=== PATIENT | male | born 1935 | race Caucasian/White ===

== ENCOUNTER 2020-03-27 14:15 | Inpatient (IN) | payer MEDICARE ==
[~2020-03-27] VITALS: Ht 167.6 cm; Wt 61.0 kg
[2020-03-27 14:47] VITALS: BP 103/71
[2020-03-27] MEDS ORDERED: METHYL SALICYLATE/MENTHOL TOPICAL OINTMENT 57GM TUBE. TP PRN (15:15)
[2020-03-27] MEDS ORDERED: MAGNESIUM HYDROXIDE 2,400 MG/30 ML ORAL.SUSP. PO PRN (15:15)
[2020-03-27] MEDS ORDERED: ACETAMINOPHEN 325 MG TABLET PO PRN (15:15)
[2020-03-27] MEDS ORDERED: MAG HYDROX/AL HYDROX/SIMETH 30 ML ORAL.SUSP PO PRN (15:15)
[2020-03-27 15:32] VITALS: BP 103/71
--- NOTE | 2020-03-27 15:50 | NUR ---
The patient, PREMA TABOR, 85 y/o, M admitted by KARLA COLE MD, was given written information regarding hospital policies, unit procedures and contact persons. Patient arrived at 1410 from [facility] via their transportation. On arrival, patient appears sedated and his speech is garbled. Nurse placed call to [facility] as they did not call report to this nurse. Nurse spoke with Jodie who stated that they did not give the patient any PRN medications prior to departure. Patient has catheter that was not stat locked to his leg. Patient pulling at catheter. Urine is orange and cloudy. Patient oriented to self, BD and year. He also knew that he wasn't at home. He denies wanting a gun to shoot people. Patient was changed into hospital gown and is laying in bed. He is sleeping with no s/s pain noted. Facility notes indicate that he had not been sleeping well and that he had a fall on 03/23/20. Valuables were checked and belongings were inventoried. COVID 19 swab done and sent to Lab.
[2020-03-27 16:28] LABS: ALBUMIN 2.6 g/dL (3.4-5.0); ALBUMIN/GLOBULIN RATIO 0.8 (1.0-1.7); CALCIUM 8.3 mg/dL (8.5-10.1); CREATININE 1.1 mg/dL (0.7-1.3); GFR 63.8; TOTAL BILIRUBIN 0.8 mg/dL (0.2-1.0)
[2020-03-27 16:57] LABS: BASO % 0 % (0-3); EOS # 0.2 x10^3/uL (0.0-0.7); EOS % 2 % (0-3); HEMOGLOBIN 11.3 g/dL (13.0-17.5); LYMPH # 0.8 x10^3/uL (1.0-4.8); LYMPH % 8 % (24-48); MEAN CORPUSCULAR HEMOGLOBIN 28 pg (25-35); MEAN CORPUSCULAR HGB CONC 32 g/dL (31-37); MEAN CORPUSCULAR VOLUME 88 fL (79-100); MONO # 0.8 x10^3/uL (0.0-1.1); MONO % 8 % (0-9); NEUT # 8.6 x10^3uL (1.8-7.7); NEUT % 83 % (31-73); PLATELET COUNT 271 x10^3/uL (140-400); RED CELL DISTRIBUTION WIDTH 17.1 % (11.5-14.5); WHITE BLOOD COUNT 10.4 x10^3/uL (4.0-11.0)
[2020-03-27] MEDS ORDERED: BISA10SU4 RC (17:04)
[2020-03-27] MEDS ORDERED: LOVA20TA2 PO (17:04)
[2020-03-27] MEDS ORDERED: L.AC300C PO (17:04)
[2020-03-27] MEDS ORDERED: POLY17PO5 PO (17:04)
[2020-03-27] MEDS ORDERED: POTA8TAB PO (17:04)
[2020-03-27] MEDS ORDERED: MENT113O12 TP (17:04)
[2020-03-27] MEDS ORDERED: DUTA0.5C16 PO (17:04)
[2020-03-27] MEDS ORDERED: MELA3TAB4 PO (17:04)
[2020-03-27] MEDS ORDERED: SENN1TAB37 PO (17:04)
[2020-03-27] MEDS ORDERED: CETI10TA16 PO (17:04)
[2020-03-27] MEDS ORDERED: FLUT15.812 NS (17:04)
[2020-03-27] MEDS ORDERED: LORA-254 PO ×2 (17:04)
[2020-03-27] MEDS ORDERED: ASPI-630 PO (17:04)
[2020-03-27] MEDS ORDERED: CARV12.547 PO (17:04)
[2020-03-27] MEDS ORDERED: TRIM100T13 PO (17:04)
[2020-03-27] MEDS ORDERED: BACI1PAC4 TP (17:04)
[2020-03-27] MEDS ORDERED: OMEP20TA8 PO (17:04)
[2020-03-27] MEDS ORDERED: TAMS0.4C97 PO (17:04)
[2020-03-27] MEDS ORDERED: ESCITALOPRAM OX10 MG PO (17:04)
[2020-03-27] MEDS ORDERED: IPRA4AER INH (17:04)
[2020-03-27] MEDS ORDERED: GABA-586 PO (17:04)
[2020-03-27] MEDS ORDERED: PRED1TAB PO (17:04)
[2020-03-27] MEDS ORDERED: ISOS30TA4 PO (17:04)
[2020-03-27] MEDS ORDERED: DOCU100C28 PO (17:04)
[2020-03-27] MEDS ORDERED: FURO20TA3 PO (17:04)
[2020-03-27] MEDS ORDERED: ACET325T9 PO ×2 (17:04)
[2020-03-27] MEDS ORDERED: APIX5TAB3 PO (17:04)
[2020-03-27] MEDS ORDERED: MAGN400O7 PO (17:04)
--- NOTE | 2020-03-27 17:11 | EKG ---
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
[2020-03-27] MEDS ORDERED: LORazepam 1 MG TABLET PO PRN (17:30)
[2020-03-27] MEDS ORDERED: FLU VACC QS 2020-21(6MOS+)/PF 0.5 ML SYRINGE. VAX IM ONE (18:00)
--- NOTE | 2020-03-27 19:28 | NUR ---
patient has been calm, sleeping, no s/s pain noted at this time. Patient has recent history of not sleeping. patient did not eat dinner.
[2020-03-27] MEDS ORDERED: ZINC OXIDE TP PRN (19:30)
[2020-03-27] MEDS ORDERED: BISACODYL 10 MG SUPP.RECT RC PRN (19:30)
[2020-03-27] MEDS ORDERED: POLYETHYLENE GLYCOL 3350 17 GM PACKET. PO PRN (19:30)
[2020-03-27] MEDS ORDERED: DOCUSATE SODIUM 100 MG CAPSULE PO PRN (19:30)
[2020-03-27] MEDS ORDERED: MENTHOL TP PRN (19:30)
[2020-03-27] MEDS: MELATONIN 3 MG TABLET PO SCH (20:30)
[2020-03-27] MEDS: ACETAMINOPHEN 325 MG TABLET PO SCH (20:30)
[2020-03-27] MEDS: APIXABAN 5 MG TABLET. PO SCH (20:31)
[2020-03-27] MEDS: ATORVASTATIN CALCIUM 10 MG TABLET. PO SCH (20:31)
[2020-03-27] MEDS: TAMSULOSIN 0.4 MG CAP.ER.24H. PO SCH (20:31)
[2020-03-27] MEDS: GABAPENTIN 300 MG CAPSULE. PO SCH (20:31)
[2020-03-27] MEDS: LORazepam 0.5 MG TABLET PO SCH (20:37)
[2020-03-27] MEDS: CARVEDILOL 12.5 MG TABLET PO SCH (20:37)
[2020-03-27] MEDS ORDERED: LORazepam 1 MG TABLET PO SCH (21:00)
[2020-03-27] MEDS ORDERED: NON FORMULARY ITEM (Lovastatin 20 MG) PO SCH (21:00)
[2020-03-27 21:26] VITALS: BP 123/78
[2020-03-27] MEDS: IPRATROPIUM/ALBUTEROL 20/100mcg/INH INHALER. INH SCH (21:33)
[2020-03-27] MEDS: FLUTICASONE 50MCG/NASAL SPRAY 16GM BOTTLE. NS SCH (21:33)
[2020-03-27] MEDS: BACITRACIN ZINC TOPICAL OINT PACKET. TP SCH (21:34)
--- NOTE | 2020-03-27 22:13 | PDOC ---
Exam Note: Ernesto Note: Please also refer to the separate dictated note~for this date of service dictated separately.~Patient seen individually. Discussed the patient with Nursing staff reviewed the chart.~Reviewed interim history and current functioning. Reviewed vital signs,~Labs/ Radiology~and current medications noted below. Continue current treatment with the changes noted in the dictated addendum note Assessment: Vital Signs/I&O: Vital Signs Date Time Temp Pulse Resp B/P (MAP) Pulse Ox O2 Delivery O2 Flow Rate FiO2 03/27/20 21:26 97.6 69 18 123/78 (93) 96 Nasal Cannula 3.0 Labs: Laboratory Tests Test 03/27/20 15:10 03/27/20 15:55 Sodium Level 134 mmol/L (136-145) L Potassium Level 4.0 mmol/L (3.5-5.1) Chloride Level 99 mmol/L (98-107) Carbon Dioxide Level 30 mmol/L (21-32) Anion Gap 5 (6-14) L Blood Urea Nitrogen 12 mg/dL (8-26) Creatinine 1.1 mg/dL (0.7-1.3) Estimated GFR (Cockcroft-Gault) 63.8 BUN/Creatinine Ratio 11 (6-20) Glucose Level 150 mg/dL (70-99) H Calcium Level 8.3 mg/dL (8.5-10.1) L Magnesium Level 2.0 mg/dL (1.8-2.4) Total Bilirubin 0.8 mg/dL (0.2-1.0) Aspartate Amino Transferase (AST) 10 U/L (15-37) L Alanine Aminotransferase (ALT) 9 U/L (16-63) L Alkaline Phosphatase 72 U/L (46-116) Total Protein 6.0 g/dL (6.4-8.2) L Albumin 2.6 g/dL (3.4-5.0) L Albumin/Globulin Ratio 0.8 (1.0-1.7) L White Blood Count 10.4 x10^3/uL (4.0-11.0) Red Blood Count 4.00 x10^6/uL (4.30-5.70) L Hemoglobin 11.3 g/dL (13.0-17.5) L Hematocrit 35.0 % (39.0-53.0) L Mean Corpuscular Volume 88 fL (79-100) Mean Corpuscular Hemoglobin 28 pg (25-35) Mean Corpuscular Hemoglobin Concent 32 g/dL (31-37) Red Cell Distribution Width 17.1 % (11.5-14.5) H Platelet Count 271 x10^3/uL (140-400) Neutrophils (%) (Auto) 83 % (31-73) H Lymphocytes (%) (Auto) 8 % (24-48) L Monocytes (%) (Auto) 8 % (0-9) Eosinophils (%) (Auto) 2 % (0-3) Basophils (%) (Auto) 0 % (0-3) Neutrophils # (Auto) 8.6 x10^3uL (1.8-7.7) H Lymphocytes # (Auto) 0.8 x10^3/uL (1.0-4.8) L Monocytes # (Auto) 0.8 x10^3/uL (0.0-1.1) Eosinophils # (Auto) 0.2 x10^3/uL (0.0-0.7) Basophils # (Auto) 0.0 x10^3/uL (0.0-0.2) D-Dimer (Yolanda) 0.50 mg/L (0.00-0.50) Current Medications: Meds: Current Medications Medications (Trade) Dose Ordered Sig/Ralph Route PRN Reason Start Time Stop Time Status Last Admin Dose Admin Influenza Virus Vaccine Quadrival (Fluzone Quad 7416-4502 Syringe) 0.5 ml ONCE ONCE VAX IM 03/27/20 18:00 03/27/20 18:01 DC 03/27/20 19:43 Gabapentin (Neurontin) 300 mg TID PO 03/27/20 21:00 03/27/20 20:31 Melatonin (Melatonin) 6 mg QHS PO 03/27/20 21:00 03/27/20 20:30 Lorazepam (Ativan) 0.5 mg TID PO 03/27/20 21:00 03/30/20 22:00 03/27/20 20:37 Acetaminophen (Tylenol) 650 mg BID PO 03/27/20 21:00 03/27/20 20:30 Apixaban (Eliquis) 5 mg BID PO 03/27/20 21:00 10/8/20 20:31 Carvedilol (Coreg) 12.5 mg BIDWMEALS PO 03/27/20 21:00 03/27/20 20:37 Tamsulosin HCl (Flomax) 0.4 mg HS PO 03/27/20 21:00 03/27/20 20:31 Bacitracin (Bacitracin Topical Pkt) 1 pkt BID TP 03/27/20 21:00 03/27/20 21:34 Fluticasone Propionate (Flonase) 1 spray HS NS 03/27/20 21:00 03/27/20 21:33 Albuterol/ Ipratropium (Combivent Respimat 20-100 Mcg) 2 puff RTBID INH 03/27/20 20:00 03/27/20 21:33 Atorvastatin Calcium (Lipitor) 5 mg QHS PO 03/27/20 21:00 03/27/20 20:31 I have reviewed the current psychotropics carefully including drug interactions. Risk benefit ratio favors no change other than as noted in my dictated progress note. Diagnosis: Problems: (1) COVID-19 ruled out SKYE GALVAN MD Mar 27, 2020 22:13
[2020-03-28 00:06] LABS: THYROXINE 5.7 ug/dL (4.5-12.0)
[2020-03-28 03:07] LABS: HEMOGLOBIN A1C 5.5 % (4.8-5.6)
--- NOTE | 2020-03-28 04:30 | NUR ---
Nursing Note The patient was located in his room laying in bed when approached by this nurse for his assessment. the patient was alert and oriented to self, hospital and year. The patient was calm and cooperative but drowsy. The patients catheter was noted to be pulling on his penis and the patient stated that it was very uncomfortable. Stat lock was changed. The patient is currently sleeping in his room.
[2020-03-28 05:42] VITALS: BP 142/84
[2020-03-28 07:08] LABS: BILIRUBIN,URINE NEG (NEG); CLARITY,URINE CLOUDY; COLOR,URINE YELLOW; GLUCOSE,URINE NEG (NEG); NITRITE,URINE POS (NEG)
[2020-03-28 07:09] LABS: BACTERIA,URINE MANY /HPF (0-FEW); RBC,URINE 20-40 /HPF (0-2); SQUAMOUS EPITHELIAL CELL,UR OCC /LPF; WBC,URINE 20-40 /HPF (0-4)
[2020-03-28 09:00] VITALS: BP 124/70
[2020-03-28] MEDS: TRIMETHOPRIM 100 MG TABLET PO SCH (09:00)
[2020-03-28 09:59] VITALS: BP 124/70
[2020-03-28] MEDS: LORazepam 0.5 MG TABLET PO SCH ×3 (11:00→20:30)
[2020-03-28] MEDS: GABAPENTIN 300 MG CAPSULE. PO SCH ×3 (11:01→20:30)
[2020-03-28] MEDS: FUROSEMIDE 20 MG TABLET PO SCH (11:01)
[2020-03-28] MEDS: ACETAMINOPHEN 325 MG TABLET PO SCH ×2 (11:01→20:30)
[2020-03-28] MEDS: CITALOPRAM 20 MG TABLET. PO SCH (11:01)
[2020-03-28] MEDS: POTASSIUM CHLORIDE 10 MEQ TABLET.ER. PO SCH (11:01)
[2020-03-28] MEDS: CETIRIZINE HCL 10 MG TABLET PO SCH (11:01)
[2020-03-28] MEDS: DUTASTERIDE 0.5 MG CAPSULE PO SCH (11:01)
[2020-03-28] MEDS: APIXABAN 5 MG TABLET. PO SCH ×2 (11:01→20:30)
[2020-03-28] MEDS: CARVEDILOL 12.5 MG TABLET PO SCH ×2 (11:01→17:09)
[2020-03-28] MEDS: ASPIRIN CHEWABLE 81 MG TABLET. PO SCH (11:02)
[2020-03-28] MEDS: BACITRACIN ZINC TOPICAL OINT PACKET. TP SCH ×2 (11:02→20:31)
[2020-03-28] MEDS: LACTOBACILLUS RHAMNOSUS GG 1 CAPSULE. PO SCH ×2 (11:02→20:30)
[2020-03-28] MEDS: ISOSORBIDE MONONITRATE ER 30 MG TAB.ER.24H PO SCH (11:02)
[2020-03-28] MEDS: PANTOPRAZOLE 40 MG TABLET. PO SCH (11:02)
[2020-03-28] MEDS: predniSONE 1 MG TABLET PO SCH (11:04)
[2020-03-28] MEDS: IPRATROPIUM/ALBUTEROL 20/100mcg/INH INHALER. INH SCH ×2 (11:04→20:00)
--- NOTE | 2020-03-28 13:18 | NUR ---
Nursing note: Pt in his bed when approached for morning med pass and assessment. He was calm and compliant with meds floated in applesauce. Pt was very appreciative of receiving a bed bath this morning. He has intermittently been dozing off throughout this shift, but is currently laying in bed awake. Will continue to monitor.
[2020-03-28 14:39] VITALS: BP 105/67
--- NOTE | 2020-03-28 17:28 | NUR ---
NURSING NOTE THIS NURSE TOOK REPORT FROM YANA MAHMOOD AND WILL TAKE OVER CARE. ELA MOSER
[2020-03-28 18:35] LABS: THYROID STIM HORMONE (TSH) 0.549 uIU/mL (0.358-3.740)
[2020-03-28] MEDS: ATORVASTATIN CALCIUM 10 MG TABLET. PO SCH (20:30)
[2020-03-28] MEDS: TAMSULOSIN 0.4 MG CAP.ER.24H. PO SCH (20:30)
[2020-03-28] MEDS: MELATONIN 3 MG TABLET PO SCH (20:30)
[2020-03-28] MEDS: FLUTICASONE 50MCG/NASAL SPRAY 16GM BOTTLE. NS SCH (20:31)
--- NOTE | 2020-03-28 21:47 | RAD ---
Exam: Chest one view INDICATION: Worsening shortness of breath, possible aspiration pneumonia TECHNIQUE: Frontal view of the chest Comparisons: None FINDINGS: Sternotomy wires are noted. Replaced cardiac valve is seen. Heart is enlarged. Pulmonary vessels are within normal limits. The lung and pleural spaces are clear. IMPRESSION: No acute pulmonary process. Electronically signed by: Sandip Phillip MD (03/28/2020 9:44 PM) SIS
--- NOTE | 2020-03-28 22:02 | PDOC ---
Exam Note: Ernesto Note: Please also refer to the separate dictated note~for this date of service dictated separately.~Patient seen individually. Discussed the patient with Nursing staff reviewed the chart.~Reviewed interim history and current functioning. Reviewed vital signs,~Labs/ Radiology~and current medications noted below. Continue current treatment with the changes noted in the dictated addendum note Assessment: Vital Signs/I&O: Vital Signs Date Time Temp Pulse Resp B/P (MAP) Pulse Ox O2 Delivery O2 Flow Rate FiO2 03/28/20 17:09 72 105/67 03/28/20 14:39 98.2 18 96 Room Air 03/28/20 09:59 2.0 I & O 03/27/20 03/27/20 03/28/20 15:00 23:00 07:00 Intake Total 0 ml 200 ml Output Total 300 ml Balance -300 ml 200 ml Labs: Laboratory Tests Test 03/28/20 05:30 Urine Collection Type Unknown Urine Color Yellow Urine Clarity Cloudy Urine pH 5.5 Urine Specific [place] 1.020 Urine Protein Neg (NEG-TRACE) Urine Glucose (UA) Neg mg/dL (NEG) Urine Ketones (Stick) Neg mg/dL (NEG) Urine Blood Large (NEG) Urine Nitrite Pos (NEG) Urine Bilirubin Neg (NEG) Urine Urobilinogen Dipstick 2.0 mg/dL (0.2 mg/dL) Urine Leukocyte Esterase Mod (NEG) Urine RBC 20-40 /HPF (0-2) Urine WBC 20-40 /HPF (0-4) Urine Squamous Epithelial Cells Occ /LPF Urine Bacteria Many /HPF (0-FEW) Current Medications: Meds: Current Medications Medications (Trade) Dose Ordered Sig/Ralph Route PRN Reason Start Time Stop Time Status Last Admin Dose Admin Citalopram Hydrobromide (CeleXA) 20 mg DAILY PO 03/28/20 09:00 03/28/20 11:01 Aspirin (Aspirin Chewable) 81 mg DAILY PO 03/28/20 09:00 03/28/20 11:02 Cetirizine HCl (ZyrTEC) 10 mg DAILY PO 03/28/20 09:00 03/28/20 11:01 Dutasteride (Avodart) 0.5 mg DAILY PO 03/28/20 09:00 03/28/20 11:01 Furosemide (Lasix) 20 mg DAILY PO 03/28/20 09:00 03/28/20 11:01 Isosorbide Mononitrate (Imdur) 30 mg DAILY PO 03/28/20 09:00 03/28/20 11:02 Prednisone (Prednisone) 4 mg DAILY PO 03/28/20 09:00 03/28/20 11:04 Lactobacillus Rhamnosus (Culturelle) 1 cap BID PO 03/28/20 09:00 03/28/20 20:30 Pantoprazole Sodium (Protonix) 40 mg DAILY PO 03/28/20 09:00 03/28/20 11:02 Potassium Chloride (Klor-Con) 10 meq DAILY PO 03/28/20 09:00 03/28/20 11:01 I have reviewed the current psychotropics carefully including drug interactions. Risk benefit ratio favors no change other than as noted in my dictated progress note. Diagnosis: Problems: (1) COVID-19 ruled out SKYE GALVAN MD Mar 28, 2020 22:02
--- NOTE | 2020-03-28 23:14 | CONS ---
DATE OF CONSULTATION: 03/27/2020 PSYCHIATRIC CONSULTATION This late entry 03/27/2020 covers elements not covered in my initial note of 03/27/2020. IDENTIFYING DATA: The patient is an 85-year-old male, referred to us from [facility] by his primary care physician on account of worsening symptoms of depression, agitation. The patient reportedly was voicing suicidal ideation, had auditory hallucinations. He had reportedly poor judgment, was having repeated falls, was delusional, thinking that his peer was having an affair with his . He was threatening to harm the peer, agitated, restless, hitting staff, yelling, cursing, name calling, having marked insomnia. He was recently treated for UTI 3 weeks ago. The patient's behaviors were deemed dangerous, unmanageable. He is also more confused, had failed outpatient psychiatric interventions resulting in this referral. I had previously discussed the patient with Mary Jo Qiu, administrative project coordinator as well. CHIEF COMPLAINT: "No." The patient is not very verbal, interactive. HISTORY OF PRESENT ILLNESS: The patient has a history of worsening symptoms of depression and confusion. He has been paranoid, psychotic, agitated, aggressive, with marked mood lability. No clear history of bipolar disorder. PAST PSYCHIATRIC HISTORY: As above. MEDICAL HISTORY: Positive for history of pulmonary embolism, cognitive communication deficit, hypospadias, hyperlipidemia, hypertension, coronary artery bypass graft, acute embolism of lower extremity, COPD, osteoarthritis, muscle weakness, osteoporosis, obstructive reflux uropathy, BPH, edema, history of falls. ACCU-CHEKS: None. ALLERGIES: CODEINE, TRAMADOL, HYDROCODONE, PHENYLEPHRINE. CODE STATUS: DNR. DIET: Cut meat/cardiac. Ambulates with wheelchair and 2% assist. CURRENT PSYCHOTROPICS: Neurontin 300 mg t.i.d., Lexapro 10 mg a day, Ativan 1 mg b.i.d. plus p.r.n., melatonin 6 mg at bedtime. FAMILY HISTORY: Noncontributory. SOCIAL HISTORY: No history of alcohol, drug abuse, physical, sexual or elder abuse. He is not known to be a perpetrator. REACTION TO HOSPITALIZATION: The patient accepting of it. MENTAL STATUS EXAMINATION: The patient was seen individually evening of 03/27/2020. He is oriented to himself, not very verbal, interactive, appears depressed, paranoid, suspicious. Attention span short period of time. He seemed sedated and we will go ahead and taper the Ativan down to 0.5 mg t.i.d. for 3 days, then b.i.d. for 3 days, once a day for 3 days and stop it. We are also checking UA for UTI and this has reflex to culture. Attention span short. Language function intact. Mood and affect depressed. IMPRESSION: Major depressive disorder with psychotic features rule out major neurocognitive disorder, vascular with depression, delusions, impulse control disorder; anxiety disorder, unspecified. Rest as above. RECOMMENDATIONS: From a psychiatric standpoint, taper the Ativan. Await UA, C and S. Continue rest of the psychotropics per Dr. Demarco. Thank you for the opportunity to participate in your patient's care. We will follow with you. We will transition to [facility] once the COVID screen returns negative. He was initially to be admitted to the [facility], but given the COVID exposure, he is being admitted to fdc unit until a repeat COVID is negative and then he will transition to [facility]. SKYE GAVLAN MD DR: STEPHEN/ivania JOB#: [id number] / [id number]
--- NOTE | 2020-03-28 23:54 | NUR ---
Pt has been laying in bed all evening. Pt drowsy, awakens to name. Pt noted to have moist cough. CXR ordered. Results negative. HS medications held d/t pt's excessive drowsiness. Will continue to monitor.
--- NOTE | 2020-03-29 00:18 | NUR ---
Pt awake now and hollering out. Pt calling out for "mom" and "dad." Pt able to state that he [facility] at a [facility] in [place], his age, the president and the year. HS medications administered at this time. Will continue to monitor.
[2020-03-29 06:34] VITALS: BP 144/80
--- NOTE | 2020-03-29 07:09 | PDOC ---
Exam Note: Ernesto Note: This note is a late entry for 03/28/2020 covers elements not covered in my initial note. Subjective: The patient was reviewed on telehealth rounds in the evening of 03/28/2020 with Saima MAHMOOD. Discussed with nursing staff, reviewed the chart. He has been somewhat sedated with possible aspiration risk despite the fact that we had tapering his Ativan. UA is reflex to C&S. Review of Systems: Ambulation impaired. No CV, , pulmonary, eye system symptoms on review. Mental Status Exam: Oriented to himself. He was not very verbal earlier. Insight and judgment, recent memory is impaired. Mood and affect is withdrawn. Laboratory Data: Reviewed. Impression: Major depressive disorder with psychotic features. 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 Plan: Await UA C&S and treat as indicated. Taper the Ativan. Continue Lexapro 10 mg a day, melatonin 6 mg h.s. He also remains on Neurontin 300 mg t.i.d. Adjust further as clinically indicated. Assessment: Vital Signs/I&O: Vital Signs Date Time Temp Pulse Resp B/P (MAP) Pulse Ox O2 Delivery O2 Flow Rate FiO2 03/29/20 06:34 97.4 66 16 144/80 (101) 94 Room Air 03/28/20 20:00 3.0 I & O 03/28/20 03/28/20 03/29/20 15:00 23:00 07:00 Intake Total 1180 ml 580 ml 0 ml Output Total 900 ml 375 ml Balance 1180 ml -320 ml -375 ml Current Medications: Meds: Current Medications Medications (Trade) Dose Ordered Sig/Ralph Route PRN Reason Start Time Stop Time Status Last Admin Dose Admin Citalopram Hydrobromide (CeleXA) 20 mg DAILY PO 03/28/20 09:00 03/28/20 11:01 Aspirin (Aspirin Chewable) 81 mg DAILY PO 03/28/20 09:00 03/28/20 11:02 Cetirizine HCl (ZyrTEC) 10 mg DAILY PO 03/28/20 09:00 03/28/20 11:01 Dutasteride (Avodart) 0.5 mg DAILY PO 03/28/20 09:00 03/28/20 11:01 Furosemide (Lasix) 20 mg DAILY PO 03/28/20 09:00 03/28/20 11:01 Isosorbide Mononitrate (Imdur) 30 mg DAILY PO 03/28/20 09:00 03/28/20 11:02 Prednisone (Prednisone) 4 mg DAILY PO 03/28/20 09:00 03/28/20 11:04 Lactobacillus Rhamnosus (Culturelle) 1 cap BID PO 03/28/20 09:00 03/28/20 20:30 Pantoprazole Sodium (Protonix) 40 mg DAILY PO 03/28/20 09:00 03/28/20 11:02 Potassium Chloride (Klor-Con) 10 meq DAILY PO 03/28/20 09:00 03/28/20 11:01 I have reviewed the current psychotropics carefully including drug interactions. Risk benefit ratio favors no change other than as noted in my dictated progress note. Diagnosis: Problems: (1) Major depressive disorder with psychotic features (2) Mild cognitive impairment with memory loss (3) Major neurocognitive disorder (4) Dementia in Alzheimer's disease with delusions (5) Dementia in Alzheimer's disease with depression (6) Dementia, vascular, with delusions (7) Dementia, vascular, with depression SKYE GALVAN MD Mar 29, 2020 07:09
[2020-03-29] MEDS: IPRATROPIUM/ALBUTEROL 20/100mcg/INH INHALER. INH SCH ×2 (09:15→20:16)
[2020-03-29] MEDS: SENNOSIDES/DOCUSATE 8.6/50MG TABLET. PO SCH (09:16)
[2020-03-29] MEDS: APIXABAN 5 MG TABLET. PO SCH ×2 (09:16→20:12)
[2020-03-29] MEDS: TRIMETHOPRIM 100 MG TABLET PO SCH (09:16)
[2020-03-29] MEDS: ISOSORBIDE MONONITRATE ER 30 MG TAB.ER.24H PO SCH (09:17)
[2020-03-29] MEDS: LACTOBACILLUS RHAMNOSUS GG 1 CAPSULE. PO SCH ×2 (09:17→20:12)
[2020-03-29] MEDS: ACETAMINOPHEN 325 MG TABLET PO SCH ×2 (09:17→20:12)
[2020-03-29] MEDS: predniSONE 1 MG TABLET PO SCH (09:17)
[2020-03-29] MEDS: DUTASTERIDE 0.5 MG CAPSULE PO SCH (09:17)
[2020-03-29] MEDS: CETIRIZINE HCL 10 MG TABLET PO SCH (09:17)
[2020-03-29] MEDS: PANTOPRAZOLE 40 MG TABLET. PO SCH (09:17)
[2020-03-29] MEDS: CARVEDILOL 12.5 MG TABLET PO SCH ×2 (09:18→15:59)
[2020-03-29] MEDS: FUROSEMIDE 20 MG TABLET PO SCH (09:18)
[2020-03-29] MEDS: BACITRACIN ZINC TOPICAL OINT PACKET. TP SCH ×2 (09:18→20:16)
[2020-03-29] MEDS: CITALOPRAM 20 MG TABLET. PO SCH (09:18)
[2020-03-29] MEDS: ASPIRIN CHEWABLE 81 MG TABLET. PO SCH (09:18)
[2020-03-29] MEDS: POTASSIUM CHLORIDE 10 MEQ TABLET.ER. PO SCH (09:18)
[2020-03-29] MEDS: GABAPENTIN 300 MG CAPSULE. PO SCH ×3 (09:18→20:15)
[2020-03-29] MEDS: LORazepam 0.5 MG TABLET PO SCH ×3 (09:22→20:15)
--- NOTE | 2020-03-29 10:16 | NUR ---
Patient states he will like to go home. Patients also yells this out of his room. Patient complains of tenderness around albert. Ointment placed around albert and bad adjusted not to tug on albert. Patient compliant with medication and assessment and was readjusted in bed.
[2020-03-29 18:47] VITALS: BP 161/89
--- NOTE | 2020-03-29 19:35 | HP ---
ADMIT DATE: HISTORY OF PRESENT ILLNESS: The patient is an 85-year-old male patient, a resident at [facility] who was admitted to [facility] 48-hour hold to make sure that he is COVID-19 negative. He was admitted on account of having suicidal ideation, auditory hallucination, poor judgment, falls, delusional thinking that peer is having an affair with his . The patient has been threatening to harm peer, agitated, restless, hitting staff, yelling, cursing, name calling and insomnia. He was treated recently for UTI about 3 weeks ago and all this in a background of major depressive disorder with impulse control disorder. PAST MEDICAL HISTORY: Significant for hypertension, hyperlipidemia, pulmonary embolism and DVT, COPD, osteoarthritis, muscle weakness, osteoporosis, has also obstructive uropathy due to benign prostatic hypertrophy. PAST SURGICAL HISTORY: Significant for coronary artery bypass graft surgery. ALLERGIES: HE IS ALLERGIC TO CODEINE, HYDROCODONE, PHENYLEPHRINE, AND TRAMADOL. MEDICATIONS: He is currently on following medications: He is on lorazepam 0.5 mg daily and lorazepam 0.5 mg twice a day, Senna-S 1 tablet every other day, potassium chloride 10 mEq daily, Protonix 40 mg daily, lactobacillus rhamnosus 1 capsule twice a day, trimethoprim 100 mg daily, prednisone 4 mg daily, isosorbide mononitrate 30 mg daily, furosemide 20 mg daily. He is on Avodart 0.5 mg daily, cetirizine for Zyrtec 10 mg daily, aspirin 81 mg once a day, citalopram hydrobromide for Celexa 20 mg daily, atorvastatin calcium 5 mg at bedtime, Flonase 1 spray to each nostril daily, bacitracin 1 packet b.i.d., tamsulosin 0.4 mg at bedtime, carvedilol 12.5 mg twice a day, apixaban 5 mg twice a day, acetaminophen 650 mg twice a day, lorazepam 0.5 mg 3 times a day, melatonin 6 mg at bedtime, gabapentin 300 mg 3 times a day, albuterol and Atrovent 2 puffs twice a day, polyethylene glycol 17 grams daily, Colace 100 mg twice a day, bisacodyl 10 mg suppositories rectally daily p.r.n. for constipation, milk of magnesia 30 mL p.o. daily p.r.n. for constipation, Mylanta Plus 15 mL after meals and as needed, acetaminophen 650 mg every 6 hours. FAMILY HISTORY: Noncontributory. SOCIAL HISTORY: He apparently is , has a son and daughter. He quit smoking and drinking alcohol 55 years ago, according to him. 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 REVIEW OF SYSTEMS: As per history of present illness. PHYSICAL EXAMINATION GENERAL: When I examined him this afternoon, he was resting slightly propped up in bed, in no apparent distress. He is somewhat pale, cachectic, no jaundice or cyanosis. No lymphadenopathy, no thyromegaly. No jugular venous distention. No limb edema. VITAL SIGNS: Her heart rate was 66, blood pressure was 144/80, temperature was 97.4, respiratory rate was 16, and oxygen saturation was 94% on 3 liters of oxygen. HEAD, EYES, EARS, NOSE AND THROAT: Showed normocephalic, atraumatic. NECK: Supple. HEART: Normal first and second heart sounds. No gallop, rub or murmur. CHEST: Clear to auscultation. No crepitation or rhonchi. ABDOMEN: Scaphoid, soft, nontender. NEUROLOGIC: He is awake, alert, responding appropriately. All cranial nerves intact. EXTREMITIES: He moves extremities without difficulty, though he has marked muscle wasting and weakness. He has an indwelling Terrazas catheter with resultant acquired hypospadias. His urine is dark. LABORATORY DATA: His lab work showed his white cell count to be 10,400, hemoglobin 11, hematocrit 35, MCV 88 and platelet count 271,000 with normal manual differential. His D-dimer was 0.5 and his chemistry showed a serum sodium 134, potassium 4, chloride 99, bicarbonate 30, anion gap of 5, BUN 12, creatinine 1.1, estimated GFR was 64 mL per minute, his glucose 150, calcium was 8.3, magnesium 2. Total bilirubin, AST, ALT, alkaline phosphatase were normal. Total protein 6, albumin was 2.6. His serum iron, TIBC and iron saturation were all low. His serum triglycerides were 142, total cholesterol 117, LDL was 36, VLDL was 28, HDL was 53 and the ratio was 2. His vitamin B12 was 474 pg/mL. His 25-hydroxy vitamin D was low at 24.7. TSH was 0.549, total T4 was 5.7 and total T3 was 69, all within normal range. His urinalysis showed the urine was yellow, cloudy with a pH of 5.5, specific gravity of 1.020. The urine was negative for protein, glucose, ketones. There was large amount of blood, positive for nitrite, moderate amount of leukocyte esterase. There were 20-40 rbc's, 20-40 wbc's, many bacteria. His treponema pallidum antibodies were nonreactive and coronavirus per PCR was not detected. IMPRESSION: In summary, this is an 85-year-old male patient who was admitted on account of suicidal ideation, auditory hallucination, delusional thinking, poor judgment and recurrent falls. He thinks that his peer is having affair with his and threatening to harm peer, agitated, restless, hitting staff, yelling, cursing, name calling. He was treated recently for UTI about 3 weeks ago, all this in a background of major depressive disorder with impulse control disorder. Medically, he has hypertension, hyperlipidemia, DVT and PE, COPD, osteoarthritis, osteoporosis, benign prostatic hypertrophy with obstructive neuropathy. The patient seems to be medically stable. All his vital signs are within normal range. His lab works are also within acceptable range. He has normochromic normocytic anemia. His vitamin D is low at 24, so I will start him on cholecalciferol. His urine was sent for culture and sensitivity and has remained hemodynamically stable, afebrile. I would wait for the result of the urine culture. Meanwhile, we should monitor his urine output closely and if necessary, we can start him on IV fluid. KARLA COLE MD DR: RONALD/ivania JOB#: [id number] / [id number]
[2020-03-29] MEDS: ATORVASTATIN CALCIUM 10 MG TABLET. PO SCH (20:12)
[2020-03-29] MEDS: TAMSULOSIN 0.4 MG CAP.ER.24H. PO SCH (20:12)
[2020-03-29] MEDS: MELATONIN 3 MG TABLET PO SCH (20:15)
[2020-03-29] MEDS: FLUTICASONE 50MCG/NASAL SPRAY 16GM BOTTLE. NS SCH (20:16)
--- NOTE | 2020-03-29 22:11 | PDOC ---
Exam Note: Ernesto Note: Please also refer to the separate dictated note~for this date of service dictated separately.~Patient seen individually. Discussed the patient with Nursing staff reviewed the chart.~Reviewed interim history and current functioning. Reviewed vital signs,~Labs/ Radiology~and current medications noted below. Continue current treatment with the changes noted in the dictated addendum note Assessment: Vital Signs/I&O: Vital Signs Date Time Temp Pulse Resp B/P (MAP) Pulse Ox O2 Delivery O2 Flow Rate FiO2 03/29/20 20:00 Nasal Cannula 3.0 03/29/20 18:47 97.9 74 20 161/89 (113) 96 I & O 03/28/20 03/28/20 03/29/20 15:00 23:00 07:00 Intake Total 1180 ml 580 ml 0 ml Output Total 900 ml 375 ml Balance 1180 ml -320 ml -375 ml Current Medications: Meds: Current Medications Medications (Trade) Dose Ordered Sig/Ralph Route PRN Reason Start Time Stop Time Status Last Admin Dose Admin Senna/Docusate Sodium (Senna Plus) 1 tab QODAY PO 03/29/20 09:00 03/29/20 09:16 I have reviewed the current psychotropics carefully including drug interactions. Risk benefit ratio favors no change other than as noted in my dictated progress note. Diagnosis: Problems: (1) Mild cognitive impairment with memory loss (2) Dementia, vascular, with depression (3) Dementia, vascular, with delusions (4) Dementia in Alzheimer's disease with depression (5) Dementia in Alzheimer's disease with delusions (6) Major neurocognitive disorder (7) Major depressive disorder with psychotic features SKYE GALVAN MD Mar 29, 2020 22:11
--- NOTE | 2020-03-29 22:30 | NUR ---
Pt has been asleep all evening until this time. Pt woke up yelling out looking for his . Pt states that she is probably out doing drugs and that he needs to divorce her even though they've been for 65 years. Pt compliant with whole medications floated in applesauce; however very irritable and threatened to throw his cup of water on this RN. Pt currently awake in bed hollering out intermittently. Will continue to monitor.
--- NOTE | 2020-03-29 23:27 | PDOC ---
Exam Note: Ernesto Note: This note for 03/29/2020 covers elements not covered in my initial note. Subjective: The patient was reviewed on telehealth rounds in the morning of 03/29/2020 with Filiberto MAHMOOD. Discussed with nursing staff, reviewed the chart. Overall the patient has been somewhat anxious, restless and at times seems, less confused than other times. Review of Systems: Ambulation impaired. No CV, , pulmonary, eye system symptoms on review. Mental Status Exam: Oriented to himself. Insight and judgment, recent and remote memory, attention and concentration, fund of knowledge is poor consistent with his diagnoses. Laboratory Data: Reviewed. Impression: Major depressive disorder with psychotic features. 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 Plan: No change from initial note. Assessment: Vital Signs/I&O: Vital Signs Date Time Temp Pulse Resp B/P (MAP) Pulse Ox O2 Delivery O2 Flow Rate FiO2 03/29/20 20:00 Nasal Cannula 3.0 03/29/20 18:47 97.9 74 20 161/89 (113) 96 I & O 03/28/20 03/28/20 03/29/20 15:00 23:00 07:00 Intake Total 1180 ml 580 ml 0 ml Output Total 900 ml 375 ml Balance 1180 ml -320 ml -375 ml Current Medications: Meds: Current Medications Medications (Trade) Dose Ordered Sig/Ralph Route PRN Reason Start Time Stop Time Status Last Admin Dose Admin Senna/Docusate Sodium (Senna Plus) 1 tab QODAY PO 03/29/20 09:00 03/29/20 09:16 I have reviewed the current psychotropics carefully including drug interactions. Risk benefit ratio favors no change other than as noted in my dictated progress note. Diagnosis: Problems: (1) Mild cognitive impairment with memory loss (2) Dementia, vascular, with depression (3) Dementia, vascular, with delusions (4) Dementia in Alzheimer's disease with depression (5) Dementia in Alzheimer's disease with delusions (6) Major neurocognitive disorder (7) Major depressive disorder with psychotic features (8) COVID-19 ruled out SKYE GALVAN MD Mar 29, 2020 23:27
[2020-03-30 06:24] VITALS: BP 127/65
[2020-03-30] MEDS: predniSONE 1 MG TABLET PO SCH (08:01)
[2020-03-30] MEDS: TRIMETHOPRIM 100 MG TABLET PO SCH (08:01)
[2020-03-30] MEDS: IPRATROPIUM/ALBUTEROL 20/100mcg/INH INHALER. INH SCH ×2 (08:01→20:01)
[2020-03-30] MEDS: CETIRIZINE HCL 10 MG TABLET PO SCH (08:01)
[2020-03-30] MEDS: GABAPENTIN 300 MG CAPSULE. PO SCH ×3 (08:02→19:54)
[2020-03-30] MEDS: PANTOPRAZOLE 40 MG TABLET. PO SCH (08:02)
[2020-03-30] MEDS: FUROSEMIDE 20 MG TABLET PO SCH (08:02)
[2020-03-30] MEDS: LORazepam 0.5 MG TABLET PO SCH ×3 (08:02→19:54)
[2020-03-30] MEDS: ACETAMINOPHEN 325 MG TABLET PO SCH ×2 (08:02→19:55)
[2020-03-30] MEDS: ISOSORBIDE MONONITRATE ER 30 MG TAB.ER.24H PO SCH (08:02)
[2020-03-30] MEDS: LACTOBACILLUS RHAMNOSUS GG 1 CAPSULE. PO SCH ×2 (08:02→19:54)
[2020-03-30] MEDS: ASPIRIN CHEWABLE 81 MG TABLET. PO SCH (08:02)
[2020-03-30] MEDS: BACITRACIN ZINC TOPICAL OINT PACKET. TP SCH ×2 (08:02→20:01)
[2020-03-30] MEDS: CARVEDILOL 12.5 MG TABLET PO SCH ×2 (08:03→16:50)
[2020-03-30] MEDS: APIXABAN 5 MG TABLET. PO SCH ×2 (08:03→19:55)
[2020-03-30] MEDS: POTASSIUM CHLORIDE 10 MEQ TABLET.ER. PO SCH (08:03)
[2020-03-30] MEDS: CITALOPRAM 20 MG TABLET. PO SCH (08:03)
[2020-03-30] MEDS: DUTASTERIDE 0.5 MG CAPSULE PO SCH (08:04)
--- NOTE | 2020-03-30 08:51 | NUR ---
Patient calm this morning andcomplaint with assessment. Patient currently has no needs and is eager to speak with later.
[2020-03-30 16:16] VITALS: BP 110/67
--- NOTE | 2020-03-30 19:47 | PN ---
DATE: 03/30/2020 SUBJECTIVE: The patient is resting, slightly propped up in bed, in no apparent respiratory distress. He is awake, alert, somewhat confused. Denied any complaint. His urine culture has grown more than 100,000 colony forming units per mL of gram-negative rods identified as Escherichia coli, sensitive to multiple antibiotics. PHYSICAL EXAMINATION: GENERAL: When I examined him, he looked pale, no jaundice, cyanosis or thyromegaly. No jugular venous distention. No limb edema. VITAL SIGNS: His heart rate was 65, blood pressure was 127/65, temperature 97.8, respiratory rate was 14 and oxygen saturation was 97% on 3 liters of oxygen. HEAD, EYES, EARS, NOSE AND THROAT: Showed normocephalic, atraumatic. NECK: Supple. HEART: Normal first and second heart sounds. No gallop or murmur. CHEST: Showed central trachea, equal bilateral chest expansion air entry, vesicular sounds. No crepitation or rhonchi. ABDOMEN: Distended, soft, nontender. NEUROLOGIC: He is demented, but without any obvious lateralizing sign. He has an indwelling Terrazas catheter. LABORATORY DATA: His intake over the last 24 hours was 1760, output was 1275. His treponema pallidum antibodies were nonreactive. Coronavirus by PCR was not detected. His urine culture has grown more than 100,000 colony forming units per mL of gram-negative rods, sensitive to all antibiotics. ASSESSMENT AND PLAN: The patient has urinary tract infection due to probably indwelling Terrazas catheter with growth of more than 100,000 colony forming units per mL of Escherichia coli, for which he will be started on ciprofloxacin. The patient has multiple other medical problems including hypertension, seems to be reasonably controlled, hyperlipidemia, pulmonary embolism and deep vein thrombosis, chronic obstructive pulmonary disease, osteoarthritis, osteoporosis, obstructive uropathy due to benign prostatic hypertrophy for which he had an indwelling Terrazas catheter passed and the patient will be started on ciprofloxacin. I will probably start the patient on cefdinir 300 mg twice a day unless it is not available. KARLA COLE MD DR: RONALD/ivania JOB#: [id number] / [id number]
[2020-03-30] MEDS: TAMSULOSIN 0.4 MG CAP.ER.24H. PO SCH (19:54)
[2020-03-30] MEDS: MELATONIN 3 MG TABLET PO SCH (19:55)
[2020-03-30] MEDS: ATORVASTATIN CALCIUM 10 MG TABLET. PO SCH (19:55)
[2020-03-30] MEDS: CEFDINIR 300 MG CAPSULE PO SCH (19:57)
[2020-03-30] MEDS: FLUTICASONE 50MCG/NASAL SPRAY 16GM BOTTLE. NS SCH (20:01)
--- NOTE | 2020-03-30 22:08 | PDOC ---
Exam Note: Ernesto Note: Please also refer to the separate dictated note~for this date of service dictated separately.~Patient seen individually. Discussed the patient with Nursing staff reviewed the chart.~Reviewed interim history and current functioning. Reviewed vital signs,~Labs/ Radiology~and current medications noted below. Continue current treatment with the changes noted in the dictated addendum note Assessment: Vital Signs/I&O: Vital Signs Date Time Temp Pulse Resp B/P (MAP) Pulse Ox O2 Delivery O2 Flow Rate FiO2 03/30/20 20:00 Nasal Cannula 3.0 03/30/20 16:50 63 110/67 03/30/20 16:16 97.6 92 03/30/20 06:24 14 I & O 03/29/20 03/29/20 03/30/20 15:00 23:00 07:00 Intake Total 240 ml 240 ml 0 ml Output Total 425 ml 250 ml Balance 240 ml -185 ml -250 ml Current Medications: Meds: Current Medications Medications (Trade) Dose Ordered Sig/Ralph Route PRN Reason Start Time Stop Time Status Last Admin Dose Admin Cefdinir (Omnicef) 300 mg BID PO 03/30/20 21:00 04/06/20 21:00 03/30/20 19:57 I have reviewed the current psychotropics carefully including drug interactions. Risk benefit ratio favors no change other than as noted in my dictated progress note. Diagnosis: Problems: (1) Mild cognitive impairment with memory loss (2) Dementia, vascular, with depression (3) Dementia, vascular, with delusions (4) Dementia in Alzheimer's disease with depression (5) Dementia in Alzheimer's disease with delusions (6) Major neurocognitive disorder (7) Major depressive disorder with psychotic features SKYE GALVAN MD Mar 30, 2020 22:08
--- NOTE | 2020-03-30 22:25 | NUR ---
Pt was asleep this evening until 2200. Pt woke up hollering "help, help." Pt wanted to know where the "girls" were and did I see them out the window. Compliant with whole medications. Pt joking and interactive this evening.
[2020-03-31 06:02] VITALS: BP 136/82
[2020-03-31] MEDS: POTASSIUM CHLORIDE 10 MEQ TABLET.ER. PO SCH (08:37)
[2020-03-31] MEDS: PANTOPRAZOLE 40 MG TABLET. PO SCH (08:37)
[2020-03-31] MEDS: CITALOPRAM 20 MG TABLET. PO SCH (08:37)
[2020-03-31] MEDS: CEFDINIR 300 MG CAPSULE PO SCH (08:37)
[2020-03-31] MEDS: CETIRIZINE HCL 10 MG TABLET PO SCH (08:37)
[2020-03-31] MEDS: ISOSORBIDE MONONITRATE ER 30 MG TAB.ER.24H PO SCH (08:37)
[2020-03-31] MEDS: TRIMETHOPRIM 100 MG TABLET PO SCH (08:37)
[2020-03-31] MEDS: predniSONE 1 MG TABLET PO SCH (08:37)
[2020-03-31 08:38] VITALS: BP 136/82
[2020-03-31] MEDS: CARVEDILOL 12.5 MG TABLET PO SCH (08:38)
[2020-03-31] MEDS: BACITRACIN ZINC TOPICAL OINT PACKET. TP SCH (08:38)
[2020-03-31] MEDS: ASPIRIN CHEWABLE 81 MG TABLET. PO SCH (08:38)
[2020-03-31] MEDS: ACETAMINOPHEN 325 MG TABLET PO SCH (08:38)
[2020-03-31] MEDS: SENNOSIDES/DOCUSATE 8.6/50MG TABLET. PO SCH (08:38)
[2020-03-31] MEDS: APIXABAN 5 MG TABLET. PO SCH (08:38)
[2020-03-31] MEDS: DUTASTERIDE 0.5 MG CAPSULE PO SCH (08:38)
[2020-03-31] MEDS: LACTOBACILLUS RHAMNOSUS GG 1 CAPSULE. PO SCH (08:38)
[2020-03-31] MEDS: GABAPENTIN 300 MG CAPSULE. PO SCH ×2 (08:38→13:42)
[2020-03-31] MEDS: IPRATROPIUM/ALBUTEROL 20/100mcg/INH INHALER. INH SCH (08:39)
[2020-03-31] MEDS: FUROSEMIDE 20 MG TABLET PO SCH (08:39)
[2020-03-31] MEDS ORDERED: LORazepam 0.5 MG TABLET PO SCH (09:00)
--- NOTE | 2020-03-31 13:14 | DS ---
DATE OF DISCHARGE: 03/31/2020 HOSPITAL COURSE: The patient is an 85-year-old male patient, resident at [facility] who was admitted to [facility] 48-hour hold to make sure that he is COVID-19 negative. He was admitted on account of having suicidal ideation, auditory hallucination, poor judgment, recurrent falls, delusional thinking that peer is having an affair with his . The patient has been threatening to harm peer, agitated, restless, hitting staff, yelling, cursing, name calling and insomnia. He was treated recently for UTI about 3 weeks ago, all this is in a background of major depressive disorder with impulse control disorder. While here, he has had urine culture done, which showed growth of more than 100,000 colony forming units per mL of gram-negative rods identified as Escherichia coli sensitive to almost all antibiotics including all cephalosporins for which he was started on oral cefdinir and he was coronavirus by PCR was negative. A decision was made to discharge him to [facility] to continue inpatient psychiatric stabilization. PHYSICAL EXAMINATION: GENERAL: When I saw him this afternoon, he looked well and was clearly in no apparent respiratory distress. No pallor, jaundice, cyanosis, or thyromegaly. No jugular venous distension. No lower limb edema. VITAL SIGNS: His heart rate was 67, blood pressure was 136/82, temperature was 97.8, respiratory rate was 24, and oxygen saturation was 93% on 3 liters of oxygen. HEAD, EYES, EARS, NOSE AND THROAT: Showed normocephalic and atraumatic. NECK: Supple. HEART: Showed normal first and second heart sounds with no gallop, rub or murmur. CHEST: Clear to auscultation. No crepitation or rhonchi. ABDOMEN: Distended, soft, nontender. NEUROLOGIC: He was awake, alert, responding appropriately. All cranial nerves are intact. He moves all his extremities without difficulty. He has an indwelling Terrazas catheter with resultant acquired hypospadias. LABORATORY DATA: Showed his white cell count was 10,400; hemoglobin 11.3; hematocrit 35; MCV 88 and platelet count of 271,000. His chemistry showed a serum sodium 134, potassium 4, chloride 99, bicarbonate 30, anion gap of 5, BUN 12, creatinine 1.1, estimated GFR was 64 mL per minute, glucose 150, calcium was 8.3, magnesium 2. Total bilirubin, AST, ALT, alkaline phosphatase were normal. Total protein was 6, albumin was 2.6. D-dimer was 0.5. Urinalysis showed the urine was yellow, cloudy with a pH of 5.5, specific gravity of 1.020. The urine was negative for protein, glucose, ketones. There was large amount of blood, moderate amount of leukocyte esterase, 20-40 rbc's, 20-40 wbc's, many bacteria. His treponema pallidum antibodies were nonreactive and coronavirus by PCR was not detected. DISCHARGE MEDICATIONS: He was discharged to [facility] to continue on cefdinir 300 mg twice a day with a stop date on 04/06/2020. He should continue on apixaban 5 mg twice a day, aspirin 81 mg once a day, bacitracin 1 tablet twice a day, bisacodyl 10 mg suppository rectally daily p.r.n. for constipation, carvedilol 12.5 mg twice a day, cetirizine 10 mg once a day, Colace 100 mg twice a day, dutasteride 0.5 mg daily, ____ oxalate 10 mg once a day, Flonase 1 spray to each nostril once a day, furosemide 20 mg once a day, gabapentin 300 mg 3 times a day, ipratropium bromide and albuterol sulfate for DuoNeb 2 puffs twice a day, isosorbide mononitrate 30 mg daily, Florajen 4 Kids capsules 300 mg daily, lorazepam for Ativan 1 mg once a day, lorazepam 1 mg twice a day, lovastatin 20 mg at bedtime, melatonin 6 mg at bedtime, menthol zinc oxide 1 application topically as needed, polyethylene glycol 17 g daily, potassium chloride 20 mEq once a day, prednisone 4 mg once a day, Senna-S 1 tablet every other day, Flomax 0.4 mg once a day and Trimethoprim 100 mg daily. FINAL DISCHARGE DIAGNOSES: 1. Suicidal ideation, auditory hallucination, poor judgment and delusional thinking. 2. Hypertension. 3. Hyperlipidemia. 4. Pulmonary embolism and deep venous thrombosis. 5. Chronic obstructive pulmonary disease. 6. Osteoarthritis, muscle weakness, osteoporosis. 7. Obstructive uropathy due to benign prostatic hypertrophy requiring indwelling Terrazas catheter. 8. Urinary tract infection with growth of more than 100,000 colony forming units/mL of Escherichia coli. KARLA COLE MD DR: RONALD/ivania JOB#: [id number] / [id number]
--- NOTE | 2020-03-31 13:14 | NUR ---
While eating lunch, patient began to cough repeatedly and uncontrollably. Lung sounds clear to auscultation, cough is wet sounding with no sputum. Patient is able to speak. After several minutes, patient still had intermittent wet cough, and had not produced any sputum. Will continue to monitor.
--- NOTE | 2020-03-31 14:36 | NUR ---
Patient discharged to [facility].
[2020-03-31] MEDS ORDERED: CEFD300C PO (15:34)
[2020-03-31] MEDS ORDERED: LORA0.5T21 PO ×2 (15:34)
[2020-03-31] MEDS ORDERED: POTA10TA12 PO (15:34)
[2020-03-31] MEDS ORDERED: LACTOBACILLUS RHAMNOSUS GG 1 CAPSULE. PO SCH (21:00)
--- NOTE | 2020-04-01 06:41 | PDOC ---
Exam Note: Ernesto Note: This note is a late entry for 03/30/2020 covers elements not covered in my initial note. Subjective: The patient was reviewed on telehealth rounds of 03/30/2020 with Filiberto MAHMOOD. Discussed with nursing staff, reviewed the chart. The patient remains confused, has not been yelling. He did have a telephone call with his , calmer after that. Review of Systems: Ambulation impaired in wheelchair. No CV, , pulmonary, eye, ENT system symptoms on review. Mental Status Exam: Oriented to himself. He was aware the year is 2019, the President is President Magen but unaware of who the President was before President Magen as I questioned him on telehealth visit. Insight and judgment, recent and remote memory, attention and concentration, fund of knowledge is poor consistent with his diagnoses. Laboratory Data: Reviewed. Impression: Major depressive disorder with psychotic features. 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 Plan: No change from initial note. Transition to [facility] once COVID is negative. We will adjust psychotropics further at that time. Assessment: Vital Signs/I&O: Vital Signs Date Time Temp Pulse Resp B/P (MAP) Pulse Ox O2 Delivery O2 Flow Rate FiO2 03/31/20 08:38 67 136/82 03/31/20 08:15 Nasal Cannula 3.0 03/31/20 06:02 97.8 24 93 I & O 03/31/20 03/31/20 04/01/20 15:00 23:00 07:00 Intake Total 480 ml Balance 480 ml Current Medications: Meds: Current Medications Medications (Trade) Dose Ordered Sig/Ralph Route PRN Reason Start Time Stop Time Status Last Admin Dose Admin Lorazepam (Ativan) 0.5 mg BID PO 03/31/20 09:00 03/31/20 14:32 DC 03/31/20 08:38 I have reviewed the current psychotropics carefully including drug interactions. Risk benefit ratio favors no change other than as noted in my dictated progress note. Diagnosis: Problems: (1) Urinary tract infection (2) Mild cognitive impairment with memory loss (3) Dementia, vascular, with depression (4) Dementia, vascular, with delusions (5) Dementia in Alzheimer's disease with depression (6) Dementia in Alzheimer's disease with delusions (7) Major neurocognitive disorder (8) Major depressive disorder with psychotic features (9) COVID-19 ruled out SKYE GALVAN MD Apr 01, 2020 06:41
[2020-04-03] MEDS ORDERED: LORazepam 0.5 MG TABLET PO SCH (09:00)
== END 2020-03-31 14:32 | DRG 689 ==
LOC: LND 14:15
PROVIDERS: ADMIT Internal Medicine; ATTEND Internal Medicine
DX: N39.0 Urinary tract infection, site not specified (principal); E43 Unspecified severe protein-calorie malnutrition; R45.851 Suicidal ideations; F32.3 Major depressive disorder, single episode, severe with psychotic features; Z20.828 Contact with and (suspected) exposure to other viral communicable diseases; G47.00 Insomnia, unspecified; R29.6 Repeated falls; F63.9 Impulse disorder, unspecified; E78.5 Hyperlipidemia, unspecified; I10 Essential (primary) hypertension; J44.9 Chronic obstructive pulmonary disease, unspecified; M19.90 Unspecified osteoarthritis, unspecified site; Z66 Do not resuscitate; N13.8 Other obstructive and reflux uropathy; G62.9 Polyneuropathy, unspecified; F02.80 Dementia in other diseases classified elsewhere, unspecified severity, without behavioral disturbance, psychotic disturbance, mood disturbance, and anxiety; G30.9 Alzheimer's disease, unspecified; F01.50 Vascular dementia, unspecified severity, without behavioral disturbance, psychotic disturbance, mood disturbance, and anxiety; D64.9 Anemia, unspecified; R41.841 Cognitive communication deficit; B96.20 Unspecified Escherichia coli [E. coli] as the cause of diseases classified elsewhere; M81.0 Age-related osteoporosis without current pathological fracture; F41.9 Anxiety disorder, unspecified; M62.81 Muscle weakness (generalized); N40.1 Benign prostatic hyperplasia with lower urinary tract symptoms; Z86.711 Personal history of pulmonary embolism; Z95.1 Presence of aortocoronary bypass graft; Z91.81 History of falling; Z88.5 Allergy status to narcotic agent; Z88.8 Allergy status to other drugs, medicaments and biological substances; Z99.3 Dependence on wheelchair; Z87.891 Personal history of nicotine dependence; Z79.899 Other long term (current) drug therapy; Z87.440 Personal history of urinary (tract) infections; Q54.9 Hypospadias, unspecified; Z03.818 Encounter for observation for suspected exposure to other biological agents ruled out; Z68.21 Body mass index [BMI] 21.0-21.9, adult
CPT/HCPCS: 36415; 71045; 80053; 80061; 81001; 82306; 82607; 83036; 83540; 83550; 83735; 84436; 84443; 84480; 85025; 85379; 86592; 87077; 87086; 87186; 90471; 93005; 90686; U0003-CS

== ENCOUNTER 2020-03-31 14:35 | Inpatient (IN) | payer MEDICARE ==
[~2020-03-31] VITALS: Ht 167.6 cm; Wt 73.9 kg
[~2020-03-31 14:35] MED LIST: ACET325T9 PO; APIX5TAB3 PO; ASPI-630 PO; BACI1PAC4 TP; BISA10SU4 RC; CARV12.547 PO; CETI10TA16 PO; DOCU100C28 PO; DUTA0.5C16 PO; ESCITALOPRAM OX10 MG PO; FLUT15.812 NS; FURO20TA3 PO; GABA-586 PO; IPRA4AER INH; ISOS30TA4 PO; L.AC300C PO; LORA-254 PO; LOVA20TA2 PO; MAGN400O7 PO; MELA3TAB4 PO; MENT113O12 TP; OMEP20TA8 PO; POLY17PO5 PO; POTA8TAB PO; PRED1TAB PO; SENN1TAB37 PO; TAMS0.4C97 PO; TRIM100T13 PO
[2020-03-31] MEDS ORDERED: METHYL SALICYLATE/MENTHOL TOPICAL OINTMENT 57GM TUBE. TP PRN (15:15)
[2020-03-31] MEDS ORDERED: ACETAMINOPHEN 325 MG TABLET PO PRN (15:15)
[2020-03-31] MEDS ORDERED: DOCUSATE SODIUM 100 MG CAPSULE PO PRN (15:15)
[2020-03-31] MEDS ORDERED: MAG HYDROX/AL HYDROX/SIMETH 30 ML ORAL.SUSP PO PRN (15:15)
[2020-03-31] MEDS ORDERED: ZINC OXIDE TP PRN (15:15)
[2020-03-31] MEDS ORDERED: MENTHOL TP PRN (15:15)
[2020-03-31] MEDS ORDERED: BISACODYL 10 MG SUPP.RECT RC PRN (15:15)
[2020-03-31] MEDS ORDERED: POLYETHYLENE GLYCOL 3350 17 GM PACKET. PO PRN (15:15)
[2020-03-31] MEDS ORDERED: MAGNESIUM HYDROXIDE 2,400 MG/30 ML ORAL.SUSP. PO PRN (15:15)
[2020-03-31] MEDS ORDERED: LORA0.5T21 PO ×2 (15:34)
[2020-03-31] MEDS ORDERED: CEFD300C PO (15:34)
[2020-03-31] MEDS ORDERED: POTA10TA12 PO (15:34)
[2020-03-31] MEDS: CARVEDILOL 12.5 MG TABLET PO SCH ×2 (17:00→17:54)
[2020-03-31 17:51] VITALS: BP 109/65
[2020-03-31] MEDS: LORazepam 0.5 MG TABLET PO SCH ×2 (19:57→21:00)
[2020-03-31] MEDS: LACTOBACILLUS RHAMNOSUS GG 1 CAPSULE. PO SCH ×2 (19:57→21:00)
[2020-03-31] MEDS: APIXABAN 5 MG TABLET. PO SCH ×2 (19:57→21:00)
[2020-03-31] MEDS: ATORVASTATIN CALCIUM 10 MG TABLET. PO SCH ×2 (19:57→21:00)
[2020-03-31] MEDS: ACETAMINOPHEN 325 MG TABLET PO SCH ×2 (19:57→21:00)
[2020-03-31] MEDS: GABAPENTIN 300 MG CAPSULE. PO SCH ×2 (19:57→21:00)
[2020-03-31] MEDS: MELATONIN 3 MG TABLET PO SCH ×2 (19:58→21:00)
[2020-03-31] MEDS: TAMSULOSIN 0.4 MG CAP.ER.24H. PO SCH ×2 (19:58→21:00)
[2020-03-31] MEDS: CEFDINIR 300 MG CAPSULE PO SCH ×2 (19:58→21:00)
[2020-03-31] MEDS: FLUTICASONE 50MCG/NASAL SPRAY 16GM BOTTLE. NS SCH ×2 (20:07→21:00)
[2020-03-31] MEDS: IPRATROPIUM/ALBUTEROL 20/100mcg/INH INHALER. INH SCH (20:07)
[2020-03-31] MEDS: BACITRACIN ZINC TOPICAL OINT PACKET. TP SCH ×2 (20:08→21:00)
--- NOTE | 2020-03-31 22:02 | PDOC ---
Exam Note: Ernesto Note: Please also refer to the separate dictated note~for this date of service dictated separately.~Patient seen individually. Discussed the patient with Nursing staff reviewed the chart.~Reviewed interim history and current functioning. Reviewed vital signs,~Labs/ Radiology~and current medications noted below. Continue current treatment with the changes noted in the dictated addendum note Assessment: Vital Signs/I&O: Vital Signs Date Time Temp Pulse Resp B/P (MAP) Pulse Ox O2 Delivery O2 Flow Rate FiO2 03/31/20 17:51 99.1 63 18 109/65 (80) 3 95.0 Current Medications: Meds: Current Medications Medications (Trade) Dose Ordered Sig/Ralph Route PRN Reason Start Time Stop Time Status Last Admin Dose Admin Albuterol/ Ipratropium (Combivent Respimat 20-100 Mcg) 2 puff RTBID INH 03/31/20 20:00 03/31/20 20:07 I have reviewed the current psychotropics carefully including drug interactions. Risk benefit ratio favors no change other than as noted in my dictated progress note. Diagnosis: Problems: (1) COVID-19 ruled out (2) Mild cognitive impairment with memory loss (3) Dementia, vascular, with depression (4) Dementia, vascular, with delusions (5) Dementia in Alzheimer's disease with depression (6) Dementia in Alzheimer's disease with delusions (7) Major neurocognitive disorder (8) Major depressive disorder with psychotic features (9) Urinary tract infection (10) Obstructive uropathy SKYE GALVAN MD Mar 31, 2020 22:01
--- NOTE | 2020-03-31 22:21 | HP ---
ADMIT DATE: 03/31/2020 PSYCHIATRIC ADMISSION HISTORY/EVALUATION IDENTIFYING DATA: The patient is an 85-year-old male who transitions from group home unit after he returned COVID negative. The patient was initially referred to [facility] from [facility] by his primary care physician on account of having suicidal ideation, auditory hallucinations, poor judgment, repeated falls, delusional that his peer was having an affair with his . He was threatening to harm the peer, agitated, restless, hitting staff, yelling, cursing, name calling with marked insomnia. He was recently treated for UTI. Initially, he stayed on the skilled unit until the COVID screen returned negative today and transitions to [facility]. 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 Readers refer to that evaluation for details. CHIEF COMPLAINT: "I am better, I don't care if I ." The patient denied active suicidal ideation. HISTORY OF PRESENT ILLNESS: The patient has a history of worsening symptoms of depression, feeling hopeless, helpless, worthless with paranoia, short-term memory deficits. No clear history of bipolar disorder. PAST PSYCHIATRIC HISTORY: As above. MEDICAL HISTORY: Positive for status post pulmonary embolism, hyperlipidemia, hypertension, coronary artery bypass graft, acute embolism of lower extremity, COPD, osteoarthritis, muscle weakness, osteoporosis, obstructive reflux uropathy, BPH, edema and falls. ACCU-CHEKS: None. CODE STATUS: DNR. ALLERGIES: CODEINE, TRAMADOL, HYDROCODONE, PHENYLEPHRINE. Takes meds floated in applesauce pudding. DIET: Cut meat, cardiac. Ambulates wheelchair, 2-person transfer lift. CURRENT PSYCHOTROPICS: Neurontin 300 mg t.i.d., Celexa 20 mg a day, Ativan 0.5 mg t.i.d. is being tapered, melatonin 6 mg at bedtime. FAMILY HISTORY: Noncontributory. SOCIAL HISTORY: No history of alcohol, drug abuse, physical, sexual or elder abuse. Not known to be a perpetrator. REACTION TO HOSPITALIZATION: The patient accepting of it. REVIEW OF SYSTEMS: Ambulation impaired. No CV, , pulmonary, eye system symptoms on review. MENTAL STATUS EXAMINATION: Oriented to himself, though he knew the year was 2019, president was President Magen, he did not know who was the president before him as noted earlier. Insight, judgment, recent memory is impaired. Language function intact. Attention span short. Mood and affect is depressed, somewhat suspicious. He was having vague suicidal ideation. Denies active suicidal ideation. LABORATORY DATA: Reviewed. IMPRESSION: Major depressive disorder with psychotic features, mild cognitive impairment versus major neurocognitive disorder, probably vascular with delusion, depression. Rest as above. PLAN: Admit to Geropsychiatry Unit at [facility]. I will see the patient daily individually from a psychiatric standpoint. Medical followup with Dr. Demarco/Dr. Wilson. Earlier today, he was quite anxious, yelling out. When the nursing staff came to him, he said he just wanted someone to sit with him. We provided him with Krishna with music which seems to keep him preoccupied somewhat. We will start Seroquel 12.5 mg 9 a.m., 5:00 p.m. as a mood stabilizer. Make further adjustments as clinically indicated. ESTIMATED LENGTH OF STAY: 10-12 days. DISPOSITION: Plans back to senior care when stable. MAN Aaron GALVAN MD DR: STEPHEN/ivania JOB#: [id number] / [id number]
[2020-04-01 06:33] VITALS: BP 109/70
[2020-04-01 06:52] LABS: BASO # 0.1 x10^3/uL (0.0-0.2); BASO % 1 % (0-3); EOS # 0.2 x10^3/uL (0.0-0.7); EOS % 2 % (0-3); HEMATOCRIT 34.9 % (39.0-53.0); HEMOGLOBIN 11.2 g/dL (13.0-17.5); LYMPH # 0.8 x10^3/uL (1.0-4.8); LYMPH % 8 % (24-48); MEAN CORPUSCULAR HEMOGLOBIN 28 pg (25-35); MEAN CORPUSCULAR HGB CONC 32 g/dL (31-37); MEAN CORPUSCULAR VOLUME 88 fL (79-100); MONO % 9 % (0-9); NEUT # 8.7 x10^3uL (1.8-7.7); NEUT % 81 % (31-73); PLATELET COUNT 257 x10^3/uL (140-400); RED BLOOD COUNT 3.97 x10^6/uL (4.30-5.70); WHITE BLOOD COUNT 10.7 x10^3/uL (4.0-11.0)
[2020-04-01 07:00] LABS: CALCIUM 8.2 mg/dL (8.5-10.1); CREATININE 0.8 mg/dL (0.7-1.3); GFR 92.1; POTASSIUM 3.6 mmol/L (3.5-5.1)
[2020-04-01 07:05] LABS: ALBUMIN 2.5 g/dL (3.4-5.0); ALBUMIN/GLOBULIN RATIO 0.8 (1.0-1.7); TOTAL BILIRUBIN 0.5 mg/dL (0.2-1.0); TOTAL PROTEIN 5.6 g/dL (6.4-8.2)
[2020-04-01] MEDS: LACTOBACILLUS RHAMNOSUS GG 1 CAPSULE. PO SCH ×2 (07:39→21:06)
[2020-04-01] MEDS: TRIMETHOPRIM 100 MG TABLET PO SCH (07:39)
[2020-04-01] MEDS: IPRATROPIUM/ALBUTEROL 20/100mcg/INH INHALER. INH SCH ×2 (07:39→21:11)
[2020-04-01] MEDS: CITALOPRAM 20 MG TABLET. PO SCH (07:39)
[2020-04-01] MEDS: CARVEDILOL 12.5 MG TABLET PO SCH ×2 (07:39→17:06)
[2020-04-01] MEDS: ASPIRIN CHEWABLE 81 MG TABLET. PO SCH (07:39)
[2020-04-01] MEDS: QUEtiapine 25 MG TABLET. PO SCH ×2 (07:40→17:06)
[2020-04-01] MEDS: PANTOPRAZOLE 40 MG TABLET. PO SCH (07:40)
[2020-04-01] MEDS: ISOSORBIDE MONONITRATE ER 30 MG TAB.ER.24H PO SCH (07:40)
[2020-04-01] MEDS: ACETAMINOPHEN 325 MG TABLET PO SCH ×2 (07:40→21:06)
[2020-04-01] MEDS: DUTASTERIDE 0.5 MG CAPSULE PO SCH (07:41)
[2020-04-01] MEDS: predniSONE 1 MG TABLET PO SCH (07:41)
[2020-04-01] MEDS: GABAPENTIN 300 MG CAPSULE. PO SCH ×3 (07:41→21:10)
[2020-04-01] MEDS: CEFDINIR 300 MG CAPSULE PO SCH ×2 (07:41→21:05)
[2020-04-01] MEDS: LORazepam 0.5 MG TABLET PO SCH ×2 (07:41→21:10)
[2020-04-01] MEDS: CETIRIZINE HCL 10 MG TABLET PO SCH (07:41)
[2020-04-01] MEDS: POTASSIUM CHLORIDE 10 MEQ TABLET.ER. PO SCH (07:41)
[2020-04-01] MEDS: BACITRACIN ZINC TOPICAL OINT PACKET. TP SCH ×2 (07:42→21:10)
[2020-04-01] MEDS: FUROSEMIDE 20 MG TABLET PO SCH (07:42)
[2020-04-01] MEDS: APIXABAN 5 MG TABLET. PO SCH ×2 (07:42→21:06)
[2020-04-01 16:18] VITALS: BP 104/60
--- NOTE | 2020-04-01 18:55 | CONS ---
DATE OF CONSULTATION: 04/01/2020 REASON FOR CONSULTATION: Medical management. HISTORY OF PRESENT ILLNESS: The patient is an 85-year-old male patient, a resident at [facility], who was transferred from [facility] after he was there for more than 48 hours to make sure that his COVID-19 was negative and he was admitted on account of having suicidal ideation with auditory hallucination, poor judgment, falls, delusional thinking that a peer is having an affair with his . The patient has been threatening to harm peer, agitated, restless, hitting staff, yelling, cursing, name calling and has insomnia. He was diagnosed with urinary tract infection and was started on cefdinir 300 mg twice a day for 7 days. PAST MEDICAL HISTORY: Significant for hypertension, hyperlipidemia, pulmonary embolism and DVT, COPD, osteoarthritis, muscle weakness, osteoporosis. 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 PAST SURGICAL HISTORY: Significant for coronary artery bypass graft surgery. ALLERGIES: HE IS ALLERGIC TO CODEINE, HYDROCODONE, PHENYLEPHRINE, AND TRAMADOL. FAMILY HISTORY: Noncontributory. SOCIAL HISTORY: He is apparently , has a son and a daughter. 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 MEDICATIONS: He is currently on following medications, lorazepam 0.5 mg once a day, Senna-S 1 tablet every other day, quetiapine fumarate 25 mg twice a day, potassium chloride 10 mEq daily, Protonix 40 mg daily, citalopram hydrobromide 20 mg once a day, trimethoprim 100 mg daily, prednisone 4 mg daily, isosorbide mononitrate 30 mg daily, furosemide 20 mg daily, dutasteride 0.5 mg daily, cetirizine 10 mg daily, aspirin 81 mg once a day, lorazepam 0.5 mg daily, Cefdinir 300 mg twice a day, atorvastatin 5 mg at bedtime, lactobacillus rhamnosus 1 capsule twice a day, Flonase 1 spray to each nostril twice a day, bacitracin 1 packet applied topically twice a day, tamsulosin 0.4 mg at bedtime, melatonin 6 mg at bedtime, gabapentin 300 mg 3 times a day, apixaban 5 mg twice a day, acetaminophen 650 mg twice a day and Combivent Respimat 2 puffs twice a day, carvedilol 12.5 mg twice a day with meals, polyethylene glycol 17 grams daily, Colace 100 mg every 12 hours as needed, bisacodyl 10 mg daily p.r.n., magnesium hydroxide for milk of magnesia 30 mL p.o. daily p.r.n. for constipation, Mylanta 15 mL after meals and acetaminophen 650 mg p.o. every 6 hours. REVIEW OF SYSTEMS: As per history of present illness. PHYSICAL EXAMINATION: GENERAL: On examining him, he looked pale, no jaundice, cyanosis or thyromegaly. No jugular venous distention. No limb edema. VITAL SIGNS: His heart rate was 86, blood pressure was 109/70, temperature was 98, respiratory rate 20, and oxygen saturation was 97% on 3 liters of oxygen. HEAD, EYES, EARS, NOSE AND THROAT: Showed normocephalic, atraumatic. NECK: Supple. HEART: Showed normal first and second heart sounds. No gallop or murmur. CHEST: Clear to auscultation. No crepitation or rhonchi. ABDOMEN: Distended, soft, nontender. He has an indwelling Terrazas catheter. NEUROLOGIC: He is grossly intact. LABORATORY DATA: As of this morning showed a white cell count of 10,700, hemoglobin 11, hematocrit 35, MCV 88 and platelet count 257,000. His serum sodium 139, potassium 3.6, chloride 103, bicarbonate 29, anion gap of 7, BUN 15, creatinine 0.8, estimated GFR was 92 mL per minute, his glucose was 99, calcium was 8.2. Total bilirubin, AST, ALT, alkaline phosphatase were normal. Her total protein was 5.6, albumin was 2.5. In summary, this is an 85-year-old male patient who was admitted on account of having suicidal ideation, auditory hallucinations, poor judgment, repeated falls, delusional that his peer was having an affair with his . He was threatening to harm the peer, agitated, restless, hitting staff, yelling, cursing, name calling with marked insomnia. He is currently treated with antibiotic in the form of cefdinir 300 mg twice a day for urinary tract infection with growth of more than 100,000 colony forming units per mL of Escherichia coli sensitive to all cephalosporins and the patient has multiple medical problems that included hypertension, hyperlipidemia, COPD, osteoarthritis, osteoporosis, pulmonary embolism and DVT, as well as benign prostatic hypertrophy, and bladder outlet obstruction requiring indwelling Terrazas catheter. The patient seems to be all in all medically stable. I will continue with all his current medication. I will follow all his lab work and make any necessary recommendation. Thank you, Dr. Martínez for allowing me to participate in the care of this patient. KARLA COLE MD DR: RONALD/ivania JOB#: [id number] / [id number]
[2020-04-01] MEDS: MELATONIN 3 MG TABLET PO SCH (21:06)
[2020-04-01] MEDS: TAMSULOSIN 0.4 MG CAP.ER.24H. PO SCH (21:06)
[2020-04-01] MEDS: ATORVASTATIN CALCIUM 10 MG TABLET. PO SCH (21:06)
[2020-04-01] MEDS: MIRTAZAPINE 7.5 MG TABLET. PO SCH (21:10)
[2020-04-01] MEDS: FLUTICASONE 50MCG/NASAL SPRAY 16GM BOTTLE. NS SCH (21:11)
--- NOTE | 2020-04-01 21:53 | PDOC ---
Exam Note: Ernesto Note: Please also refer to the separate dictated note~for this date of service dictated separately.~Patient seen individually. Discussed the patient with Nursing staff reviewed the chart.~Reviewed interim history and current functioning. Reviewed vital signs,~Labs/ Radiology~and current medications noted below. Continue current treatment with the changes noted in the dictated addendum note Assessment: Vital Signs/I&O: Vital Signs Date Time Temp Pulse Resp B/P (MAP) Pulse Ox O2 Delivery O2 Flow Rate FiO2 04/01/20 17:06 69 104/60 04/01/20 16:18 98.6 19 94 2.0 04/01/20 06:33 Nasal Cannula I & O 0 03/31/20 03/31/20 04/01/20 15:00 23:00 07:00 Intake Total 220 ml Balance 220 ml Labs: Laboratory Tests Test 04/01/20 06:28 White Blood Count 10.7 x10^3/uL (4.0-11.0) Red Blood Count 3.97 x10^6/uL (4.30-5.70) L Hemoglobin 11.2 g/dL (13.0-17.5) L Hematocrit 34.9 % (39.0-53.0) L Mean Corpuscular Volume 88 fL (79-100) Mean Corpuscular Hemoglobin 28 pg (25-35) Mean Corpuscular Hemoglobin Concent 32 g/dL (31-37) Red Cell Distribution Width 17.0 % (11.5-14.5) H Platelet Count 257 x10^3/uL (140-400) Neutrophils (%) (Auto) 81 % (31-73) H Lymphocytes (%) (Auto) 8 % (24-48) L Monocytes (%) (Auto) 9 % (0-9) Eosinophils (%) (Auto) 2 % (0-3) Basophils (%) (Auto) 1 % (0-3) Neutrophils # (Auto) 8.7 x10^3uL (1.8-7.7) H Lymphocytes # (Auto) 0.8 x10^3/uL (1.0-4.8) L Monocytes # (Auto) 1.0 x10^3/uL (0.0-1.1) Eosinophils # (Auto) 0.2 x10^3/uL (0.0-0.7) Basophils # (Auto) 0.1 x10^3/uL (0.0-0.2) Sodium Level 139 mmol/L (136-145) Potassium Level 3.6 mmol/L (3.5-5.1) Chloride Level 103 mmol/L (98-107) Carbon Dioxide Level 29 mmol/L (21-32) Anion Gap 7 (6-14) Blood Urea Nitrogen 15 mg/dL (8-26) Creatinine 0.8 mg/dL (0.7-1.3) Estimated GFR (Cockcroft-Gault) 92.1 BUN/Creatinine Ratio 19 (6-20) Glucose Level 99 mg/dL (70-99) Calcium Level 8.2 mg/dL (8.5-10.1) L Total Bilirubin 0.5 mg/dL (0.2-1.0) Aspartate Amino Transferase (AST) 12 U/L (15-37) L Alanine Aminotransferase (ALT) 9 U/L (16-63) L Alkaline Phosphatase 69 U/L (46-116) Total Protein 5.6 g/dL (6.4-8.2) L Albumin 2.5 g/dL (3.4-5.0) L Albumin/Globulin Ratio 0.8 (1.0-1.7) L Current Medications: Meds: Current Medications Medications (Trade) Dose Ordered Sig/Ralph Route PRN Reason Start Time Stop Time Status Last Admin Dose Admin Aspirin (Aspirin Chewable) 81 mg DAILY PO 04/01/20 09:00 04/01/20 07:39 Cetirizine HCl (ZyrTEC) 10 mg DAILY PO 04/01/20 09:00 04/01/20 07:41 Dutasteride (Avodart) 0.5 mg DAILY PO 04/01/20 09:00 04/01/20 07:41 Furosemide (Lasix) 20 mg DAILY PO 04/01/20 09:00 04/01/20 07:42 Isosorbide Mononitrate (Imdur) 30 mg DAILY PO 04/01/20 09:00 04/01/20 07:40 Prednisone (Prednisone) 4 mg DAILY PO 04/01/20 09:00 04/01/20 07:41 Trimethoprim (Proloprim) 100 mg DAILY PO 04/01/20 09:00 04/01/20 07:39 Citalopram Hydrobromide (CeleXA) 20 mg DAILY PO 04/01/20 09:00 04/01/20 07:39 Pantoprazole Sodium (Protonix) 40 mg DAILY PO 04/01/20 09:00 04/01/20 07:40 Potassium Chloride (Klor-Con) 10 meq DAILY PO 04/01/20 09:00 04/01/20 07:41 Quetiapine Fumarate (SEROquel) 12.5 mg 0900,1700 PO 04/01/20 09:00 04/01/20 17:06 Mirtazapine (Remeron) 7.5 mg QHS PO 04/01/20 21:00 04/01/20 21:10 I have reviewed the current psychotropics carefully including drug interactions. Risk benefit ratio favors no change other than as noted in my dictated progress note. Diagnosis: Problems: (1) Mild cognitive impairment with memory loss (2) Dementia, vascular, with depression (3) Dementia, vascular, with delusions (4) Dementia in Alzheimer's disease with depression (5) Dementia in Alzheimer's disease with delusions (6) Major neurocognitive disorder (7) Major depressive disorder with psychotic features SKYE GALVAN MD Apr 01, 2020 21:53
[2020-04-02 06:20] VITALS: BP 124/71
[2020-04-02] MEDS: DUTASTERIDE 0.5 MG CAPSULE PO SCH (08:15)
[2020-04-02] MEDS: GABAPENTIN 300 MG CAPSULE. PO SCH ×3 (08:15→21:19)
[2020-04-02] MEDS: FUROSEMIDE 20 MG TABLET PO SCH (08:15)
[2020-04-02] MEDS: CARVEDILOL 12.5 MG TABLET PO SCH ×2 (08:15→17:02)
[2020-04-02] MEDS: LACTOBACILLUS RHAMNOSUS GG 1 CAPSULE. PO SCH ×2 (08:15→21:18)
[2020-04-02] MEDS: TRIMETHOPRIM 100 MG TABLET PO SCH (08:16)
[2020-04-02] MEDS: BACITRACIN ZINC TOPICAL OINT PACKET. TP SCH ×2 (08:16→21:19)
[2020-04-02] MEDS: QUEtiapine 25 MG TABLET. PO SCH ×2 (08:16→17:02)
[2020-04-02] MEDS: CEFDINIR 300 MG CAPSULE PO SCH ×2 (08:16→21:20)
[2020-04-02] MEDS: CITALOPRAM 20 MG TABLET. PO SCH (08:16)
[2020-04-02] MEDS: ISOSORBIDE MONONITRATE ER 30 MG TAB.ER.24H PO SCH (08:16)
[2020-04-02] MEDS: PANTOPRAZOLE 40 MG TABLET. PO SCH (08:16)
[2020-04-02] MEDS: POTASSIUM CHLORIDE 10 MEQ TABLET.ER. PO SCH (08:17)
[2020-04-02] MEDS: ASPIRIN CHEWABLE 81 MG TABLET. PO SCH (08:17)
[2020-04-02] MEDS: LORazepam 0.5 MG TABLET PO SCH ×2 (08:17→21:19)
[2020-04-02] MEDS: APIXABAN 5 MG TABLET. PO SCH ×2 (08:17→21:19)
[2020-04-02] MEDS: CETIRIZINE HCL 10 MG TABLET PO SCH (08:17)
[2020-04-02] MEDS: ACETAMINOPHEN 325 MG TABLET PO SCH ×2 (08:17→21:18)
[2020-04-02] MEDS: predniSONE 1 MG TABLET PO SCH (08:18)
[2020-04-02] MEDS: IPRATROPIUM/ALBUTEROL 20/100mcg/INH INHALER. INH SCH ×2 (08:18→21:18)
[2020-04-02] MEDS: SENNOSIDES/DOCUSATE 8.6/50MG TABLET. PO SCH (08:19)
[2020-04-02 15:47] VITALS: BP 103/61
[2020-04-02] MEDS: MIRTAZAPINE 7.5 MG TABLET. PO SCH (21:18)
[2020-04-02] MEDS: ATORVASTATIN CALCIUM 10 MG TABLET. PO SCH (21:19)
[2020-04-02] MEDS: MELATONIN 3 MG TABLET PO SCH (21:19)
[2020-04-02] MEDS: TAMSULOSIN 0.4 MG CAP.ER.24H. PO SCH (21:19)
[2020-04-02] MEDS: FLUTICASONE 50MCG/NASAL SPRAY 16GM BOTTLE. NS SCH (21:20)
--- NOTE | 2020-04-02 22:06 | PDOC ---
Exam Note: Ernesto Note: Please also refer to the separate dictated note~for this date of service dictated separately.~Patient seen individually. Discussed the patient with Nursing staff reviewed the chart.~Reviewed interim history and current functioning. Reviewed vital signs,~Labs/ Radiology~and current medications noted below. Continue current treatment with the changes noted in the dictated addendum note Assessment: Vital Signs/I&O: Vital Signs Date Time Temp Pulse Resp B/P (MAP) Pulse Ox O2 Delivery O2 Flow Rate FiO2 04/02/20 17:02 70 103/61 04/02/20 15:47 98.1 17 95 04/01/20 16:18 2.0 04/01/20 06:33 Nasal Cannula I & O 04/01/20 04/01/20 04/02/20 15:00 23:00 07:00 Intake Total 180 ml 240 ml Output Total 600 ml 300 ml Balance 180 ml -360 ml -300 ml Current Medications: Meds: Current Medications Medications (Trade) Dose Ordered Sig/Ralph Route PRN Reason Start Time Stop Time Status Last Admin Dose Admin Senna/Docusate Sodium (Senna Plus) 1 tab QODAY PO 04/02/20 09:00 04/02/20 08:19 I have reviewed the current psychotropics carefully including drug interactions. Risk benefit ratio favors no change other than as noted in my dictated progress note. Diagnosis: Problems: (1) Dementia, vascular, with depression (2) Dementia, vascular, with delusions (3) Dementia in Alzheimer's disease with depression (4) Dementia in Alzheimer's disease with delusions (5) Major neurocognitive disorder (6) Major depressive disorder with psychotic features SKYE GALVAN MD Apr 02, 2020 22:06
[2020-04-03 06:32] VITALS: BP 118/73
--- NOTE | 2020-04-03 06:40 | PDOC ---
Exam Note: Ernesto Note: This note is a late entry for 04/01/2020 covers elements not covered in my initial note. Subjective: The patient was seen face to face in the evening of 04/01/2020. Discussed with nursing staff, reviewed the chart. The patient remains somewhat anxious, restless at times, hyperverbal but more oriented than before. Review of Systems: Shortness of breath on O2 supplements. Impaired ambulation in wheelchair. No CV, , eye system symptoms on review. Mental Status Exam: Oriented to himself. He remains anxious, hyperverbal at times. Insight and judgment, recent and remote memory, attention and concentration, fund of knowledge is poor consistent with his diagnoses. Laboratory Data: Reviewed. Impression: Major depressive disorder with psychotic features. 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 Plan: The patients Ativan is being tapered. He remains on Remeron 7.5 mg h.s., Neurontin and Celexa unchanged. Adjust further as clinically indicated. Assessment: Vital Signs/I&O: Vital Signs Date Time Temp Pulse Resp B/P (MAP) Pulse Ox O2 Delivery O2 Flow Rate FiO2 04/03/20 06:32 97.4 60 20 118/73 (88) 97 2.0 04/01/20 06:33 Nasal Cannula I & O 04/02/20 04/02/20 04/03/20 15:00 23:00 07:00 Intake Total 360 ml 340 ml Output Total 350 ml Balance 360 ml 340 ml -350 ml Current Medications: Meds: Current Medications Medications (Trade) Dose Ordered Sig/Ralph Route PRN Reason Start Time Stop Time Status Last Admin Dose Admin Senna/Docusate Sodium (Senna Plus) 1 tab QODAY PO 04/02/20 09:00 04/02/20 08:19 I have reviewed the current psychotropics carefully including drug interactions. Risk benefit ratio favors no change other than as noted in my dictated progress note. Diagnosis: Problems: (1) Dementia, vascular, with depression (2) Dementia, vascular, with delusions (3) Dementia in Alzheimer's disease with depression (4) Dementia in Alzheimer's disease with delusions (5) Major neurocognitive disorder (6) Major depressive disorder with psychotic features SKYE GALVAN MD Apr 03, 2020 06:40
--- NOTE | 2020-04-03 06:56 | PDOC ---
Exam Note: Ernesto Note: This note is a late entry for 04/02/2020 covers elements not covered in my initial note. Subjective: The patient was seen face to face in the evening of 04/02/2020 with Lamont MAHMOOD. Discussed with nursing staff, reviewed the chart. The patient slept 9-1/2 hours previous night. He has been irritable with swallowing and we will have speech therapy evaluation for this. He is little more coherent. No behaviours or aggression. Review of Systems: Shortness of breath on O2 supplements. Impaired ambulation in wheelchair. No CV, , pulmonary, eye, ENT system symptoms on review. Mental Status Exam: Oriented to himself. He is not very verbal but quite appropriate, less anxious, less labile, less paranoid. Insight and judgment, recent and remote memory, attention and concentration, fund of knowledge is poor consistent with his diagnoses. Laboratory Data: Reviewed. Impression: Major depressive disorder with psychotic features. 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 Plan: No change from initial note. Assessment: Vital Signs/I&O: Vital Signs Date Time Temp Pulse Resp B/P (MAP) Pulse Ox O2 Delivery O2 Flow Rate FiO2 04/03/20 06:32 97.4 60 20 118/73 (88) 97 2.0 04/01/20 06:33 Nasal Cannula I & O 04/02/20 04/02/20 04/03/20 15:00 23:00 07:00 Intake Total 360 ml 340 ml Output Total 350 ml Balance 360 ml 340 ml -350 ml Current Medications: Meds: Current Medications Medications (Trade) Dose Ordered Sig/Ralph Route PRN Reason Start Time Stop Time Status Last Admin Dose Admin Senna/Docusate Sodium (Senna Plus) 1 tab QODAY PO 04/02/20 09:00 04/02/20 08:19 I have reviewed the current psychotropics carefully including drug interactions. Risk benefit ratio favors no change other than as noted in my dictated progress note. Diagnosis: Problems: (1) Dementia, vascular, with depression (2) Dementia, vascular, with delusions (3) Dementia in Alzheimer's disease with depression (4) Dementia in Alzheimer's disease with delusions (5) Major neurocognitive disorder (6) Major depressive disorder with psychotic features SKYE GALVAN MD Apr 03, 2020 06:56
[2020-04-03] MEDS: PANTOPRAZOLE 40 MG TABLET. PO SCH (09:01)
[2020-04-03] MEDS: TRIMETHOPRIM 100 MG TABLET PO SCH (09:01)
[2020-04-03] MEDS: ISOSORBIDE MONONITRATE ER 30 MG TAB.ER.24H PO SCH (09:02)
[2020-04-03] MEDS: ASPIRIN CHEWABLE 81 MG TABLET. PO SCH (09:02)
[2020-04-03] MEDS: QUEtiapine 25 MG TABLET. PO SCH ×3 (09:02→20:16)
[2020-04-03] MEDS: LACTOBACILLUS RHAMNOSUS GG 1 CAPSULE. PO SCH ×2 (09:02→20:14)
[2020-04-03] MEDS: CEFDINIR 300 MG CAPSULE PO SCH ×2 (09:02→20:14)
[2020-04-03] MEDS: CITALOPRAM 20 MG TABLET. PO SCH (09:02)
[2020-04-03] MEDS: BACITRACIN ZINC TOPICAL OINT PACKET. TP SCH ×2 (09:02→20:15)
[2020-04-03] MEDS: ACETAMINOPHEN 325 MG TABLET PO SCH ×2 (09:02→20:14)
[2020-04-03] MEDS: SENNOSIDES/DOCUSATE 8.6/50MG TABLET. PO SCH (09:03)
[2020-04-03] MEDS: CARVEDILOL 12.5 MG TABLET PO SCH ×2 (09:03→17:00)
[2020-04-03] MEDS: POTASSIUM CHLORIDE 10 MEQ TABLET.ER. PO SCH (09:03)
[2020-04-03] MEDS: DUTASTERIDE 0.5 MG CAPSULE PO SCH (09:03)
[2020-04-03] MEDS: LORazepam 0.5 MG TABLET PO SCH (09:04)
[2020-04-03] MEDS: GABAPENTIN 300 MG CAPSULE. PO SCH ×3 (09:04→20:13)
[2020-04-03] MEDS: APIXABAN 5 MG TABLET. PO SCH ×2 (09:04→20:14)
[2020-04-03] MEDS: FUROSEMIDE 20 MG TABLET PO SCH (09:04)
[2020-04-03] MEDS: CETIRIZINE HCL 10 MG TABLET PO SCH (09:04)
[2020-04-03] MEDS: predniSONE 1 MG TABLET PO SCH (09:06)
[2020-04-03] MEDS: IPRATROPIUM/ALBUTEROL 20/100mcg/INH INHALER. INH SCH ×2 (09:07→20:13)
[2020-04-03 15:39] VITALS: BP 94/62
[2020-04-03] MEDS: FLUTICASONE 50MCG/NASAL SPRAY 16GM BOTTLE. NS SCH (20:13)
[2020-04-03] MEDS: MELATONIN 3 MG TABLET PO SCH (20:14)
[2020-04-03] MEDS: TAMSULOSIN 0.4 MG CAP.ER.24H. PO SCH (20:14)
[2020-04-03] MEDS: ATORVASTATIN CALCIUM 10 MG TABLET. PO SCH (20:15)
[2020-04-03] MEDS: MIRTAZAPINE 7.5 MG TABLET. PO SCH (20:15)
--- NOTE | 2020-04-03 22:13 | PDOC ---
Exam Note: Ernesto Note: Please also refer to the separate dictated note~for this date of service dictated separately.~Patient seen individually. Discussed the patient with Nursing staff reviewed the chart.~Reviewed interim history and current functioning. Reviewed vital signs,~Labs/ Radiology~and current medications noted below. Continue current treatment with the changes noted in the dictated addendum note Assessment: Vital Signs/I&O: Vital Signs Date Time Temp Pulse Resp B/P (MAP) Pulse Ox O2 Delivery O2 Flow Rate FiO2 04/03/20 17:00 65 94/62 04/03/20 15:39 99.7 18 91 2.0 04/01/20 06:33 Nasal Cannula I & O 04/02/20 04/02/20 04/03/20 15:00 23:00 07:00 Intake Total 360 ml 340 ml Output Total 350 ml Balance 360 ml 340 ml -350 ml Current Medications: Meds: Current Medications Medications (Trade) Dose Ordered Sig/Ralph Route PRN Reason Start Time Stop Time Status Last Admin Dose Admin Lorazepam (Ativan) 0.5 mg DAILY PO 04/03/20 09:00 04/05/20 11:00 04/03/20 09:04 Quetiapine Fumarate (SEROquel) 25 mg QHS PO 04/03/20 21:00 04/03/20 20:16 I have reviewed the current psychotropics carefully including drug interactions. Risk benefit ratio favors no change other than as noted in my dictated progress note. Diagnosis: Problems: (1) Dementia, vascular, with depression (2) Dementia, vascular, with delusions (3) Dementia in Alzheimer's disease with depression (4) Dementia in Alzheimer's disease with delusions (5) Major neurocognitive disorder (6) Major depressive disorder with psychotic features SKYE GALVAN MD Apr 03, 2020 22:13
[2020-04-04 06:47] VITALS: BP 127/71
[2020-04-04] MEDS: IPRATROPIUM/ALBUTEROL 20/100mcg/INH INHALER. INH SCH ×2 (08:11→21:11)
[2020-04-04] MEDS: CETIRIZINE HCL 10 MG TABLET PO SCH (08:11)
[2020-04-04] MEDS: LORazepam 0.5 MG TABLET PO SCH (08:11)
[2020-04-04] MEDS: ACETAMINOPHEN 325 MG TABLET PO SCH ×2 (08:11→21:14)
[2020-04-04] MEDS: FUROSEMIDE 20 MG TABLET PO SCH (08:12)
[2020-04-04] MEDS: LACTOBACILLUS RHAMNOSUS GG 1 CAPSULE. PO SCH ×2 (08:12→21:13)
[2020-04-04] MEDS: PANTOPRAZOLE 40 MG TABLET. PO SCH (08:12)
[2020-04-04] MEDS: CEFDINIR 300 MG CAPSULE PO SCH ×2 (08:12→21:13)
[2020-04-04] MEDS: ASPIRIN CHEWABLE 81 MG TABLET. PO SCH (08:12)
[2020-04-04] MEDS: CITALOPRAM 20 MG TABLET. PO SCH (08:12)
[2020-04-04] MEDS: QUEtiapine 25 MG TABLET. PO SCH ×3 (08:12→21:14)
[2020-04-04] MEDS: ISOSORBIDE MONONITRATE ER 30 MG TAB.ER.24H PO SCH (08:13)
[2020-04-04] MEDS: GABAPENTIN 300 MG CAPSULE. PO SCH ×3 (08:13→21:13)
[2020-04-04] MEDS: APIXABAN 5 MG TABLET. PO SCH ×2 (08:13→21:13)
[2020-04-04] MEDS: POTASSIUM CHLORIDE 10 MEQ TABLET.ER. PO SCH (08:13)
[2020-04-04] MEDS: DUTASTERIDE 0.5 MG CAPSULE PO SCH (08:13)
[2020-04-04] MEDS: predniSONE 1 MG TABLET PO SCH (08:14)
[2020-04-04] MEDS: CARVEDILOL 12.5 MG TABLET PO SCH ×2 (08:14→17:00)
[2020-04-04] MEDS: BACITRACIN ZINC TOPICAL OINT PACKET. TP SCH ×2 (08:15→21:13)
[2020-04-04] MEDS: TRIMETHOPRIM 100 MG TABLET PO SCH (08:15)
[2020-04-04 16:04] VITALS: BP 94/60
[2020-04-04] MEDS: FLUTICASONE 50MCG/NASAL SPRAY 16GM BOTTLE. NS SCH (21:11)
[2020-04-04] MEDS: MELATONIN 3 MG TABLET PO SCH (21:13)
[2020-04-04] MEDS: TAMSULOSIN 0.4 MG CAP.ER.24H. PO SCH (21:13)
[2020-04-04] MEDS: MIRTAZAPINE 7.5 MG TABLET. PO SCH (21:13)
[2020-04-04] MEDS: ATORVASTATIN CALCIUM 10 MG TABLET. PO SCH (21:14)
[2020-04-04] MEDS: DOCUSATE SODIUM 100 MG CAPSULE PO SCH (21:14)
--- NOTE | 2020-04-04 22:01 | PDOC ---
Exam Note: Ernesto Note: Please also refer to the separate dictated note~for this date of service dictated separately.~Patient seen individually. Discussed the patient with Nursing staff reviewed the chart.~Reviewed interim history and current functioning. Reviewed vital signs,~Labs/ Radiology~and current medications noted below. Continue current treatment with the changes noted in the dictated addendum note Assessment: Vital Signs/I&O: Vital Signs Date Time Temp Pulse Resp B/P (MAP) Pulse Ox O2 Delivery O2 Flow Rate FiO2 04/04/20 17:00 68 94/60 04/04/20 16:04 97.8 17 90 04/04/20 06:47 2.0 04/01/20 06:33 Nasal Cannula I & O 04/03/20 04/03/20 04/04/20 15:00 23:00 07:00 Intake Total 430 ml 425 ml Output Total 250 ml Balance 430 ml 175 ml Current Medications: Meds: Current Medications Medications (Trade) Dose Ordered Sig/Ralph Route PRN Reason Start Time Stop Time Status Last Admin Dose Admin Docusate Sodium (Colace) 100 mg BID PO 04/04/20 21:00 04/04/20 21:14 I have reviewed the current psychotropics carefully including drug interactions. Risk benefit ratio favors no change other than as noted in my dictated progress note. Diagnosis: Problems: (1) Dementia, vascular, with depression (2) Dementia, vascular, with delusions (3) Dementia in Alzheimer's disease with depression (4) Dementia in Alzheimer's disease with delusions (5) Major neurocognitive disorder (6) Major depressive disorder with psychotic features SKYE GALVAN MD Apr 04, 2020 22:01
[2020-04-05 06:14] VITALS: BP 131/83
[2020-04-05 06:15] VITALS: BP 131/83
--- NOTE | 2020-04-05 06:42 | PDOC ---
Exam Note: Ernesto Note: This note is a late entry for DOS 04/01/2020 and an addendum to the progress note dictated earlier for 04/01/2020. Subjective: The patient was seen face to face in the evening of 04/01/2020 with Lamont MAHMOOD. He did not sleep at all previous night. He has been repeatedly yelling out, help me, help me, God help me. He refused his h.s. medications, asking for his . Rest information unchanged from previous note. Assessment: Vital Signs/I&O: Vital Signs Date Time Temp Pulse Resp B/P (MAP) Pulse Ox O2 Delivery O2 Flow Rate FiO2 04/05/20 06:15 97.4 60 131/83 (99) 97 04/05/20 06:14 16 Nasal Cannula 2.0 I & O 04/04/20 04/04/20 04/05/20 15:00 23:00 07:00 Intake Total 685 ml 240 ml 120 ml Balance 685 ml 240 ml 120 ml Current Medications: Meds: Current Medications Medications (Trade) Dose Ordered Sig/Ralph Route PRN Reason Start Time Stop Time Status Last Admin Dose Admin Docusate Sodium (Colace) 100 mg BID PO 04/04/20 21:00 04/04/20 21:14 I have reviewed the current psychotropics carefully including drug interactions. Risk benefit ratio favors no change other than as noted in my dictated progress note. Diagnosis: Problems: (1) Dementia, vascular, with depression (2) Dementia, vascular, with delusions (3) Dementia in Alzheimer's disease with depression (4) Dementia in Alzheimer's disease with delusions (5) Major neurocognitive disorder (6) Major depressive disorder with psychotic features SKYE GALVAN MD Apr 05, 2020 06:42
--- NOTE | 2020-04-05 06:59 | PDOC ---
Exam Note: Ernesto Note: This note is a late entry for 04/03/2020 covers elements not covered in my initial note. The patient was seen face to face in the morning of 04/03/2020 for treatment meeting with Mary Jo Meyers Nicky (social service staff), Shanti, [facility], and Mari MAHMOOD. Discussed with nursing staff, reviewed the chart. The patient was also seen face to face in the evening. The patients Sohan and daughter Fallon attended treatment team meeting. We had a lengthy discussion about his diagnoses. At times he seems reasonably oriented but still remains quite paranoid, delusional about his having an affair. He seems to be little better than before. Review of Systems: Shortness of breath on O2 supplements. Impaired ambulation in wheelchair. No CV, , eye system symptoms on review. Mental Status Exam: Oriented to himself and situation. He is somewhat delusional. Speech is coherent, yelling for God at times. Abstraction is fair. Computation is impaired. Language function is intact. Mood and affect is somewhat anxious, labile. Laboratory Data: Reviewed. Impression: Major depressive disorder with psychotic features. 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 Plan: No change from initial note. Start Seroquel 25 mg h.s. Assessment: Vital Signs/I&O: Vital Signs Date Time Temp Pulse Resp B/P (MAP) Pulse Ox O2 Delivery O2 Flow Rate FiO2 04/05/20 06:15 97.4 60 131/83 (99) 97 04/05/20 06:14 16 Nasal Cannula 2.0 I & O 04/04/20 04/04/20 04/05/20 15:00 23:00 07:00 Intake Total 685 ml 240 ml 120 ml Balance 685 ml 240 ml 120 ml Current Medications: Meds: Current Medications Medications (Trade) Dose Ordered Sig/Ralph Route PRN Reason Start Time Stop Time Status Last Admin Dose Admin Docusate Sodium (Colace) 100 mg BID PO 04/04/20 21:00 04/04/20 21:14 I have reviewed the current psychotropics carefully including drug interactions. Risk benefit ratio favors no change other than as noted in my dictated progress note. Diagnosis: Problems: (1) Dementia, vascular, with depression (2) Dementia, vascular, with delusions (3) Dementia in Alzheimer's disease with depression (4) Dementia in Alzheimer's disease with delusions (5) Major neurocognitive disorder (6) Major depressive disorder with psychotic features SKYE GALVAN MD Apr 05, 2020 06:59
--- NOTE | 2020-04-05 07:25 | PDOC ---
Exam Note: Ernesto Note: This note is a late entry for 04/04/2020 covers elements not covered in my initial note. Subjective: The patient was seen face to face in the evening of 04/04/2020 with Guera MAHMOOD. Discussed with nursing staff, reviewed the chart. The patient slept 7-3/4 hours previous night. He is more oriented, less paranoid about his having an affair. Review of Systems: Shortness of breath on O2 supplements. Impaired ambulation in wheelchair. He was in the hallway where I met with him. No CV, , eye system symptoms on review. Mental Status Exam: Oriented to himself and situation. Speech has some latency. Attention span is short. Language function is intact. Mood and affect is somewhat anxious, labile. Laboratory Data: Reviewed. Impression: Major depressive disorder with psychotic features. 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 Plan: No change from initial note. Assessment: Vital Signs/I&O: Vital Signs Date Time Temp Pulse Resp B/P (MAP) Pulse Ox O2 Delivery O2 Flow Rate FiO2 04/05/20 06:15 97.4 60 131/83 (99) 97 04/05/20 06:14 16 Nasal Cannula 2.0 I & O 04/04/20 04/04/20 04/05/20 15:00 23:00 07:00 Intake Total 685 ml 240 ml 120 ml Balance 685 ml 240 ml 120 ml Current Medications: Meds: Current Medications Medications (Trade) Dose Ordered Sig/Ralph Route PRN Reason Start Time Stop Time Status Last Admin Dose Admin Docusate Sodium (Colace) 100 mg BID PO 04/04/20 21:00 04/04/20 21:14 I have reviewed the current psychotropics carefully including drug interactions. Risk benefit ratio favors no change other than as noted in my dictated progress note. Diagnosis: Problems: (1) Dementia, vascular, with depression (2) Dementia, vascular, with delusions (3) Dementia in Alzheimer's disease with depression (4) Dementia in Alzheimer's disease with delusions (5) Major neurocognitive disorder (6) Major depressive disorder with psychotic features SKYE GALVAN MD Apr 05, 2020 07:25
[2020-04-05] MEDS: IPRATROPIUM/ALBUTEROL 20/100mcg/INH INHALER. INH SCH ×2 (07:53→20:43)
[2020-04-05] MEDS: BACITRACIN ZINC TOPICAL OINT PACKET. TP SCH ×2 (07:53→20:42)
[2020-04-05] MEDS: POTASSIUM CHLORIDE 10 MEQ TABLET.ER. PO SCH (07:54)
[2020-04-05] MEDS: LACTOBACILLUS RHAMNOSUS GG 1 CAPSULE. PO SCH ×2 (07:54→20:41)
[2020-04-05] MEDS: ISOSORBIDE MONONITRATE ER 30 MG TAB.ER.24H PO SCH (07:54)
[2020-04-05] MEDS: CEFDINIR 300 MG CAPSULE PO SCH ×2 (07:54→20:41)
[2020-04-05] MEDS: ASPIRIN CHEWABLE 81 MG TABLET. PO SCH (07:54)
[2020-04-05] MEDS: QUEtiapine 25 MG TABLET. PO SCH ×3 (07:54→20:41)
[2020-04-05] MEDS: ACETAMINOPHEN 325 MG TABLET PO SCH ×2 (07:55→20:42)
[2020-04-05] MEDS: CARVEDILOL 12.5 MG TABLET PO SCH ×2 (07:55→17:00)
[2020-04-05] MEDS: CITALOPRAM 20 MG TABLET. PO SCH (07:55)
[2020-04-05] MEDS: GABAPENTIN 300 MG CAPSULE. PO SCH ×3 (07:55→20:41)
[2020-04-05] MEDS: LORazepam 0.5 MG TABLET PO SCH (07:55)
[2020-04-05] MEDS: APIXABAN 5 MG TABLET. PO SCH ×2 (07:55→20:41)
[2020-04-05] MEDS: PANTOPRAZOLE 40 MG TABLET. PO SCH (07:56)
[2020-04-05] MEDS: DUTASTERIDE 0.5 MG CAPSULE PO SCH (07:56)
[2020-04-05] MEDS: CETIRIZINE HCL 10 MG TABLET PO SCH (07:56)
[2020-04-05] MEDS: FUROSEMIDE 20 MG TABLET PO SCH (07:56)
[2020-04-05] MEDS: POLYETHYLENE GLYCOL 3350 17 GM PACKET. PO SCH (08:01)
[2020-04-05] MEDS: CHOLECALCIFEROL (VITAMIN D3) 50,000 UNIT CAPSULE PO SCH (08:01)
[2020-04-05] MEDS: TRIMETHOPRIM 100 MG TABLET PO SCH (08:03)
[2020-04-05] MEDS: DOCUSATE SODIUM 100 MG CAPSULE PO SCH ×2 (08:03→20:42)
[2020-04-05] MEDS: predniSONE 1 MG TABLET PO SCH (08:03)
[2020-04-05 16:36] VITALS: BP 95/59
[2020-04-05] MEDS: MELATONIN 3 MG TABLET PO SCH (20:41)
[2020-04-05] MEDS: MIRTAZAPINE 7.5 MG TABLET. PO SCH (20:41)
[2020-04-05] MEDS: TAMSULOSIN 0.4 MG CAP.ER.24H. PO SCH (20:41)
[2020-04-05] MEDS: ATORVASTATIN CALCIUM 10 MG TABLET. PO SCH (20:41)
[2020-04-05] MEDS: FLUTICASONE 50MCG/NASAL SPRAY 16GM BOTTLE. NS SCH (20:43)
--- NOTE | 2020-04-05 22:11 | PDOC ---
Exam Note: Ernesto Note: Please also refer to the separate dictated note~for this date of service dictated separately.~Patient seen individually. Discussed the patient with Nursing staff reviewed the chart.~Reviewed interim history and current functioning. Reviewed vital signs,~Labs/ Radiology~and current medications noted below. Continue current treatment with the changes noted in the dictated addendum note Assessment: Vital Signs/I&O: Vital Signs Date Time Temp Pulse Resp B/P (MAP) Pulse Ox O2 Delivery O2 Flow Rate FiO2 04/05/20 17:00 68 95/59 04/05/20 16:36 98.0 18 94 3.0 04/05/20 06:14 Nasal Cannula I & O 04/04/20 04/04/20 04/05/20 14:59 22:59 06:59 Intake Total 685 ml 240 ml 120 ml Balance 685 ml 240 ml 120 ml Current Medications: Meds: Current Medications Medications (Trade) Dose Ordered Sig/Ralph Route PRN Reason Start Time Stop Time Status Last Admin Dose Admin Polyethylene Glycol (miraLAX) 17 gm DAILY PO 04/05/20 09:00 04/05/20 08:01 Vitamin D (Vitamin D3) 50,000 unit WEEKLY PO 04/05/20 09:00 04/05/20 08:01 I have reviewed the current psychotropics carefully including drug interactions. Risk benefit ratio favors no change other than as noted in my dictated progress note. Diagnosis: Problems: (1) Dementia, vascular, with depression (2) Dementia, vascular, with delusions (3) Dementia in Alzheimer's disease with depression (4) Dementia in Alzheimer's disease with delusions (5) Major neurocognitive disorder (6) Major depressive disorder with psychotic features SKYE GALVAN MD Apr 05, 2020 22:11
[2020-04-06 06:06] VITALS: BP 152/63
[2020-04-06] MEDS: IPRATROPIUM/ALBUTEROL 20/100mcg/INH INHALER. INH SCH ×2 (08:32→20:33)
[2020-04-06] MEDS: PANTOPRAZOLE 40 MG TABLET. PO SCH (08:33)
[2020-04-06] MEDS: CARVEDILOL 12.5 MG TABLET PO SCH ×2 (08:33→16:43)
[2020-04-06] MEDS: CITALOPRAM 20 MG TABLET. PO SCH (08:33)
[2020-04-06] MEDS: FUROSEMIDE 20 MG TABLET PO SCH (08:33)
[2020-04-06] MEDS: CETIRIZINE HCL 10 MG TABLET PO SCH (08:33)
[2020-04-06] MEDS: DUTASTERIDE 0.5 MG CAPSULE PO SCH (08:33)
[2020-04-06] MEDS: CEFDINIR 300 MG CAPSULE PO SCH (08:34)
[2020-04-06] MEDS: GABAPENTIN 300 MG CAPSULE. PO SCH ×3 (08:34→20:32)
[2020-04-06] MEDS: ACETAMINOPHEN 325 MG TABLET PO SCH ×2 (08:34→20:33)
[2020-04-06] MEDS: LACTOBACILLUS RHAMNOSUS GG 1 CAPSULE. PO SCH ×2 (08:34→20:32)
[2020-04-06] MEDS: APIXABAN 5 MG TABLET. PO SCH ×2 (08:34→20:33)
[2020-04-06] MEDS: ASPIRIN CHEWABLE 81 MG TABLET. PO SCH (08:34)
[2020-04-06] MEDS: ISOSORBIDE MONONITRATE ER 30 MG TAB.ER.24H PO SCH (08:34)
[2020-04-06] MEDS: QUEtiapine 25 MG TABLET. PO SCH ×3 (08:34→20:33)
[2020-04-06] MEDS: POTASSIUM CHLORIDE 10 MEQ TABLET.ER. PO SCH (08:35)
[2020-04-06] MEDS: BACITRACIN ZINC TOPICAL OINT PACKET. TP SCH ×2 (08:35→20:33)
[2020-04-06] MEDS: POLYETHYLENE GLYCOL 3350 17 GM PACKET. PO SCH (08:36)
[2020-04-06] MEDS: DOCUSATE SODIUM 100 MG CAPSULE PO SCH ×2 (08:36→20:34)
[2020-04-06] MEDS: SENNOSIDES/DOCUSATE 8.6/50MG TABLET. PO SCH (08:37)
[2020-04-06] MEDS: predniSONE 1 MG TABLET PO SCH (08:38)
[2020-04-06] MEDS: TRIMETHOPRIM 100 MG TABLET PO SCH (08:38)
[2020-04-06 16:11] VITALS: BP 119/70
[2020-04-06] MEDS: TAMSULOSIN 0.4 MG CAP.ER.24H. PO SCH (20:32)
[2020-04-06] MEDS: MIRTAZAPINE 7.5 MG TABLET. PO SCH (20:32)
[2020-04-06] MEDS: FLUTICASONE 50MCG/NASAL SPRAY 16GM BOTTLE. NS SCH (20:33)
[2020-04-06] MEDS: MELATONIN 3 MG TABLET PO SCH (20:33)
[2020-04-06] MEDS: ATORVASTATIN CALCIUM 10 MG TABLET. PO SCH (20:33)
[2020-04-07 05:55] VITALS: BP 116/66
--- NOTE | 2020-04-07 06:53 | PDOC ---
Exam Note: Ernesto Note: This note is a late entry for 04/05/2020 covers elements not covered in my initial note. Subjective: The patient was seen face to face in the evening of 04/05/2020 with Guera MAHMOOD. Discussed with nursing staff, reviewed the chart. The patient slept 6 hours previous night. He is somewhat sleepy. He did have telephone call with his , did not raise his voice to her. When I met with him in the evening at some length he was less delusional about his having an affair. Review of Systems: Shortness of breath on O2 supplements. Impaired ambulation in wheelchair. No CV, , eye system symptoms on review. Mental Status Exam: Oriented to himself and situation. He was much less p aranoid as I specifically questioned him about his belief in the past that his was having an affair. Attention span is short. Language function is intact. Mood and affect is anxious, labile. No suicidal or homicidal ideation. Laboratory Data: Reviewed. Impression: Major depressive disorder with psychotic features. 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 Plan: No change from initial note but if psychotic symptoms resurface, we may need to increase the Seroquel further or perhaps even change to Risperdal. Assessment: Vital Signs/I&O: Vital Signs Date Time Temp Pulse Resp B/P (MAP) Pulse Ox O2 Delivery O2 Flow Rate FiO2 04/07/20 05:55 98.0 66 20 116/66 (83) 98 3.0 04/05/20 06:14 Nasal Cannula I & O 04/06/20 04/06/20 04/07/20 15:00 23:00 07:00 Intake Total 360 ml 580 ml Output Total 525 ml 775 ml Balance 360 ml 55 ml -775 ml Current Medications: I have reviewed the current psychotropics carefully including drug interactions. Risk benefit ratio favors no change other than as noted in my dictated progress note. Diagnosis: Problems: (1) Dementia, vascular, with depression (2) Dementia, vascular, with delusions (3) Dementia in Alzheimer's disease with depression (4) Dementia in Alzheimer's disease with delusions (5) Major neurocognitive disorder (6) Major depressive disorder with psychotic features SKYE GALVAN MD Apr 07, 2020 06:53
--- NOTE | 2020-04-07 07:10 | PDOC ---
Exam Note: Ernesto Note: This note is a late entry for 04/06/2020 covers elements not covered in my initial note. Subjective: The patient was seen face to face in the evening of 04/06/2020 with Guera MAHMOOD. Discussed with nursing staff, reviewed the chart. Previous night the patient was somewhat hyper-judaism. During the day he has done well but by the time I met with him in the evening he was once again very paranoid, delusional that his was having an affair. He told me she had brought new boots and new clothes and when he was not there he was convinced that there was something going on. He did have telephone conversation with family today. Review of Systems: Shortness of breath on O2 supplements. Impaired ambulation in wheelchair. No CV, , eye system symptoms on review. Mental Status Exam: Oriented to himself. Speech is coherent, has some latency. Computation impaired. Language function is intact. Attention span is short. Mood and affect is somewhat anxious, labile, yelling at times. Laboratory Data: Reviewed. Impression: Major depressive disorder with psychotic features. 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 Plan: No change from initial note. We may need to increase Seroquel further or change Seroquel to Risperdal. Assessment: Vital Signs/I&O: Vital Signs Date Time Temp Pulse Resp B/P (MAP) Pulse Ox O2 Delivery O2 Flow Rate FiO2 04/07/20 05:55 98.0 66 20 116/66 (83) 98 3.0 04/05/20 06:14 Nasal Cannula I & O 04/06/20 04/06/20 04/07/20 15:00 23:00 07:00 Intake Total 360 ml 580 ml Output Total 525 ml 775 ml Balance 360 ml 55 ml -775 ml Current Medications: I have reviewed the current psychotropics carefully including drug interactions. Risk benefit ratio favors no change other than as noted in my dictated progress note. Diagnosis: Problems: (1) Dementia, vascular, with depression (2) Dementia, vascular, with delusions (3) Dementia in Alzheimer's disease with depression (4) Dementia in Alzheimer's disease with delusions (5) Major neurocognitive disorder (6) Major depressive disorder with psychotic features SKYE GALVAN MD Apr 07, 2020 07:10
[2020-04-07] MEDS: POTASSIUM CHLORIDE 10 MEQ TABLET.ER. PO SCH (08:33)
[2020-04-07] MEDS: CARVEDILOL 12.5 MG TABLET PO SCH ×2 (08:33→16:24)
[2020-04-07] MEDS: DOCUSATE SODIUM 100 MG CAPSULE PO SCH ×2 (08:33→20:22)
[2020-04-07] MEDS: QUEtiapine 25 MG TABLET. PO SCH ×3 (08:34→20:21)
[2020-04-07] MEDS: ASPIRIN CHEWABLE 81 MG TABLET. PO SCH (08:34)
[2020-04-07] MEDS: DUTASTERIDE 0.5 MG CAPSULE PO SCH (08:34)
[2020-04-07] MEDS: CETIRIZINE HCL 10 MG TABLET PO SCH (08:34)
[2020-04-07] MEDS: APIXABAN 5 MG TABLET. PO SCH ×2 (08:35→20:22)
[2020-04-07] MEDS: predniSONE 1 MG TABLET PO SCH (08:35)
[2020-04-07] MEDS: LACTOBACILLUS RHAMNOSUS GG 1 CAPSULE. PO SCH ×2 (08:35→20:21)
[2020-04-07] MEDS: ISOSORBIDE MONONITRATE ER 30 MG TAB.ER.24H PO SCH (08:35)
[2020-04-07] MEDS: CITALOPRAM 20 MG TABLET. PO SCH (08:35)
[2020-04-07] MEDS: PANTOPRAZOLE 40 MG TABLET. PO SCH (08:35)
[2020-04-07] MEDS: ACETAMINOPHEN 325 MG TABLET PO SCH ×2 (08:35→20:23)
[2020-04-07] MEDS: POLYETHYLENE GLYCOL 3350 17 GM PACKET. PO SCH (08:36)
[2020-04-07] MEDS: GABAPENTIN 300 MG CAPSULE. PO SCH ×3 (08:36→20:22)
[2020-04-07] MEDS: TRIMETHOPRIM 100 MG TABLET PO SCH (08:36)
[2020-04-07] MEDS: IPRATROPIUM/ALBUTEROL 20/100mcg/INH INHALER. INH SCH ×2 (08:36→20:23)
[2020-04-07] MEDS: BACITRACIN ZINC TOPICAL OINT PACKET. TP SCH ×2 (08:36→20:24)
[2020-04-07] MEDS: FUROSEMIDE 20 MG TABLET PO SCH (08:36)
[2020-04-07 15:46] VITALS: BP 98/64
[2020-04-07 19:38] VITALS: BP 108/62
[2020-04-07] MEDS: MIRTAZAPINE 7.5 MG TABLET. PO SCH (20:22)
[2020-04-07] MEDS: TAMSULOSIN 0.4 MG CAP.ER.24H. PO SCH (20:22)
[2020-04-07] MEDS: ATORVASTATIN CALCIUM 10 MG TABLET. PO SCH (20:22)
[2020-04-07] MEDS: MELATONIN 3 MG TABLET PO SCH (20:23)
[2020-04-07] MEDS: FLUTICASONE 50MCG/NASAL SPRAY 16GM BOTTLE. NS SCH (20:23)
--- NOTE | 2020-04-07 22:07 | PDOC ---
Exam Note: Ernesto Note: Please also refer to the separate dictated note~for this date of service dictated separately.~Patient seen individually. Discussed the patient with Nursing staff reviewed the chart.~Reviewed interim history and current functioning. Reviewed vital signs,~Labs/ Radiology~and current medications noted below. Continue current treatment with the changes noted in the dictated addendum note Assessment: Vital Signs/I&O: Vital Signs Date Time Temp Pulse Resp B/P (MAP) Pulse Ox O2 Delivery O2 Flow Rate FiO2 04/07/20 19:38 77 108/62 (77) 04/07/20 15:46 98.5 19 95 04/07/20 05:55 3.0 04/05/20 06:14 Nasal Cannula I & O 04/06/20 04/06/20 04/07/20 15:00 23:00 07:00 Intake Total 360 ml 580 ml Output Total 525 ml 775 ml Balance 360 ml 55 ml -775 ml Current Medications: I have reviewed the current psychotropics carefully including drug interactions. Risk benefit ratio favors no change other than as noted in my dictated progress note. Diagnosis: Problems: (1) Dementia, vascular, with depression (2) Dementia, vascular, with delusions (3) Dementia in Alzheimer's disease with depression (4) Dementia in Alzheimer's disease with delusions (5) Major neurocognitive disorder (6) Major depressive disorder with psychotic features SKYE GALVAN MD Apr 07, 2020 22:06
[2020-04-08 05:36] VITALS: BP 150/74
[2020-04-08 08:21] LABS: BASO % 1 % (0-3); EOS % 5 % (0-3); HEMATOCRIT 33.5 % (39.0-53.0); HEMOGLOBIN 10.8 g/dL (13.0-17.5); LYMPH % 15 % (24-48); MEAN CORPUSCULAR HEMOGLOBIN 28 pg (25-35); MEAN CORPUSCULAR HGB CONC 32 g/dL (31-37); MEAN CORPUSCULAR VOLUME 88 fL (79-100); MONO % 8 % (0-9); NEUT % 72 % (31-73); PLATELET COUNT 218 x10^3/uL (140-400); RED BLOOD COUNT 3.82 x10^6/uL (4.30-5.70); RED CELL DISTRIBUTION WIDTH 16.7 % (11.5-14.5)
[2020-04-08 08:22] LABS: BASO # 0.1 x10^3/uL (0.0-0.2); EOS # 0.4 x10^3/uL (0.0-0.7); LYMPH # 1.2 x10^3/uL (1.0-4.8); MONO # 0.6 x10^3/uL (0.0-1.1); NEUT # 5.7 x10^3uL (1.8-7.7)
[2020-04-08] MEDS: GABAPENTIN 300 MG CAPSULE. PO SCH ×3 (08:27→19:55)
[2020-04-08] MEDS: ISOSORBIDE MONONITRATE ER 30 MG TAB.ER.24H PO SCH (08:27)
[2020-04-08] MEDS: FUROSEMIDE 20 MG TABLET PO SCH (08:28)
[2020-04-08] MEDS: predniSONE 1 MG TABLET PO SCH (08:28)
[2020-04-08] MEDS: SENNOSIDES/DOCUSATE 8.6/50MG TABLET. PO SCH (08:28)
[2020-04-08] MEDS: DUTASTERIDE 0.5 MG CAPSULE PO SCH (08:28)
[2020-04-08] MEDS: DOCUSATE SODIUM 100 MG CAPSULE PO SCH ×2 (08:29→19:54)
[2020-04-08] MEDS: LACTOBACILLUS RHAMNOSUS GG 1 CAPSULE. PO SCH ×2 (08:29→19:54)
[2020-04-08] MEDS: CETIRIZINE HCL 10 MG TABLET PO SCH (08:29)
[2020-04-08] MEDS: PANTOPRAZOLE 40 MG TABLET. PO SCH (08:29)
[2020-04-08] MEDS: QUEtiapine 25 MG TABLET. PO SCH ×3 (08:29→19:56)
[2020-04-08] MEDS: ASPIRIN CHEWABLE 81 MG TABLET. PO SCH (08:29)
[2020-04-08] MEDS: TRIMETHOPRIM 100 MG TABLET PO SCH (08:30)
[2020-04-08] MEDS: CITALOPRAM 20 MG TABLET. PO SCH (08:30)
[2020-04-08] MEDS: POTASSIUM CHLORIDE 10 MEQ TABLET.ER. PO SCH (08:30)
[2020-04-08] MEDS: POLYETHYLENE GLYCOL 3350 17 GM PACKET. PO SCH (08:30)
[2020-04-08] MEDS: APIXABAN 5 MG TABLET. PO SCH ×2 (08:30→19:55)
[2020-04-08] MEDS: CARVEDILOL 12.5 MG TABLET PO SCH ×2 (08:30→17:56)
[2020-04-08] MEDS: BACITRACIN ZINC TOPICAL OINT PACKET. TP SCH ×2 (08:30→19:57)
[2020-04-08] MEDS: ACETAMINOPHEN 325 MG TABLET PO SCH ×2 (08:30→19:55)
[2020-04-08] MEDS: IPRATROPIUM/ALBUTEROL 20/100mcg/INH INHALER. INH SCH ×2 (08:31→19:57)
[2020-04-08 08:34] LABS: ALBUMIN 2.5 g/dL (3.4-5.0); ALBUMIN/GLOBULIN RATIO 0.9 (1.0-1.7); CALCIUM 8.5 mg/dL (8.5-10.1); CREATININE 0.8 mg/dL (0.7-1.3); GFR 92.1; POTASSIUM 3.9 mmol/L (3.5-5.1); TOTAL BILIRUBIN 0.2 mg/dL (0.2-1.0); TOTAL PROTEIN 5.3 g/dL (6.4-8.2)
[2020-04-08 16:10] VITALS: BP 112/66
[2020-04-08] MEDS: MIRTAZAPINE 7.5 MG TABLET. PO SCH (19:54)
[2020-04-08] MEDS: TAMSULOSIN 0.4 MG CAP.ER.24H. PO SCH (19:54)
[2020-04-08] MEDS: MELATONIN 3 MG TABLET PO SCH (19:55)
[2020-04-08] MEDS: ATORVASTATIN CALCIUM 10 MG TABLET. PO SCH (19:56)
[2020-04-08] MEDS: FLUTICASONE 50MCG/NASAL SPRAY 16GM BOTTLE. NS SCH (19:57)
--- NOTE | 2020-04-08 22:00 | PDOC ---
Exam Note: Ernesto Note: Please also refer to the separate dictated note~for this date of service dictated separately.~Patient seen individually. Discussed the patient with Nursing staff reviewed the chart.~Reviewed interim history and current functioning. Reviewed vital signs,~Labs/ Radiology~and current medications noted below. Continue current treatment with the changes noted in the dictated addendum note Assessment: Vital Signs/I&O: Vital Signs Date Time Temp Pulse Resp B/P (MAP) Pulse Ox O2 Delivery O2 Flow Rate FiO2 04/08/20 17:56 60 112/66 04/08/20 16:10 98.1 20 95 04/08/20 05:36 3.0 04/05/20 06:14 Nasal Cannula I & O 04/07/20 04/07/20 04/08/20 15:00 23:00 07:00 Intake Total 240 ml 905 ml Output Total 300 ml 450 ml Balance 240 ml 605 ml -450 ml Labs: Laboratory Tests Test 04/08/20 07:30 04/08/20 07:38 White Blood Count 8.0 x10^3/uL (4.0-11.0) Red Blood Count 3.82 x10^6/uL (4.30-5.70) L Hemoglobin 10.8 g/dL (13.0-17.5) L Hematocrit 33.5 % (39.0-53.0) L Mean Corpuscular Volume 88 fL (79-100) Mean Corpuscular Hemoglobin 28 pg (25-35) Mean Corpuscular Hemoglobin Concent 32 g/dL (31-37) Red Cell Distribution Width 16.7 % (11.5-14.5) H Platelet Count 218 x10^3/uL (140-400) Neutrophils (%) (Auto) 72 % (31-73) Lymphocytes (%) (Auto) 15 % (24-48) L Monocytes (%) (Auto) 8 % (0-9) Eosinophils (%) (Auto) 5 % (0-3) H Basophils (%) (Auto) 1 % (0-3) Neutrophils # (Auto) 5.7 x10^3uL (1.8-7.7) Lymphocytes # (Auto) 1.2 x10^3/uL (1.0-4.8) Monocytes # (Auto) 0.6 x10^3/uL (0.0-1.1) Eosinophils # (Auto) 0.4 x10^3/uL (0.0-0.7) Basophils # (Auto) 0.1 x10^3/uL (0.0-0.2) Sodium Level 142 mmol/L (136-145) Potassium Level 3.9 mmol/L (3.5-5.1) Chloride Level 107 mmol/L (98-107) Carbon Dioxide Level 28 mmol/L (21-32) Anion Gap 7 (6-14) Blood Urea Nitrogen 14 mg/dL (8-26) Creatinine 0.8 mg/dL (0.7-1.3) Estimated GFR (Cockcroft-Gault) 92.1 BUN/Creatinine Ratio 18 (6-20) Glucose Level 86 mg/dL (70-99) Calcium Level 8.5 mg/dL (8.5-10.1) Total Bilirubin 0.2 mg/dL (0.2-1.0) Aspartate Amino Transferase (AST) 11 U/L (15-37) L Alanine Aminotransferase (ALT) 13 U/L (16-63) L Alkaline Phosphatase 68 U/L (46-116) Total Protein 5.3 g/dL (6.4-8.2) L Albumin 2.5 g/dL (3.4-5.0) L Albumin/Globulin Ratio 0.9 (1.0-1.7) L Current Medications: I have reviewed the current psychotropics carefully including drug interactions. Risk benefit ratio favors no change other than as noted in my dictated progress note. Diagnosis: Problems: (1) Dementia, vascular, with depression (2) Dementia, vascular, with delusions (3) Dementia in Alzheimer's disease with depression (4) Dementia in Alzheimer's disease with delusions (5) Major neurocognitive disorder (6) Major depressive disorder with psychotic features SKYE GALVAN MD Apr 08, 2020 22:00
[2020-04-09 06:15] VITALS: BP 126/71
--- NOTE | 2020-04-09 07:09 | PDOC ---
Exam Note: Ernesto Note: This note is a late entry for 04/07/2020 covers elements not covered in my initial note. Subjective: The patient was seen face to face in the evening of 04/07/2020 with Nancy MAHMOOD. Discussed with nursing staff, reviewed the chart. The patient slept 6 hours previous night. Per nursing report he still remains somewhat delusional regarding his having an affair but as I met with him at some length in the evening he was less fixated on this. This is an improvement from the previous evening when he was quite psychotic and it was difficult for me to redirect him about this. Review of Systems: Shortness of breath on O2 supplements. Impaired ambulation in wheelchair. No CV, , eye system symptoms on review. Mental Status Exam: Oriented to himself. Speech is coherent, has some latency. Abstraction is fair. Computation impaired. Language function is intact. Mood and affect is somewhat anxious, labile, but less delusional, less psychotic. Laboratory Data: Reviewed. Impression: Major depressive disorder with psychotic features. 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 Plan: No change from initial note but we may need to increase Seroquel depending on his progress or change to Risperdal if he remains psychotic despite Seroquel. Assessment: Vital Signs/I&O: Vital Signs Date Time Temp Pulse Resp B/P (MAP) Pulse Ox O2 Delivery O2 Flow Rate FiO2 04/09/20 06:15 97.2 60 20 126/71 (89) 94 3.0 04/05/20 06:14 Nasal Cannula I & O 04/08/20 04/08/20 04/09/20 15:00 23:00 07:00 Intake Total 480 ml 600 ml Output Total 600 ml 800 ml Balance 480 ml 0 ml -800 ml Labs: Laboratory Tests Test 04/08/20 07:30 04/08/20 07:38 White Blood Count 8.0 x10^3/uL (4.0-11.0) Red Blood Count 3.82 x10^6/uL (4.30-5.70) L Hemoglobin 10.8 g/dL (13.0-17.5) L Hematocrit 33.5 % (39.0-53.0) L Mean Corpuscular Volume 88 fL (79-100) Mean Corpuscular Hemoglobin 28 pg (25-35) Mean Corpuscular Hemoglobin Concent 32 g/dL (31-37) Red Cell Distribution Width 16.7 % (11.5-14.5) H Platelet Count 218 x10^3/uL (140-400) Neutrophils (%) (Auto) 72 % (31-73) Lymphocytes (%) (Auto) 15 % (24-48) L Monocytes (%) (Auto) 8 % (0-9) Eosinophils (%) (Auto) 5 % (0-3) H Basophils (%) (Auto) 1 % (0-3) Neutrophils # (Auto) 5.7 x10^3uL (1.8-7.7) Lymphocytes # (Auto) 1.2 x10^3/uL (1.0-4.8) Monocytes # (Auto) 0.6 x10^3/uL (0.0-1.1) Eosinophils # (Auto) 0.4 x10^3/uL (0.0-0.7) Basophils # (Auto) 0.1 x10^3/uL (0.0-0.2) Sodium Level 142 mmol/L (136-145) Potassium Level 3.9 mmol/L (3.5-5.1) Chloride Level 107 mmol/L (98-107) Carbon Dioxide Level 28 mmol/L (21-32) Anion Gap 7 (6-14) Blood Urea Nitrogen 14 mg/dL (8-26) Creatinine 0.8 mg/dL (0.7-1.3) Estimated GFR (Cockcroft-Gault) 92.1 BUN/Creatinine Ratio 18 (6-20) Glucose Level 86 mg/dL (70-99) Calcium Level 8.5 mg/dL (8.5-10.1) Total Bilirubin 0.2 mg/dL (0.2-1.0) Aspartate Amino Transferase (AST) 11 U/L (15-37) L Alanine Aminotransferase (ALT) 13 U/L (16-63) L Alkaline Phosphatase 68 U/L (46-116) Total Protein 5.3 g/dL (6.4-8.2) L Albumin 2.5 g/dL (3.4-5.0) L Albumin/Globulin Ratio 0.9 (1.0-1.7) L Current Medications: I have reviewed the current psychotropics carefully including drug interactions. Risk benefit ratio favors no change other than as noted in my dictated progress note. Diagnosis: Problems: (1) Dementia, vascular, with depression (2) Dementia, vascular, with delusions (3) Dementia in Alzheimer's disease with depression (4) Dementia in Alzheimer's disease with delusions (5) Major neurocognitive disorder (6) Major depressive disorder with psychotic features SKYE GALVAN MD Apr 09, 2020 07:09
[2020-04-09] MEDS: APIXABAN 5 MG TABLET. PO SCH ×2 (08:34→20:07)
[2020-04-09] MEDS: CETIRIZINE HCL 10 MG TABLET PO SCH (08:34)
[2020-04-09] MEDS: DOCUSATE SODIUM 100 MG CAPSULE PO SCH ×2 (08:34→20:07)
[2020-04-09] MEDS: DUTASTERIDE 0.5 MG CAPSULE PO SCH (08:34)
[2020-04-09] MEDS: PANTOPRAZOLE 40 MG TABLET. PO SCH (08:34)
[2020-04-09] MEDS: GABAPENTIN 300 MG CAPSULE. PO SCH ×3 (08:34→20:07)
[2020-04-09] MEDS: BACITRACIN ZINC TOPICAL OINT PACKET. TP SCH ×2 (08:34→21:00)
[2020-04-09] MEDS: FUROSEMIDE 20 MG TABLET PO SCH (08:34)
[2020-04-09] MEDS: ASPIRIN CHEWABLE 81 MG TABLET. PO SCH (08:34)
[2020-04-09] MEDS: TRIMETHOPRIM 100 MG TABLET PO SCH (08:35)
[2020-04-09] MEDS: predniSONE 1 MG TABLET PO SCH (08:35)
[2020-04-09] MEDS: CITALOPRAM 20 MG TABLET. PO SCH (08:35)
[2020-04-09] MEDS: POTASSIUM CHLORIDE 10 MEQ TABLET.ER. PO SCH (08:35)
[2020-04-09] MEDS: QUEtiapine 25 MG TABLET. PO SCH ×3 (08:35→20:07)
[2020-04-09] MEDS: CARVEDILOL 12.5 MG TABLET PO SCH ×2 (08:36→17:13)
[2020-04-09] MEDS: LACTOBACILLUS RHAMNOSUS GG 1 CAPSULE. PO SCH ×2 (08:36→20:08)
[2020-04-09] MEDS: ACETAMINOPHEN 325 MG TABLET PO SCH ×2 (08:36→20:08)
[2020-04-09] MEDS: ISOSORBIDE MONONITRATE ER 30 MG TAB.ER.24H PO SCH (08:36)
[2020-04-09] MEDS: IPRATROPIUM/ALBUTEROL 20/100mcg/INH INHALER. INH SCH ×2 (08:37→20:06)
[2020-04-09] MEDS: POLYETHYLENE GLYCOL 3350 17 GM PACKET. PO SCH (08:37)
[2020-04-09 14:11] LABS: CLARITY,URINE TURBID; COLOR,URINE AMBER; GLUCOSE,URINE NEG (NEG)
[2020-04-09 14:12] LABS: NITRITE,URINE POS (NEG)
[2020-04-09 14:13] LABS: BILIRUBIN,URINE NEG (NEG)
[2020-04-09 14:16] LABS: BACTERIA,URINE MANY /HPF (0-FEW); RBC,URINE TNTC /HPF (0-2); WBC,URINE >40 /HPF (0-4)
[2020-04-09 15:48] VITALS: BP 104/61
[2020-04-09] MEDS: MELATONIN 3 MG TABLET PO SCH (20:07)
[2020-04-09] MEDS: FLUTICASONE 50MCG/NASAL SPRAY 16GM BOTTLE. NS SCH (20:07)
[2020-04-09] MEDS: TAMSULOSIN 0.4 MG CAP.ER.24H. PO SCH (20:07)
[2020-04-09] MEDS: MIRTAZAPINE 7.5 MG TABLET. PO SCH (20:07)
[2020-04-09] MEDS: ATORVASTATIN CALCIUM 10 MG TABLET. PO SCH (20:08)
[2020-04-09] MEDS ORDERED: LIDOCAINE 2% VISCOUS 15 ML SOLUTION. TOP SCH (21:00)
[2020-04-09] MEDS ORDERED: LIDOCAINE 2% TOPICAL JELLY 30GM TUBE. TP SCH (21:00)
--- NOTE | 2020-04-09 22:06 | PDOC ---
Exam Note: Ernesto Note: Please also refer to the separate dictated note~for this date of service dictated separately.~Patient seen individually. Discussed the patient with Nursing staff reviewed the chart.~Reviewed interim history and current functioning. Reviewed vital signs,~Labs/ Radiology~and current medications noted below. Continue current treatment with the changes noted in the dictated addendum note Assessment: Vital Signs/I&O: Vital Signs Date Time Temp Pulse Resp B/P (MAP) Pulse Ox O2 Delivery O2 Flow Rate FiO2 04/09/20 17:13 71 104/61 04/09/20 15:48 98.4 17 95 Room Air 04/09/20 06:15 3.0 I & O 04/08/20 04/08/20 04/09/20 15:00 23:00 07:00 Intake Total 480 ml 600 ml Output Total 600 ml 800 ml Balance 480 ml 0 ml -800 ml Labs: Laboratory Tests Test 04/09/20 13:40 Urine Collection Type U cath Urine Color Disha Urine Clarity Turbid Urine pH 5.5 Urine Specific [place] >=1.030 Urine Protein >100 mg/dl (NEG-TRACE) Urine Glucose (UA) Neg mg/dL (NEG) Urine Ketones (Stick) 15 mg/dL (NEG) Urine Blood Large (NEG) Urine Nitrite Pos (NEG) Urine Bilirubin Neg (NEG) Urine Urobilinogen Dipstick 2.0 mg/dL (0.2 mg/dL) Urine Leukocyte Esterase Trace (NEG) Urine RBC Tntc /HPF (0-2) Urine WBC >40 /HPF (0-4) Urine Bacteria Many /HPF (0-FEW) Current Medications: I have reviewed the current psychotropics carefully including drug interactions. Risk benefit ratio favors no change other than as noted in my dictated progress note. Diagnosis: Problems: (1) Dementia, vascular, with depression (2) Dementia, vascular, with delusions (3) Dementia in Alzheimer's disease with depression (4) Dementia in Alzheimer's disease with delusions (5) Major neurocognitive disorder (6) Major depressive disorder with psychotic features SKYE GALVAN MD Apr 09, 2020 22:06
[2020-04-10 06:09] VITALS: BP 155/73
--- NOTE | 2020-04-10 07:41 | PDOC ---
Exam Note: Ernesto Note: This note is a late entry for 04/08/2020 covers elements not covered in my initial note. Subjective: The patient was seen face to face in the evening of 04/08/2020 with Lamont MAHMOOD. Discussed with nursing staff, reviewed the chart. The patient slept 8-1/4 hours previous night. He has had no behaviours, did well during the day. At one point in the evening, he was yelling out for 15 minutes constantly. He just wanted someone to be around him to help with his anxiety. I talked to him at length during the individual visit about his paranoia, about his and he states he does not feel she is having an affair but states at times he gets uncomfortable with this but it is getting better. Review of Systems: Shortness of breath on O2 supplements. Impaired ambulation in wheelchair. No CV, system symptoms on review. Mental Status Exam: Oriented to himself. Speech is coherent. Abstraction is fair. Computation impaired. Attention span is short. Language function is intact. Mood and affect is somewhat anxious, labile. Laboratory Data: Reviewed. Impression: Major depressive disorder with psychotic features. 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 Plan: No change from initial note. Assessment: Vital Signs/I&O: Vital Signs Date Time Temp Pulse Resp B/P (MAP) Pulse Ox O2 Delivery O2 Flow Rate FiO2 04/10/20 06:09 97.9 61 20 155/73 (100) 98 Nasal Cannula 3.0 I & O 04/09/20 04/09/20 04/10/20 15:00 23:00 07:00 Intake Total 650 ml 325 ml 240 ml Output Total 225 ml 1050 ml Balance 650 ml 100 ml -810 ml Labs: Laboratory Tests Test 04/09/20 13:40 Urine Collection Type U cath Urine Color Disha Urine Clarity Turbid Urine pH 5.5 Urine Specific [place] >=1.030 Urine Protein >100 mg/dl (NEG-TRACE) Urine Glucose (UA) Neg mg/dL (NEG) Urine Ketones (Stick) 15 mg/dL (NEG) Urine Blood Large (NEG) Urine Nitrite Pos (NEG) Urine Bilirubin Neg (NEG) Urine Urobilinogen Dipstick 2.0 mg/dL (0.2 mg/dL) Urine Leukocyte Esterase Trace (NEG) Urine RBC Tntc /HPF (0-2) Urine WBC >40 /HPF (0-4) Urine Bacteria Many /HPF (0-FEW) Current Medications: I have reviewed the current psychotropics carefully including drug interactions. Risk benefit ratio favors no change other than as noted in my dictated progress note. Diagnosis: Problems: (1) Dementia, vascular, with depression (2) Dementia, vascular, with delusions (3) Dementia in Alzheimer's disease with depression (4) Dementia in Alzheimer's disease with delusions (5) Major neurocognitive disorder (6) Major depressive disorder with psychotic features SKYE GALVAN MD Apr 10, 2020 07:41
--- NOTE | 2020-04-10 08:08 | PDOC ---
Exam Note: Ernesto Note: This note is a late entry for 04/09/2020 covers elements not covered in my initial note. Subjective: The patient was reviewed on telehealth rounds in the evening of 04/09/2020 with Lamont MAHMOOD. Discussed with nursing staff, reviewed the chart. The patient slept 7 hours previous night. He was somewhat irritable previous night, calling out, anxious, restless due to some burning urination. We will check and repeat UA and this has reflex to culture. Review of Systems: Shortness of breath on O2 supplements. Impaired ambulation in wheelchair. No CV, , eye system symptoms on review. Mental Status Exam: Oriented to himself. He is much less delusional, paranoid about his and I addressed this with him at length. Speech is coherent, has some latency. Abstraction is fair. Computation impaired. Language function is intact. Mood and affect is somewhat anxious, labile, but less delusional, less psychotic. Laboratory Data: Reviewed. Impression: Major depressive disorder with psychotic features. 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 Plan: No change from initial note. If UTI is positive we will treat it. Assessment: Vital Signs/I&O: Vital Signs Date Time Temp Pulse Resp B/P (MAP) Pulse Ox O2 Delivery O2 Flow Rate FiO2 04/10/20 06:09 97.9 61 20 155/73 (100) 98 Nasal Cannula 3.0 I & O 04/09/20 04/09/20 04/10/20 15:00 23:00 07:00 Intake Total 650 ml 325 ml 240 ml Output Total 225 ml 1050 ml Balance 650 ml 100 ml -810 ml Labs: Laboratory Tests Test 04/09/20 13:40 Urine Collection Type U cath Urine Color Disha Urine Clarity Turbid Urine pH 5.5 Urine Specific [place] >=1.030 Urine Protein >100 mg/dl (NEG-TRACE) Urine Glucose (UA) Neg mg/dL (NEG) Urine Ketones (Stick) 15 mg/dL (NEG) Urine Blood Large (NEG) Urine Nitrite Pos (NEG) Urine Bilirubin Neg (NEG) Urine Urobilinogen Dipstick 2.0 mg/dL (0.2 mg/dL) Urine Leukocyte Esterase Trace (NEG) Urine RBC Tntc /HPF (0-2) Urine WBC >40 /HPF (0-4) Urine Bacteria Many /HPF (0-FEW) Current Medications: I have reviewed the current psychotropics carefully including drug interactions. Risk benefit ratio favors no change other than as noted in my dictated progress note. Diagnosis: Problems: (1) Dementia, vascular, with depression (2) Dementia, vascular, with delusions (3) Dementia in Alzheimer's disease with depression (4) Dementia in Alzheimer's disease with delusions (5) Major neurocognitive disorder (6) Major depressive disorder with psychotic features SKYE GALVAN MD Apr 10, 2020 08:08
[2020-04-10] MEDS: IPRATROPIUM/ALBUTEROL 20/100mcg/INH INHALER. INH SCH ×2 (08:23→20:28)
[2020-04-10] MEDS: POLYETHYLENE GLYCOL 3350 17 GM PACKET. PO SCH (08:24)
[2020-04-10] MEDS: LACTOBACILLUS RHAMNOSUS GG 1 CAPSULE. PO SCH ×2 (08:25→20:29)
[2020-04-10] MEDS: CARVEDILOL 12.5 MG TABLET PO SCH ×2 (08:25→17:24)
[2020-04-10] MEDS: predniSONE 1 MG TABLET PO SCH (08:25)
[2020-04-10] MEDS: GABAPENTIN 300 MG CAPSULE. PO SCH ×3 (08:25→20:28)
[2020-04-10] MEDS: PANTOPRAZOLE 40 MG TABLET. PO SCH (08:25)
[2020-04-10] MEDS: ASPIRIN CHEWABLE 81 MG TABLET. PO SCH (08:26)
[2020-04-10] MEDS: POTASSIUM CHLORIDE 10 MEQ TABLET.ER. PO SCH (08:26)
[2020-04-10] MEDS: SENNOSIDES/DOCUSATE 8.6/50MG TABLET. PO SCH (08:26)
[2020-04-10] MEDS: TRIMETHOPRIM 100 MG TABLET PO SCH (08:26)
[2020-04-10] MEDS: DOCUSATE SODIUM 100 MG CAPSULE PO SCH ×2 (08:27→20:29)
[2020-04-10] MEDS: QUEtiapine 25 MG TABLET. PO SCH ×3 (08:27→20:29)
[2020-04-10] MEDS: APIXABAN 5 MG TABLET. PO SCH ×2 (08:27→20:29)
[2020-04-10] MEDS: CITALOPRAM 20 MG TABLET. PO SCH (08:28)
[2020-04-10] MEDS: DUTASTERIDE 0.5 MG CAPSULE PO SCH (08:28)
[2020-04-10] MEDS: ACETAMINOPHEN 325 MG TABLET PO SCH ×2 (08:28→20:30)
[2020-04-10] MEDS: ISOSORBIDE MONONITRATE ER 30 MG TAB.ER.24H PO SCH (08:28)
[2020-04-10] MEDS: CETIRIZINE HCL 10 MG TABLET PO SCH (08:28)
[2020-04-10] MEDS: FUROSEMIDE 20 MG TABLET PO SCH (08:28)
[2020-04-10] MEDS: BACITRACIN ZINC TOPICAL OINT PACKET. TP SCH ×2 (08:29→20:30)
[2020-04-10] MEDS ORDERED: LIDOCAINE 2% TOPICAL JELLY 30GM TUBE. TP SCH (09:00)
[2020-04-10 15:53] VITALS: BP 97/65
[2020-04-10] MEDS ORDERED: HYOSCYAMINE 0.125 MG TAB.RAPDIS PO PRN (17:45)
[2020-04-10] MEDS: MELATONIN 3 MG TABLET PO SCH (20:28)
[2020-04-10] MEDS: FLUTICASONE 50MCG/NASAL SPRAY 16GM BOTTLE. NS SCH (20:28)
[2020-04-10] MEDS: ATORVASTATIN CALCIUM 10 MG TABLET. PO SCH (20:29)
[2020-04-10] MEDS: TAMSULOSIN 0.4 MG CAP.ER.24H. PO SCH (20:29)
[2020-04-10] MEDS: MIRTAZAPINE 7.5 MG TABLET. PO SCH (20:29)
[2020-04-10] MEDS: LIDOCAINE 2% TOPICAL JELLY 5GM TUBE. TP SCH (20:30)
--- NOTE | 2020-04-10 21:58 | PDOC ---
Exam Note: Ernesto Note: Please also refer to the separate dictated note~for this date of service dictated separately.~Patient seen individually. Discussed the patient with Nursing staff reviewed the chart.~Reviewed interim history and current functioning. Reviewed vital signs,~Labs/ Radiology~and current medications noted below. Continue current treatment with the changes noted in the dictated addendum note Assessment: Vital Signs/I&O: Vital Signs Date Time Temp Pulse Resp B/P (MAP) Pulse Ox O2 Delivery O2 Flow Rate FiO2 04/10/20 17:24 71 97/65 04/10/20 15:53 98.9 18 93 High Flow Nasal Cannula 2.0 I & O 04/09/20 04/09/20 04/10/20 15:00 23:00 07:00 Intake Total 650 ml 325 ml 240 ml Output Total 225 ml 1050 ml Balance 650 ml 100 ml -810 ml Current Medications: Meds: Current Medications Medications (Trade) Dose Ordered Sig/Ralph Route PRN Reason Start Time Stop Time Status Last Admin Dose Admin Hyoscyamine (Anaspaz) 0.125 mg PRN Q4HRS PRN PO STOMACH CRAMPING 04/10/20 17:45 04/10/20 18:38 Quetiapine Fumarate (SEROquel) 25 mg BID PO 04/10/20 21:00 04/10/20 20:29 I have reviewed the current psychotropics carefully including drug interactions. Risk benefit ratio favors no change other than as noted in my dictated progress note. Diagnosis: Problems: (1) Dementia, vascular, with depression (2) Dementia, vascular, with delusions (3) Dementia in Alzheimer's disease with depression (4) Dementia in Alzheimer's disease with delusions (5) Major neurocognitive disorder (6) Major depressive disorder with psychotic features SKYE GALVAN MD Apr 10, 2020 21:57
[2020-04-11 06:26] VITALS: BP 127/74
[2020-04-11] MEDS: POLYETHYLENE GLYCOL 3350 17 GM PACKET. PO SCH (08:18)
[2020-04-11] MEDS: CARVEDILOL 12.5 MG TABLET PO SCH ×2 (08:18→17:11)
[2020-04-11] MEDS: ACETAMINOPHEN 325 MG TABLET PO SCH ×2 (08:18→20:42)
[2020-04-11] MEDS: PANTOPRAZOLE 40 MG TABLET. PO SCH (08:18)
[2020-04-11] MEDS: CETIRIZINE HCL 10 MG TABLET PO SCH (08:18)
[2020-04-11] MEDS: DUTASTERIDE 0.5 MG CAPSULE PO SCH (08:18)
[2020-04-11] MEDS: DOCUSATE SODIUM 100 MG CAPSULE PO SCH ×2 (08:18→20:41)
[2020-04-11] MEDS: CITALOPRAM 20 MG TABLET. PO SCH (08:18)
[2020-04-11] MEDS: QUEtiapine 25 MG TABLET. PO SCH ×3 (08:19→20:43)
[2020-04-11] MEDS: APIXABAN 5 MG TABLET. PO SCH ×2 (08:19→20:42)
[2020-04-11] MEDS: LACTOBACILLUS RHAMNOSUS GG 1 CAPSULE. PO SCH ×2 (08:19→20:41)
[2020-04-11] MEDS: POTASSIUM CHLORIDE 10 MEQ TABLET.ER. PO SCH (08:19)
[2020-04-11] MEDS: GABAPENTIN 300 MG CAPSULE. PO SCH ×3 (08:19→20:43)
[2020-04-11] MEDS: ISOSORBIDE MONONITRATE ER 30 MG TAB.ER.24H PO SCH (08:19)
[2020-04-11] MEDS: ASPIRIN CHEWABLE 81 MG TABLET. PO SCH (08:19)
[2020-04-11] MEDS: FUROSEMIDE 20 MG TABLET PO SCH (08:20)
[2020-04-11] MEDS: BACITRACIN ZINC TOPICAL OINT PACKET. TP SCH ×2 (08:22→20:43)
[2020-04-11] MEDS: TRIMETHOPRIM 100 MG TABLET PO SCH (08:22)
[2020-04-11] MEDS: IPRATROPIUM/ALBUTEROL 20/100mcg/INH INHALER. INH SCH ×2 (08:22→20:39)
[2020-04-11] MEDS: predniSONE 1 MG TABLET PO SCH (08:22)
[2020-04-11] MEDS: LIDOCAINE 2% TOPICAL JELLY 5GM TUBE. TP SCH ×2 (09:00→20:41)
[2020-04-11 15:40] VITALS: BP 125/74
[2020-04-11] MEDS: FLUTICASONE 50MCG/NASAL SPRAY 16GM BOTTLE. NS SCH (20:40)
[2020-04-11] MEDS: MIRTAZAPINE 7.5 MG TABLET. PO SCH (20:41)
[2020-04-11] MEDS: ATORVASTATIN CALCIUM 10 MG TABLET. PO SCH (20:43)
[2020-04-11] MEDS: TAMSULOSIN 0.4 MG CAP.ER.24H. PO SCH (20:44)
[2020-04-11] MEDS: MELATONIN 3 MG TABLET PO SCH (20:44)
--- NOTE | 2020-04-11 22:06 | PDOC ---
Exam Note: Ernesto Note: Please also refer to the separate dictated note~for this date of service dictated separately.~Patient seen individually. Discussed the patient with Nursing staff reviewed the chart.~Reviewed interim history and current functioning. Reviewed vital signs,~Labs/ Radiology~and current medications noted below. Continue current treatment with the changes noted in the dictated addendum note Assessment: Vital Signs/I&O: Vital Signs Date Time Temp Pulse Resp B/P (MAP) Pulse Ox O2 Delivery O2 Flow Rate FiO2 04/11/20 17:11 84 125/74 04/11/20 15:40 97.6 16 97 Nasal Cannula 3.0 I & O 04/10/20 04/10/20 04/11/20 15:00 23:00 07:00 Intake Total 560 ml 480 ml Output Total 500 ml Balance 560 ml -20 ml Current Medications: Meds: Current Medications Medications (Trade) Dose Ordered Sig/Ralph Route PRN Reason Start Time Stop Time Status Last Admin Dose Admin Quetiapine Fumarate (SEROquel) 12.5 mg 1700 PO 04/11/20 17:00 04/11/20 17:11 I have reviewed the current psychotropics carefully including drug interactions. Risk benefit ratio favors no change other than as noted in my dictated progress note. Diagnosis: Problems: (1) Dementia, vascular, with depression (2) Dementia, vascular, with delusions (3) Dementia in Alzheimer's disease with depression (4) Dementia in Alzheimer's disease with delusions (5) Major neurocognitive disorder (6) Major depressive disorder with psychotic features SKYE GALVAN MD Apr 11, 2020 22:06
[2020-04-12 06:00] VITALS: BP 128/74
--- NOTE | 2020-04-12 07:32 | PDOC ---
Exam Note: Ernesto Note: This note is a late entry for 04/10/2020 covers elements not covered in my initial note. Subjective: The patient was seen face to face in the morning of 04/10/2020 for treatment team meeting with Mary Jo Meyers and Claudia (social director), Shanti, Activity Therapy and Lamont RN. Discussed with nursing staff, reviewed the chart. The patient slept 6-1/2 hours previous night. He is less delusional about his having an affair. He does get somewhat delusional more so in the evening. Review of Systems: Shortness of breath on O2 supplements. Impaired ambulation in wheelchair. No CV, , eye system symptoms on review. Mental Status Exam: Oriented to himself. I met with him in the morning. Speech is coherent, has some latency. Abstraction is fair. Computation impaired. Language function is intact. Mood and affect is somewhat withdrawn. Laboratory Data: Reviewed. Impression: Major depressive disorder with psychotic features. 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 Plan: No change from initial note. Assessment: Vital Signs/I&O: Vital Signs Date Time Temp Pulse Resp B/P (MAP) Pulse Ox O2 Delivery O2 Flow Rate FiO2 04/12/20 06:00 98.1 63 16 128/74 (92) 94 Room Air 2.0 I & O 04/11/20 04/11/20 04/12/20 15:00 23:00 07:00 Intake Total 650 ml 240 ml Balance 650 ml 240 ml Current Medications: Meds: Current Medications Medications (Trade) Dose Ordered Sig/Ralph Route PRN Reason Start Time Stop Time Status Last Admin Dose Admin Quetiapine Fumarate (SEROquel) 12.5 mg 1700 PO 04/11/20 17:00 04/11/20 17:11 I have reviewed the current psychotropics carefully including drug interactions. Risk benefit ratio favors no change other than as noted in my dictated progress note. Diagnosis: Problems: (1) Dementia, vascular, with depression (2) Dementia, vascular, with delusions (3) Dementia in Alzheimer's disease with depression (4) Dementia in Alzheimer's disease with delusions (5) Major neurocognitive disorder (6) Major depressive disorder with psychotic features SKYE GALVAN MD Apr 12, 2020 07:32
--- NOTE | 2020-04-12 07:43 | PDOC ---
Exam Note: Ernesto Note: This note is a late entry for 04/11/2020 covers elements not covered in my initial note. Subjective: The patient was seen face to face in the evening of 04/11/2020 with Guera MAHMOOD. Discussed with nursing staff, reviewed the chart. The patient slept 7-3/4 hours previous night. He was yelling in the morning, repeatedly stating he was going to . Previous night he was preoccupied trying to find his , little more confused, still somewhat paranoid about his but much improved. Review of Systems: Shortness of breath on O2 supplements. Impaired ambulation in wheelchair. No CV, system symptoms on review. Mental Status Exam: Oriented to himself. Speech is coherent. Abstraction is fair. Computation impaired. Attention span is short. Language function is intact. Mood and affect is improved, less anxious. Laboratory Data: Reviewed. Impression: Major depressive disorder with psychotic features. 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 Plan: No change from initial note. We may need to increase the Seroquel further if psychotic symptoms persist. Assessment: Vital Signs/I&O: Vital Signs Date Time Temp Pulse Resp B/P (MAP) Pulse Ox O2 Delivery O2 Flow Rate FiO2 04/12/20 06:00 98.1 63 16 128/74 (92) 94 Room Air 2.0 I & O 04/11/20 04/11/20 04/12/20 15:00 23:00 07:00 Intake Total 650 ml 240 ml Balance 650 ml 240 ml Current Medications: Meds: Current Medications Medications (Trade) Dose Ordered Sig/Ralph Route PRN Reason Start Time Stop Time Status Last Admin Dose Admin Quetiapine Fumarate (SEROquel) 12.5 mg 1700 PO 04/11/20 17:00 04/11/20 17:11 I have reviewed the current psychotropics carefully including drug interactions. Risk benefit ratio favors no change other than as noted in my dictated progress note. Diagnosis: Problems: (1) Dementia, vascular, with depression (2) Dementia, vascular, with delusions (3) Dementia in Alzheimer's disease with depression (4) Dementia in Alzheimer's disease with delusions (5) Major neurocognitive disorder (6) Major depressive disorder with psychotic features SKYE GAVLAN MD Apr 12, 2020 07:43
[2020-04-12] MEDS: POTASSIUM CHLORIDE 10 MEQ TABLET.ER. PO SCH (07:48)
[2020-04-12] MEDS: DOCUSATE SODIUM 100 MG CAPSULE PO SCH ×2 (07:48→19:53)
[2020-04-12] MEDS: GABAPENTIN 300 MG CAPSULE. PO SCH ×3 (07:49→19:58)
[2020-04-12] MEDS: DUTASTERIDE 0.5 MG CAPSULE PO SCH (07:49)
[2020-04-12] MEDS: LACTOBACILLUS RHAMNOSUS GG 1 CAPSULE. PO SCH ×2 (07:49→19:53)
[2020-04-12] MEDS: APIXABAN 5 MG TABLET. PO SCH ×2 (07:49→19:55)
[2020-04-12] MEDS: QUEtiapine 25 MG TABLET. PO SCH ×3 (07:49→19:55)
[2020-04-12] MEDS: ASPIRIN CHEWABLE 81 MG TABLET. PO SCH (07:50)
[2020-04-12] MEDS: ACETAMINOPHEN 325 MG TABLET PO SCH ×2 (07:50→19:57)
[2020-04-12] MEDS: CETIRIZINE HCL 10 MG TABLET PO SCH (07:50)
[2020-04-12] MEDS: SENNOSIDES/DOCUSATE 8.6/50MG TABLET. PO SCH (07:50)
[2020-04-12] MEDS: PANTOPRAZOLE 40 MG TABLET. PO SCH (07:50)
[2020-04-12] MEDS: CARVEDILOL 12.5 MG TABLET PO SCH ×2 (07:50→17:00)
[2020-04-12] MEDS: ISOSORBIDE MONONITRATE ER 30 MG TAB.ER.24H PO SCH (07:50)
[2020-04-12] MEDS: CITALOPRAM 20 MG TABLET. PO SCH (07:51)
[2020-04-12] MEDS: FUROSEMIDE 20 MG TABLET PO SCH (07:51)
[2020-04-12] MEDS: POLYETHYLENE GLYCOL 3350 17 GM PACKET. PO SCH (07:52)
[2020-04-12] MEDS: IPRATROPIUM/ALBUTEROL 20/100mcg/INH INHALER. INH SCH ×2 (07:52→19:52)
[2020-04-12] MEDS: BACITRACIN ZINC TOPICAL OINT PACKET. TP SCH ×2 (07:57→19:56)
[2020-04-12] MEDS: TRIMETHOPRIM 100 MG TABLET PO SCH (07:58)
[2020-04-12] MEDS: predniSONE 1 MG TABLET PO SCH (07:58)
[2020-04-12] MEDS: CHOLECALCIFEROL (VITAMIN D3) 50,000 UNIT CAPSULE PO SCH (07:59)
[2020-04-12] MEDS: LIDOCAINE 2% TOPICAL JELLY 5GM TUBE. TP SCH ×2 (09:00→19:52)
[2020-04-12 15:47] VITALS: BP 109/62
[2020-04-12] MEDS: FLUTICASONE 50MCG/NASAL SPRAY 16GM BOTTLE. NS SCH (19:51)
[2020-04-12] MEDS: MIRTAZAPINE 7.5 MG TABLET. PO SCH (19:54)
[2020-04-12] MEDS: TAMSULOSIN 0.4 MG CAP.ER.24H. PO SCH (19:55)
[2020-04-12] MEDS: ATORVASTATIN CALCIUM 10 MG TABLET. PO SCH (19:56)
[2020-04-12] MEDS: MELATONIN 3 MG TABLET PO SCH (19:57)
[2020-04-12] MEDS: AMOXICILLIN/K CLAV 500/125MG TABLET. PO SCH (19:58)
--- NOTE | 2020-04-12 21:42 | PDOC ---
Exam Note: Ernesto Note: Please also refer to the separate dictated note~for this date of service dictated separately.~Patient seen individually. Discussed the patient with Nursing staff reviewed the chart.~Reviewed interim history and current functioning. Reviewed vital signs,~Labs/ Radiology~and current medications noted below. Continue current treatment with the changes noted in the dictated addendum note Assessment: Vital Signs/I&O: Vital Signs Date Time Temp Pulse Resp B/P (MAP) Pulse Ox O2 Delivery O2 Flow Rate FiO2 04/12/20 17:00 64 109/62 04/12/20 15:47 97.4 18 97 Room Air 04/12/20 06:00 2.0 I & O 04/11/20 04/11/20 04/12/20 15:00 23:00 07:00 Intake Total 650 ml 240 ml Balance 650 ml 240 ml Current Medications: Meds: Current Medications Medications (Trade) Dose Ordered Sig/Ralph Route PRN Reason Start Time Stop Time Status Last Admin Dose Admin Amoxicillin/ Clavulanate Potassium (Augmentin 500/ 125mg) 1 tab BID PO 04/12/20 21:00 04/21/20 21:00 04/12/20 19:58 I have reviewed the current psychotropics carefully including drug interactions. Risk benefit ratio favors no change other than as noted in my dictated progress note. Diagnosis: Problems: (1) Mild cognitive impairment with memory loss (2) Dementia, vascular, with depression (3) Dementia, vascular, with delusions (4) Dementia in Alzheimer's disease with depression (5) Dementia in Alzheimer's disease with delusions (6) Major neurocognitive disorder (7) Major depressive disorder with psychotic features SKYE GALVAN MD Apr 12, 2020 21:42
[2020-04-13 06:15] VITALS: BP 150/69
[2020-04-13] MEDS: IPRATROPIUM/ALBUTEROL 20/100mcg/INH INHALER. INH SCH ×2 (08:00→20:18)
[2020-04-13] MEDS: POLYETHYLENE GLYCOL 3350 17 GM PACKET. PO SCH (08:29)
[2020-04-13] MEDS: CITALOPRAM 20 MG TABLET. PO SCH (08:30)
[2020-04-13] MEDS: DUTASTERIDE 0.5 MG CAPSULE PO SCH (08:30)
[2020-04-13] MEDS: CARVEDILOL 12.5 MG TABLET PO SCH ×2 (08:30→17:48)
[2020-04-13] MEDS: ISOSORBIDE MONONITRATE ER 30 MG TAB.ER.24H PO SCH (08:30)
[2020-04-13] MEDS: LACTOBACILLUS RHAMNOSUS GG 1 CAPSULE. PO SCH ×2 (08:30→20:20)
[2020-04-13] MEDS: APIXABAN 5 MG TABLET. PO SCH ×2 (08:30→20:21)
[2020-04-13] MEDS: QUEtiapine 25 MG TABLET. PO SCH ×3 (08:30→20:21)
[2020-04-13] MEDS: DOCUSATE SODIUM 100 MG CAPSULE PO SCH ×2 (08:30→20:20)
[2020-04-13] MEDS: ASPIRIN CHEWABLE 81 MG TABLET. PO SCH (08:30)
[2020-04-13] MEDS: GABAPENTIN 300 MG CAPSULE. PO SCH ×3 (08:30→20:20)
[2020-04-13] MEDS: AMOXICILLIN/K CLAV 500/125MG TABLET. PO SCH ×2 (08:31→20:19)
[2020-04-13] MEDS: POTASSIUM CHLORIDE 10 MEQ TABLET.ER. PO SCH (08:31)
[2020-04-13] MEDS: predniSONE 1 MG TABLET PO SCH (08:31)
[2020-04-13] MEDS: LIDOCAINE 2% TOPICAL JELLY 5GM TUBE. TP SCH ×2 (08:31→20:18)
[2020-04-13] MEDS: PANTOPRAZOLE 40 MG TABLET. PO SCH (08:31)
[2020-04-13] MEDS: ACETAMINOPHEN 325 MG TABLET PO SCH ×2 (08:31→20:22)
[2020-04-13] MEDS: CETIRIZINE HCL 10 MG TABLET PO SCH (08:31)
[2020-04-13] MEDS: FUROSEMIDE 20 MG TABLET PO SCH (08:31)
[2020-04-13] MEDS: BACITRACIN ZINC TOPICAL OINT PACKET. TP SCH ×2 (08:31→20:20)
[2020-04-13 15:55] VITALS: BP 119/82
[2020-04-13] MEDS: FLUTICASONE 50MCG/NASAL SPRAY 16GM BOTTLE. NS SCH (20:18)
[2020-04-13] MEDS: MIRTAZAPINE 7.5 MG TABLET. PO SCH (20:19)
[2020-04-13] MEDS: ATORVASTATIN CALCIUM 10 MG TABLET. PO SCH (20:21)
[2020-04-13] MEDS: TAMSULOSIN 0.4 MG CAP.ER.24H. PO SCH (20:22)
[2020-04-13] MEDS: MELATONIN 3 MG TABLET PO SCH (20:23)
--- NOTE | 2020-04-13 22:09 | PDOC ---
Exam Note: Ernesto Note: Please also refer to the separate dictated note~for this date of service dictated separately.~Patient seen individually. Discussed the patient with Nursing staff reviewed the chart.~Reviewed interim history and current functioning. Reviewed vital signs,~Labs/ Radiology~and current medications noted below. Continue current treatment with the changes noted in the dictated addendum note Assessment: Vital Signs/I&O: Vital Signs Date Time Temp Pulse Resp B/P (MAP) Pulse Ox O2 Delivery O2 Flow Rate FiO2 04/13/20 17:48 78 119/82 04/13/20 15:55 97.4 18 100 04/13/20 06:15 2.0 04/12/20 15:47 Room Air I & O 04/12/20 04/12/20 04/13/20 15:00 23:00 07:00 Intake Total 600 ml 360 ml Balance 600 ml 360 ml Current Medications: I have reviewed the current psychotropics carefully including drug interactions. Risk benefit ratio favors no change other than as noted in my dictated progress note. Diagnosis: Problems: (1) Dementia, vascular, with depression (2) Dementia, vascular, with delusions (3) Dementia in Alzheimer's disease with depression (4) Dementia in Alzheimer's disease with delusions (5) Major neurocognitive disorder (6) Major depressive disorder with psychotic features SKYE GALVAN MD Apr 13, 2020 22:09
[2020-04-14 06:00] VITALS: BP 121/70
--- NOTE | 2020-04-14 06:43 | PDOC ---
Exam Note: Ernesto Note: This note is a late entry for 04/12/2020 covers elements not covered in my initial note. Subjective: The patient was seen face to face in the evening of 04/12/2020 with Guera MAHMOOD. Discussed with nursing staff, reviewed the chart. The patient slept 7-3/4 hours previous night. He often removes his O2 supplements and I discussed with him including keeping his mask in place. Per nursing report, the patient was talking off the wall. He remains paranoid about his but when I questioned him he minimized this. He still is suspicious about why she is buying new clothing objects unless she is going out with someone else. Review of Systems: Shortness of breath on O2 supplements. Impaired ambulation in wheelchair. No CV, , eye system symptoms on review. Mental Status Exam: Oriented to himself. Speech is coherent. Abstraction is fair. Computation impaired. Attention span is short. Language function is intact. Mood and affect is improved, less anxious. Laboratory Data: Reviewed. Impression: Major depressive disorder with psychotic features. 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 Plan: No change from initial note. Depending on how he does, we may need to increase the Seroquel for his ongoing psychotic symptoms. I will give it another day and then decide. Assessment: Vital Signs/I&O: Vital Signs Date Time Temp Pulse Resp B/P (MAP) Pulse Ox O2 Delivery O2 Flow Rate FiO2 04/14/20 06:00 98.1 61 20 121/70 (87) 95 Nasal Cannula 2.0 I & O 04/13/20 04/13/20 04/14/20 15:00 23:00 07:00 Intake Total 240 ml 240 ml Output Total 1000 ml Balance 240 ml -760 ml Current Medications: I have reviewed the current psychotropics carefully including drug interactions. Risk benefit ratio favors no change other than as noted in my dictated progress note. Diagnosis: Problems: (1) Dementia, vascular, with depression (2) Dementia, vascular, with delusions (3) Dementia in Alzheimer's disease with depression (4) Dementia in Alzheimer's disease with delusions (5) Major neurocognitive disorder (6) Major depressive disorder with psychotic features SKYE GALVAN MD Apr 14, 2020 06:43
[2020-04-14] MEDS: POTASSIUM CHLORIDE 10 MEQ TABLET.ER. PO SCH (07:49)
[2020-04-14] MEDS: PANTOPRAZOLE 40 MG TABLET. PO SCH (07:50)
[2020-04-14] MEDS: ISOSORBIDE MONONITRATE ER 30 MG TAB.ER.24H PO SCH (07:50)
[2020-04-14] MEDS: GABAPENTIN 300 MG CAPSULE. PO SCH ×3 (07:50→19:45)
[2020-04-14] MEDS: CETIRIZINE HCL 10 MG TABLET PO SCH (07:50)
[2020-04-14] MEDS: SENNOSIDES/DOCUSATE 8.6/50MG TABLET. PO SCH (07:51)
[2020-04-14] MEDS: QUEtiapine 25 MG TABLET. PO SCH ×3 (07:51→19:51)
[2020-04-14] MEDS: AMOXICILLIN/K CLAV 500/125MG TABLET. PO SCH ×2 (07:51→19:44)
[2020-04-14] MEDS: APIXABAN 5 MG TABLET. PO SCH ×2 (07:51→19:45)
[2020-04-14] MEDS: FUROSEMIDE 20 MG TABLET PO SCH (07:52)
[2020-04-14] MEDS: ASPIRIN CHEWABLE 81 MG TABLET. PO SCH (07:53)
[2020-04-14] MEDS: CITALOPRAM 20 MG TABLET. PO SCH (07:53)
[2020-04-14] MEDS: ACETAMINOPHEN 325 MG TABLET PO SCH ×2 (07:53→19:44)
[2020-04-14] MEDS: CARVEDILOL 12.5 MG TABLET PO SCH ×3 (07:54→19:46)
[2020-04-14] MEDS: LACTOBACILLUS RHAMNOSUS GG 1 CAPSULE. PO SCH ×2 (07:54→19:44)
[2020-04-14] MEDS: DOCUSATE SODIUM 100 MG CAPSULE PO SCH ×2 (07:54→19:51)
[2020-04-14] MEDS: BACITRACIN ZINC TOPICAL OINT PACKET. TP SCH ×2 (07:55→19:47)
[2020-04-14] MEDS: predniSONE 1 MG TABLET PO SCH (07:56)
[2020-04-14] MEDS: IPRATROPIUM/ALBUTEROL 20/100mcg/INH INHALER. INH SCH ×2 (07:56→19:43)
[2020-04-14] MEDS: POLYETHYLENE GLYCOL 3350 17 GM PACKET. PO SCH (07:57)
[2020-04-14] MEDS: DUTASTERIDE 0.5 MG CAPSULE PO SCH (07:58)
[2020-04-14 07:59] LABS: BASO # 0.1 x10^3/uL (0.0-0.2); BASO % 1 % (0-3); EOS # 0.3 x10^3/uL (0.0-0.7); EOS % 5 % (0-3); HEMATOCRIT 32.8 % (39.0-53.0); HEMOGLOBIN 10.4 g/dL (13.0-17.5); LYMPH # 1.2 x10^3/uL (1.0-4.8); LYMPH % 18 % (24-48); MEAN CORPUSCULAR HEMOGLOBIN 28 pg (25-35); MEAN CORPUSCULAR HGB CONC 32 g/dL (31-37); MEAN CORPUSCULAR VOLUME 90 fL (79-100); MONO # 0.7 x10^3/uL (0.0-1.1); MONO % 10 % (0-9); NEUT # 4.6 x10^3uL (1.8-7.7); NEUT % 67 % (31-73); PLATELET COUNT 207 x10^3/uL (140-400); RED BLOOD COUNT 3.64 x10^6/uL (4.30-5.70); RED CELL DISTRIBUTION WIDTH 16.8 % (11.5-14.5); WHITE BLOOD COUNT 6.9 x10^3/uL (4.0-11.0)
[2020-04-14] MEDS: LIDOCAINE 2% TOPICAL JELLY 5GM TUBE. TP SCH ×2 (07:59→19:47)
[2020-04-14 08:00] LABS: ALBUMIN 2.6 g/dL (3.4-5.0); CREATININE 0.9 mg/dL (0.7-1.3); GFR 80.4; POTASSIUM 3.7 mmol/L (3.5-5.1); TOTAL BILIRUBIN 0.2 mg/dL (0.2-1.0); TOTAL PROTEIN 5.2 g/dL (6.4-8.2)
[2020-04-14 16:04] VITALS: BP_SYST 124; BP_SYST 156; BP_DIAS 64; BP_DIAS 72
[2020-04-14] MEDS: FLUTICASONE 50MCG/NASAL SPRAY 16GM BOTTLE. NS SCH (19:44)
[2020-04-14] MEDS: MELATONIN 3 MG TABLET PO SCH (19:45)
[2020-04-14] MEDS: ATORVASTATIN CALCIUM 10 MG TABLET. PO SCH (19:45)
[2020-04-14] MEDS: MIRTAZAPINE 7.5 MG TABLET. PO SCH (19:51)
[2020-04-14] MEDS: TAMSULOSIN 0.4 MG CAP.ER.24H. PO SCH (19:51)
--- NOTE | 2020-04-14 22:10 | PDOC ---
Exam Note: Ernesto Note: Please also refer to the separate dictated note~for this date of service dictated separately.~Patient seen individually. Discussed the patient with Nursing staff reviewed the chart.~Reviewed interim history and current functioning. Reviewed vital signs,~Labs/ Radiology~and current medications noted below. Continue current treatment with the changes noted in the dictated addendum note Assessment: Vital Signs/I&O: Vital Signs Date Time Temp Pulse Resp B/P (MAP) Pulse Ox O2 Delivery O2 Flow Rate FiO2 04/14/20 17:00 56 124/64 04/14/20 16:04 97.6 18 99 04/14/20 06:00 Nasal Cannula 2.0 I & O 0 04/13/20 04/13/20 04/14/20 15:00 23:00 07:00 Intake Total 240 ml 240 ml Output Total 1000 ml Balance 240 ml -760 ml Labs: Laboratory Tests Test 04/14/20 07:38 White Blood Count 6.9 x10^3/uL (4.0-11.0) Red Blood Count 3.64 x10^6/uL (4.30-5.70) L Hemoglobin 10.4 g/dL (13.0-17.5) L Hematocrit 32.8 % (39.0-53.0) L Mean Corpuscular Volume 90 fL (79-100) Mean Corpuscular Hemoglobin 28 pg (25-35) Mean Corpuscular Hemoglobin Concent 32 g/dL (31-37) Red Cell Distribution Width 16.8 % (11.5-14.5) H Platelet Count 207 x10^3/uL (140-400) Neutrophils (%) (Auto) 67 % (31-73) Lymphocytes (%) (Auto) 18 % (24-48) L Monocytes (%) (Auto) 10 % (0-9) H Eosinophils (%) (Auto) 5 % (0-3) H Basophils (%) (Auto) 1 % (0-3) Neutrophils # (Auto) 4.6 x10^3uL (1.8-7.7) Lymphocytes # (Auto) 1.2 x10^3/uL (1.0-4.8) Monocytes # (Auto) 0.7 x10^3/uL (0.0-1.1) Eosinophils # (Auto) 0.3 x10^3/uL (0.0-0.7) Basophils # (Auto) 0.1 x10^3/uL (0.0-0.2) Sodium Level 144 mmol/L (136-145) Potassium Level 3.7 mmol/L (3.5-5.1) Chloride Level 109 mmol/L (98-107) H Carbon Dioxide Level 30 mmol/L (21-32) Anion Gap 5 (6-14) L Blood Urea Nitrogen 12 mg/dL (8-26) Creatinine 0.9 mg/dL (0.7-1.3) Estimated GFR (Cockcroft-Gault) 80.4 BUN/Creatinine Ratio 13 (6-20) Glucose Level 84 mg/dL (70-99) Calcium Level 8.0 mg/dL (8.5-10.1) L Total Bilirubin 0.2 mg/dL (0.2-1.0) Aspartate Amino Transferase (AST) 12 U/L (15-37) L Alanine Aminotransferase (ALT) 9 U/L (16-63) L Alkaline Phosphatase 69 U/L (46-116) Total Protein 5.2 g/dL (6.4-8.2) L Albumin 2.6 g/dL (3.4-5.0) L Albumin/Globulin Ratio 1.0 (1.0-1.7) Current Medications: I have reviewed the current psychotropics carefully including drug interactions. Risk benefit ratio favors no change other than as noted in my dictated progress note. Diagnosis: Problems: (1) Dementia, vascular, with depression (2) Dementia, vascular, with delusions (3) Dementia in Alzheimer's disease with depression (4) Dementia in Alzheimer's disease with delusions (5) Major neurocognitive disorder (6) Major depressive disorder with psychotic features SKYE GALVAN MD Apr 14, 2020 22:10
[2020-04-15 06:08] VITALS: BP 147/73
--- NOTE | 2020-04-15 06:45 | PDOC ---
Exam Note: Ernesto Note: This note is a late entry for 04/13/2020 covers elements not covered in my initial note. Subjective: The patient was seen face to face in the evening of 04/13/2020 with Filiberto MAHMOOD. Discussed with nursing staff, reviewed the chart. The patient slept 5-1/2 hours previous night. He had a good day. Previous night he was yelling but not during the day on 04/13. He has had a Terrazas replaced and does have UTI started on antibiotics. Review of Systems: Shortness of breath on O2 supplements. Impaired ambulation in wheelchair. No CV, , pulmonary, eye system symptoms on review. Mental Status Exam: Oriented to himself. The patient is still somewhat paranoid, delusional about his but on further questioning he reluctantly accepts that what he is thinking might not be correct. Certainly the UTI could be contributing to this. Speech is coherent. Abstraction is fair. Computation impaired. Attention span is short. Language function is intact. Mood and affect is improved, less anxious. Laboratory Data: Reviewed. Impression: Major depressive disorder with psychotic features. 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 Plan: No change from initial note. Once the patients UTI is resolved, if psychotic symptoms persist, we may change Seroquel to Risperdal. Assessment: Vital Signs/I&O: Vital Signs Date Time Temp Pulse Resp B/P (MAP) Pulse Ox O2 Delivery O2 Flow Rate FiO2 04/15/20 06:08 97.9 99 20 147/73 (97) 93 3.0 04/14/20 06:00 Nasal Cannula I & O 04/14/20 04/14/20 04/15/20 15:00 23:00 07:00 Intake Total 480 ml 120 ml Output Total 500 ml Balance 480 ml -380 ml Labs: Laboratory Tests Test 04/14/20 07:38 White Blood Count 6.9 x10^3/uL (4.0-11.0) Red Blood Count 3.64 x10^6/uL (4.30-5.70) L Hemoglobin 10.4 g/dL (13.0-17.5) L Hematocrit 32.8 % (39.0-53.0) L Mean Corpuscular Volume 90 fL (79-100) Mean Corpuscular Hemoglobin 28 pg (25-35) Mean Corpuscular Hemoglobin Concent 32 g/dL (31-37) Red Cell Distribution Width 16.8 % (11.5-14.5) H Platelet Count 207 x10^3/uL (140-400) Neutrophils (%) (Auto) 67 % (31-73) Lymphocytes (%) (Auto) 18 % (24-48) L Monocytes (%) (Auto) 10 % (0-9) H Eosinophils (%) (Auto) 5 % (0-3) H Basophils (%) (Auto) 1 % (0-3) Neutrophils # (Auto) 4.6 x10^3uL (1.8-7.7) Lymphocytes # (Auto) 1.2 x10^3/uL (1.0-4.8) Monocytes # (Auto) 0.7 x10^3/uL (0.0-1.1) Eosinophils # (Auto) 0.3 x10^3/uL (0.0-0.7) Basophils # (Auto) 0.1 x10^3/uL (0.0-0.2) Sodium Level 144 mmol/L (136-145) Potassium Level 3.7 mmol/L (3.5-5.1) Chloride Level 109 mmol/L (98-107) H Carbon Dioxide Level 30 mmol/L (21-32) Anion Gap 5 (6-14) L Blood Urea Nitrogen 12 mg/dL (8-26) Creatinine 0.9 mg/dL (0.7-1.3) Estimated GFR (Cockcroft-Gault) 80.4 BUN/Creatinine Ratio 13 (6-20) Glucose Level 84 mg/dL (70-99) Calcium Level 8.0 mg/dL (8.5-10.1) L Total Bilirubin 0.2 mg/dL (0.2-1.0) Aspartate Amino Transferase (AST) 12 U/L (15-37) L Alanine Aminotransferase (ALT) 9 U/L (16-63) L Alkaline Phosphatase 69 U/L (46-116) Total Protein 5.2 g/dL (6.4-8.2) L Albumin 2.6 g/dL (3.4-5.0) L Albumin/Globulin Ratio 1.0 (1.0-1.7) Current Medications: I have reviewed the current psychotropics carefully including drug interactions. Risk benefit ratio favors no change other than as noted in my dictated progress note. Diagnosis: Problems: (1) Dementia, vascular, with depression (2) Dementia, vascular, with delusions (3) Dementia in Alzheimer's disease with depression (4) Dementia in Alzheimer's disease with delusions (5) Major neurocognitive disorder (6) Major depressive disorder with psychotic features SKYE GALVAN MD Apr 15, 2020 06:45
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
[2020-04-15] MEDS: POLYETHYLENE GLYCOL 3350 17 GM PACKET. PO SCH (08:00)
[2020-04-15] MEDS: LACTOBACILLUS RHAMNOSUS GG 1 CAPSULE. PO SCH ×2 (08:00→20:08)
[2020-04-15] MEDS: AMOXICILLIN/K CLAV 500/125MG TABLET. PO SCH ×2 (08:00→20:08)
[2020-04-15] MEDS: DOCUSATE SODIUM 100 MG CAPSULE PO SCH ×2 (08:00→20:08)
[2020-04-15] MEDS: IPRATROPIUM/ALBUTEROL 20/100mcg/INH INHALER. INH SCH ×2 (08:00→20:06)
[2020-04-15] MEDS: ACETAMINOPHEN 325 MG TABLET PO SCH ×2 (08:00→20:07)
[2020-04-15] MEDS: QUEtiapine 25 MG TABLET. PO SCH ×2 (08:01→17:10)
[2020-04-15] MEDS: GABAPENTIN 300 MG CAPSULE. PO SCH ×3 (08:01→20:07)
[2020-04-15] MEDS: POTASSIUM CHLORIDE 10 MEQ TABLET.ER. PO SCH (08:01)
[2020-04-15] MEDS: DUTASTERIDE 0.5 MG CAPSULE PO SCH (08:01)
[2020-04-15] MEDS: ASPIRIN CHEWABLE 81 MG TABLET. PO SCH (08:01)
[2020-04-15] MEDS: CETIRIZINE HCL 10 MG TABLET PO SCH (08:01)
[2020-04-15] MEDS: FUROSEMIDE 20 MG TABLET PO SCH (08:01)
[2020-04-15] MEDS: ISOSORBIDE MONONITRATE ER 30 MG TAB.ER.24H PO SCH (08:01)
[2020-04-15] MEDS: predniSONE 1 MG TABLET PO SCH (08:02)
[2020-04-15] MEDS: CARVEDILOL 12.5 MG TABLET PO SCH ×2 (08:02→17:10)
[2020-04-15] MEDS: PANTOPRAZOLE 40 MG TABLET. PO SCH (08:02)
[2020-04-15] MEDS: APIXABAN 5 MG TABLET. PO SCH ×2 (08:02→20:08)
[2020-04-15] MEDS: CITALOPRAM 20 MG TABLET. PO SCH (08:02)
[2020-04-15] MEDS: LIDOCAINE 2% TOPICAL JELLY 5GM TUBE. TP SCH ×2 (08:03→20:09)
[2020-04-15] MEDS: BACITRACIN ZINC TOPICAL OINT PACKET. TP SCH ×2 (08:03→20:09)
[2020-04-15 16:08] VITALS: BP 138/77
[2020-04-15 19:45] LABS: BASO # 0.1 x10^3/uL (0.0-0.2); BASO % 1 % (0-3); CALCIUM 8.6 mg/dL (8.5-10.1); EOS # 0.2 x10^3/uL (0.0-0.7); EOS % 3 % (0-3); GFR 71.2; HEMATOCRIT 33.9 % (39.0-53.0); HEMOGLOBIN 10.7 g/dL (13.0-17.5); LYMPH % 11 % (24-48); MEAN CORPUSCULAR HEMOGLOBIN 28 pg (25-35); MEAN CORPUSCULAR HGB CONC 32 g/dL (31-37); MEAN CORPUSCULAR VOLUME 89 fL (79-100); MONO # 0.7 x10^3/uL (0.0-1.1); MONO % 8 % (0-9); NEUT # 7.2 x10^3uL (1.8-7.7); NEUT % 78 % (31-73); PLATELET COUNT 248 x10^3/uL (140-400); POTASSIUM 3.9 mmol/L (3.5-5.1); RED BLOOD COUNT 3.83 x10^6/uL (4.30-5.70); RED CELL DISTRIBUTION WIDTH 16.6 % (11.5-14.5); WHITE BLOOD COUNT 9.2 x10^3/uL (4.0-11.0)
[2020-04-15 19:53] LABS: ALBUMIN 3.1 g/dL (3.4-5.0); TOTAL BILIRUBIN 0.2 mg/dL (0.2-1.0); TOTAL PROTEIN 6.2 g/dL (6.4-8.2)
[2020-04-15] MEDS: FLUTICASONE 50MCG/NASAL SPRAY 16GM BOTTLE. NS SCH (20:06)
[2020-04-15] MEDS: MIRTAZAPINE 7.5 MG TABLET. PO SCH (20:07)
[2020-04-15] MEDS: MELATONIN 3 MG TABLET PO SCH (20:07)
[2020-04-15] MEDS: TAMSULOSIN 0.4 MG CAP.ER.24H. PO SCH (20:08)
[2020-04-15] MEDS: ATORVASTATIN CALCIUM 10 MG TABLET. PO SCH (20:08)
[2020-04-15] MEDS: risperiDONE 0.25 MG TABLET. PO SCH (20:08)
--- NOTE | 2020-04-15 22:00 | PDOC ---
Exam Note: Ernesto Note: Please also refer to the separate dictated note~for this date of service dictated separately.~Patient seen individually. Discussed the patient with Nursing staff reviewed the chart.~Reviewed interim history and current functioning. Reviewed vital signs,~Labs/ Radiology~and current medications noted below. Continue current treatment with the changes noted in the dictated addendum note Assessment: Vital Signs/I&O: Vital Signs Date Time Temp Pulse Resp B/P (MAP) Pulse Ox O2 Delivery O2 Flow Rate FiO2 04/15/20 17:10 76 138/77 04/15/20 16:08 97.7 22 96 Nasal Cannula 3.0 I & O 04/14/20 04/14/20 04/15/20 15:00 23:00 07:00 Intake Total 480 ml 120 ml Output Total 500 ml Balance 480 ml -380 ml Labs: Laboratory Tests Test 04/15/20 19:07 White Blood Count 9.2 x10^3/uL (4.0-11.0) Red Blood Count 3.83 x10^6/uL (4.30-5.70) L Hemoglobin 10.7 g/dL (13.0-17.5) L Hematocrit 33.9 % (39.0-53.0) L Mean Corpuscular Volume 89 fL (79-100) Mean Corpuscular Hemoglobin 28 pg (25-35) Mean Corpuscular Hemoglobin Concent 32 g/dL (31-37) Red Cell Distribution Width 16.6 % (11.5-14.5) H Platelet Count 248 x10^3/uL (140-400) Neutrophils (%) (Auto) 78 % (31-73) H Lymphocytes (%) (Auto) 11 % (24-48) L Monocytes (%) (Auto) 8 % (0-9) Eosinophils (%) (Auto) 3 % (0-3) Basophils (%) (Auto) 1 % (0-3) Neutrophils # (Auto) 7.2 x10^3uL (1.8-7.7) Lymphocytes # (Auto) 1.0 x10^3/uL (1.0-4.8) Monocytes # (Auto) 0.7 x10^3/uL (0.0-1.1) Eosinophils # (Auto) 0.2 x10^3/uL (0.0-0.7) Basophils # (Auto) 0.1 x10^3/uL (0.0-0.2) Sodium Level 144 mmol/L (136-145) Potassium Level 3.9 mmol/L (3.5-5.1) Chloride Level 106 mmol/L (98-107) Carbon Dioxide Level 29 mmol/L (21-32) Anion Gap 9 (6-14) Blood Urea Nitrogen 18 mg/dL (8-26) Creatinine 1.0 mg/dL (0.7-1.3) Estimated GFR (Cockcroft-Gault) 71.2 BUN/Creatinine Ratio 18 (6-20) Glucose Level 111 mg/dL (70-99) H Calcium Level 8.6 mg/dL (8.5-10.1) Total Bilirubin 0.2 mg/dL (0.2-1.0) Aspartate Amino Transferase (AST) 10 U/L (15-37) L Alanine Aminotransferase (ALT) 14 U/L (16-63) L Alkaline Phosphatase 86 U/L (46-116) Total Protein 6.2 g/dL (6.4-8.2) L Albumin 3.1 g/dL (3.4-5.0) L Albumin/Globulin Ratio 1.0 (1.0-1.7) Current Medications: Meds: Current Medications Medications (Trade) Dose Ordered Sig/Ralph Route PRN Reason Start Time Stop Time Status Last Admin Dose Admin Risperidone (RisperDAL) 0.25 mg BID PO 04/15/20 21:00 04/15/20 20:08 I have reviewed the current psychotropics carefully including drug interactions. Risk benefit ratio favors no change other than as noted in my dictated progress note. Diagnosis: Problems: (1) Dementia, vascular, with depression (2) Dementia, vascular, with delusions (3) Dementia in Alzheimer's disease with depression (4) Dementia in Alzheimer's disease with delusions (5) Major neurocognitive disorder (6) Major depressive disorder with psychotic features SKYE GALVAN MD Apr 15, 2020 22:00
[2020-04-15] MEDS: traZODone 50 MG TABLET. PO PRN (22:39)
[2020-04-16 05:33] VITALS: BP 165/88
[2020-04-16] MEDS: POLYETHYLENE GLYCOL 3350 17 GM PACKET. PO SCH (08:40)
[2020-04-16] MEDS: IPRATROPIUM/ALBUTEROL 20/100mcg/INH INHALER. INH SCH ×2 (08:40→20:18)
[2020-04-16] MEDS: SENNOSIDES/DOCUSATE 8.6/50MG TABLET. PO SCH (08:41)
[2020-04-16] MEDS: DOCUSATE SODIUM 100 MG CAPSULE PO SCH ×2 (08:41→20:17)
[2020-04-16] MEDS: LACTOBACILLUS RHAMNOSUS GG 1 CAPSULE. PO SCH ×2 (08:41→20:17)
[2020-04-16] MEDS: POTASSIUM CHLORIDE 10 MEQ TABLET.ER. PO SCH (08:41)
[2020-04-16] MEDS: DUTASTERIDE 0.5 MG CAPSULE PO SCH (08:41)
[2020-04-16] MEDS: GABAPENTIN 300 MG CAPSULE. PO SCH ×3 (08:41→20:15)
[2020-04-16] MEDS: CITALOPRAM 20 MG TABLET. PO SCH (08:41)
[2020-04-16] MEDS: AMOXICILLIN/K CLAV 500/125MG TABLET. PO SCH ×2 (08:41→20:15)
[2020-04-16] MEDS: ISOSORBIDE MONONITRATE ER 30 MG TAB.ER.24H PO SCH (08:41)
[2020-04-16] MEDS: FUROSEMIDE 20 MG TABLET PO SCH (08:41)
[2020-04-16] MEDS: ACETAMINOPHEN 325 MG TABLET PO SCH (08:42)
[2020-04-16] MEDS: APIXABAN 5 MG TABLET. PO SCH ×2 (08:42→20:17)
[2020-04-16] MEDS: risperiDONE 0.25 MG TABLET. PO SCH ×2 (08:42→20:17)
[2020-04-16] MEDS: CARVEDILOL 12.5 MG TABLET PO SCH ×2 (08:42→17:10)
[2020-04-16] MEDS: PANTOPRAZOLE 40 MG TABLET. PO SCH (08:42)
[2020-04-16] MEDS: CETIRIZINE HCL 10 MG TABLET PO SCH (08:42)
[2020-04-16] MEDS: ASPIRIN CHEWABLE 81 MG TABLET. PO SCH (08:42)
[2020-04-16] MEDS: LIDOCAINE 2% TOPICAL JELLY 5GM TUBE. TP SCH ×2 (08:43→20:28)
[2020-04-16] MEDS: BACITRACIN ZINC TOPICAL OINT PACKET. TP SCH ×2 (08:43→20:28)
[2020-04-16] MEDS: predniSONE 1 MG TABLET PO SCH (08:43)
[2020-04-16] MEDS ORDERED: oxyCODONE/APAP 7.5/325 1 TAB TABLET PO PRN (12:00)
[2020-04-16 14:10] LABS: BILIRUBIN,URINE NEG (NEG); CLARITY,URINE CLOUDY; COLOR,URINE BROWN; GLUCOSE,URINE NEG (NEG); NITRITE,URINE NEG (NEG); RBC,URINE >40 /HPF (0-2); UROBILINOGEN,URINE 0.2 mg/dL (0.2 mg/dL)
[2020-04-16 14:11] LABS: BACTERIA,URINE FEW /HPF (0-FEW); SQUAMOUS EPITHELIAL CELL,UR OCC /LPF
[2020-04-16 16:24] VITALS: BP 127/72
[2020-04-16] MEDS: ATORVASTATIN CALCIUM 10 MG TABLET. PO SCH (20:15)
[2020-04-16] MEDS: traZODone 50 MG TABLET. PO PRN ×2 (20:15→21:22)
[2020-04-16] MEDS: MELATONIN 3 MG TABLET PO SCH (20:16)
[2020-04-16] MEDS: MIRTAZAPINE 7.5 MG TABLET. PO SCH (20:17)
[2020-04-16] MEDS: TAMSULOSIN 0.4 MG CAP.ER.24H. PO SCH (20:17)
[2020-04-16] MEDS: FLUTICASONE 50MCG/NASAL SPRAY 16GM BOTTLE. NS SCH (20:18)
--- NOTE | 2020-04-16 22:12 | PDOC ---
Exam Note: Ernesto Note: Please also refer to the separate dictated note~for this date of service dictated separately.~Patient seen individually. Discussed the patient with Nursing staff reviewed the chart.~Reviewed interim history and current functioning. Reviewed vital signs,~Labs/ Radiology~and current medications noted below. Continue current treatment with the changes noted in the dictated addendum note Assessment: Vital Signs/I&O: Vital Signs Date Time Temp Pulse Resp B/P (MAP) Pulse Ox O2 Delivery O2 Flow Rate FiO2 04/16/20 21:30 90 04/16/20 17:10 83 127/72 04/16/20 16:24 98.8 20 04/16/20 05:33 Nasal Cannula 3.0 I & O 04/15/20 04/15/20 04/16/20 15:00 23:00 07:00 Intake Total 600 ml 360 ml Output Total 550 ml Balance 600 ml -190 ml Labs: Laboratory Tests Test 04/16/20 13:36 Urine Collection Type Unknown Urine Color Brown Urine Clarity Cloudy Urine pH 5.0 Urine Specific [place] 1.015 Urine Protein 30 mg/dl (NEG-TRACE) Urine Glucose (UA) Neg mg/dL (NEG) Urine Ketones (Stick) Neg mg/dL (NEG) Urine Blood Large (NEG) Urine Nitrite Neg (NEG) Urine Bilirubin Neg (NEG) Urine Urobilinogen Dipstick 0.2 mg/dL (0.2 mg/dL) Urine Leukocyte Esterase Trace (NEG) Urine RBC >40 /HPF (0-2) Urine WBC 11-20 /HPF (0-4) Urine Squamous Epithelial Cells Occ /LPF Urine Bacteria Few /HPF (0-FEW) Urine Mucus Slight /LPF Current Medications: Meds: Current Medications Medications (Trade) Dose Ordered Sig/Ralph Route PRN Reason Start Time Stop Time Status Last Admin Dose Admin Trazodone HCl (Desyrel) 50 mg PRN QHS PRN PO INSOMNIA 04/15/20 22:45 04/16/20 21:22 Oxycodone/ Acetaminophen (Percocet 7.5/ 325) 1 tab PRN Q6HRS PRN PO PAIN 04/16/20 12:00 04/16/20 20:17 I have reviewed the current psychotropics carefully including drug interactions. Risk benefit ratio favors no change other than as noted in my dictated progress note. Diagnosis: Problems: (1) Dementia, vascular, with depression (2) Dementia, vascular, with delusions (3) Dementia in Alzheimer's disease with depression (4) Dementia in Alzheimer's disease with delusions (5) Major neurocognitive disorder (6) Major depressive disorder with psychotic features SKYE GALVAN MD Apr 16, 2020 22:11
[2020-04-17 05:46] VITALS: BP 154/76
--- NOTE | 2020-04-17 06:23 | PDOC ---
Exam Note: Ernesto Note: This note is a late entry for 04/15/2020 covers elements not covered in my initial note. Subjective: The patient was seen face to face in the evening of 04/15/2020 with Patricia MAHMOOD. Discussed with nursing staff, reviewed the chart. The patient slept 7 hours previous night. He was harassing staff previous night, extremely anxious, restless. After I met with the patient on rounds late at night around 11 p.m. Tracee MAHMOOD had called me as the patient remained extremely psychotic, anxious, restless. As I met with him individually on 04/15 he was talking about wanting to divorce his because she was still convinced she is having an affair. I addressed this with him at length and later at night he was telling the nursing staff that doctors and others were having affairs with his . His urine has some blood. We will defer to Dr. Wilson/Dr. Demarco. Review of Systems: Shortness of breath on O2 supplements. Impaired ambulation in wheelchair. No CV, , eye system symptoms on review. Mental Status Exam: He is awake, alert, oriented to himself and situation. Speech is coherent, rapid at times. He is extremely paranoid, suspicious, distractible, anxious, talked at length about his wifes affairs. Nothing I could say to him could change that. Abstraction is fair. Computation impaired. Attention span is short. Language function is intact. Mood and affect is improved, less anxious. No active suicidal or homicidal ideation. Laboratory Data: Reviewed. Impression: Major depressive disorder with psychotic features. 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 Plan: No change from initial note. Defer medical management/UTI to Dr. Demarco/Dr. Wilson. Change Seroquel to Risperdal 0.25 mg twice a day given his marked psychotic symptoms. Rest unchanged for now. Adjust further as clinically indicated. Assessment: Vital Signs/I&O: Vital Signs Date Time Temp Pulse Resp B/P (MAP) Pulse Ox O2 Delivery O2 Flow Rate FiO2 04/17/20 05:46 97.6 66 16 154/76 (102) 97 Room Air 04/16/20 05:33 3.0 I & O 04/16/20 04/16/20 04/17/20 15:00 23:00 07:00 Intake Total 480 ml 300 ml Output Total 500 ml Balance -20 ml 300 ml Labs: Laboratory Tests Test 04/16/20 13:36 Urine Collection Type Unknown Urine Color Brown Urine Clarity Cloudy Urine pH 5.0 Urine Specific [place] 1.015 Urine Protein 30 mg/dl (NEG-TRACE) Urine Glucose (UA) Neg mg/dL (NEG) Urine Ketones (Stick) Neg mg/dL (NEG) Urine Blood Large (NEG) Urine Nitrite Neg (NEG) Urine Bilirubin Neg (NEG) Urine Urobilinogen Dipstick 0.2 mg/dL (0.2 mg/dL) Urine Leukocyte Esterase Trace (NEG) Urine RBC >40 /HPF (0-2) Urine WBC 11-20 /HPF (0-4) Urine Squamous Epithelial Cells Occ /LPF Urine Bacteria Few /HPF (0-FEW) Urine Mucus Slight /LPF Current Medications: Meds: Current Medications Medications (Trade) Dose Ordered Sig/Ralph Route PRN Reason Start Time Stop Time Status Last Admin Dose Admin Oxycodone/ Acetaminophen (Percocet 7.5/ 325) 1 tab PRN Q6HRS PRN PO PAIN 04/16/20 12:00 04/16/20 20:17 I have reviewed the current psychotropics carefully including drug interactions. Risk benefit ratio favors no change other than as noted in my dictated progress note. Diagnosis: Problems: (1) Dementia, vascular, with depression (2) Dementia, vascular, with delusions (3) Dementia in Alzheimer's disease with depression (4) Dementia in Alzheimer's disease with delusions (5) Major neurocognitive disorder (6) Major depressive disorder with psychotic features SKYE GALVAN MD Apr 17, 2020 06:23
--- NOTE | 2020-04-17 06:51 | PDOC ---
Exam Note: Ernesto Note: This note is a late entry for 04/16/2020 covers elements not covered in my initial note. Subjective: The patient was seen face to face in the evening of 04/16/2020 with nursing staff. Discussed with nursing staff, reviewed the chart. The patient slept 5-1/4 hours previous night. He had a very difficult last night, anxious, restless, paranoid. Today he did better part of the day and then talked to his and then got agitated after that. UA has reflex to culture. Review of Systems: Shortness of breath on O2 supplements. Impaired ambulation in wheelchair. No CV, , eye system symptoms on review. Mental Status Exam: He is awake, alert, oriented to himself and situation. Speech is coherent, rapid at times. Abstraction is fair. Computation impaired. Attention span is short. Language function is intact. Mood and affect is improved, less anxious. No active suicidal or homicidal ideation. Laboratory Data: Reviewed. Impression: Major depressive disorder with psychotic features. 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 Plan: No change from initial note. We will treat the UTI. Defer to Dr. Demarco/Dr. Wilson. Continue Risperdal. We may need to increase this. Rest unchanged. Assessment: Vital Signs/I&O: Vital Signs Date Time Temp Pulse Resp B/P (MAP) Pulse Ox O2 Delivery O2 Flow Rate FiO2 04/17/20 05:46 97.6 66 16 154/76 (102) 97 Room Air 04/16/20 05:33 3.0 I & O 04/16/20 04/16/20 04/17/20 15:00 23:00 07:00 Intake Total 480 ml 300 ml Output Total 500 ml Balance -20 ml 300 ml Labs: Laboratory Tests Test 04/16/20 13:36 Urine Collection Type Unknown Urine Color Brown Urine Clarity Cloudy Urine pH 5.0 Urine Specific [place] 1.015 Urine Protein 30 mg/dl (NEG-TRACE) Urine Glucose (UA) Neg mg/dL (NEG) Urine Ketones (Stick) Neg mg/dL (NEG) Urine Blood Large (NEG) Urine Nitrite Neg (NEG) Urine Bilirubin Neg (NEG) Urine Urobilinogen Dipstick 0.2 mg/dL (0.2 mg/dL) Urine Leukocyte Esterase Trace (NEG) Urine RBC >40 /HPF (0-2) Urine WBC 11-20 /HPF (0-4) Urine Squamous Epithelial Cells Occ /LPF Urine Bacteria Few /HPF (0-FEW) Urine Mucus Slight /LPF Current Medications: Meds: Current Medications Medications (Trade) Dose Ordered Sig/Ralph Route PRN Reason Start Time Stop Time Status Last Admin Dose Admin Oxycodone/ Acetaminophen (Percocet 7.5/ 325) 1 tab PRN Q6HRS PRN PO PAIN 04/16/20 12:00 04/16/20 20:17 I have reviewed the current psychotropics carefully including drug interactions. Risk benefit ratio favors no change other than as noted in my dictated progress note. Diagnosis: Problems: (1) Obstructive uropathy (2) Dementia, vascular, with depression (3) Dementia, vascular, with delusions (4) Dementia in Alzheimer's disease with depression (5) Dementia in Alzheimer's disease with delusions (6) Major neurocognitive disorder (7) Major depressive disorder with psychotic features SKYE GALVAN MD Apr 17, 2020 06:51
[2020-04-17] MEDS: IPRATROPIUM/ALBUTEROL 20/100mcg/INH INHALER. INH SCH ×2 (08:28→19:39)
[2020-04-17] MEDS: PANTOPRAZOLE 40 MG TABLET. PO SCH (08:29)
[2020-04-17] MEDS: ASPIRIN CHEWABLE 81 MG TABLET. PO SCH (08:29)
[2020-04-17] MEDS: CARVEDILOL 12.5 MG TABLET PO SCH ×2 (08:30→17:08)
[2020-04-17] MEDS: LACTOBACILLUS RHAMNOSUS GG 1 CAPSULE. PO SCH ×2 (08:30→19:40)
[2020-04-17] MEDS: risperiDONE 0.25 MG TABLET. PO SCH ×2 (08:30→19:41)
[2020-04-17] MEDS: DUTASTERIDE 0.5 MG CAPSULE PO SCH (08:30)
[2020-04-17] MEDS: FUROSEMIDE 20 MG TABLET PO SCH (08:30)
[2020-04-17] MEDS: GABAPENTIN 300 MG CAPSULE. PO SCH ×3 (08:30→19:40)
[2020-04-17] MEDS: ISOSORBIDE MONONITRATE ER 30 MG TAB.ER.24H PO SCH (08:31)
[2020-04-17] MEDS: APIXABAN 5 MG TABLET. PO SCH ×2 (08:31→19:41)
[2020-04-17] MEDS: CETIRIZINE HCL 10 MG TABLET PO SCH (08:31)
[2020-04-17] MEDS: CITALOPRAM 20 MG TABLET. PO SCH (08:31)
[2020-04-17] MEDS: AMOXICILLIN/K CLAV 500/125MG TABLET. PO SCH ×2 (08:31→19:40)
[2020-04-17] MEDS: POTASSIUM CHLORIDE 10 MEQ TABLET.ER. PO SCH (08:32)
[2020-04-17] MEDS: DOCUSATE SODIUM 100 MG CAPSULE PO SCH ×2 (08:32→19:41)
[2020-04-17] MEDS: POLYETHYLENE GLYCOL 3350 17 GM PACKET. PO SCH (08:32)
[2020-04-17] MEDS: LIDOCAINE 2% TOPICAL JELLY 5GM TUBE. TP SCH ×2 (09:06→19:39)
[2020-04-17] MEDS: BACITRACIN ZINC TOPICAL OINT PACKET. TP SCH ×2 (09:06→19:40)
[2020-04-17] MEDS: predniSONE 1 MG TABLET PO SCH (09:06)
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
[2020-04-17 15:56] VITALS: BP 121/69
[2020-04-17] MEDS: MIRTAZAPINE 7.5 MG TABLET. PO SCH (19:40)
[2020-04-17] MEDS: ATORVASTATIN CALCIUM 10 MG TABLET. PO SCH (19:40)
[2020-04-17] MEDS: TAMSULOSIN 0.4 MG CAP.ER.24H. PO SCH (19:40)
[2020-04-17] MEDS: traZODone 50 MG TABLET. PO PRN ×2 (19:40→23:10)
[2020-04-17] MEDS: MELATONIN 3 MG TABLET PO SCH (19:41)
[2020-04-17] MEDS: FLUTICASONE 50MCG/NASAL SPRAY 16GM BOTTLE. NS SCH (19:45)
--- NOTE | 2020-04-17 21:58 | PDOC ---
Exam Note: Ernesto Note: Please also refer to the separate dictated note~for this date of service dictated separately.~Patient seen individually. Discussed the patient with Nursing staff reviewed the chart.~Reviewed interim history and current functioning. Reviewed vital signs,~Labs/ Radiology~and current medications noted below. Continue current treatment with the changes noted in the dictated addendum note Assessment: Vital Signs/I&O: Vital Signs Date Time Temp Pulse Resp B/P (MAP) Pulse Ox O2 Delivery O2 Flow Rate FiO2 04/17/20 17:08 75 121/69 04/17/20 15:56 98.2 16 94 04/17/20 05:46 Room Air 04/16/20 05:33 3.0 I & O 04/16/20 04/16/20 04/17/20 14:59 22:59 06:59 Intake Total 480 ml 300 ml Output Total 500 ml Balance -20 ml 300 ml Current Medications: I have reviewed the current psychotropics carefully including drug interactions. Risk benefit ratio favors no change other than as noted in my dictated progress note. Diagnosis: Problems: (1) Dementia, vascular, with depression (2) Dementia, vascular, with delusions (3) Dementia in Alzheimer's disease with depression (4) Dementia in Alzheimer's disease with delusions (5) Major neurocognitive disorder (6) Major depressive disorder with psychotic features SKYE GALVAN MD Apr 17, 2020 21:57
[2020-04-18] MEDS: traZODone 50 MG TABLET. PO PRN ×2 (00:41→20:11)
[2020-04-18 06:29] VITALS: BP 158/74
[2020-04-18 06:31] VITALS: BP 158/74
[2020-04-18] MEDS: SENNOSIDES/DOCUSATE 8.6/50MG TABLET. PO SCH (09:00)
[2020-04-18] MEDS: ASPIRIN CHEWABLE 81 MG TABLET. PO SCH (09:37)
[2020-04-18] MEDS: risperiDONE 0.25 MG TABLET. PO SCH ×2 (09:37→20:11)
[2020-04-18] MEDS: IPRATROPIUM/ALBUTEROL 20/100mcg/INH INHALER. INH SCH ×2 (09:37→20:08)
[2020-04-18] MEDS: LACTOBACILLUS RHAMNOSUS GG 1 CAPSULE. PO SCH ×2 (09:37→20:09)
[2020-04-18] MEDS: POLYETHYLENE GLYCOL 3350 17 GM PACKET. PO SCH (09:37)
[2020-04-18] MEDS: DUTASTERIDE 0.5 MG CAPSULE PO SCH (09:38)
[2020-04-18] MEDS: APIXABAN 5 MG TABLET. PO SCH ×2 (09:38→20:11)
[2020-04-18] MEDS: predniSONE 1 MG TABLET PO SCH (09:38)
[2020-04-18] MEDS: ISOSORBIDE MONONITRATE ER 30 MG TAB.ER.24H PO SCH (09:38)
[2020-04-18] MEDS: DOCUSATE SODIUM 100 MG CAPSULE PO SCH ×2 (09:38→20:09)
[2020-04-18] MEDS: CITALOPRAM 20 MG TABLET. PO SCH (09:39)
[2020-04-18] MEDS: FUROSEMIDE 20 MG TABLET PO SCH (09:39)
[2020-04-18] MEDS: POTASSIUM CHLORIDE 10 MEQ TABLET.ER. PO SCH (09:39)
[2020-04-18] MEDS: GABAPENTIN 300 MG CAPSULE. PO SCH ×3 (09:39→20:11)
[2020-04-18] MEDS: PANTOPRAZOLE 40 MG TABLET. PO SCH (09:39)
[2020-04-18] MEDS: AMOXICILLIN/K CLAV 500/125MG TABLET. PO SCH ×2 (09:39→20:11)
[2020-04-18] MEDS: BACITRACIN ZINC TOPICAL OINT PACKET. TP SCH ×2 (09:39→20:08)
[2020-04-18] MEDS: CETIRIZINE HCL 10 MG TABLET PO SCH (09:39)
[2020-04-18] MEDS: CARVEDILOL 12.5 MG TABLET PO SCH ×2 (09:40→17:00)
[2020-04-18] MEDS: LIDOCAINE 2% TOPICAL JELLY 5GM TUBE. TP SCH ×2 (09:40→20:08)
[2020-04-18 15:29] VITALS: BP 121/63
[2020-04-18] MEDS: FLUTICASONE 50MCG/NASAL SPRAY 16GM BOTTLE. NS SCH (20:08)
[2020-04-18] MEDS: MIRTAZAPINE 7.5 MG TABLET. PO SCH (20:09)
[2020-04-18] MEDS: ATORVASTATIN CALCIUM 10 MG TABLET. PO SCH (20:10)
[2020-04-18] MEDS: TAMSULOSIN 0.4 MG CAP.ER.24H. PO SCH (20:11)
[2020-04-18] MEDS: MELATONIN 3 MG TABLET PO SCH (20:11)
[2020-04-18] MEDS: hydrOXYzine HCL 25 MG TABLET PO PRN (20:11)
--- NOTE | 2020-04-18 22:05 | PDOC ---
Exam Note: Ernesto Note: Please also refer to the separate dictated note~for this date of service dictated separately.~Patient seen individually. Discussed the patient with Nursing staff reviewed the chart.~Reviewed interim history and current functioning. Reviewed vital signs,~Labs/ Radiology~and current medications noted below. Continue current treatment with the changes noted in the dictated addendum note Assessment: Vital Signs/I&O: Vital Signs Date Time Temp Pulse Resp B/P (MAP) Pulse Ox O2 Delivery O2 Flow Rate FiO2 04/18/20 17:00 72 121/63 04/18/20 15:29 98.3 20 96 Nasal Cannula 3.0 I & O 04/17/20 04/17/20 04/18/20 15:00 23:00 07:00 Intake Total 365 ml 585 ml Output Total 600 ml Balance -235 ml 585 ml Current Medications: Meds: Current Medications Medications (Trade) Dose Ordered Sig/Ralph Route PRN Reason Start Time Stop Time Status Last Admin Dose Admin Hydroxyzine HCl (Atarax) 25 mg PRN TID PRN PO ANXIETY 04/18/20 14:45 04/18/20 20:11 I have reviewed the current psychotropics carefully including drug interactions. Risk benefit ratio favors no change other than as noted in my dictated progress note. Diagnosis: Problems: (1) Dementia, vascular, with depression (2) Dementia, vascular, with delusions (3) Dementia in Alzheimer's disease with depression (4) Dementia in Alzheimer's disease with delusions (5) Major neurocognitive disorder (6) Major depressive disorder with psychotic features SKYE GALVAN MD Apr 18, 2020 22:05
--- NOTE | 2020-04-18 22:54 | RAD ---
Study: CR WRIST 3V LEFT Indication: Swollen/bruised left wrist. Comparison: None. Findings: Edematous prominence of the soft tissues most notable along the radial aspect of the distal forearm and wrist. No acute fracture is identified or acute appearing erosion. SLAC wrist with radiocarpal joint space collapse and scapholunate widening. Severe chronic deformity at the distal ulna with several surrounding well-corticated ossific fragments. Severe arthrosis at the thumb CMC joint. Less pronounced degenerative changes scattered elsewhere. Osteopenia and extensive vascular calcifications. Metallic density along the radial aspect of the distal radius. Impression: 1. Edematous soft tissues predominantly at the radial margin of the distal forearm and wrist. A metallic density within the soft tissues at this location is of uncertain chronicity. Correlate for any laceration injury to suggest this is an acutely retained foreign body. 2. No acute fracture noting osteopenia. 3. Extensive degenerative/chronic findings as discussed in the body the report. Electronically signed by: DENISHA GE MD (04/18/2020 10:51 PM) [id number]
[2020-04-19 06:35] VITALS: BP 140/71
[2020-04-19] MEDS: IPRATROPIUM/ALBUTEROL 20/100mcg/INH INHALER. INH SCH ×2 (08:26→20:22)
[2020-04-19] MEDS: CITALOPRAM 20 MG TABLET. PO SCH (08:27)
[2020-04-19] MEDS: DUTASTERIDE 0.5 MG CAPSULE PO SCH (08:27)
[2020-04-19] MEDS: ASPIRIN CHEWABLE 81 MG TABLET. PO SCH (08:27)
[2020-04-19] MEDS: predniSONE 1 MG TABLET PO SCH (08:27)
[2020-04-19] MEDS: AMOXICILLIN/K CLAV 500/125MG TABLET. PO SCH ×2 (08:27→20:25)
[2020-04-19] MEDS: DOCUSATE SODIUM 100 MG CAPSULE PO SCH ×2 (08:28→20:23)
[2020-04-19] MEDS: APIXABAN 5 MG TABLET. PO SCH ×2 (08:28→20:24)
[2020-04-19] MEDS: ISOSORBIDE MONONITRATE ER 30 MG TAB.ER.24H PO SCH (08:28)
[2020-04-19] MEDS: CARVEDILOL 12.5 MG TABLET PO SCH ×2 (08:28→17:04)
[2020-04-19] MEDS: PANTOPRAZOLE 40 MG TABLET. PO SCH (08:28)
[2020-04-19] MEDS: risperiDONE 0.25 MG TABLET. PO SCH (08:28)
[2020-04-19] MEDS: CHOLECALCIFEROL (VITAMIN D3) 50,000 UNIT CAPSULE PO SCH (08:29)
[2020-04-19] MEDS: GABAPENTIN 300 MG CAPSULE. PO SCH ×3 (08:29→20:26)
[2020-04-19] MEDS: LACTOBACILLUS RHAMNOSUS GG 1 CAPSULE. PO SCH ×2 (08:29→20:25)
[2020-04-19] MEDS: LIDOCAINE 2% TOPICAL JELLY 5GM TUBE. TP SCH ×2 (08:29→20:23)
[2020-04-19] MEDS: POTASSIUM CHLORIDE 10 MEQ TABLET.ER. PO SCH (08:29)
[2020-04-19] MEDS: BACITRACIN ZINC TOPICAL OINT PACKET. TP SCH ×2 (08:29→20:23)
[2020-04-19] MEDS: CETIRIZINE HCL 10 MG TABLET PO SCH (08:29)
[2020-04-19] MEDS: FUROSEMIDE 20 MG TABLET PO SCH (08:29)
[2020-04-19] MEDS: POLYETHYLENE GLYCOL 3350 17 GM PACKET. PO SCH (08:30)
[2020-04-19 16:03] VITALS: BP 111/69
[2020-04-19] MEDS: FLUTICASONE 50MCG/NASAL SPRAY 16GM BOTTLE. NS SCH (20:22)
[2020-04-19] MEDS: MELATONIN 3 MG TABLET PO SCH (20:24)
[2020-04-19] MEDS: ATORVASTATIN CALCIUM 10 MG TABLET. PO SCH (20:26)
[2020-04-19] MEDS: MIRTAZAPINE 7.5 MG TABLET. PO SCH (20:27)
[2020-04-19] MEDS: TAMSULOSIN 0.4 MG CAP.ER.24H. PO SCH (20:27)
--- NOTE | 2020-04-19 21:55 | PDOC ---
Exam Note: Ernesto Note: Please also refer to the separate dictated note~for this date of service dictated separately.~Patient seen individually. Discussed the patient with Nursing staff reviewed the chart.~Reviewed interim history and current functioning. Reviewed vital signs,~Labs/ Radiology~and current medications noted below. Continue current treatment with the changes noted in the dictated addendum note Assessment: Vital Signs/I&O: Vital Signs Date Time Temp Pulse Resp B/P (MAP) Pulse Ox O2 Delivery O2 Flow Rate FiO2 04/19/20 17:04 89 111/69 04/19/20 16:03 97.2 20 96 Room Air 04/19/20 06:35 3.0 I & O 04/18/20 04/18/20 04/19/20 15:00 23:00 07:00 Intake Total 550 ml 320 ml Output Total 350 ml Balance 200 ml 320 ml Current Medications: I have reviewed the current psychotropics carefully including drug interactions. Risk benefit ratio favors no change other than as noted in my dictated progress note. Diagnosis: Problems: (1) Dementia, vascular, with depression (2) Dementia, vascular, with delusions (3) Dementia in Alzheimer's disease with depression (4) Dementia in Alzheimer's disease with delusions (5) Major neurocognitive disorder (6) Major depressive disorder with psychotic features SKYE GALVAN MD Apr 19, 2020 21:55
[2020-04-20 06:04] VITALS: BP 122/53
--- NOTE | 2020-04-20 07:28 | PDOC ---
Exam Note: Ernesto Note: This note is a late entry for 04/17/2020 covers elements not covered in my initial note. Subjective: The patient was seen face to face in the morning of 04/17/2020 for treatment team meeting with Mary Jo Meyers and Claudia (social media designer), Shanti, activity therapy, and Essence MAHMOOD. The patient was also seen face to face in the evening of 04/17. The patients daughter Fallon and Sohan attended the treatment team meeting. We had a lengthy discussion about the patients diagnoses, continued psychotic symptoms for which we changed Seroquel to Risperdal. Discussed with nursing staff, reviewed the chart. The patient slept 6-1/4 hours previous night. Appetite is 95%. The patient did poorly previous night but has done well during most of the day on 04/17. He does get recurrent UTIs, question was whether he should be on a prophylactic antibiotic. We checked with Dr. Wilson and this was not recommended. Review of Systems: Shortness of breath on O2 supplements. Impaired ambulation in wheelchair. No CV, , eye system symptoms on review. Mental Status Exam: The patient is oriented to himself and situation. He is quite verbal, interactive, somewhat paranoid. Speech is coherent, rapid at time s. Abstraction is fair. Computation impaired. Attention span is short. Language function is intact. Mood and affect is paranoid, agitated. No suicidal or homicidal ideation. Laboratory Data: Reviewed. Impression: Major depressive disorder with psychotic features. 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 Plan: No change from initial note. Assessment: Vital Signs/I&O: Vital Signs Date Time Temp Pulse Resp B/P (MAP) Pulse Ox O2 Delivery O2 Flow Rate FiO2 04/20/20 06:04 97.9 67 20 122/53 (76) 95 3.0 04/19/20 16:03 Room Air I & O 04/19/20 04/19/20 04/20/20 15:00 23:00 07:00 Intake Total 240 ml 120 ml 0 ml Output Total 500 ml Balance 240 ml 120 ml -500 ml Current Medications: I have reviewed the current psychotropics carefully including drug interactions. Risk benefit ratio favors no change other than as noted in my dictated progress note. Diagnosis: Problems: (1) Dementia, vascular, with depression (2) Dementia, vascular, with delusions (3) Dementia in Alzheimer's disease with depression (4) Dementia in Alzheimer's disease with delusions (5) Major neurocognitive disorder (6) Major depressive disorder with psychotic features SKYE GALVAN MD Apr 20, 2020 07:28
[2020-04-20] MEDS: POLYETHYLENE GLYCOL 3350 17 GM PACKET. PO SCH (07:35)
[2020-04-20] MEDS: DOCUSATE SODIUM 100 MG CAPSULE PO SCH ×2 (07:36→19:51)
[2020-04-20] MEDS: SENNOSIDES/DOCUSATE 8.6/50MG TABLET. PO SCH (07:36)
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
--- NOTE | 2020-04-20 08:07 | PDOC ---
Exam Note: Ernesto Note: This note is a late entry for 04/19/2020 covers elements not covered in my initial note. Subjective: The patient was seen face to face in the evening of 04/19/2020 with Filiberto MAHMOOD. Discussed with nursing staff, reviewed the chart. The patient slept 6-1/4 hours previous night. He has had some difficulty swallowing. Speech evaluation was done due to coughing and has been placed on thickened diet, pureed. There was a correlation with dysphagia with adding Risperdal and for now we will stop the Risperdal. Consider [place] for psychotic symptoms depending on how he does. Review of Systems: Shortness of breath on O2 supplements. Impaired ambulation in wheelchair. No CV, , eye system symptoms on review. Mental Status Exam: The patient is oriented to himself and situation. He is quite verbal, interactive, somewhat paranoid. Speech is coherent, rapid at times. Abstraction is fair. Computation impaired. Attention span is short. Language function is intact. Mood and affect is paranoid, agitated. No suicidal or homicidal ideation. Laboratory Data: Reviewed. Impression: Major depressive disorder with psychotic features. 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 Plan: No change from initial note. Assessment: Vital Signs/I&O: Vital Signs Date Time Temp Pulse Resp B/P (MAP) Pulse Ox O2 Delivery O2 Flow Rate FiO2 04/20/20 06:04 97.9 67 20 122/53 (76) 95 3.0 04/19/20 16:03 Room Air I & O 04/19/20 04/19/20 04/20/20 14:59 22:59 06:59 Intake Total 240 ml 120 ml 0 ml Output Total 500 ml Balance 240 ml 120 ml -500 ml Current Medications: I have reviewed the current psychotropics carefully including drug interactions. Risk benefit ratio favors no change other than as noted in my dictated progress note. Diagnosis: Problems: (1) Dementia, vascular, with depression (2) Dementia, vascular, with delusions (3) Dementia in Alzheimer's disease with depression (4) Dementia in Alzheimer's disease with delusions (5) Major neurocognitive disorder (6) Major depressive disorder with psychotic features SKYE GALVAN MD Apr 20, 2020 08:07
[2020-04-20] MEDS: IPRATROPIUM/ALBUTEROL 20/100mcg/INH INHALER. INH SCH ×2 (08:30→19:49)
[2020-04-20] MEDS: FUROSEMIDE 20 MG TABLET PO SCH (08:31)
[2020-04-20] MEDS: POTASSIUM CHLORIDE 10 MEQ TABLET.ER. PO SCH (08:31)
[2020-04-20] MEDS: AMOXICILLIN/K CLAV 500/125MG TABLET. PO SCH ×2 (08:31→19:52)
[2020-04-20] MEDS: DUTASTERIDE 0.5 MG CAPSULE PO SCH (08:31)
[2020-04-20] MEDS: LACTOBACILLUS RHAMNOSUS GG 1 CAPSULE. PO SCH ×2 (08:31→19:52)
[2020-04-20] MEDS: PANTOPRAZOLE 40 MG TABLET. PO SCH (08:31)
[2020-04-20] MEDS: ASPIRIN CHEWABLE 81 MG TABLET. PO SCH (08:31)
[2020-04-20] MEDS: CARVEDILOL 12.5 MG TABLET PO SCH ×2 (08:31→16:39)
[2020-04-20] MEDS: APIXABAN 5 MG TABLET. PO SCH ×2 (08:31→19:51)
[2020-04-20] MEDS: ISOSORBIDE MONONITRATE ER 30 MG TAB.ER.24H PO SCH (08:32)
[2020-04-20] MEDS: predniSONE 1 MG TABLET PO SCH (08:32)
[2020-04-20] MEDS: BACITRACIN ZINC TOPICAL OINT PACKET. TP SCH ×2 (08:32→19:50)
[2020-04-20] MEDS: GABAPENTIN 300 MG CAPSULE. PO SCH ×3 (08:32→19:52)
[2020-04-20] MEDS: CETIRIZINE HCL 10 MG TABLET PO SCH (08:32)
[2020-04-20] MEDS: LIDOCAINE 2% TOPICAL JELLY 5GM TUBE. TP SCH ×2 (08:32→19:50)
[2020-04-20] MEDS: CITALOPRAM 20 MG TABLET. PO SCH (08:32)
--- NOTE | 2020-04-20 10:46 | RAD ---
CT head without contrast PQRS statement: CT scans at this facility use dose reduction including either automated exposure control, iterative reconstructions, and /or weight based radiation dosing via mA and kV modification when appropriate to reduce radiation dose to as low as reasonably achievable. HISTORY: Fall hit head. FINDINGS: Exam is mildly motion degraded may decrease sensitivity to detect subtle pathology. Diagnostic information still remains. Ventriculomegaly is present which may be related to generalized brain atrophy, or could be due to normal pressure hydrocephalus. Chronic-appearing subcentimeter right thalamus and basal ganglia lacunar ischemic infarcts. Extensive cerebral white matter hypoattenuation most likely changes of chronic small vessel ischemic disease. No intracranial hemorrhage, mass or obstructive hydrocephalus. Orbits, mastoids and bones are unremarkable. IMPRESSION: No acute traumatic intracranial CT abnormality. 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 See above. Electronically signed by: Robert White MD (04/20/2020 10:44 AM) [id number]
[2020-04-20 16:09] VITALS: BP 111/59
[2020-04-20] MEDS: FLUTICASONE 50MCG/NASAL SPRAY 16GM BOTTLE. NS SCH (19:49)
[2020-04-20] MEDS: MELATONIN 3 MG TABLET PO SCH (19:50)
[2020-04-20] MEDS: TAMSULOSIN 0.4 MG CAP.ER.24H. PO SCH (19:51)
[2020-04-20] MEDS: ATORVASTATIN CALCIUM 10 MG TABLET. PO SCH (19:51)
[2020-04-20] MEDS: MIRTAZAPINE 7.5 MG TABLET. PO SCH (19:52)
--- NOTE | 2020-04-20 20:57 | PDOC ---
Exam Note: Ernesto Note: Please also refer to the separate dictated note~for this date of service dictated separately.~Patient seen individually. Discussed the patient with Nursing staff reviewed the chart.~Reviewed interim history and current functioning. Reviewed vital signs,~Labs/ Radiology~and current medications noted below. Continue current treatment with the changes noted in the dictated addendum note Assessment: Vital Signs/I&O: Vital Signs Date Time Temp Pulse Resp B/P (MAP) Pulse Ox O2 Delivery O2 Flow Rate FiO2 04/20/20 16:39 84 111/59 04/20/20 16:09 98.0 20 94 Nasal Cannula 2.0 I & O 04/19/20 04/19/20 04/20/20 15:00 23:00 07:00 Intake Total 240 ml 120 ml 0 ml Output Total 500 ml Balance 240 ml 120 ml -500 ml Current Medications: I have reviewed the current psychotropics carefully including drug interactions. Risk benefit ratio favors no change other than as noted in my dictated progress note. 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
[2020-04-21 06:12] VITALS: BP 112/63
[2020-04-21 07:39] LABS: BASO % 1 % (0-3); EOS # 0.4 x10^3/uL (0.0-0.7); EOS % 5 % (0-3); HEMATOCRIT 27.8 % (39.0-53.0); LYMPH # 1.1 x10^3/uL (1.0-4.8); LYMPH % 13 % (24-48); MEAN CORPUSCULAR HEMOGLOBIN 29 pg (25-35); MEAN CORPUSCULAR HGB CONC 32 g/dL (31-37); MEAN CORPUSCULAR VOLUME 89 fL (79-100); MONO # 0.9 x10^3/uL (0.0-1.1); MONO % 11 % (0-9); NEUT # 5.6 x10^3uL (1.8-7.7); NEUT % 70 % (31-73); PLATELET COUNT 177 x10^3/uL (140-400); RED BLOOD COUNT 3.13 x10^6/uL (4.30-5.70); RED CELL DISTRIBUTION WIDTH 16.5 % (11.5-14.5)
[2020-04-21 07:54] LABS: ALBUMIN 2.4 g/dL (3.4-5.0); ALBUMIN/GLOBULIN RATIO 0.9 (1.0-1.7); CALCIUM 8.1 mg/dL (8.5-10.1); CREATININE 0.7 mg/dL (0.7-1.3); GFR 107.4; POTASSIUM 3.8 mmol/L (3.5-5.1); TOTAL BILIRUBIN 0.4 mg/dL (0.2-1.0); TOTAL PROTEIN 5.1 g/dL (6.4-8.2)
[2020-04-21] MEDS: IPRATROPIUM/ALBUTEROL 20/100mcg/INH INHALER. INH SCH ×2 (08:00→21:25)
[2020-04-21] MEDS: FUROSEMIDE 20 MG TABLET PO SCH (08:39)
[2020-04-21] MEDS: CITALOPRAM 20 MG TABLET. PO SCH (08:39)
[2020-04-21] MEDS: LACTOBACILLUS RHAMNOSUS GG 1 CAPSULE. PO SCH ×2 (08:39→21:23)
[2020-04-21] MEDS: POTASSIUM CHLORIDE 10 MEQ TABLET.ER. PO SCH (08:39)
[2020-04-21] MEDS: ISOSORBIDE MONONITRATE ER 30 MG TAB.ER.24H PO SCH (08:39)
[2020-04-21] MEDS: DOCUSATE SODIUM 100 MG CAPSULE PO SCH ×2 (08:39→21:24)
[2020-04-21] MEDS: ASPIRIN CHEWABLE 81 MG TABLET. PO SCH (08:39)
[2020-04-21] MEDS: APIXABAN 5 MG TABLET. PO SCH (08:39)
[2020-04-21] MEDS: CETIRIZINE HCL 10 MG TABLET PO SCH (08:40)
[2020-04-21] MEDS: GABAPENTIN 300 MG CAPSULE. PO SCH ×3 (08:40→21:24)
[2020-04-21] MEDS: CARVEDILOL 12.5 MG TABLET PO SCH ×2 (08:40→17:00)
[2020-04-21] MEDS: PANTOPRAZOLE 40 MG TABLET. PO SCH (08:40)
[2020-04-21] MEDS: DUTASTERIDE 0.5 MG CAPSULE PO SCH (08:40)
[2020-04-21] MEDS: AMOXICILLIN/K CLAV 500/125MG TABLET. PO SCH ×2 (08:40→21:24)
[2020-04-21] MEDS: LIDOCAINE 2% TOPICAL JELLY 5GM TUBE. TP SCH ×2 (08:49→21:23)
[2020-04-21] MEDS: POLYETHYLENE GLYCOL 3350 17 GM PACKET. PO SCH (08:49)
[2020-04-21] MEDS: BACITRACIN ZINC TOPICAL OINT PACKET. TP SCH ×2 (08:49→21:23)
[2020-04-21] MEDS: predniSONE 1 MG TABLET PO SCH (08:49)
--- NOTE | 2020-04-21 21:17 | PDOC ---
Exam Note: Ernesto Note: Please also refer to the separate dictated note~for this date of service dictated separately.~Patient seen individually. Discussed the patient with Nursing staff reviewed the chart.~Reviewed interim history and current functioning. Reviewed vital signs,~Labs/ Radiology~and current medications noted below. Continue current treatment with the changes noted in the dictated addendum note Assessment: Vital Signs/I&O: Vital Signs Date Time Temp Pulse Resp B/P (MAP) Pulse Ox O2 Delivery O2 Flow Rate FiO2 04/21/20 17:00 68 112/63 04/21/20 06:12 97.6 20 97 3.0 04/20/20 16:09 Nasal Cannula I & O 0 04/20/20 04/20/20 04/21/20 15:00 23:00 07:00 Intake Total 360 ml 360 ml Balance 360 ml 360 ml Labs: Laboratory Tests Test 04/21/20 07:03 White Blood Count 8.0 x10^3/uL (4.0-11.0) Red Blood Count 3.13 x10^6/uL (4.30-5.70) L Hemoglobin 9.0 g/dL (13.0-17.5) L Hematocrit 27.8 % (39.0-53.0) L Mean Corpuscular Volume 89 fL (79-100) Mean Corpuscular Hemoglobin 29 pg (25-35) Mean Corpuscular Hemoglobin Concent 32 g/dL (31-37) Red Cell Distribution Width 16.5 % (11.5-14.5) H Platelet Count 177 x10^3/uL (140-400) Neutrophils (%) (Auto) 70 % (31-73) Lymphocytes (%) (Auto) 13 % (24-48) L Monocytes (%) (Auto) 11 % (0-9) H Eosinophils (%) (Auto) 5 % (0-3) H Basophils (%) (Auto) 1 % (0-3) Neutrophils # (Auto) 5.6 x10^3uL (1.8-7.7) Lymphocytes # (Auto) 1.1 x10^3/uL (1.0-4.8) Monocytes # (Auto) 0.9 x10^3/uL (0.0-1.1) Eosinophils # (Auto) 0.4 x10^3/uL (0.0-0.7) Basophils # (Auto) 0.0 x10^3/uL (0.0-0.2) Sodium Level 143 mmol/L (136-145) Potassium Level 3.8 mmol/L (3.5-5.1) Chloride Level 108 mmol/L (98-107) H Carbon Dioxide Level 28 mmol/L (21-32) Anion Gap 7 (6-14) Blood Urea Nitrogen 16 mg/dL (8-26) Creatinine 0.7 mg/dL (0.7-1.3) Estimated GFR (Cockcroft-Gault) 107.4 BUN/Creatinine Ratio 23 (6-20) H Glucose Level 89 mg/dL (70-99) Calcium Level 8.1 mg/dL (8.5-10.1) L Total Bilirubin 0.4 mg/dL (0.2-1.0) Aspartate Amino Transferase (AST) 13 U/L (15-37) L Alanine Aminotransferase (ALT) 9 U/L (16-63) L Alkaline Phosphatase 60 U/L (46-116) Total Protein 5.1 g/dL (6.4-8.2) L Albumin 2.4 g/dL (3.4-5.0) L Albumin/Globulin Ratio 0.9 (1.0-1.7) L Current Medications: I have reviewed the current psychotropics carefully including drug interactions. Risk benefit ratio favors no change other than as noted in my dictated progress note. Diagnosis: Problems: (1) Dementia, vascular, with depression (2) Dementia, vascular, with delusions (3) Dementia in Alzheimer's disease with depression (4) Dementia in Alzheimer's disease with delusions (5) Major neurocognitive disorder (6) Major depressive disorder with psychotic features SKYE GALVAN MD Apr 21, 2020 21:17
[2020-04-21] MEDS: MIRTAZAPINE 7.5 MG TABLET. PO SCH (21:22)
[2020-04-21] MEDS: MELATONIN 3 MG TABLET PO SCH (21:23)
[2020-04-21] MEDS: TAMSULOSIN 0.4 MG CAP.ER.24H. PO SCH (21:23)
[2020-04-21] MEDS: ATORVASTATIN CALCIUM 10 MG TABLET. PO SCH (21:24)
[2020-04-21] MEDS: APIXABAN 2.5 MG TABLET PO SCH (21:24)
[2020-04-21] MEDS: FLUTICASONE 50MCG/NASAL SPRAY 16GM BOTTLE. NS SCH (21:25)
[2020-04-21] MEDS: traZODone 50 MG TABLET. PO PRN (23:15)
[2020-04-22 05:58] VITALS: BP 135/70
[2020-04-22] MEDS: IPRATROPIUM/ALBUTEROL 20/100mcg/INH INHALER. INH SCH ×3 (08:00→21:05)
--- NOTE | 2020-04-22 08:05 | PDOC ---
Exam Note: Ernesto Note: This note is a late entry for 04/20/2020 covers elements not covered in my initial note. Subjective: The patient was reviewed on telehealth rounds in the evening of 04/20/2020 with Filiberto MAHMOOD. Discussed with nursing staff, reviewed the chart. The patient has had a good day, remains disorganized at times. He is calling nursing staff angels. CT head shows no changes but he does have ventriculomegaly and generalized brain atrophy and rule out normal pressure hydrocephalus. There is basal ganglia lacunars ischemic infarcts in the thalamus as well, and extensive cerebral white matter hypoattenuation, chronic small-vessel ischemic disease. I have reviewed the CT head. Review of Systems: Shortness of breath on O2 supplements. Impaired ambulation in wheelchair. No CV, , eye system symptoms on review. Mental Status Exam: The patient is oriented to himself and situation. I questioned the patient very closely about delusions about his . He was less preoccupied with this. Speech is coherent, rapid at times. Abstraction is fair. Computation impaired. Attention span is short. Language function is intact. Mood and affect is paranoid, agitated. No suicidal or homicidal ideation. Laboratory Data: Reviewed. Impression: Major depressive disorder with psychotic features. 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 Plan: No change from initial note. Assessment: Vital Signs/I&O: Vital Signs Date Time Temp Pulse Resp B/P (MAP) Pulse Ox O2 Delivery O2 Flow Rate FiO2 04/22/20 05:58 97.9 82 20 135/70 (91) 90 3.0 04/20/20 16:09 Nasal Cannula I & O 04/21/20 04/21/20 04/22/20 14:59 22:59 06:59 Intake Total 480 ml 240 ml Output Total 800 ml Balance 480 ml 240 ml -800 ml Current Medications: Meds: Current Medications Medications (Trade) Dose Ordered Sig/Ralph Route PRN Reason Start Time Stop Time Status Last Admin Dose Admin Apixaban (Eliquis) 2.5 mg BID PO 04/21/20 21:00 04/21/20 21:24 I have reviewed the current psychotropics carefully including drug interactions. Risk benefit ratio favors no change other than as noted in my dictated progress note. Diagnosis: Problems: (1) Dementia, vascular, with depression (2) Dementia, vascular, with delusions (3) Dementia in Alzheimer's disease with depression (4) Dementia in Alzheimer's disease with delusions (5) Major neurocognitive disorder (6) Major depressive disorder with psychotic features SKYE GALVAN MD Apr 22, 2020 08:05
--- NOTE | 2020-04-22 08:21 | PDOC ---
Exam Note: Ernesto Note: This note is a late entry for 04/21/2020 covers elements not covered in my initial note. Subjective: The patient was seen face to face in the evening of 04/21/2020 with Blanka MAHMOOD. Discussed with nursing staff, reviewed the chart. The patients catheter has been reduced. Bladder scan showed 250 mL of urine. His hemoglobin has been dropping down to 9 and Eliquis was reduced per Dr. Wilson. He had a Zoom meeting with his daughter and his and seemed very appreciative of this but by the time I met him in the evening he seemed more confused, little more paranoid. Review of Systems: Shortness of breath on O2 supplements. Impaired ambulation in wheelchair. No CV, , eye system symptoms on review. Mental Status Exam: The patient is oriented to himself. He is less paranoid. He does have short-term memory deficits. Speech is coherent, rapid at times. Abstraction is fair. Computation impaired. Attention span is short, distractible. Language function is intact. Mood and affect is paranoid, agitated. No suicidal or homicidal ideation. Laboratory Data: Reviewed. Impression: Major depressive disorder with psychotic features. 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 Plan: No change from initial note. Assessment: Vital Signs/I&O: Vital Signs Date Time Temp Pulse Resp B/P (MAP) Pulse Ox O2 Delivery O2 Flow Rate FiO2 04/22/20 05:58 97.9 82 20 135/70 (91) 90 3.0 04/20/20 16:09 Nasal Cannula I & O 0 04/21/20 04/21/20 04/22/20 14:59 22:59 06:59 Intake Total 480 ml 240 ml Output Total 800 ml Balance 480 ml 240 ml -800 ml Current Medications: Meds: Current Medications Medications (Trade) Dose Ordered Sig/Ralph Route PRN Reason Start Time Stop Time Status Last Admin Dose Admin Apixaban (Eliquis) 2.5 mg BID PO 04/21/20 21:00 04/21/20 21:24 I have reviewed the current psychotropics carefully including drug interactions. Risk benefit ratio favors no change other than as noted in my dictated progress note. Diagnosis: Problems: (1) Dementia, vascular, with depression (2) Dementia, vascular, with delusions (3) Dementia in Alzheimer's disease with depression (4) Dementia in Alzheimer's disease with delusions (5) Major neurocognitive disorder (6) Major depressive disorder with psychotic features SKYE GALVAN MD Apr 22, 2020 08:21
[2020-04-22] MEDS: LIDOCAINE 2% TOPICAL JELLY 5GM TUBE. TP SCH ×3 (09:00→21:06)
[2020-04-22] MEDS: BACITRACIN ZINC TOPICAL OINT PACKET. TP SCH ×3 (09:00→21:06)
[2020-04-22] MEDS: POLYETHYLENE GLYCOL 3350 17 GM PACKET. PO SCH (09:24)
[2020-04-22] MEDS: CITALOPRAM 20 MG TABLET. PO SCH (09:25)
[2020-04-22] MEDS: SENNOSIDES/DOCUSATE 8.6/50MG TABLET. PO SCH (09:25)
[2020-04-22] MEDS: CARVEDILOL 12.5 MG TABLET PO SCH ×2 (09:25→17:11)
[2020-04-22] MEDS: LACTOBACILLUS RHAMNOSUS GG 1 CAPSULE. PO SCH ×2 (09:25→21:03)
[2020-04-22] MEDS: POTASSIUM CHLORIDE 10 MEQ TABLET.ER. PO SCH (09:25)
[2020-04-22] MEDS: PANTOPRAZOLE 40 MG TABLET. PO SCH (09:25)
[2020-04-22] MEDS: GABAPENTIN 300 MG CAPSULE. PO SCH ×3 (09:25→21:04)
[2020-04-22] MEDS: DOCUSATE SODIUM 100 MG CAPSULE PO SCH ×2 (09:25→21:04)
[2020-04-22] MEDS: ASPIRIN CHEWABLE 81 MG TABLET. PO SCH (09:25)
[2020-04-22] MEDS: predniSONE 1 MG TABLET PO SCH (09:25)
[2020-04-22] MEDS: DUTASTERIDE 0.5 MG CAPSULE PO SCH (09:26)
[2020-04-22] MEDS: APIXABAN 2.5 MG TABLET PO SCH ×2 (09:26→21:04)
[2020-04-22] MEDS: FUROSEMIDE 20 MG TABLET PO SCH (09:26)
[2020-04-22] MEDS: ISOSORBIDE MONONITRATE ER 30 MG TAB.ER.24H PO SCH (09:26)
[2020-04-22] MEDS: CETIRIZINE HCL 10 MG TABLET PO SCH (09:26)
[2020-04-22 16:08] VITALS: BP 126/82
--- NOTE | 2020-04-22 20:46 | PDOC ---
Exam Note: Ernesto Note: Please also refer to the separate dictated note~for this date of service dictated separately.~Patient seen individually. Discussed the patient with Nursing staff reviewed the chart.~Reviewed interim history and current functioning. Reviewed vital signs,~Labs/ Radiology~and current medications noted below. Continue current treatment with the changes noted in the dictated addendum note Assessment: Vital Signs/I&O: Vital Signs Date Time Temp Pulse Resp B/P (MAP) Pulse Ox O2 Delivery O2 Flow Rate FiO2 04/22/20 17:11 67 126/82 04/22/20 16:08 98.4 18 96 04/22/20 05:58 3.0 04/20/20 16:09 Nasal Cannula I & O 04/21/20 04/21/20 04/22/20 15:00 23:00 07:00 Intake Total 480 ml 240 ml Output Total 800 ml Balance 480 ml 240 ml -800 ml Current Medications: Meds: Current Medications Medications (Trade) Dose Ordered Sig/Ralph Route PRN Reason Start Time Stop Time Status Last Admin Dose Admin Apixaban (Eliquis) 2.5 mg BID PO 04/21/20 21:00 04/22/20 09:26 I have reviewed the current psychotropics carefully including drug interactions. Risk benefit ratio favors no change other than as noted in my dictated progress note. Diagnosis: Problems: (1) Dementia, vascular, with depression (2) Dementia, vascular, with delusions (3) Dementia in Alzheimer's disease with depression (4) Dementia in Alzheimer's disease with delusions (5) Major neurocognitive disorder (6) Major depressive disorder with psychotic features SKYE GALVAN MD Apr 22, 2020 20:46
[2020-04-22] MEDS: MIRTAZAPINE 7.5 MG TABLET. PO SCH (21:03)
[2020-04-22] MEDS: TAMSULOSIN 0.4 MG CAP.ER.24H. PO SCH (21:03)
[2020-04-22] MEDS: ATORVASTATIN CALCIUM 10 MG TABLET. PO SCH (21:04)
[2020-04-22] MEDS: MELATONIN 3 MG TABLET PO SCH (21:04)
[2020-04-22] MEDS: FLUTICASONE 50MCG/NASAL SPRAY 16GM BOTTLE. NS SCH (21:05)
[2020-04-23 05:43] VITALS: BP 128/70
[2020-04-23] MEDS: DUTASTERIDE 0.5 MG CAPSULE PO SCH (10:43)
[2020-04-23] MEDS: FUROSEMIDE 20 MG TABLET PO SCH (10:43)
[2020-04-23] MEDS: LACTOBACILLUS RHAMNOSUS GG 1 CAPSULE. PO SCH ×2 (10:43→20:26)
[2020-04-23] MEDS: GABAPENTIN 300 MG CAPSULE. PO SCH ×3 (10:43→20:26)
[2020-04-23] MEDS: ISOSORBIDE MONONITRATE ER 30 MG TAB.ER.24H PO SCH (10:44)
[2020-04-23] MEDS: CARVEDILOL 12.5 MG TABLET PO SCH ×2 (10:44→17:15)
[2020-04-23] MEDS: PANTOPRAZOLE 40 MG TABLET. PO SCH (10:44)
[2020-04-23] MEDS: POTASSIUM CHLORIDE 10 MEQ TABLET.ER. PO SCH (10:44)
[2020-04-23] MEDS: BACITRACIN ZINC TOPICAL OINT PACKET. TP SCH ×2 (10:45→20:28)
[2020-04-23] MEDS: LIDOCAINE 2% TOPICAL JELLY 5GM TUBE. TP SCH ×2 (10:45→20:28)
[2020-04-23] MEDS: CETIRIZINE HCL 10 MG TABLET PO SCH (10:45)
[2020-04-23] MEDS: predniSONE 1 MG TABLET PO SCH (10:45)
[2020-04-23] MEDS: APIXABAN 2.5 MG TABLET PO SCH ×2 (10:45→20:30)
[2020-04-23] MEDS: DOCUSATE SODIUM 100 MG CAPSULE PO SCH ×2 (10:45→20:26)
[2020-04-23] MEDS: CITALOPRAM 20 MG TABLET. PO SCH (10:45)
[2020-04-23] MEDS: ASPIRIN CHEWABLE 81 MG TABLET. PO SCH (10:45)
[2020-04-23] MEDS: IPRATROPIUM/ALBUTEROL 20/100mcg/INH INHALER. INH SCH ×2 (10:47→20:28)
[2020-04-23 16:34] VITALS: BP 103/53
[2020-04-23 19:14] VITALS: BP 116/54
[2020-04-23] MEDS: MELATONIN 3 MG TABLET PO SCH (20:26)
[2020-04-23] MEDS: ATORVASTATIN CALCIUM 10 MG TABLET. PO SCH (20:26)
[2020-04-23] MEDS: MIRTAZAPINE 7.5 MG TABLET. PO SCH (20:27)
[2020-04-23] MEDS: TAMSULOSIN 0.4 MG CAP.ER.24H. PO SCH (20:27)
[2020-04-23] MEDS: FLUTICASONE 50MCG/NASAL SPRAY 16GM BOTTLE. NS SCH (20:29)
--- NOTE | 2020-04-23 20:42 | PDOC ---
Exam Note: Ernesto Note: Please also refer to the separate dictated note~for this date of service dictated separately.~Patient seen individually. Discussed the patient with Nursing staff reviewed the chart.~Reviewed interim history and current functioning. Reviewed vital signs,~Labs/ Radiology~and current medications noted below. Continue current treatment with the changes noted in the dictated addendum note Assessment: Vital Signs/I&O: Vital Signs Date Time Temp Pulse Resp B/P (MAP) Pulse Ox O2 Delivery O2 Flow Rate FiO2 04/23/20 19:14 69 20 116/54 (74) 94 04/23/20 16:34 98.3 04/22/20 05:58 3.0 04/20/20 16:09 Nasal Cannula I & O 04/22/20 04/22/20 04/23/20 15:00 23:00 07:00 Intake Total 480 ml 0 ml Output Total 650 ml Balance 480 ml 0 ml -650 ml Current Medications: I have reviewed the current psychotropics carefully including drug interactions. Risk benefit ratio favors no change other than as noted in my dictated progress note. Diagnosis: Problems: (1) Dementia, vascular, with depression (2) Dementia, vascular, with delusions (3) Dementia in Alzheimer's disease with depression (4) Dementia in Alzheimer's disease with delusions (5) Major neurocognitive disorder (6) Major depressive disorder with psychotic features SKYE GALVAN MD Apr 23, 2020 20:42
[2020-04-23] MEDS: traZODone 50 MG TABLET. PO PRN (22:14)
--- NOTE | 2020-04-23 22:20 | EKG ---
[address] [address] Test Date: 2020-04-23 Test Time: 19:46:48 Pat Name: PREMA TABOR Department: Room: [facility] Gender: M Development Mechanic: : 1935 Requested By: SKYE GALVAN Order Number: [id number] Reading MD: Measurements Intervals [place] Rate: 74 P: SC: QRS: 146 QRSD: 74 T: 142 QT: 392 QTc: 436 Interpretive Statements IRREGULAR RHYTHM, NO P-WAVE FOUND ABNORMAL RIGHT AXIS DEVIATION LOW LIMB LEAD VOLTAGE QRS(T) CONTOUR ABNORMALITY CONSISTENT WITH HIGH LATERAL INFARCT AGE UNDETERMINED ABNORMAL ECG RI6.01 Compared to ECG 03/27/2020 16:51:54 Right-axis deviation now present Myocardial infarct finding now present Sinus rhythm no longer present
[2020-04-24 06:39] VITALS: BP 166/83
--- NOTE | 2020-04-24 07:00 | PDOC ---
Exam Note: Ernesto Note: This note is a late entry for 04/22/2020 covers elements not covered in my initial note. Subjective: The patient was seen face to face in the evening of 04/22/2020 with Patricia MAHMOOD. Discussed with nursing staff, reviewed the chart. The patient slept 3-3/4 hours previous night. Previous night he was somewhat restless, anxious, gets more paranoid in the evening. Previous evening he was punching staff and then hitting the back of his hand. He is compliant with medications. Mood is labile, happy to angry per nursing report. He was yelling, grabbing at staff, had to be placed in the West hallway to remove him from stimuli. No p.r.n. is given but then he did better with lower stimuli. He does have some dysphagia but this is improved since we stopped the Risperdal. Nevertheless he is more psychotic. Review of Systems: Shortness of breath on O2 supplements. Impaired ambulation in wheelchair. He has some mild dysphagia. No CV, , eye system symptoms on review. Mental Status Exam: The patient is oriented to himself. He is more psychotic. He does have short-term memory deficits. Speech is coherent, rapid at times. Abstraction is fair. Computation impaired. Attention span is short, distractible. Language function is intact. Mood is labile. No suicidal or homicidal ideation. Laboratory Data: Reviewed. Impression: Major depressive disorder with psychotic features. 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 Plan: EKG will be done and if QTc is less than 470 milliseconds we will start Geodon 20 mg p.o. 5 p.m. after his supper. Continue rest psychotropics unchanged. Assessment: Vital Signs/I&O: Vital Signs Date Time Temp Pulse Resp B/P (MAP) Pulse Ox O2 Delivery O2 Flow Rate FiO2 04/24/20 06:39 () 04/22/20 05:58 3.0 I & O 04/23/20 04/23/20 04/24/20 15:00 23:00 07:00 Intake Total 480 ml 720 ml Output Total 300 ml Balance 480 ml 720 ml -300 ml Current Medications: I have reviewed the current psychotropics carefully including drug interactions. Risk benefit ratio favors no change other than as noted in my dictated progress note. Diagnosis: Problems: (1) Mild cognitive impairment with memory loss (2) Dementia, vascular, with depression (3) Dementia, vascular, with delusions (4) Dementia in Alzheimer's disease with depression (5) Dementia in Alzheimer's disease with delusions (6) Major neurocognitive disorder (7) Major depressive disorder with psychotic features SKYE GALVAN MD Apr 24, 2020 07:00
--- NOTE | 2020-04-24 07:32 | PDOC ---
Exam Note: Ernesto Note: This note is a late entry for 04/23/2020 covers elements not covered in my initial note. Subjective: The patient was seen face to face in the evening of 04/23/2020 with Blanka MAHMOOD. Discussed with nursing staff, reviewed the chart. He slept 5-3/4 hours previous night. He was in bed in the morning but by the time I met with him in the evening he was quite agitated and paranoid with marked mood lability, restless. Review of Systems: Shortness of breath on O2 supplements. Impaired ambulation in wheelchair. No CV, , eye system symptoms on review. Mental Status Exam: The patient is oriented to himself. He is has been pleasant. He does have short-term memory deficits. Speech is coherent, rapid at times. Abstraction is fair. Computation impaired. Attention span is short, distractible. Language function is intact. Mood with marked mood lability, restless, paranoid, suspicious. No suicidal or homicidal ideation. Laboratory Data: Reviewed. Impression: Major depressive disorder with psychotic features. 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 Plan: No change from initial note. Assessment: Vital Signs/I&O: Vital Signs Date Time Temp Pulse Resp B/P (MAP) Pulse Ox O2 Delivery O2 Flow Rate FiO2 04/24/20 06:39 () 04/22/20 05:58 3.0 I & O 04/23/20 04/23/20 04/24/20 15:00 23:00 07:00 Intake Total 480 ml 720 ml Output Total 300 ml Balance 480 ml 720 ml -300 ml Current Medications: I have reviewed the current psychotropics carefully including drug interactions. Risk benefit ratio favors no change other than as noted in my dictated progress note. Diagnosis: Problems: (1) Dementia, vascular, with depression (2) Dementia, vascular, with delusions (3) Dementia in Alzheimer's disease with depression (4) Dementia in Alzheimer's disease with delusions (5) Major neurocognitive disorder (6) Major depressive disorder with psychotic features SKYE GALVAN MD Apr 24, 2020 07:32
[2020-04-24] MEDS: IPRATROPIUM/ALBUTEROL 20/100mcg/INH INHALER. INH SCH ×2 (08:00→20:30)
[2020-04-24] MEDS: LIDOCAINE 2% TOPICAL JELLY 5GM TUBE. TP SCH ×2 (09:00→20:30)
[2020-04-24] MEDS: APIXABAN 2.5 MG TABLET PO SCH ×2 (09:00→20:31)
[2020-04-24] MEDS: ASPIRIN CHEWABLE 81 MG TABLET. PO SCH (09:00)
[2020-04-24] MEDS: CITALOPRAM 20 MG TABLET. PO SCH (09:00)
[2020-04-24] MEDS: DOCUSATE SODIUM 100 MG CAPSULE PO SCH ×2 (09:00→20:31)
[2020-04-24] MEDS: DUTASTERIDE 0.5 MG CAPSULE PO SCH (09:00)
[2020-04-24] MEDS: GABAPENTIN 300 MG CAPSULE. PO SCH ×3 (09:00→20:30)
[2020-04-24] MEDS: SENNOSIDES/DOCUSATE 8.6/50MG TABLET. PO SCH (09:00)
[2020-04-24] MEDS: ISOSORBIDE MONONITRATE ER 30 MG TAB.ER.24H PO SCH (09:01)
[2020-04-24] MEDS: FUROSEMIDE 20 MG TABLET PO SCH (09:01)
[2020-04-24] MEDS: PANTOPRAZOLE 40 MG TABLET. PO SCH (09:01)
[2020-04-24] MEDS: BACITRACIN ZINC TOPICAL OINT PACKET. TP SCH ×2 (09:02→20:29)
[2020-04-24] MEDS: POTASSIUM CHLORIDE 10 MEQ TABLET.ER. PO SCH (09:02)
[2020-04-24] MEDS: CARVEDILOL 12.5 MG TABLET PO SCH ×2 (09:02→17:22)
[2020-04-24] MEDS: LACTOBACILLUS RHAMNOSUS GG 1 CAPSULE. PO SCH ×2 (09:02→20:31)
[2020-04-24] MEDS: CETIRIZINE HCL 10 MG TABLET PO SCH (09:02)
[2020-04-24] MEDS: predniSONE 1 MG TABLET PO SCH (09:06)
--- NOTE | 2020-04-24 10:08 | TX PLAN ---
Interdisciplinary Tx Plan Admission Information Mar 31, 2020 at 14:35 Legal Status (on Admission): Voluntary DPOA/Guardian Name: Lisa Huntley Contact Other Contact Name: [facility] Other Contact Verified Code Status: DNR Allergies: Coded Allergies: codeine (Verified Allergy, Unknown, 03/27/20) hydrocodone (Verified Allergy, Unknown, 03/27/20) phenylephrine (Verified Allergy, Unknown, 03/27/20) tramadol (Verified Allergy, Unknown, 03/27/20) Diagnoses Primary Diagnosis: MDD and Impulse control Reasons for Admission: Aggressive, Delusions, Agitated, Hallucinations, Suicidal ideation Problem in Patient's Words: I just don't know what is going on Additional Admission Comments: According to the intake, pt is hallucinating (auditory), poor safety and judgement, hx of SI, delusional and thinks his peers are having an affair with his , threatening to harm peers, agitated, restless, hitting staff Problems Active Problems: Hallucinating delusional restless agitation current UTI Inactive Problems: medication compliance Pt Strengths/Limitations Ability for [place]: Poor Cognitive Functioning/Ability: Poor Communication Skills/Ability: Fair Financial Resources: Fair Insight/Judgement: Poor Intellectual Ability: Fair Physical Health: Poor Social Skills: Fair Stability in Family: Good Stability in School/Work: Poor Verbal Skills: Fair Discharge Criteria Discharge Criteria: Adequate arrangements @DC, Improved behavior, Improved mood/thought Preliminary Discharge Plan Preliminary DC Plan: Current Living Arrange. Special Precautions Fall Risk: Moderate Initial D/C Plan Pt will plan to discharge back to [facility]. Identified Discharge Needs: mental health services Currently Utilized Resources Currently Utilized Resources/P: PCP Identified Problems/Hx/Goals Objectives/Short-Term Goals Short Term Goals: Dec. Aggression, Dec. Outbursts, Improved Social Skills, Medication Stabilization, Promote Coping Skill Interventions/Frequency Staff Interventions/Frequency&: Psychiatrist to assess pt at least 3x per week for medication management. Social Work to assess pt atleast 2x per week for discharge planning, and potential barriers to discharge. Nursing to assess pt medication effects, behavioral mgmt and complete 15 minute checks daily. Encourage participation in group activities (if applicable) or 1:1 engagement based off activity dept assessment. 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 Treatment Plan Explained Patient/Studio Owner had this treatment plan explained to him/her as indicated by the signature below and has been given the opportunity to ask questions and make suggestions: Date: Patient/Studio Owner Signature: Status Update Update Pt is eating roughly 75% of meals and sleeping on average 7 hours per night; however, last night he only slept 3 hours. Pt is irritable, resistive to meds and has been noted to swallow some of his pill crushed and spitting out the pudding on the floor. Pt received a UA and culture showed that pt had no growth. Pt did have his Risperdal discontinued as it causes dysphagia and speech therapy to follow. Pt did have a head CT that shows early changes, which could be why the behaviors for pt has increased. Pt is on Geodon 20mg q AM and 20mg q 1700. Pt is scheduled to return to [facility] by the middle of next week. DANIEL MORRISON Apr 24, 2020 10:08
[2020-04-24 16:21] VITALS: BP 103/63
[2020-04-24 20:10] VITALS: BP 113/58
[2020-04-24] MEDS: FLUTICASONE 50MCG/NASAL SPRAY 16GM BOTTLE. NS SCH (20:29)
[2020-04-24] MEDS: ZIPRASIDONE 20 MG CAPSULE. PO SCH (20:30)
[2020-04-24] MEDS: MIRTAZAPINE 7.5 MG TABLET. PO SCH (20:30)
[2020-04-24] MEDS: MELATONIN 3 MG TABLET PO SCH (20:31)
[2020-04-24] MEDS: ATORVASTATIN CALCIUM 10 MG TABLET. PO SCH (20:31)
[2020-04-24] MEDS: traZODone 50 MG TABLET. PO PRN (20:31)
[2020-04-24] MEDS: TAMSULOSIN 0.4 MG CAP.ER.24H. PO SCH (20:31)
--- NOTE | 2020-04-24 20:57 | PDOC ---
Exam Note: Ernesto Note: Please also refer to the separate dictated note~for this date of service dictated separately.~Patient seen individually. Discussed the patient with Nursing staff reviewed the chart.~Reviewed interim history and current functioning. Reviewed vital signs,~Labs/ Radiology~and current medications noted below. Continue current treatment with the changes noted in the dictated addendum note Assessment: Vital Signs/I&O: Vital Signs Date Time Temp Pulse Resp B/P (MAP) Pulse Ox O2 Delivery O2 Flow Rate FiO2 04/24/20 20:10 69 113/58 (76) 95 Room Air 04/24/20 16:21 97.9 19 04/22/20 05:58 3.0 I & O 0 04/23/20 04/23/20 04/24/20 15:00 23:00 07:00 Intake Total 480 ml 720 ml Output Total 300 ml Balance 480 ml 720 ml -300 ml Current Medications: Meds: Current Medications Medications (Trade) Dose Ordered Sig/Ralph Route PRN Reason Start Time Stop Time Status Last Admin Dose Admin Ziprasidone (Geodon) 20 mg BID PO 04/24/20 21:00 04/24/20 20:30 I have reviewed the current psychotropics carefully including drug interactions. Risk benefit ratio favors no change other than as noted in my dictated progress note. Diagnosis: Problems: (1) Dementia, vascular, with depression (2) Dementia, vascular, with delusions (3) Dementia in Alzheimer's disease with depression (4) Dementia in Alzheimer's disease with delusions (5) Major neurocognitive disorder (6) Major depressive disorder with psychotic features SKYE GALVAN MD Apr 24, 2020 20:57
[2020-04-25 06:03] VITALS: BP 140/79
[2020-04-25] MEDS: CARVEDILOL 12.5 MG TABLET PO SCH ×2 (08:00→17:17)
[2020-04-25] MEDS: IPRATROPIUM/ALBUTEROL 20/100mcg/INH INHALER. INH SCH ×2 (08:00→17:18)
[2020-04-25] MEDS: FUROSEMIDE 20 MG TABLET PO SCH (09:00)
[2020-04-25] MEDS: POTASSIUM CHLORIDE 10 MEQ TABLET.ER. PO SCH (09:00)
[2020-04-25] MEDS: APIXABAN 2.5 MG TABLET PO SCH ×2 (09:00→20:56)
[2020-04-25] MEDS: LACTOBACILLUS RHAMNOSUS GG 1 CAPSULE. PO SCH ×2 (09:00→20:56)
[2020-04-25] MEDS: ZIPRASIDONE 20 MG CAPSULE. PO SCH ×2 (09:00→20:58)
[2020-04-25] MEDS: DOCUSATE SODIUM 100 MG CAPSULE PO SCH ×2 (09:00→20:58)
[2020-04-25] MEDS: predniSONE 1 MG TABLET PO SCH (09:00)
[2020-04-25] MEDS: CETIRIZINE HCL 10 MG TABLET PO SCH (09:00)
[2020-04-25] MEDS: DUTASTERIDE 0.5 MG CAPSULE PO SCH (09:00)
[2020-04-25] MEDS: ASPIRIN CHEWABLE 81 MG TABLET. PO SCH (09:00)
[2020-04-25] MEDS: CITALOPRAM 20 MG TABLET. PO SCH (09:00)
[2020-04-25] MEDS: BACITRACIN ZINC TOPICAL OINT PACKET. TP SCH ×2 (09:00→20:56)
[2020-04-25] MEDS: PANTOPRAZOLE 40 MG TABLET. PO SCH (09:00)
[2020-04-25] MEDS: LIDOCAINE 2% TOPICAL JELLY 5GM TUBE. TP SCH ×2 (09:00→20:55)
[2020-04-25] MEDS: ISOSORBIDE MONONITRATE ER 30 MG TAB.ER.24H PO SCH (09:00)
[2020-04-25] MEDS: GABAPENTIN 300 MG CAPSULE. PO SCH ×3 (09:00→20:58)
[2020-04-25 16:00] VITALS: BP 110/54
[2020-04-25] MEDS: FLUTICASONE 50MCG/NASAL SPRAY 16GM BOTTLE. NS SCH (17:51)
[2020-04-25] MEDS: traZODone 50 MG TABLET. PO PRN (20:56)
[2020-04-25] MEDS: ATORVASTATIN CALCIUM 10 MG TABLET. PO SCH (20:57)
[2020-04-25] MEDS: TAMSULOSIN 0.4 MG CAP.ER.24H. PO SCH (20:58)
[2020-04-25] MEDS: MIRTAZAPINE 7.5 MG TABLET. PO SCH (20:58)
[2020-04-25] MEDS: MELATONIN 3 MG TABLET PO SCH (20:59)
--- NOTE | 2020-04-25 21:01 | PDOC ---
Exam Note: Ernesto Note: Please also refer to the separate dictated note~for this date of service dictated separately.~Patient seen individually. Discussed the patient with Nursing staff reviewed the chart.~Reviewed interim history and current functioning. Reviewed vital signs,~Labs/ Radiology~and current medications noted below. Continue current treatment with the changes noted in the dictated addendum note Assessment: Vital Signs/I&O: Vital Signs Date Time Temp Pulse Resp B/P (MAP) Pulse Ox O2 Delivery O2 Flow Rate FiO2 04/25/20 17:17 64 110/54 04/25/20 16:00 98.6 16 94 04/25/20 06:03 Nasal Cannula 2.0 I & O 0 04/24/20 04/24/20 04/25/20 14:59 22:59 06:59 Intake Total 480 ml 120 ml 120 ml Output Total 300 ml Balance 480 ml 120 ml -180 ml Current Medications: I have reviewed the current psychotropics carefully including drug interactions. Risk benefit ratio favors no change other than as noted in my dictated progress note. Diagnosis: Problems: (1) Dementia, vascular, with depression (2) Dementia, vascular, with delusions (3) Dementia in Alzheimer's disease with depression (4) Dementia in Alzheimer's disease with delusions (5) Major neurocognitive disorder (6) Major depressive disorder with psychotic features SKYE GALVAN MD Apr 25, 2020 21:01
[2020-04-26 06:00] VITALS: BP 142/72
[2020-04-26] MEDS: IPRATROPIUM/ALBUTEROL 20/100mcg/INH INHALER. INH SCH ×2 (08:36→18:08)
[2020-04-26] MEDS: PANTOPRAZOLE 40 MG TABLET. PO SCH (08:36)
[2020-04-26] MEDS: POTASSIUM CHLORIDE 10 MEQ TABLET.ER. PO SCH (08:37)
[2020-04-26] MEDS: DOCUSATE SODIUM 100 MG CAPSULE PO SCH ×2 (08:37→19:49)
[2020-04-26] MEDS: LACTOBACILLUS RHAMNOSUS GG 1 CAPSULE. PO SCH ×2 (08:37→19:49)
[2020-04-26] MEDS: predniSONE 1 MG TABLET PO SCH (08:37)
[2020-04-26] MEDS: ZIPRASIDONE 20 MG CAPSULE. PO SCH ×2 (08:37→19:50)
[2020-04-26] MEDS: ISOSORBIDE MONONITRATE ER 30 MG TAB.ER.24H PO SCH (08:37)
[2020-04-26] MEDS: APIXABAN 2.5 MG TABLET PO SCH ×2 (08:37→19:50)
[2020-04-26] MEDS: SENNOSIDES/DOCUSATE 8.6/50MG TABLET. PO SCH (08:37)
[2020-04-26] MEDS: CITALOPRAM 20 MG TABLET. PO SCH (08:37)
[2020-04-26] MEDS: ASPIRIN CHEWABLE 81 MG TABLET. PO SCH (08:37)
[2020-04-26] MEDS: CARVEDILOL 12.5 MG TABLET PO SCH ×2 (08:38→17:00)
[2020-04-26] MEDS: CETIRIZINE HCL 10 MG TABLET PO SCH (08:38)
[2020-04-26] MEDS: DUTASTERIDE 0.5 MG CAPSULE PO SCH (08:38)
[2020-04-26] MEDS: GABAPENTIN 300 MG CAPSULE. PO SCH ×3 (08:38→19:50)
[2020-04-26] MEDS: FUROSEMIDE 20 MG TABLET PO SCH (08:38)
[2020-04-26] MEDS: CHOLECALCIFEROL (VITAMIN D3) 50,000 UNIT CAPSULE PO SCH (08:55)
[2020-04-26] MEDS: BACITRACIN ZINC TOPICAL OINT PACKET. TP SCH ×2 (08:56→19:50)
[2020-04-26] MEDS: LIDOCAINE 2% TOPICAL JELLY 5GM TUBE. TP SCH ×2 (08:58→19:50)
[2020-04-26 14:35] VITALS: BP 121/72
[2020-04-26 19:00] VITALS: BP 121/72
[2020-04-26] MEDS: MIRTAZAPINE 7.5 MG TABLET. PO SCH (19:49)
[2020-04-26] MEDS: FLUTICASONE 50MCG/NASAL SPRAY 16GM BOTTLE. NS SCH (19:49)
[2020-04-26] MEDS: TAMSULOSIN 0.4 MG CAP.ER.24H. PO SCH (19:50)
[2020-04-26] MEDS: MELATONIN 3 MG TABLET PO SCH (19:50)
[2020-04-26] MEDS: ATORVASTATIN CALCIUM 10 MG TABLET. PO SCH (19:50)
[2020-04-26] MEDS: traZODone 50 MG TABLET. PO PRN (19:51)
--- NOTE | 2020-04-26 20:54 | PDOC ---
Exam Note: Ernesto Note: Please also refer to the separate dictated note~for this date of service dictated separately.~Patient seen individually. Discussed the patient with Nursing staff reviewed the chart.~Reviewed interim history and current functioning. Reviewed vital signs,~Labs/ Radiology~and current medications noted below. Continue current treatment with the changes noted in the dictated addendum note Assessment: Vital Signs/I&O: Vital Signs Date Time Temp Pulse Resp B/P (MAP) Pulse Ox O2 Delivery O2 Flow Rate FiO2 04/26/20 17:00 67 121/72 04/26/20 14:35 99.2 18 93 04/26/20 06:00 Room Air 2.0 I & O 04/25/20 04/25/20 04/26/20 15:00 23:00 07:00 Intake Total 450 ml 300 ml Output Total 1000 ml Balance 450 ml -700 ml Current Medications: I have reviewed the current psychotropics carefully including drug interactions. Risk benefit ratio favors no change other than as noted in my dictated progress note. 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
[2020-04-27 06:38] VITALS: BP 137/74
--- NOTE | 2020-04-27 07:18 | PDOC ---
Exam Note: Ernesto Note: This note is a late entry for 04/24/2020 covers elements not covered in my initial note. Subjective: The patient was seen face to face in the morning of 04/24/2020 for treatment team meeting with Mary Jo Meyers Nikki (social media marketing specialist), Anai, activity therapy staff, and Essence RN. In the morning he was smiling, wanted to go to work. Discussed with nursing staff, reviewed the chart. He slept 3 hours previous night. He received trazodone at night. He remains intermittently delusional about his . Review of Systems: Shortness of breath on O2 supplements. Impaired ambulation in wheelchair. No CV, , eye system symptoms on review. Mental Status Exam: The patient is oriented to himself. Speech is coherent, rapid at times. Abstraction is fair. Computation impaired. Attention span is short, distractible. Language function is intact. Mood with paranoid, suspicious, delusional. No suicidal or homicidal ideation. Laboratory Data: Reviewed. Impression: Major depressive disorder with psychotic features. 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 Plan: No change from initial note. After the patient has been on Geodon 20 mg h.s., we will increase to 20 mg b.i.d and check EKG 3 days later. Assessment: Vital Signs/I&O: Vital Signs Date Time Temp Pulse Resp B/P (MAP) Pulse Ox O2 Delivery O2 Flow Rate FiO2 04/27/20 06:38 98.6 62 16 137/74 (95) 92 3.0 04/26/20 19:00 Nasal Cannula I & O 0 04/26/20 04/26/20 04/27/20 15:00 23:00 07:00 Intake Total 120 ml 600 ml Output Total 950 ml Balance 120 ml -350 ml Current Medications: I have reviewed the current psychotropics carefully including drug interactions. Risk benefit ratio favors no change other than as noted in my dictated progress note. Diagnosis: Problems: (1) Dementia, vascular, with depression (2) Dementia, vascular, with delusions (3) Dementia in Alzheimer's disease with depression (4) Dementia in Alzheimer's disease with delusions (5) Major neurocognitive disorder (6) Major depressive disorder with psychotic features SKYE GALVAN MD Apr 27, 2020 07:18
--- NOTE | 2020-04-27 07:37 | PDOC ---
Exam Note: Ernesto Note: This note is a late entry for 04/25/2020 covers elements not covered in my initial note. Subjective: The patient was seen face to face in the evening of 04/25/2020 with Blanka MAHMOOD. Discussed with nursing staff, reviewed the chart. Overall the patient is doing better. He had 2 Zoom calls with his and daughter and was on the telephone with his for about 20 mins., and this seemed to go well. He is less paranoid. The patient slept 6-3/4 hours previous night. Review of Systems: Shortness of breath on O2 supplements. Impaired ambulation in wheelchair. No CV, , eye system symptoms on review. Mental Status Exam: The patient is oriented to himself. Speech is coherent, rapid at times. Abstraction is fair. Computation impaired. Attention span is short, distractible. Language function is intact. He is less paranoid. Laboratory Data: Reviewed. Impression: Major depressive disorder with psychotic features. 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 Plan: No change from initial note. Assessment: Vital Signs/I&O: Vital Signs Date Time Temp Pulse Resp B/P (MAP) Pulse Ox O2 Delivery O2 Flow Rate FiO2 04/27/20 06:38 98.6 62 16 137/74 (95) 92 3.0 04/26/20 19:00 Nasal Cannula I & O 04/26/20 04/26/20 04/27/20 15:00 23:00 07:00 Intake Total 120 ml 600 ml Output Total 950 ml Balance 120 ml -350 ml Current Medications: I have reviewed the current psychotropics carefully including drug interactions. Risk benefit ratio favors no change other than as noted in my dictated progress note. Diagnosis: Problems: (1) Dementia, vascular, with depression (2) Dementia, vascular, with delusions (3) Dementia in Alzheimer's disease with depression (4) Dementia in Alzheimer's disease with delusions (5) Major neurocognitive disorder (6) Major depressive disorder with psychotic features SKYE GALVAN MD Apr 27, 2020 07:37
--- NOTE | 2020-04-27 07:54 | PDOC ---
Exam Note: Ernesto Note: This note is a late entry for 04/26/2020 covers elements not covered in my initial note. Subjective: The patient was seen face to face in the evening of 04/26/2020 with Blanka MAHMOOD. Discussed with nursing staff, reviewed the chart. The patient has been fairly pleasant. He gets upset during showers. Review of Systems: Shortness of breath on O2 supplements. Impaired ambulation in wheelchair. No CV, , eye system symptoms on review. Mental Status Exam: The patient is oriented to himself. He is less paranoid. He states he talked to his daughter today but not his . In fact nursing report indicated he talked to his and daughter for about 20 minutes. Speech is coherent, rapid at times. Abstraction is fair. Computation impaired. Attention span is short. Language function is intact. Overall doing better, less anxious. Laboratory Data: Reviewed. Impression: Major depressive disorder with psychotic features. 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 Plan: No change from initial note. Assessment: Vital Signs/I&O: Vital Signs Date Time Temp Pulse Resp B/P (MAP) Pulse Ox O2 Delivery O2 Flow Rate FiO2 04/27/20 06:38 98.6 62 16 137/74 (95) 92 3.0 04/26/20 19:00 Nasal Cannula I & O 04/26/20 04/26/20 04/27/20 15:00 23:00 07:00 Intake Total 120 ml 600 ml Output Total 950 ml Balance 120 ml -350 ml Current Medications: I have reviewed the current psychotropics carefully including drug interactions. Risk benefit ratio favors no change other than as noted in my dictated progress note. Diagnosis: Problems: (1) Dementia, vascular, with depression (2) Dementia, vascular, with delusions (3) Dementia in Alzheimer's disease with depression (4) Dementia in Alzheimer's disease with delusions (5) Major neurocognitive disorder (6) Major depressive disorder with psychotic features SKYE GALVAN MD Apr 27, 2020 07:54
[2020-04-27] MEDS: IPRATROPIUM/ALBUTEROL 20/100mcg/INH INHALER. INH SCH ×2 (09:36→20:28)
[2020-04-27] MEDS: CARVEDILOL 12.5 MG TABLET PO SCH ×2 (09:36→17:11)
[2020-04-27] MEDS: ASPIRIN CHEWABLE 81 MG TABLET. PO SCH (09:37)
[2020-04-27] MEDS: CITALOPRAM 20 MG TABLET. PO SCH (09:38)
[2020-04-27] MEDS: DUTASTERIDE 0.5 MG CAPSULE PO SCH (09:38)
[2020-04-27] MEDS: LACTOBACILLUS RHAMNOSUS GG 1 CAPSULE. PO SCH ×2 (09:38→20:27)
[2020-04-27] MEDS: DOCUSATE SODIUM 100 MG CAPSULE PO SCH ×2 (09:38→20:28)
[2020-04-27] MEDS: ZIPRASIDONE 20 MG CAPSULE. PO SCH ×2 (09:39→20:28)
[2020-04-27] MEDS: FUROSEMIDE 20 MG TABLET PO SCH (09:39)
[2020-04-27] MEDS: POTASSIUM CHLORIDE 10 MEQ TABLET.ER. PO SCH ×3 (09:39→20:26)
[2020-04-27] MEDS: ISOSORBIDE MONONITRATE ER 30 MG TAB.ER.24H PO SCH (09:39)
[2020-04-27] MEDS: APIXABAN 2.5 MG TABLET PO SCH ×2 (09:39→20:27)
[2020-04-27] MEDS: GABAPENTIN 300 MG CAPSULE. PO SCH ×3 (09:40→20:25)
[2020-04-27] MEDS: PANTOPRAZOLE 40 MG TABLET. PO SCH (09:40)
[2020-04-27] MEDS: BACITRACIN ZINC TOPICAL OINT PACKET. TP SCH ×2 (09:40→20:26)
[2020-04-27] MEDS: predniSONE 1 MG TABLET PO SCH (09:40)
[2020-04-27] MEDS: LIDOCAINE 2% TOPICAL JELLY 5GM TUBE. TP SCH ×2 (09:40→20:26)
[2020-04-27] MEDS: CETIRIZINE HCL 10 MG TABLET PO SCH (09:40)
[2020-04-27 10:00] LABS: BASO # 0.1 x10^3/uL (0.0-0.2); BASO % 1 % (0-3); EOS # 0.3 x10^3/uL (0.0-0.7); EOS % 4 % (0-3); HEMATOCRIT 32.8 % (39.0-53.0); HEMOGLOBIN 10.3 g/dL (13.0-17.5); LYMPH # 1.1 x10^3/uL (1.0-4.8); LYMPH % 13 % (24-48); MEAN CORPUSCULAR HEMOGLOBIN 28 pg (25-35); MEAN CORPUSCULAR HGB CONC 31 g/dL (31-37); MEAN CORPUSCULAR VOLUME 89 fL (79-100); MONO # 0.7 x10^3/uL (0.0-1.1); MONO % 8 % (0-9); NEUT # 6.5 x10^3uL (1.8-7.7); NEUT % 75 % (31-73); PLATELET COUNT 244 x10^3/uL (140-400); RED BLOOD COUNT 3.68 x10^6/uL (4.30-5.70); RED CELL DISTRIBUTION WIDTH 16.4 % (11.5-14.5); WHITE BLOOD COUNT 8.8 x10^3/uL (4.0-11.0)
[2020-04-27 10:03] LABS: ALBUMIN 2.8 g/dL (3.4-5.0); ALBUMIN/GLOBULIN RATIO 0.8 (1.0-1.7); CALCIUM 8.9 mg/dL (8.5-10.1); CREATININE 0.8 mg/dL (0.7-1.3); GFR 92.1; POTASSIUM 3.4 mmol/L (3.5-5.1); TOTAL BILIRUBIN 0.3 mg/dL (0.2-1.0); TOTAL PROTEIN 6.1 g/dL (6.4-8.2)
[2020-04-27 15:53] VITALS: BP 115/66
[2020-04-27] MEDS: MELATONIN 3 MG TABLET PO SCH (20:26)
[2020-04-27] MEDS: ATORVASTATIN CALCIUM 10 MG TABLET. PO SCH (20:27)
[2020-04-27] MEDS: TAMSULOSIN 0.4 MG CAP.ER.24H. PO SCH (20:27)
[2020-04-27] MEDS: MIRTAZAPINE 7.5 MG TABLET. PO SCH (20:27)
[2020-04-27] MEDS: FLUTICASONE 50MCG/NASAL SPRAY 16GM BOTTLE. NS SCH (20:28)
--- NOTE | 2020-04-27 20:39 | PDOC ---
Exam Note: Ernesto Note: Please also refer to the separate dictated note~for this date of service dictated separately.~Patient seen individually. Discussed the patient with Nursing staff reviewed the chart.~Reviewed interim history and current functioning. Reviewed vital signs,~Labs/ Radiology~and current medications noted below. Continue current treatment with the changes noted in the dictated addendum note Assessment: Vital Signs/I&O: Vital Signs Date Time Temp Pulse Resp B/P (MAP) Pulse Ox O2 Delivery O2 Flow Rate FiO2 04/27/20 17:11 68 115/66 04/27/20 15:53 97.6 17 97 Nasal Cannula 3.0 I & O 04/26/20 04/26/20 04/27/20 15:00 23:00 07:00 Intake Total 120 ml 600 ml Output Total 950 ml Balance 120 ml -350 ml Labs: Laboratory Tests Test 04/27/20 09:10 White Blood Count 8.8 x10^3/uL (4.0-11.0) Red Blood Count 3.68 x10^6/uL (4.30-5.70) L Hemoglobin 10.3 g/dL (13.0-17.5) L Hematocrit 32.8 % (39.0-53.0) L Mean Corpuscular Volume 89 fL (79-100) Mean Corpuscular Hemoglobin 28 pg (25-35) Mean Corpuscular Hemoglobin Concent 31 g/dL (31-37) Red Cell Distribution Width 16.4 % (11.5-14.5) H Platelet Count 244 x10^3/uL (140-400) Neutrophils (%) (Auto) 75 % (31-73) H Lymphocytes (%) (Auto) 13 % (24-48) L Monocytes (%) (Auto) 8 % (0-9) Eosinophils (%) (Auto) 4 % (0-3) H Basophils (%) (Auto) 1 % (0-3) Neutrophils # (Auto) 6.5 x10^3uL (1.8-7.7) Lymphocytes # (Auto) 1.1 x10^3/uL (1.0-4.8) Monocytes # (Auto) 0.7 x10^3/uL (0.0-1.1) Eosinophils # (Auto) 0.3 x10^3/uL (0.0-0.7) Basophils # (Auto) 0.1 x10^3/uL (0.0-0.2) Sodium Level 144 mmol/L (136-145) Potassium Level 3.4 mmol/L (3.5-5.1) L Chloride Level 106 mmol/L (98-107) Carbon Dioxide Level 30 mmol/L (21-32) Anion Gap 8 (6-14) Blood Urea Nitrogen 15 mg/dL (8-26) Creatinine 0.8 mg/dL (0.7-1.3) Estimated GFR (Cockcroft-Gault) 92.1 BUN/Creatinine Ratio 19 (6-20) Glucose Level 95 mg/dL (70-99) Calcium Level 8.9 mg/dL (8.5-10.1) Total Bilirubin 0.3 mg/dL (0.2-1.0) Aspartate Amino Transferase (AST) 12 U/L (15-37) L Alanine Aminotransferase (ALT) 11 U/L (16-63) L Alkaline Phosphatase 80 U/L (46-116) Total Protein 6.1 g/dL (6.4-8.2) L Albumin 2.8 g/dL (3.4-5.0) L Albumin/Globulin Ratio 0.8 (1.0-1.7) L Current Medications: Meds: Current Medications Medications (Trade) Dose Ordered Sig/Ralph Route PRN Reason Start Time Stop Time Status Last Admin Dose Admin Potassium Chloride (Klor-Con) 20 meq BID PO 04/27/20 15:15 04/27/20 20:26 I have reviewed the current psychotropics carefully including drug interactions. Risk benefit ratio favors no change other than as noted in my dictated progress note. Diagnosis: Problems: (1) Dementia, vascular, with depression (2) Dementia, vascular, with delusions (3) Dementia in Alzheimer's disease with depression (4) Dementia in Alzheimer's disease with delusions (5) Major neurocognitive disorder (6) Major depressive disorder with psychotic features SKYE GALVAN MD Apr 27, 2020 20:39
[2020-04-28 06:23] VITALS: BP 128/79
--- NOTE | 2020-04-28 07:55 | PDOC ---
Exam Note: Ernesto Note: This note is a late entry for 04/27/2020 covers elements not covered in my initial note. Subjective: The patient was seen face to face in the evening of 04/27/2020 with Nancy MAHMOOD. Discussed with nursing staff, reviewed the chart. The patient slept 7-1/4 hours previous night. He is irritable, dislikes thickened liquids. He had a telephone conversation with his . Review of Systems: Shortness of breath on O2 supplements. Impaired ambulation in wheelchair. No CV, , eye system symptoms on review. Mental Status Exam: The patient is oriented to himself. He is less paranoid during the individual visit. Speech is coherent, rapid at times. Abstraction is fair. Computation impaired. Attention span is short. Language function is intact. No suicidal or homicidal ideation. Laboratory Data: Reviewed. Impression: Major depressive disorder with psychotic features. 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 Plan: No change from initial note. Assessment: Vital Signs/I&O: Vital Signs Date Time Temp Pulse Resp B/P (MAP) Pulse Ox O2 Delivery O2 Flow Rate FiO2 04/28/20 06:23 98.1 65 16 128/79 (95) 94 2.0 04/27/20 15:53 Nasal Cannula I & O 04/27/20 04/27/20 04/28/20 15:00 23:00 07:00 Intake Total 240 ml 480 ml 120 ml Output Total 1050 ml Balance 240 ml 480 ml -930 ml Labs: Laboratory Tests Test 04/27/20 09:10 White Blood Count 8.8 x10^3/uL (4.0-11.0) Red Blood Count 3.68 x10^6/uL (4.30-5.70) L Hemoglobin 10.3 g/dL (13.0-17.5) L Hematocrit 32.8 % (39.0-53.0) L Mean Corpuscular Volume 89 fL (79-100) Mean Corpuscular Hemoglobin 28 pg (25-35) Mean Corpuscular Hemoglobin Concent 31 g/dL (31-37) Red Cell Distribution Width 16.4 % (11.5-14.5) H Platelet Count 244 x10^3/uL (140-400) Neutrophils (%) (Auto) 75 % (31-73) H Lymphocytes (%) (Auto) 13 % (24-48) L Monocytes (%) (Auto) 8 % (0-9) Eosinophils (%) (Auto) 4 % (0-3) H Basophils (%) (Auto) 1 % (0-3) Neutrophils # (Auto) 6.5 x10^3uL (1.8-7.7) Lymphocytes # (Auto) 1.1 x10^3/uL (1.0-4.8) Monocytes # (Auto) 0.7 x10^3/uL (0.0-1.1) Eosinophils # (Auto) 0.3 x10^3/uL (0.0-0.7) Basophils # (Auto) 0.1 x10^3/uL (0.0-0.2) Sodium Level 144 mmol/L (136-145) Potassium Level 3.4 mmol/L (3.5-5.1) L Chloride Level 106 mmol/L (98-107) Carbon Dioxide Level 30 mmol/L (21-32) Anion Gap 8 (6-14) Blood Urea Nitrogen 15 mg/dL (8-26) Creatinine 0.8 mg/dL (0.7-1.3) Estimated GFR (Cockcroft-Gault) 92.1 BUN/Creatinine Ratio 19 (6-20) Glucose Level 95 mg/dL (70-99) Calcium Level 8.9 mg/dL (8.5-10.1) Total Bilirubin 0.3 mg/dL (0.2-1.0) Aspartate Amino Transferase (AST) 12 U/L (15-37) L Alanine Aminotransferase (ALT) 11 U/L (16-63) L Alkaline Phosphatase 80 U/L (46-116) Total Protein 6.1 g/dL (6.4-8.2) L Albumin 2.8 g/dL (3.4-5.0) L Albumin/Globulin Ratio 0.8 (1.0-1.7) L Current Medications: Meds: Current Medications Medications (Trade) Dose Ordered Sig/Ralph Route PRN Reason Start Time Stop Time Status Last Admin Dose Admin Potassium Chloride (Klor-Con) 20 meq BID PO 04/27/20 15:15 04/27/20 20:26 I have reviewed the current psychotropics carefully including drug interactions. Risk benefit ratio favors no change other than as noted in my dictated progress note. 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
[2020-04-28] MEDS: IPRATROPIUM/ALBUTEROL 20/100mcg/INH INHALER. INH SCH ×2 (09:04→20:23)
[2020-04-28] MEDS: ASPIRIN CHEWABLE 81 MG TABLET. PO SCH (09:05)
[2020-04-28] MEDS: DUTASTERIDE 0.5 MG CAPSULE PO SCH (09:05)
[2020-04-28] MEDS: CITALOPRAM 20 MG TABLET. PO SCH (09:05)
[2020-04-28] MEDS: DOCUSATE SODIUM 100 MG CAPSULE PO SCH ×2 (09:05→20:23)
[2020-04-28] MEDS: CARVEDILOL 12.5 MG TABLET PO SCH ×2 (09:05→17:31)
[2020-04-28] MEDS: ZIPRASIDONE 20 MG CAPSULE. PO SCH ×2 (09:06→20:23)
[2020-04-28] MEDS: POTASSIUM CHLORIDE 10 MEQ TABLET.ER. PO SCH ×2 (09:06→20:24)
[2020-04-28] MEDS: APIXABAN 2.5 MG TABLET PO SCH ×2 (09:06→20:23)
[2020-04-28] MEDS: LACTOBACILLUS RHAMNOSUS GG 1 CAPSULE. PO SCH ×2 (09:06→20:23)
[2020-04-28] MEDS: ISOSORBIDE MONONITRATE ER 30 MG TAB.ER.24H PO SCH (09:06)
[2020-04-28] MEDS: LIDOCAINE 2% TOPICAL JELLY 5GM TUBE. TP SCH ×2 (09:07→20:25)
[2020-04-28] MEDS: GABAPENTIN 300 MG CAPSULE. PO SCH ×3 (09:07→20:23)
[2020-04-28] MEDS: CETIRIZINE HCL 10 MG TABLET PO SCH (09:07)
[2020-04-28] MEDS: predniSONE 1 MG TABLET PO SCH (09:07)
[2020-04-28] MEDS: BACITRACIN ZINC TOPICAL OINT PACKET. TP SCH ×2 (09:07→20:24)
[2020-04-28] MEDS: FUROSEMIDE 20 MG TABLET PO SCH (09:07)
[2020-04-28] MEDS: PANTOPRAZOLE 40 MG TABLET. PO SCH (09:07)
[2020-04-28] MEDS: SENNOSIDES/DOCUSATE 8.6/50MG TABLET. PO SCH (09:07)
--- NOTE | 2020-04-28 15:17 | RAD ---
PORTABLE CHEST 1V History: Reason: cough, crackles in RLL / Spl. Instructions: / History: Comparison: March 28, 2020 Findings: Mild left linear bibasilar opacities. No pleural effusion. No pneumothorax. Normal heart size. 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 Impression: 1. Mild linear bibasilar opacities, likely atelectasis. Electronically signed by: Ruel Arceo DO (04/28/2020 3:14 PM) [id number]
[2020-04-28 16:16] VITALS: BP 104/58
[2020-04-28] MEDS: MIRTAZAPINE 7.5 MG TABLET. PO SCH (20:23)
[2020-04-28] MEDS: MELATONIN 3 MG TABLET PO SCH (20:24)
[2020-04-28] MEDS: ATORVASTATIN CALCIUM 10 MG TABLET. PO SCH (20:24)
[2020-04-28] MEDS: TAMSULOSIN 0.4 MG CAP.ER.24H. PO SCH (20:24)
[2020-04-28] MEDS: FLUTICASONE 50MCG/NASAL SPRAY 16GM BOTTLE. NS SCH (20:25)
--- NOTE | 2020-04-28 20:55 | PDOC ---
Exam Note: Ernesto Note: Please also refer to the separate dictated note~for this date of service dictated separately.~Patient seen individually. Discussed the patient with Nursing staff reviewed the chart.~Reviewed interim history and current functioning. Reviewed vital signs,~Labs/ Radiology~and current medications noted below. Continue current treatment with the changes noted in the dictated addendum note Assessment: Vital Signs/I&O: Vital Signs Date Time Temp Pulse Resp B/P (MAP) Pulse Ox O2 Delivery O2 Flow Rate FiO2 04/28/20 17:31 70 104/58 04/28/20 16:16 98.4 19 96 04/28/20 06:23 2.0 04/27/20 15:53 Nasal Cannula I & O 04/27/20 04/27/20 04/28/20 15:00 23:00 07:00 Intake Total 240 ml 480 ml 120 ml Output Total 1050 ml Balance 240 ml 480 ml -930 ml Current Medications: I have reviewed the current psychotropics carefully including drug interactions. Risk benefit ratio favors no change other than as noted in my dictated progress note. Diagnosis: Problems: (1) Dementia, vascular, with depression (2) Dementia, vascular, with delusions (3) Dementia in Alzheimer's disease with depression (4) Dementia in Alzheimer's disease with delusions (5) Major neurocognitive disorder (6) Major depressive disorder with psychotic features SKYE GALVAN MD Apr 28, 2020 20:55
[2020-04-29 06:22] VITALS: BP 131/72
--- NOTE | 2020-04-29 07:28 | PDOC ---
Exam Note: Ernesto Note: This note is a late entry for 04/28/2020 covers elements not covered in my initial note. Subjective: The patient was seen face to face in the evening of 04/28/2020 with Nancy MAHMOOD. Discussed with nursing staff, reviewed the chart. The patient slept 7 hours previous night. He did well at night and during the day today. He does have some crackles in the right lower extremity. Dr. Demarco has been consulted with questionable atelectasis. He has made no mention about his paranoia that his is having an affair. Review of Systems: Shortness of breath on O2 supplements. Impaired ambulation in wheelchair. No CV, , eye system symptoms on review. Mental Status Exam: The patient is oriented to himself. Speech is coherent, rapid at times. Abstraction is fair. Computation impaired. Attention span is short. Language function is intact. No suicidal or homicidal ideation. Laboratory Data: Reviewed. Impression: Major depressive disorder with psychotic features. Mild Cognitive impairment versus major neurocognitive disorder Alzheimers vascular with delusi on and depression. Plan: No change from initial note. We will defer medical management to Dr. Demarco. Assessment: Vital Signs/I&O: Vital Signs Date Time Temp Pulse Resp B/P (MAP) Pulse Ox O2 Delivery O2 Flow Rate FiO2 04/29/20 06:22 98.0 67 18 131/72 (91) 96 2.0 04/27/20 15:53 Nasal Cannula I & O 04/28/20 04/28/20 04/29/20 14:59 22:59 06:59 Intake Total 600 ml 240 ml 120 ml Output Total 1500 ml Balance 600 ml 240 ml -1380 ml Current Medications: I have reviewed the current psychotropics carefully including drug interactions. Risk benefit ratio favors no change other than as noted in my dictated progress note. Diagnosis: Problems: (1) Dementia, vascular, with depression (2) Dementia, vascular, with delusions (3) Dementia in Alzheimer's disease with depression (4) Dementia in Alzheimer's disease with delusions (5) Major neurocognitive disorder (6) Major depressive disorder with psychotic features SKYE GALVAN MD Apr 29, 2020 07:28
[2020-04-29] MEDS: LIDOCAINE 2% TOPICAL JELLY 5GM TUBE. TP SCH ×2 (09:00→20:53)
[2020-04-29] MEDS: POTASSIUM CHLORIDE 10 MEQ TABLET.ER. PO SCH ×2 (09:44→20:49)
[2020-04-29] MEDS: PANTOPRAZOLE 40 MG TABLET. PO SCH (09:44)
[2020-04-29] MEDS: LACTOBACILLUS RHAMNOSUS GG 1 CAPSULE. PO SCH ×2 (09:44→20:49)
[2020-04-29] MEDS: CARVEDILOL 12.5 MG TABLET PO SCH ×2 (09:44→17:29)
[2020-04-29] MEDS: CITALOPRAM 20 MG TABLET. PO SCH (09:44)
[2020-04-29] MEDS: GABAPENTIN 300 MG CAPSULE. PO SCH ×3 (09:45→20:47)
[2020-04-29] MEDS: APIXABAN 2.5 MG TABLET PO SCH ×2 (09:45→20:50)
[2020-04-29] MEDS: DOCUSATE SODIUM 100 MG CAPSULE PO SCH ×2 (09:45→20:49)
[2020-04-29] MEDS: FUROSEMIDE 20 MG TABLET PO SCH (09:45)
[2020-04-29] MEDS: DUTASTERIDE 0.5 MG CAPSULE PO SCH (09:45)
[2020-04-29] MEDS: ISOSORBIDE MONONITRATE ER 30 MG TAB.ER.24H PO SCH (09:45)
[2020-04-29] MEDS: CETIRIZINE HCL 10 MG TABLET PO SCH (09:45)
[2020-04-29] MEDS: ASPIRIN CHEWABLE 81 MG TABLET. PO SCH (09:45)
[2020-04-29] MEDS: ZIPRASIDONE 20 MG CAPSULE. PO SCH ×2 (09:45→20:49)
[2020-04-29] MEDS: BACITRACIN ZINC TOPICAL OINT PACKET. TP SCH ×2 (09:46→20:47)
[2020-04-29] MEDS: IPRATROPIUM/ALBUTEROL 20/100mcg/INH INHALER. INH SCH ×2 (09:46→20:47)
[2020-04-29] MEDS: predniSONE 1 MG TABLET PO SCH (09:46)
[2020-04-29 16:28] VITALS: BP 118/71
[2020-04-29] MEDS: MELATONIN 3 MG TABLET PO SCH (20:47)
[2020-04-29] MEDS: ATORVASTATIN CALCIUM 10 MG TABLET. PO SCH (20:47)
[2020-04-29] MEDS: TAMSULOSIN 0.4 MG CAP.ER.24H. PO SCH (20:47)
[2020-04-29] MEDS: FLUTICASONE 50MCG/NASAL SPRAY 16GM BOTTLE. NS SCH (20:47)
[2020-04-29] MEDS: MIRTAZAPINE 7.5 MG TABLET. PO SCH (20:49)
--- NOTE | 2020-04-29 20:50 | PDOC ---
Exam Note: Ernesto Note: Please also refer to the separate dictated note~for this date of service dictated separately.~Patient seen individually. Discussed the patient with Nursing staff reviewed the chart.~Reviewed interim history and current functioning. Reviewed vital signs,~Labs/ Radiology~and current medications noted below. Continue current treatment with the changes noted in the dictated addendum note Assessment: Vital Signs/I&O: Vital Signs Date Time Temp Pulse Resp B/P (MAP) Pulse Ox O2 Delivery O2 Flow Rate FiO2 04/29/20 17:29 69 118/71 04/29/20 16:28 98.0 16 99 3.0 04/27/20 15:53 Nasal Cannula I & O 04/28/20 04/28/20 04/29/20 14:59 22:59 06:59 Intake Total 600 ml 240 ml 120 ml Output Total 1500 ml Balance 600 ml 240 ml -1380 ml Current Medications: I have reviewed the current psychotropics carefully including drug interactions. Risk benefit ratio favors no change other than as noted in my dictated progress note. Diagnosis: Problems: (1) Dementia, vascular, with depression (2) Dementia, vascular, with delusions (3) Dementia in Alzheimer's disease with depression (4) Dementia in Alzheimer's disease with delusions (5) Major neurocognitive disorder (6) Major depressive disorder with psychotic features SKYE GALVAN MD Apr 29, 2020 20:50
[2020-04-30 07:15] VITALS: BP 121/51
[2020-04-30] MEDS: IPRATROPIUM/ALBUTEROL 20/100mcg/INH INHALER. INH SCH ×2 (08:00→15:38)
[2020-04-30] MEDS: LIDOCAINE 2% TOPICAL JELLY 5GM TUBE. TP SCH ×2 (09:00→22:42)
[2020-04-30] MEDS: ZIPRASIDONE 20 MG CAPSULE. PO SCH ×2 (09:00→20:50)
[2020-04-30] MEDS: SENNOSIDES/DOCUSATE 8.6/50MG TABLET. PO SCH (09:00)
[2020-04-30] MEDS: PANTOPRAZOLE 40 MG TABLET. PO SCH (10:36)
[2020-04-30] MEDS: DUTASTERIDE 0.5 MG CAPSULE PO SCH (10:37)
[2020-04-30] MEDS: ASPIRIN CHEWABLE 81 MG TABLET. PO SCH (10:37)
[2020-04-30] MEDS: CITALOPRAM 20 MG TABLET. PO SCH (10:37)
[2020-04-30] MEDS: DOCUSATE SODIUM 100 MG CAPSULE PO SCH ×2 (10:37→20:50)
[2020-04-30] MEDS: POTASSIUM CHLORIDE 10 MEQ TABLET.ER. PO SCH ×2 (10:37→20:51)
[2020-04-30] MEDS: GABAPENTIN 300 MG CAPSULE. PO SCH ×3 (10:38→20:50)
[2020-04-30] MEDS: CETIRIZINE HCL 10 MG TABLET PO SCH (10:38)
[2020-04-30] MEDS: CARVEDILOL 12.5 MG TABLET PO SCH ×2 (10:38→15:37)
[2020-04-30] MEDS: ISOSORBIDE MONONITRATE ER 30 MG TAB.ER.24H PO SCH (10:38)
[2020-04-30] MEDS: LACTOBACILLUS RHAMNOSUS GG 1 CAPSULE. PO SCH ×2 (10:38→20:51)
[2020-04-30] MEDS: APIXABAN 2.5 MG TABLET PO SCH ×2 (10:38→20:51)
[2020-04-30] MEDS: FUROSEMIDE 20 MG TABLET PO SCH (10:39)
[2020-04-30] MEDS: BACITRACIN ZINC TOPICAL OINT PACKET. TP SCH ×2 (10:39→20:55)
[2020-04-30] MEDS: predniSONE 1 MG TABLET PO SCH (10:39)
[2020-04-30 16:40] VITALS: BP 93/61
--- NOTE | 2020-04-30 20:47 | PDOC ---
Exam Note: Ernesto Note: Please also refer to the separate dictated note~for this date of service dictated separately.~Patient seen individually. Discussed the patient with Nursing staff reviewed the chart.~Reviewed interim history and current functioning. Reviewed vital signs,~Labs/ Radiology~and current medications noted below. Continue current treatment with the changes noted in the dictated addendum note Assessment: Vital Signs/I&O: Vital Signs Date Time Temp Pulse Resp B/P (MAP) Pulse Ox O2 Delivery O2 Flow Rate FiO2 04/30/20 16:40 98.9 85 16 93/61 (72) 93 04/29/20 16:28 3.0 04/27/20 15:53 Nasal Cannula I & O0 04/29/20 04/29/20 04/30/20 15:00 23:00 07:00 Intake Total 985 ml 240 ml 80 ml Output Total 400 ml Balance 985 ml -160 ml 80 ml Current Medications: I have reviewed the current psychotropics carefully including drug interactions. Risk benefit ratio favors no change other than as noted in my dictated progress note. Diagnosis: Problems: (1) Dementia, vascular, with depression (2) Dementia, vascular, with delusions (3) Dementia in Alzheimer's disease with depression (4) Dementia in Alzheimer's disease with delusions (5) Major neurocognitive disorder (6) Major depressive disorder with psychotic features SKYE GALVAN MD Apr 30, 2020 20:46
[2020-04-30] MEDS: MELATONIN 3 MG TABLET PO SCH (20:50)
[2020-04-30] MEDS: MIRTAZAPINE 7.5 MG TABLET. PO SCH (20:50)
[2020-04-30] MEDS: ATORVASTATIN CALCIUM 10 MG TABLET. PO SCH (20:51)
[2020-04-30] MEDS: TAMSULOSIN 0.4 MG CAP.ER.24H. PO SCH (20:51)
[2020-04-30] MEDS: FLUTICASONE 50MCG/NASAL SPRAY 16GM BOTTLE. NS SCH (20:55)
[2020-05-01 05:57] VITALS: BP 133/67
--- NOTE | 2020-05-01 07:17 | PDOC ---
Exam Note: Ernesto Note: This note is a late entry for 04/29/2020 covers elements not covered in my initial note. Subjective: The patient was seen face to face in the evening of 04/29/2020 with Patricia MAHMOOD. Discussed with nursing staff, reviewed the chart. The patient slept 5-1/4 hours previous night. He has been less delusional about his having an affair. He has been making sexually inappropriate comments at times to female nursing staff and I addressed this with him. Review of Systems: Shortness of breath on O2 supplements. Impaired ambulation in wheelchair. No CV, , eye system symptoms on review. Mental Status Exam: The patient is oriented to himself. Speech is coherent, rapid at times. Abstraction is fair. Computation impaired. Attention span is short. Language function is intact. No suicidal or homicidal ideation. Laboratory Data: Reviewed. Impression: Major depressive disorder with psychotic features. 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 Plan: No change from initial note. Assessment: Vital Signs/I&O: Vital Signs Date Time Temp Pulse Resp B/P (MAP) Pulse Ox O2 Delivery O2 Flow Rate FiO2 05/01/20 05:57 97.3 68 20 133/67 (89) 98 Nasal Cannula 3.0 I & O 04/30/20 04/30/20 05/01/20 15:00 23:00 07:00 Intake Total 650 ml 360 ml 120 ml Output Total 400 ml 600 ml Balance 250 ml 360 ml -480 ml Current Medications: I have reviewed the current psychotropics carefully including drug interactions. Risk benefit ratio favors no change other than as noted in my dictated progress note. Diagnosis: Problems: (1) Dementia, vascular, with depression (2) Dementia, vascular, with delusions (3) Dementia in Alzheimer's disease with depression (4) Dementia in Alzheimer's disease with delusions (5) Major neurocognitive disorder (6) Major depressive disorder with psychotic features SKYE GALVAN MD May 01, 2020 07:17
[2020-05-01] MEDS: BACITRACIN ZINC TOPICAL OINT PACKET. TP SCH ×2 (09:00→20:44)
[2020-05-01] MEDS: LIDOCAINE 2% TOPICAL JELLY 5GM TUBE. TP SCH ×2 (09:00→20:44)
[2020-05-01] MEDS: POTASSIUM CHLORIDE 10 MEQ TABLET.ER. PO SCH ×2 (09:16→20:39)
[2020-05-01] MEDS: DOCUSATE SODIUM 100 MG CAPSULE PO SCH ×2 (09:16→20:39)
[2020-05-01] MEDS: ASPIRIN CHEWABLE 81 MG TABLET. PO SCH (09:16)
[2020-05-01] MEDS: FUROSEMIDE 20 MG TABLET PO SCH (09:17)
[2020-05-01] MEDS: PANTOPRAZOLE 40 MG TABLET. PO SCH (09:17)
[2020-05-01] MEDS: ZIPRASIDONE 20 MG CAPSULE. PO SCH (09:17)
[2020-05-01] MEDS: LACTOBACILLUS RHAMNOSUS GG 1 CAPSULE. PO SCH ×2 (09:17→20:39)
[2020-05-01] MEDS: APIXABAN 2.5 MG TABLET PO SCH ×2 (09:17→20:45)
[2020-05-01] MEDS: DUTASTERIDE 0.5 MG CAPSULE PO SCH (09:17)
[2020-05-01] MEDS: CETIRIZINE HCL 10 MG TABLET PO SCH (09:17)
[2020-05-01] MEDS: ISOSORBIDE MONONITRATE ER 30 MG TAB.ER.24H PO SCH (09:17)
[2020-05-01] MEDS: CITALOPRAM 20 MG TABLET. PO SCH (09:17)
[2020-05-01] MEDS: CARVEDILOL 12.5 MG TABLET PO SCH ×2 (09:17→17:00)
[2020-05-01] MEDS: IPRATROPIUM/ALBUTEROL 20/100mcg/INH INHALER. INH SCH ×2 (09:18→17:28)
[2020-05-01] MEDS: GABAPENTIN 300 MG CAPSULE. PO SCH ×3 (09:18→20:39)
[2020-05-01] MEDS: predniSONE 1 MG TABLET PO SCH (09:18)
[2020-05-01 16:28] VITALS: BP 100/64
[2020-05-01] MEDS: MIRTAZAPINE 7.5 MG TABLET. PO SCH (20:40)
[2020-05-01] MEDS: TAMSULOSIN 0.4 MG CAP.ER.24H. PO SCH (20:40)
[2020-05-01] MEDS: MELATONIN 3 MG TABLET PO SCH (20:40)
[2020-05-01] MEDS: ATORVASTATIN CALCIUM 10 MG TABLET. PO SCH (20:40)
[2020-05-01] MEDS: FLUTICASONE 50MCG/NASAL SPRAY 16GM BOTTLE. NS SCH (20:44)
[2020-05-01] MEDS: ZIPRASIDONE 40 MG CAPSULE. PO SCH (20:45)
--- NOTE | 2020-05-01 20:45 | PDOC ---
Exam Note: Ernesto Note: Please also refer to the separate dictated note~for this date of service dictated separately.~Patient seen individually. Discussed the patient with Nursing staff reviewed the chart.~Reviewed interim history and current functioning. Reviewed vital signs,~Labs/ Radiology~and current medications noted below. Continue current treatment with the changes noted in the dictated addendum note Assessment: Vital Signs/I&O: Vital Signs Date Time Temp Pulse Resp B/P (MAP) Pulse Ox O2 Delivery O2 Flow Rate FiO2 05/01/20 17:00 68 100/64 05/01/20 16:28 98.9 16 97 3.0 05/01/20 05:57 Nasal Cannula I & O 0 04/30/20 04/30/20 05/01/20 15:00 23:00 07:00 Intake Total 650 ml 360 ml 120 ml Output Total 400 ml 600 ml Balance 250 ml 360 ml -480 ml Current Medications: I have reviewed the current psychotropics carefully including drug interactions. Risk benefit ratio favors no change other than as noted in my dictated progress note. Diagnosis: Problems: (1) Dementia, vascular, with depression (2) Dementia, vascular, with delusions (3) Dementia in Alzheimer's disease with depression (4) Dementia in Alzheimer's disease with delusions (5) Major neurocognitive disorder (6) Major depressive disorder with psychotic features SKYE GALVAN MD May 01, 2020 20:45
[2020-05-02] MEDS: traZODone 50 MG TABLET. PO PRN ×2 (01:40→22:20)
[2020-05-02 05:54] VITALS: BP 151/78
[2020-05-02] MEDS: DOCUSATE SODIUM 100 MG CAPSULE PO SCH ×2 (08:40→20:12)
[2020-05-02] MEDS: FUROSEMIDE 20 MG TABLET PO SCH (08:41)
[2020-05-02] MEDS: CETIRIZINE HCL 10 MG TABLET PO SCH (08:41)
[2020-05-02] MEDS: GABAPENTIN 300 MG CAPSULE. PO SCH ×3 (08:41→20:11)
[2020-05-02] MEDS: APIXABAN 2.5 MG TABLET PO SCH ×2 (08:41→20:12)
[2020-05-02] MEDS: CITALOPRAM 20 MG TABLET. PO SCH (08:41)
[2020-05-02] MEDS: PANTOPRAZOLE 40 MG TABLET. PO SCH (08:41)
[2020-05-02] MEDS: LACTOBACILLUS RHAMNOSUS GG 1 CAPSULE. PO SCH ×2 (08:41→20:12)
[2020-05-02] MEDS: POTASSIUM CHLORIDE 10 MEQ TABLET.ER. PO SCH ×2 (08:41→20:12)
[2020-05-02] MEDS: DUTASTERIDE 0.5 MG CAPSULE PO SCH (08:42)
[2020-05-02] MEDS: CARVEDILOL 12.5 MG TABLET PO SCH ×2 (08:42→17:20)
[2020-05-02] MEDS: predniSONE 1 MG TABLET PO SCH (08:42)
[2020-05-02] MEDS: ASPIRIN CHEWABLE 81 MG TABLET. PO SCH (08:42)
[2020-05-02] MEDS: ISOSORBIDE MONONITRATE ER 30 MG TAB.ER.24H PO SCH (08:42)
[2020-05-02] MEDS: BACITRACIN ZINC TOPICAL OINT PACKET. TP SCH ×2 (08:43→20:15)
[2020-05-02] MEDS: LIDOCAINE 2% TOPICAL JELLY 5GM TUBE. TP SCH ×2 (08:43→20:15)
[2020-05-02] MEDS: ZIPRASIDONE 20 MG CAPSULE. PO SCH (08:44)
[2020-05-02] MEDS: SENNOSIDES/DOCUSATE 8.6/50MG TABLET. PO SCH (08:44)
[2020-05-02] MEDS: IPRATROPIUM/ALBUTEROL 20/100mcg/INH INHALER. INH SCH ×2 (08:45→20:15)
--- NOTE | 2020-05-02 09:07 | PDOC ---
Exam Note: Ernesto Note: This note is a late entry for 04/30/2020 covers elements not covered in my initial note. Subjective: The patient was seen face to face in the evening of 04/30/2020 with Lamont MAHMOOD. Discussed with nursing staff, reviewed the chart. The patient slept 6-3/4 hours previous night. The patient has been little irritable with aids at times. His voice gets loud but he redirects. He has been otherwise pleasant, spends much time in his room. Review of Systems: Ambulation impaired with walker. No CV, , pulmonary, eye system symptoms on review. Mental Status Exam: The patient is oriented to himself. He is pleasant, irritable at times. He was a little more verbal and forthcoming as I met with him. He is fixated on wanting to be discharged and we addressed all of this at some length. Speech coherent. Abstraction is fair. Computation is impaired. Language function is intact. Attention span is fair. Mood and affect is withdrawn, anxious. Laboratory Data: Reviewed. Impression: Major neurocognitive disorder Alzheimer, vascular with delusion, depression, behavioral disturbance. Anxiety disorder unspecified. Impulse control disorder unspecified. Plan: No change from initial note. Assessment: Vital Signs/I&O: Vital Signs Date Time Temp Pulse Resp B/P (MAP) Pulse Ox O2 Delivery O2 Flow Rate FiO2 05/02/20 08:42 68 151/78 05/02/20 05:54 97.7 20 99 Nasal Cannula 3.0 I & O 05/01/20 05/01/20 05/02/20 15:00 23:00 07:00 Intake Total 540 ml 360 ml Output Total 500 ml 775 ml Balance 540 ml -140 ml -775 ml Current Medications: Meds: Current Medications Medications (Trade) Dose Ordered Sig/Ralph Route PRN Reason Start Time Stop Time Status Last Admin Dose Admin Ziprasidone (Geodon) 20 mg QAM PO 05/02/20 09:00 05/02/20 08:44 Ziprasidone (Geodon) 40 mg QHS PO 05/01/20 21:00 05/01/20 20:45 I have reviewed the current psychotropics carefully including drug interactions. Risk benefit ratio favors no change other than as noted in my dictated progress note. Diagnosis: Problems: (1) Dementia, vascular, with depression (2) Dementia, vascular, with delusions (3) Dementia in Alzheimer's disease with depression (4) Dementia in Alzheimer's disease with delusions (5) Major neurocognitive disorder (6) Major depressive disorder with psychotic features SKYE GALVAN MD May 02, 2020 09:07
--- NOTE | 2020-05-02 09:08 | PDOC ---
Exam Note: Ernesto Note: This note is a late entry for 05/01/2020 covers elements not covered in my initial note. Subjective: The patient was reviewed on telehealth rounds in the morning of 05/01/2020 for treatment team meeting with Arline (social services analyst), Shanti, activity therapy, and Blanka MAHMOOD, because there was a patient who turned up positive for Covid-19 infection on the unit and the unit has been closed by the [facility] for any admissions or discharges once again. Discussed with nursing staff, reviewed the chart. The patients Vy and daughter Yaa attended the treatment team meeting. We had a lengthy discussion about the patients diagnoses, progress, current psychotropics, adjustment in Geodon, potential side effects. EKG showed QT corrected interval at 436 milliseconds. We will increase Geodon from 20 mg to 20 mg a.m. and 40 mg p.m. He did sit outside as the weather was good earlier in the week and attended one group with activity therapy. Review of Systems: Shortness of breath on O2 supplements. Impaired ambulation in wheelchair. No CV, , eye system symptoms on review. Mental Status Exam: The patient is oriented to himself. I met with him in the evening. He is less paranoid. He does feel some of the other demented patients coming to his room, take his belongings. On close questioning this was not paranoia but something that is actually happened per nursing report. Speech is coherent, rapid at times. Abstraction is fair. Computation impaired. Attention span is short. Language function is intact. No suicidal or homicidal ideation. Laboratory Data: Reviewed. Impression: Major depressive disorder with psychotic features. 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 Plan: No change from initial note. Assessment: Vital Signs/I&O: Vital Signs Date Time Temp Pulse Resp B/P (MAP) Pulse Ox O2 Delivery O2 Flow Rate FiO2 05/02/20 08:42 68 151/78 05/02/20 05:54 97.7 20 99 Nasal Cannula 3.0 I & O 05/01/20 05/01/20 05/02/20 15:00 23:00 07:00 Intake Total 540 ml 360 ml Output Total 500 ml 775 ml Balance 540 ml -140 ml -775 ml Current Medications: Meds: Current Medications Medications (Trade) Dose Ordered Sig/Ralph Route PRN Reason Start Time Stop Time Status Last Admin Dose Admin Ziprasidone (Geodon) 20 mg QAM PO 05/02/20 09:00 05/02/20 08:44 Ziprasidone (Geodon) 40 mg QHS PO 05/01/20 21:00 05/01/20 20:45 I have reviewed the current psychotropics carefully including drug interactions. Risk benefit ratio favors no change other than as noted in my dictated progress note. Diagnosis: Problems: (1) Dementia, vascular, with depression (2) Dementia, vascular, with delusions (3) Dementia in Alzheimer's disease with depression (4) Dementia in Alzheimer's disease with delusions (5) Major neurocognitive disorder (6) Major depressive disorder with psychotic features SKYE GALVAN MD May 02, 2020 09:08
--- NOTE | 2020-05-02 09:11 | PDOC ---
Exam Note: Ernesto Note: Please ignore the note of 04/30/2020. It is an error. Please also refer to the separate dictated note~for this date of service dictated separately.~Patient seen individually. Discussed the patient with Nursing staff reviewed the chart.~Reviewed interim history and current functioning. Reviewed vital signs,~Labs/ Radiology~and current medications noted below. Continue current treatment with the changes noted in the dictated addendum note Assessment: Vital Signs/I&O: Vital Signs Date Time Temp Pulse Resp B/P (MAP) Pulse Ox O2 Delivery O2 Flow Rate FiO2 05/02/20 08:42 68 151/78 05/02/20 05:54 97.7 20 99 Nasal Cannula 3.0 I & O 05/01/20 05/01/20 05/02/20 15:00 23:00 07:00 Intake Total 540 ml 360 ml Output Total 500 ml 775 ml Balance 540 ml -140 ml -775 ml Current Medications: Meds: Current Medications Medications (Trade) Dose Ordered Sig/Ralph Route PRN Reason Start Time Stop Time Status Last Admin Dose Admin Ziprasidone (Geodon) 20 mg QAM PO 05/02/20 09:00 05/02/20 08:44 Ziprasidone (Geodon) 40 mg QHS PO 05/01/20 21:00 05/01/20 20:45 I have reviewed the current psychotropics carefully including drug interactions. Risk benefit ratio favors no change other than as noted in my dictated progress note. Diagnosis: Problems: (1) Dementia, vascular, with depression (2) Dementia, vascular, with delusions (3) Dementia in Alzheimer's disease with depression (4) Dementia in Alzheimer's disease with delusions (5) Major neurocognitive disorder (6) Major depressive disorder with psychotic features SKYE GALVAN MD May 02, 2020 09:11
--- NOTE | 2020-05-02 09:13 | PDOC ---
Exam Note: Ernesto Note: This note is corrected note for 04/30/2020 and late entry for 04/30/2020 covers elements not covered in my initial note. Subjective: The patient was seen face to face in the evening of 04/30/2020 with Blanka MAHMOOD. Discussed with nursing staff, reviewed the chart. The patient slept 7-1/2 hours previous night. The patient did have telephone conversation with his and daughter and that seemed to go well. He is less paranoid. Review of Systems: Shortness of breath on O2 supplements. Impaired ambulation in wheelchair. No CV, , eye system symptoms on review. Mental Status Exam: The patient is oriented to himself. He is quite verbal, interactive, animated as I met with him, wanted me to sit with him. I kept distance due to the COVID restrictions. He is less paranoid as I assessed him individually. Speech is coherent, rapid at times. Abstraction is fair. Computation impaired. Attention span is short. Language function is intact. No suicidal or homicidal ideation. Laboratory Data: Reviewed. Impression: Major depressive disorder with psychotic features. 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 Plan: No change from initial note. We will check another EKG. If QT corrected interval is less than 450 milliseconds, we will increase Geodon from 20 mg b.i.d. to 20 mg a.m. and 40 mg p.m. Continue rest psychotropics unchanged. Assessment: Vital Signs/I&O: Vital Signs Date Time Temp Pulse Resp B/P (MAP) Pulse Ox O2 Delivery O2 Flow Rate FiO2 05/02/20 08:42 68 151/78 05/02/20 05:54 97.7 20 99 Nasal Cannula 3.0 I & O 0 05/01/20 05/01/20 05/02/20 15:00 23:00 07:00 Intake Total 540 ml 360 ml Output Total 500 ml 775 ml Balance 540 ml -140 ml -775 ml Current Medications: Meds: Current Medications Medications (Trade) Dose Ordered Sig/Ralph Route PRN Reason Start Time Stop Time Status Last Admin Dose Admin Ziprasidone (Geodon) 20 mg QAM PO 05/02/20 09:00 05/02/20 08:44 Ziprasidone (Geodon) 40 mg QHS PO 05/01/20 21:00 05/01/20 20:45 I have reviewed the current psychotropics carefully including drug interactions. Risk benefit ratio favors no change other than as noted in my dictated progress note. Diagnosis: Problems: (1) Dementia, vascular, with depression (2) Dementia, vascular, with delusions (3) Dementia in Alzheimer's disease with depression (4) Dementia in Alzheimer's disease with delusions (5) Major neurocognitive disorder (6) Major depressive disorder with psychotic features SKYE GALVAN MD May 02, 2020 09:13
[2020-05-02 15:57] VITALS: BP 100/61
--- NOTE | 2020-05-02 19:19 | TX PLAN ---
Interdisciplinary Tx Plan Admission Information Mar 31, 2020 at 14:35 Legal Status (on Admission): Voluntary DPOA/Guardian Name: Lisa Huntley Contact Other Contact Name: [facility] Other Contact Verified Code Status: DNR Allergies: Coded Allergies: codeine (Verified Allergy, Unknown, 03/27/20) hydrocodone (Verified Allergy, Unknown, 03/27/20) phenylephrine (Verified Allergy, Unknown, 03/27/20) tramadol (Verified Allergy, Unknown, 03/27/20) Diagnoses Primary Diagnosis: MDD and Impulse control Reasons for Admission: Aggressive, Delusions, Agitated, Hallucinations, Suicidal ideation Problem in Patient's Words: I just don't know what is going on Additional Admission Comments: According to the intake, pt is hallucinating (auditory), poor safety and judgement, hx of SI, delusional and thinks his peers are having an affair with his , threatening to harm peers, agitated, restless, hitting staff Problems Active Problems: Hallucinating delusional restless agitation current UTI Inactive Problems: medication compliance Pt Strengths/Limitations Ability for [place]: Poor Cognitive Functioning/Ability: Poor Communication Skills/Ability: Fair Financial Resources: Fair Insight/Judgement: Poor Intellectual Ability: Fair Physical Health: Poor Social Skills: Fair Stability in Family: Good Stability in School/Work: Poor Verbal Skills: Fair Discharge Criteria Discharge Criteria: Adequate arrangements @DC, Improved behavior, Improved mood/thought Preliminary Discharge Plan Preliminary DC Plan: Current Living Arrange. Special Precautions Fall Risk: Moderate Initial D/C Plan Pt will plan to discharge back to [facility]. Identified Discharge Needs: mental health services Currently Utilized Resources Currently Utilized Resources/P: PCP Identified Problems/Hx/Goals Objectives/Short-Term Goals Short Term Goals: Dec. Aggression, Dec. Outbursts, Improved Social Skills, Medication Stabilization, Promote Coping Skill Interventions/Frequency Staff Interventions/Frequency&: Psychiatrist to assess pt at least 3x per week for medication management. Social Work to assess pt atleast 2x per week for discharge planning, and potential barriers to discharge. Nursing to assess pt medication effects, behavioral mgmt and complete 15 minute checks daily. Encourage participation in group activities (if applicable) or 1:1 engagement based off activity dept assessment. 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 Treatment Plan Explained Patient/Manager Mission had this treatment plan explained to him/her as indicated by the signature below and has been given the opportunity to ask questions and make suggestions: Date: Patient/Manager Mission Signature: Status Update Update Pt is eating 75-100% of meals and sleeping on average 7 hours per night. Pt is mostly calm and cooperative with staff. Pt is doing well with talking to his family and having Zoom meetings with no delusions or behaviors afterwards. Pt did receive an increase in Geodon to 40mg q AM. If all continues to go well, pt will be able to discharge back to [facility] early next week. DANIEL MORRISON May 02, 2020 19:19
[2020-05-02] MEDS: MELATONIN 3 MG TABLET PO SCH (20:11)
[2020-05-02] MEDS: ZIPRASIDONE 40 MG CAPSULE. PO SCH (20:11)
[2020-05-02] MEDS: ATORVASTATIN CALCIUM 10 MG TABLET. PO SCH (20:12)
[2020-05-02] MEDS: TAMSULOSIN 0.4 MG CAP.ER.24H. PO SCH (20:12)
[2020-05-02] MEDS: MIRTAZAPINE 7.5 MG TABLET. PO SCH (20:12)
[2020-05-02] MEDS: FLUTICASONE 50MCG/NASAL SPRAY 16GM BOTTLE. NS SCH (20:15)
--- NOTE | 2020-05-02 21:00 | PDOC ---
Exam Note: Ernesto Note: Please also refer to the separate dictated note~for this date of service dictated separately.~Patient seen individually. Discussed the patient with Nursing staff reviewed the chart.~Reviewed interim history and current functioning. Reviewed vital signs,~Labs/ Radiology~and current medications noted below. Continue current treatment with the changes noted in the dictated addendum note Assessment: Vital Signs/I&O: Vital Signs Date Time Temp Pulse Resp B/P (MAP) Pulse Ox O2 Delivery O2 Flow Rate FiO2 05/02/20 17:20 69 118/63 05/02/20 15:57 97.4 18 97 Nasal Cannula 3.0 I & O 05/01/20 05/01/20 05/02/20 15:00 23:00 07:00 Intake Total 540 ml 360 ml Output Total 500 ml 775 ml Balance 540 ml -140 ml -775 ml Current Medications: Meds: Current Medications Medications (Trade) Dose Ordered Sig/Ralph Route PRN Reason Start Time Stop Time Status Last Admin Dose Admin Ziprasidone (Geodon) 20 mg QAM PO 05/02/20 09:00 05/02/20 08:44 Ziprasidone (Geodon) 40 mg QHS PO 05/01/20 21:00 05/02/20 20:11 I have reviewed the current psychotropics carefully including drug interactions. Risk benefit ratio favors no change other than as noted in my dictated progress note. Diagnosis: Problems: (1) Dementia, vascular, with depression (2) Dementia, vascular, with delusions (3) Dementia in Alzheimer's disease with depression (4) Dementia in Alzheimer's disease with delusions (5) Major neurocognitive disorder (6) Major depressive disorder with psychotic features SKYE GALVAN MD May 02, 2020 21:00
[2020-05-03 06:33] VITALS: BP 142/62
[2020-05-03] MEDS: DOCUSATE SODIUM 100 MG CAPSULE PO SCH ×2 (07:51→20:52)
[2020-05-03] MEDS: CARVEDILOL 12.5 MG TABLET PO SCH ×3 (07:51→17:00)
[2020-05-03] MEDS: ISOSORBIDE MONONITRATE ER 30 MG TAB.ER.24H PO SCH (07:51)
[2020-05-03] MEDS: FUROSEMIDE 20 MG TABLET PO SCH (07:51)
[2020-05-03] MEDS: CETIRIZINE HCL 10 MG TABLET PO SCH (07:51)
[2020-05-03] MEDS: GABAPENTIN 300 MG CAPSULE. PO SCH ×3 (07:51→20:51)
[2020-05-03] MEDS: LACTOBACILLUS RHAMNOSUS GG 1 CAPSULE. PO SCH ×2 (07:52→20:52)
[2020-05-03] MEDS: PANTOPRAZOLE 40 MG TABLET. PO SCH (07:52)
[2020-05-03] MEDS: APIXABAN 2.5 MG TABLET PO SCH ×2 (07:52→20:53)
[2020-05-03] MEDS: ASPIRIN CHEWABLE 81 MG TABLET. PO SCH (07:52)
[2020-05-03] MEDS: CITALOPRAM 20 MG TABLET. PO SCH (07:52)
[2020-05-03] MEDS: ZIPRASIDONE 20 MG CAPSULE. PO SCH (07:52)
[2020-05-03] MEDS: DUTASTERIDE 0.5 MG CAPSULE PO SCH (07:52)
[2020-05-03] MEDS: POTASSIUM CHLORIDE 10 MEQ TABLET.ER. PO SCH ×2 (07:52→20:51)
[2020-05-03] MEDS: IPRATROPIUM/ALBUTEROL 20/100mcg/INH INHALER. INH SCH ×2 (07:53→20:50)
[2020-05-03] MEDS: LIDOCAINE 2% TOPICAL JELLY 5GM TUBE. TP SCH ×2 (07:54→20:50)
[2020-05-03] MEDS: BACITRACIN ZINC TOPICAL OINT PACKET. TP SCH ×2 (07:54→20:50)
[2020-05-03] MEDS: predniSONE 1 MG TABLET PO SCH (07:54)
[2020-05-03] MEDS: CHOLECALCIFEROL (VITAMIN D3) 50,000 UNIT CAPSULE PO SCH (07:55)
[2020-05-03 15:00] VITALS: BP 94/60
[2020-05-03] MEDS: FLUTICASONE 50MCG/NASAL SPRAY 16GM BOTTLE. NS SCH (20:50)
[2020-05-03] MEDS: ATORVASTATIN CALCIUM 10 MG TABLET. PO SCH (20:52)
[2020-05-03] MEDS: ZIPRASIDONE 40 MG CAPSULE. PO SCH (20:52)
[2020-05-03] MEDS: TAMSULOSIN 0.4 MG CAP.ER.24H. PO SCH (20:53)
[2020-05-03] MEDS: MIRTAZAPINE 7.5 MG TABLET. PO SCH (20:53)
[2020-05-03] MEDS: MELATONIN 3 MG TABLET PO SCH (20:54)
--- NOTE | 2020-05-03 21:03 | PDOC ---
Exam Note: Ernesto Note: Please also refer to the separate dictated note~for this date of service dictated separately.~Patient seen individually. Discussed the patient with Nursing staff reviewed the chart.~Reviewed interim history and current functioning. Reviewed vital signs,~Labs/ Radiology~and current medications noted below. Continue current treatment with the changes noted in the dictated addendum note Assessment: Vital Signs/I&O: Vital Signs Date Time Temp Pulse Resp B/P (MAP) Pulse Ox O2 Delivery O2 Flow Rate FiO2 05/03/20 17:00 68 94/60 05/03/20 15:00 97.4 18 97 Room Air 05/03/20 06:33 3.0 I & O 05/02/20 05/02/20 05/03/20 15:00 23:00 07:00 Intake Total 840 ml 600 ml Output Total 1600 ml Balance 840 ml -1000 ml Current Medications: I have reviewed the current psychotropics carefully including drug interactions. Risk benefit ratio favors no change other than as noted in my dictated progress note. Diagnosis: Problems: (1) Dementia, vascular, with depression (2) Dementia, vascular, with delusions (3) Dementia in Alzheimer's disease with depression (4) Dementia in Alzheimer's disease with delusions (5) Major neurocognitive disorder (6) Major depressive disorder with psychotic features SKYE GALVAN MD May 03, 2020 21:03
[2020-05-04 05:47] VITALS: BP 121/74
[2020-05-04] MEDS: IPRATROPIUM/ALBUTEROL 20/100mcg/INH INHALER. INH SCH ×2 (08:29→20:45)
[2020-05-04] MEDS: BACITRACIN ZINC TOPICAL OINT PACKET. TP SCH ×2 (08:30→20:46)
[2020-05-04] MEDS: predniSONE 1 MG TABLET PO SCH (08:30)
[2020-05-04] MEDS: ZIPRASIDONE 20 MG CAPSULE. PO SCH (08:30)
[2020-05-04] MEDS: LACTOBACILLUS RHAMNOSUS GG 1 CAPSULE. PO SCH ×2 (08:30→20:47)
[2020-05-04] MEDS: LIDOCAINE 2% TOPICAL JELLY 5GM TUBE. TP SCH ×2 (08:30→20:45)
[2020-05-04] MEDS: SENNOSIDES/DOCUSATE 8.6/50MG TABLET. PO SCH (08:30)
[2020-05-04] MEDS: POTASSIUM CHLORIDE 10 MEQ TABLET.ER. PO SCH ×2 (08:30→20:48)
[2020-05-04] MEDS: DUTASTERIDE 0.5 MG CAPSULE PO SCH (08:31)
[2020-05-04] MEDS: ASPIRIN CHEWABLE 81 MG TABLET. PO SCH (08:31)
[2020-05-04] MEDS: CITALOPRAM 20 MG TABLET. PO SCH (08:31)
[2020-05-04] MEDS: CARVEDILOL 12.5 MG TABLET PO SCH ×2 (08:31→17:00)
[2020-05-04] MEDS: DOCUSATE SODIUM 100 MG CAPSULE PO SCH ×2 (08:31→20:47)
[2020-05-04] MEDS: APIXABAN 2.5 MG TABLET PO SCH ×2 (08:31→20:46)
[2020-05-04] MEDS: PANTOPRAZOLE 40 MG TABLET. PO SCH (08:31)
[2020-05-04] MEDS: FUROSEMIDE 20 MG TABLET PO SCH (08:31)
[2020-05-04] MEDS: GABAPENTIN 300 MG CAPSULE. PO SCH ×3 (08:31→20:49)
[2020-05-04] MEDS: CETIRIZINE HCL 10 MG TABLET PO SCH (08:31)
[2020-05-04] MEDS: ISOSORBIDE MONONITRATE ER 30 MG TAB.ER.24H PO SCH (08:31)
[2020-05-04 16:19] VITALS: BP 98/6
[2020-05-04 19:38] VITALS: BP 114/65
[2020-05-04] MEDS: FLUTICASONE 50MCG/NASAL SPRAY 16GM BOTTLE. NS SCH (20:45)
[2020-05-04] MEDS: MELATONIN 3 MG TABLET PO SCH (20:46)
[2020-05-04] MEDS: TAMSULOSIN 0.4 MG CAP.ER.24H. PO SCH (20:48)
[2020-05-04] MEDS: ZIPRASIDONE 40 MG CAPSULE. PO SCH (20:49)
[2020-05-04] MEDS: ATORVASTATIN CALCIUM 10 MG TABLET. PO SCH (20:49)
[2020-05-04] MEDS: MIRTAZAPINE 7.5 MG TABLET. PO SCH (20:50)
--- NOTE | 2020-05-04 21:00 | PDOC ---
Exam Note: Ernesto Note: This note is a late entry for 05/02/2020 covers elements not covered in my initial note. Subjective: The patient was reviewed on telehealth rounds in the evening of 05/02/2020 with Lamont MAHMOOD. Discussed with nursing staff, reviewed the chart. The patient slept 5-1/2 hours previous night. Previous evening he was restless, somewhat drowsy during the day. He had Zoom meeting with his family which went well, participated in physical therapy. Review of Systems: Shortness of breath on O2 supplements. Impaired ambulation in wheelchair. No CV, , eye system symptoms on review. Mental Status Exam: The patient is oriented to himself. Speech is coherent, rapid at times. Abstraction is fair. Computation impaired. Attention span is short. Language function is intact. No suicidal or homicidal ideation. Laboratory Data: Reviewed. Impression: Major depressive disorder with psychotic features. 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 Plan: No change from initial note. Assessment: Vital Signs/I&O: Vital Signs Date Time Temp Pulse Resp B/P (MAP) Pulse Ox O2 Delivery O2 Flow Rate FiO2 05/04/20 19:38 75 114/65 (81) 05/04/20 16:19 98.2 20 97 05/04/20 05:47 3.0 05/03/20 15:00 Room Air I & O 05/03/20 05/03/20 05/04/20 14:59 22:59 06:59 Intake Total 720 ml 600 ml Output Total 1250 ml 300 ml Balance 720 ml -650 ml -300 ml Current Medications: I have reviewed the current psychotropics carefully including drug interactions. Risk benefit ratio favors no change other than as noted in my dictated progress note. Diagnosis: Problems: (1) Dementia, vascular, with depression (2) Dementia, vascular, with delusions (3) Dementia in Alzheimer's disease with depression (4) Dementia in Alzheimer's disease with delusions (5) Major neurocognitive disorder (6) Major depressive disorder with psychotic features SKYE GALVAN MD May 04, 2020 21:00
--- NOTE | 2020-05-04 21:16 | PDOC ---
Exam Note: Ernesto Note: This note is a late entry for 05/03/2020 covers elements not covered in my initial note. Subjective: The patient was reviewed on telehealth rounds in the evening of 05/03/2020 with Tracee MAHMOOD. Discussed with nursing staff, reviewed the chart. He slept 5 hours previous night. He has been fairly appropriate, less paranoid about his having an affair. Review of Systems: Shortness of breath on O2 supplements. Impaired ambulation in wheelchair. No CV, , eye system symptoms on review. Mental Status Exam: The patient is oriented to himself. He is quite verbal, interactive but he had not had a conversation with his family today. Nursing staff said family had called but he was asleep and they did not disturb him. Abstraction is fair. Computation impaired. Attention span is short. Language function is intact. No suicidal or homicidal ideation. Laboratory Data: Reviewed. Impression: Major depressive disorder with psychotic features. 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 Plan: No change from initial note. Assessment: Vital Signs/I&O: Vital Signs Date Time Temp Pulse Resp B/P (MAP) Pulse Ox O2 Delivery O2 Flow Rate FiO2 05/04/20 19:38 75 114/65 (81) 05/04/20 16:19 98.2 20 97 05/04/20 05:47 3.0 05/03/20 15:00 Room Air I & O 05/03/20 05/03/20 05/04/20 15:00 23:00 07:00 Intake Total 720 ml 600 ml Output Total 1250 ml 300 ml Balance 720 ml -650 ml -300 ml Current Medications: I have reviewed the current psychotropics carefully including drug interactions. Risk benefit ratio favors no change other than as noted in my dictated progress note. Diagnosis: Problems: (1) Dementia, vascular, with depression (2) Dementia, vascular, with delusions (3) Dementia in Alzheimer's disease with depression (4) Dementia in Alzheimer's disease with delusions (5) Major neurocognitive disorder (6) Major depressive disorder with psychotic features SKYE GALVAN MD May 04, 2020 21:16
--- NOTE | 2020-05-04 21:25 | PDOC ---
Exam Note: Ernesto Note: Please also refer to the separate dictated note~for this date of service dictated separately.~Patient seen individually. Discussed the patient with Nursing staff reviewed the chart.~Reviewed interim history and current functioning. Reviewed vital signs,~Labs/ Radiology~and current medications noted below. Continue current treatment with the changes noted in the dictated addendum note Assessment: Vital Signs/I&O: Vital Signs Date Time Temp Pulse Resp B/P (MAP) Pulse Ox O2 Delivery O2 Flow Rate FiO2 05/04/20 19:38 75 114/65 (81) 05/04/20 16:19 98.2 20 97 05/04/20 05:47 3.0 05/03/20 15:00 Room Air I & O 05/03/20 05/03/20 05/04/20 15:00 23:00 07:00 Intake Total 720 ml 600 ml Output Total 1250 ml 300 ml Balance 720 ml -650 ml -300 ml Current Medications: I have reviewed the current psychotropics carefully including drug interactions. Risk benefit ratio favors no change other than as noted in my dictated progress note. Diagnosis: Problems: (1) Dementia, vascular, with depression (2) Dementia, vascular, with delusions (3) Dementia in Alzheimer's disease with depression (4) Dementia in Alzheimer's disease with delusions (5) Major neurocognitive disorder (6) Major depressive disorder with psychotic features SKYE GALVAN MD May 04, 2020 21:25
[2020-05-05 06:06] VITALS: BP 138/73
[2020-05-05 06:58] LABS: BASO % 1 % (0-3); EOS # 0.3 x10^3/uL (0.0-0.7); EOS % 4 % (0-3); HEMATOCRIT 29.8 % (39.0-53.0); HEMOGLOBIN 9.5 g/dL (13.0-17.5); LYMPH # 1.2 x10^3/uL (1.0-4.8); LYMPH % 14 % (24-48); MEAN CORPUSCULAR HEMOGLOBIN 28 pg (25-35); MEAN CORPUSCULAR HGB CONC 32 g/dL (31-37); MEAN CORPUSCULAR VOLUME 87 fL (79-100); MONO # 0.8 x10^3/uL (0.0-1.1); MONO % 9 % (0-9); NEUT # 6.2 x10^3uL (1.8-7.7); NEUT % 73 % (31-73); PLATELET COUNT 252 x10^3/uL (140-400); RED BLOOD COUNT 3.43 x10^6/uL (4.30-5.70); RED CELL DISTRIBUTION WIDTH 15.6 % (11.5-14.5); WHITE BLOOD COUNT 8.6 x10^3/uL (4.0-11.0)
[2020-05-05 07:31] LABS: ALBUMIN 2.6 g/dL (3.4-5.0); ALBUMIN/GLOBULIN RATIO 0.9 (1.0-1.7); CALCIUM 8.4 mg/dL (8.5-10.1); CREATININE 0.8 mg/dL (0.7-1.3); GFR 92.1; TOTAL BILIRUBIN 0.2 mg/dL (0.2-1.0); TOTAL PROTEIN 5.6 g/dL (6.4-8.2)
[2020-05-05] MEDS: LIDOCAINE 2% TOPICAL JELLY 5GM TUBE. TP SCH ×2 (07:55→21:06)
[2020-05-05] MEDS: BACITRACIN ZINC TOPICAL OINT PACKET. TP SCH ×2 (07:56→21:06)
[2020-05-05] MEDS: CARVEDILOL 12.5 MG TABLET PO SCH ×2 (07:59→17:19)
[2020-05-05] MEDS: ZIPRASIDONE 20 MG CAPSULE. PO SCH (08:00)
[2020-05-05] MEDS: GABAPENTIN 300 MG CAPSULE. PO SCH ×3 (08:00→21:07)
[2020-05-05] MEDS: DOCUSATE SODIUM 100 MG CAPSULE PO SCH ×2 (08:00→21:06)
[2020-05-05] MEDS: DUTASTERIDE 0.5 MG CAPSULE PO SCH (08:00)
[2020-05-05] MEDS: ISOSORBIDE MONONITRATE ER 30 MG TAB.ER.24H PO SCH (08:00)
[2020-05-05] MEDS: ASPIRIN CHEWABLE 81 MG TABLET. PO SCH (08:00)
[2020-05-05] MEDS: CETIRIZINE HCL 10 MG TABLET PO SCH (08:00)
[2020-05-05] MEDS: FUROSEMIDE 20 MG TABLET PO SCH (08:00)
[2020-05-05] MEDS: CITALOPRAM 20 MG TABLET. PO SCH (08:01)
[2020-05-05] MEDS: predniSONE 1 MG TABLET PO SCH (08:01)
[2020-05-05] MEDS: LACTOBACILLUS RHAMNOSUS GG 1 CAPSULE. PO SCH ×2 (08:01→21:07)
[2020-05-05] MEDS: IPRATROPIUM/ALBUTEROL 20/100mcg/INH INHALER. INH SCH ×2 (08:01→21:06)
[2020-05-05] MEDS: POTASSIUM CHLORIDE 10 MEQ TABLET.ER. PO SCH ×2 (08:01→21:07)
[2020-05-05] MEDS: PANTOPRAZOLE 40 MG TABLET. PO SCH (08:01)
[2020-05-05] MEDS: APIXABAN 2.5 MG TABLET PO SCH ×2 (08:01→21:07)
[2020-05-05 16:07] VITALS: BP 115/53
--- NOTE | 2020-05-05 20:47 | PDOC ---
Exam Note: Ernesto Note: Please also refer to the separate dictated note~for this date of service dictated separately.~Patient seen individually. Discussed the patient with Nursing staff reviewed the chart.~Reviewed interim history and current functioning. Reviewed vital signs,~Labs/ Radiology~and current medications noted below. Continue current treatment with the changes noted in the dictated addendum note Assessment: Vital Signs/I&O: Vital Signs Date Time Temp Pulse Resp B/P (MAP) Pulse Ox O2 Delivery O2 Flow Rate FiO2 05/05/20 17:19 71 115/53 05/05/20 16:07 98.7 18 97 2.5 05/03/20 15:00 Room Air I & O 05/04/20 05/04/20 05/05/20 15:00 23:00 07:00 Intake Total 840 ml 320 ml Output Total 1000 ml 400 ml Balance 840 ml -680 ml -400 ml Labs: Laboratory Tests Test 05/05/20 06:41 White Blood Count 8.6 x10^3/uL (4.0-11.0) Red Blood Count 3.43 x10^6/uL (4.30-5.70) L Hemoglobin 9.5 g/dL (13.0-17.5) L Hematocrit 29.8 % (39.0-53.0) L Mean Corpuscular Volume 87 fL (79-100) Mean Corpuscular Hemoglobin 28 pg (25-35) Mean Corpuscular Hemoglobin Concent 32 g/dL (31-37) Red Cell Distribution Width 15.6 % (11.5-14.5) H Platelet Count 252 x10^3/uL (140-400) Neutrophils (%) (Auto) 73 % (31-73) Lymphocytes (%) (Auto) 14 % (24-48) L Monocytes (%) (Auto) 9 % (0-9) Eosinophils (%) (Auto) 4 % (0-3) H Basophils (%) (Auto) 1 % (0-3) Neutrophils # (Auto) 6.2 x10^3uL (1.8-7.7) Lymphocytes # (Auto) 1.2 x10^3/uL (1.0-4.8) Monocytes # (Auto) 0.8 x10^3/uL (0.0-1.1) Eosinophils # (Auto) 0.3 x10^3/uL (0.0-0.7) Basophils # (Auto) 0.0 x10^3/uL (0.0-0.2) Sodium Level 144 mmol/L (136-145) Potassium Level 4.0 mmol/L (3.5-5.1) Chloride Level 108 mmol/L (98-107) H Carbon Dioxide Level 30 mmol/L (21-32) Anion Gap 6 (6-14) Blood Urea Nitrogen 18 mg/dL (8-26) Creatinine 0.8 mg/dL (0.7-1.3) Estimated GFR (Cockcroft-Gault) 92.1 BUN/Creatinine Ratio 23 (6-20) H Glucose Level 85 mg/dL (70-99) Calcium Level 8.4 mg/dL (8.5-10.1) L Total Bilirubin 0.2 mg/dL (0.2-1.0) Aspartate Amino Transferase (AST) 10 U/L (15-37) L Alanine Aminotransferase (ALT) 8 U/L (16-63) L Alkaline Phosphatase 74 U/L (46-116) Total Protein 5.6 g/dL (6.4-8.2) L Albumin 2.6 g/dL (3.4-5.0) L Albumin/Globulin Ratio 0.9 (1.0-1.7) L Current Medications: I have reviewed the current psychotropics carefully including drug interactions. Risk benefit ratio favors no change other than as noted in my dictated progress note. Diagnosis: Problems: (1) Dementia, vascular, with depression (2) Dementia, vascular, with delusions (3) Dementia in Alzheimer's disease with depression (4) Dementia in Alzheimer's disease with delusions (5) Major neurocognitive disorder (6) Major depressive disorder with psychotic features SKYE GALVAN MD May 05, 2020 20:46
[2020-05-05] MEDS ORDERED: ZIPRASIDONE 60 MG CAPSULE. PO SCH (21:00)
[2020-05-05] MEDS: FLUTICASONE 50MCG/NASAL SPRAY 16GM BOTTLE. NS SCH (21:06)
[2020-05-05] MEDS: ATORVASTATIN CALCIUM 10 MG TABLET. PO SCH (21:07)
[2020-05-05] MEDS: MIRTAZAPINE 7.5 MG TABLET. PO SCH (21:07)
[2020-05-05] MEDS: TAMSULOSIN 0.4 MG CAP.ER.24H. PO SCH (21:07)
[2020-05-05] MEDS: MELATONIN 3 MG TABLET PO SCH (21:07)
[2020-05-05] MEDS ORDERED: ZIPRASIDONE 60 MG CAPSULE. PO ONE (21:15)
[2020-05-06 06:21] VITALS: BP 111/65
--- NOTE | 2020-05-06 07:50 | PDOC ---
Exam Note: Ernesto Note: This note is a late entry for 05/04/2020 covers elements not covered in my initial note. Subjective: The patient was reviewed on telehealth rounds in the evening of 05/04/2020 with Filiberto MAHMOOD. Discussed with Nancy MAHMOOD, reviewed the chart. He slept 7 hours previous night. The patient has done better, less paranoid, delusional, no mentions of his having an affair. Review of Systems: Shortness of breath on O2 supplements. Impaired ambulation in wheelchair. No CV, , eye system symptoms on review. Mental Status Exam: The patient is oriented to himself. The patient is pleasant, interactive, wanting me to interact quite verbal. Speech coherent. Abstraction is fair. Computation impaired. Attention span is short. Language function is intact. No suicidal or homicidal ideation. Laboratory Data: Reviewed. Impression: Major depressive disorder with psychotic features. 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 Plan: No change from initial note. Assessment: Vital Signs/I&O: Vital Signs Date Time Temp Pulse Resp B/P (MAP) Pulse Ox O2 Delivery O2 Flow Rate FiO2 05/06/20 06:21 97.5 63 16 111/65 (80) 95 2.0 05/03/20 15:00 Room Air I & O 05/05/20 05/05/20 05/06/20 15:00 23:00 07:00 Intake Total 720 ml 600 ml Output Total 900 ml 300 ml Balance 720 ml -300 ml -300 ml Current Medications: Meds: Current Medications Medications (Trade) Dose Ordered Sig/Ralph Route PRN Reason Start Time Stop Time Status Last Admin Dose Admin Ziprasidone (Geodon) 60 mg 1X ONCE PO 05/05/20 21:15 05/05/20 21:16 DC 05/05/20 21:11 I have reviewed the current psychotropics carefully including drug interactions. Risk benefit ratio favors no change other than as noted in my dictated progress note. Diagnosis: Problems: (1) Dementia, vascular, with depression (2) Dementia, vascular, with delusions (3) Dementia in Alzheimer's disease with depression (4) Dementia in Alzheimer's disease with delusions (5) Major neurocognitive disorder (6) Major depressive disorder with psychotic features SKYE GALVAN MD May 06, 2020 07:50
--- NOTE | 2020-05-06 08:07 | PDOC ---
Exam Note: Ernesto Note: This note is a late entry for 05/05/2020 covers elements not covered in my initial note. Subjective: The patient was seen face to face in the evening of 05/05/2020 with Blanka MAHMOOD. Discussed with nursing staff, reviewed the chart. He slept 6-3/4 hours previous night. He was somewhat paranoid, delusional, previous night believed there were midgets in his closet, hiding there trying to hurt him.. Review of Systems: Shortness of breath on O2 supplements. Impaired ambulation with walker. No CV, , eye system symptoms on review. Mental Status Exam: The patient is reasonably oriented. Speech is coherent. Abstraction is fair. Computation impaired. Attention span is short. Language function is intact. Mood and affect somewhat anxious, labile, paranoid. Laboratory Data: Reviewed. Impression: Major depressive disorder with psychotic features. 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 Plan: Increase Geodon from 20 mg a.m. and 40 mg h.s. to 20 mg a.m. and 60 mg h.s. today and starting tomorrow he will be on 40 mg b.i.d. Check EKG in 2 days. Continue rest unchanged including Neurontin, Celexa, melatonin, Remeron, trazodone. Assessment: Vital Signs/I&O: Vital Signs Date Time Temp Pulse Resp B/P (MAP) Pulse Ox O2 Delivery O2 Flow Rate FiO2 05/06/20 06:21 97.5 63 16 111/65 (80) 95 2.0 05/03/20 15:00 Room Air I & O 05/05/20 05/05/20 05/06/20 15:00 23:00 07:00 Intake Total 720 ml 600 ml Output Total 900 ml 300 ml Balance 720 ml -300 ml -300 ml Current Medications: Meds: Current Medications Medications (Trade) Dose Ordered Sig/Ralph Route PRN Reason Start Time Stop Time Status Last Admin Dose Admin Ziprasidone (Geodon) 60 mg 1X ONCE PO 05/05/20 21:15 05/05/20 21:16 DC 05/05/20 21:11 I have reviewed the current psychotropics carefully including drug interactions. Risk benefit ratio favors no change other than as noted in my dictated progress note. Diagnosis: Problems: (1) Dementia, vascular, with depression (2) Dementia, vascular, with delusions (3) Dementia in Alzheimer's disease with depression (4) Dementia in Alzheimer's disease with delusions (5) Major neurocognitive disorder (6) Major depressive disorder with psychotic features SKYE GALVAN MD May 06, 2020 08:07
[2020-05-06] MEDS: BACITRACIN ZINC TOPICAL OINT PACKET. TP SCH ×2 (11:46→20:08)
[2020-05-06] MEDS: LACTOBACILLUS RHAMNOSUS GG 1 CAPSULE. PO SCH ×2 (11:46→20:07)
[2020-05-06] MEDS: IPRATROPIUM/ALBUTEROL 20/100mcg/INH INHALER. INH SCH ×2 (11:46→20:00)
[2020-05-06] MEDS: LIDOCAINE 2% TOPICAL JELLY 5GM TUBE. TP SCH ×2 (11:46→20:08)
[2020-05-06] MEDS: CARVEDILOL 12.5 MG TABLET PO SCH ×2 (11:46→17:19)
[2020-05-06] MEDS: DOCUSATE SODIUM 100 MG CAPSULE PO SCH ×2 (11:47→20:07)
[2020-05-06] MEDS: FUROSEMIDE 20 MG TABLET PO SCH (11:47)
[2020-05-06] MEDS: CETIRIZINE HCL 10 MG TABLET PO SCH (11:47)
[2020-05-06] MEDS: APIXABAN 2.5 MG TABLET PO SCH ×2 (11:47→20:06)
[2020-05-06] MEDS: SENNOSIDES/DOCUSATE 8.6/50MG TABLET. PO SCH (11:47)
[2020-05-06] MEDS: ASPIRIN CHEWABLE 81 MG TABLET. PO SCH (11:47)
[2020-05-06] MEDS: CITALOPRAM 20 MG TABLET. PO SCH (11:47)
[2020-05-06] MEDS: POTASSIUM CHLORIDE 10 MEQ TABLET.ER. PO SCH ×2 (11:47→20:07)
[2020-05-06] MEDS: PANTOPRAZOLE 40 MG TABLET. PO SCH (11:47)
[2020-05-06] MEDS: GABAPENTIN 300 MG CAPSULE. PO SCH ×3 (11:47→20:06)
[2020-05-06] MEDS: predniSONE 1 MG TABLET PO SCH (11:48)
[2020-05-06] MEDS: ISOSORBIDE MONONITRATE ER 30 MG TAB.ER.24H PO SCH (11:48)
[2020-05-06] MEDS: DUTASTERIDE 0.5 MG CAPSULE PO SCH (11:48)
[2020-05-06] MEDS: ZIPRASIDONE 40 MG CAPSULE. PO SCH ×2 (11:48→20:06)
[2020-05-06 15:41] VITALS: BP 112/64
[2020-05-06] MEDS: MIRTAZAPINE 7.5 MG TABLET. PO SCH (20:06)
[2020-05-06] MEDS: MELATONIN 3 MG TABLET PO SCH (20:06)
[2020-05-06] MEDS: ATORVASTATIN CALCIUM 10 MG TABLET. PO SCH (20:07)
[2020-05-06] MEDS: TAMSULOSIN 0.4 MG CAP.ER.24H. PO SCH (20:07)
[2020-05-06] MEDS: FLUTICASONE 50MCG/NASAL SPRAY 16GM BOTTLE. NS SCH (20:08)
--- NOTE | 2020-05-06 21:01 | PDOC ---
Exam Note: Ernesto Note: Please also refer to the separate dictated note~for this date of service dictated separately.~Patient seen individually. Discussed the patient with Nursing staff reviewed the chart.~Reviewed interim history and current functioning. Reviewed vital signs,~Labs/ Radiology~and current medications noted below. Continue current treatment with the changes noted in the dictated addendum note Assessment: Vital Signs/I&O: Vital Signs Date Time Temp Pulse Resp B/P (MAP) Pulse Ox O2 Delivery O2 Flow Rate FiO2 05/06/20 17:19 61 112/64 05/06/20 15:41 98.5 18 96 05/06/20 06:21 2.0 05/03/20 15:00 Room Air I & O 05/05/20 05/05/20 05/06/20 15:00 23:00 07:00 Intake Total 720 ml 600 ml Output Total 900 ml 300 ml Balance 720 ml -300 ml -300 ml Current Medications: Meds: Current Medications Medications (Trade) Dose Ordered Sig/Ralph Route PRN Reason Start Time Stop Time Status Last Admin Dose Admin Ziprasidone (Geodon) 40 mg BID PO 05/06/20 09:00 05/06/20 20:06 Ziprasidone (Geodon) 60 mg 1X ONCE PO 05/05/20 21:15 05/05/20 21:16 DC 05/05/20 21:11 I have reviewed the current psychotropics carefully including drug interactions. Risk benefit ratio favors no change other than as noted in my dictated progress note. Diagnosis: Problems: (1) Dementia, vascular, with depression (2) Dementia, vascular, with delusions (3) Dementia in Alzheimer's disease with depression (4) Dementia in Alzheimer's disease with delusions (5) Major neurocognitive disorder (6) Major depressive disorder with psychotic features SKYE GALVAN MD May 06, 2020 21:01
[2020-05-07] MEDS: CETIRIZINE HCL 10 MG TABLET PO SCH (06:27)
[2020-05-07] MEDS: CARVEDILOL 12.5 MG TABLET PO SCH ×2 (06:27→17:24)
[2020-05-07] MEDS: LACTOBACILLUS RHAMNOSUS GG 1 CAPSULE. PO SCH ×2 (06:27→19:21)
[2020-05-07] MEDS: DUTASTERIDE 0.5 MG CAPSULE PO SCH (06:28)
[2020-05-07] MEDS: PANTOPRAZOLE 40 MG TABLET. PO SCH (06:28)
[2020-05-07] MEDS: POTASSIUM CHLORIDE 10 MEQ TABLET.ER. PO SCH ×2 (06:28→19:21)
[2020-05-07] MEDS: ASPIRIN CHEWABLE 81 MG TABLET. PO SCH (06:28)
[2020-05-07] MEDS: ISOSORBIDE MONONITRATE ER 30 MG TAB.ER.24H PO SCH (06:28)
[2020-05-07] MEDS: APIXABAN 2.5 MG TABLET PO SCH ×2 (06:29→19:23)
[2020-05-07] MEDS: IPRATROPIUM/ALBUTEROL 20/100mcg/INH INHALER. INH SCH ×2 (06:29→17:28)
[2020-05-07] MEDS: CITALOPRAM 20 MG TABLET. PO SCH (06:29)
[2020-05-07] MEDS: DOCUSATE SODIUM 100 MG CAPSULE PO SCH ×2 (06:29→19:22)
[2020-05-07] MEDS: GABAPENTIN 300 MG CAPSULE. PO SCH ×3 (06:29→19:23)
[2020-05-07] MEDS: FUROSEMIDE 20 MG TABLET PO SCH (06:29)
[2020-05-07] MEDS: ZIPRASIDONE 40 MG CAPSULE. PO SCH ×2 (06:29→19:20)
[2020-05-07] MEDS: BACITRACIN ZINC TOPICAL OINT PACKET. TP SCH ×2 (06:30→19:24)
[2020-05-07] MEDS: LIDOCAINE 2% TOPICAL JELLY 5GM TUBE. TP SCH ×2 (06:30→19:24)
[2020-05-07] MEDS: predniSONE 1 MG TABLET PO SCH (06:31)
[2020-05-07 06:35] VITALS: BP 132/65
[2020-05-07 15:30] VITALS: BP 142/84
--- NOTE | 2020-05-07 18:00 | EKG ---
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
[2020-05-07] MEDS: TAMSULOSIN 0.4 MG CAP.ER.24H. PO SCH (19:21)
[2020-05-07] MEDS: ATORVASTATIN CALCIUM 10 MG TABLET. PO SCH (19:21)
[2020-05-07] MEDS: MELATONIN 3 MG TABLET PO SCH (19:21)
[2020-05-07] MEDS: MIRTAZAPINE 7.5 MG TABLET. PO SCH (19:22)
[2020-05-07] MEDS: FLUTICASONE 50MCG/NASAL SPRAY 16GM BOTTLE. NS SCH (19:23)
--- NOTE | 2020-05-07 20:58 | PDOC ---
Exam Note: Ernesto Note: Please also refer to the separate dictated note~for this date of service dictated separately.~Patient seen individually. Discussed the patient with Nursing staff reviewed the chart.~Reviewed interim history and current functioning. Reviewed vital signs,~Labs/ Radiology~and current medications noted below. Continue current treatment with the changes noted in the dictated addendum note Assessment: Vital Signs/I&O: Vital Signs Date Time Temp Pulse Resp B/P (MAP) Pulse Ox O2 Delivery O2 Flow Rate FiO2 05/07/20 17:24 67 142/84 05/07/20 15:30 97.6 18 98 Nasal Cannula 3.0 I & O 05/06/20 05/06/20 05/07/20 15:00 23:00 07:00 Intake Total 240 ml 360 ml Output Total 300 ml Balance 240 ml 360 ml -300 ml Current Medications: I have reviewed the current psychotropics carefully including drug interactions. Risk benefit ratio favors no change other than as noted in my dictated progress note. Diagnosis: Problems: (1) Dementia, vascular, with depression (2) Dementia, vascular, with delusions (3) Dementia in Alzheimer's disease with depression (4) Dementia in Alzheimer's disease with delusions (5) Major neurocognitive disorder (6) Major depressive disorder with psychotic features SKYE GALVAN MD May 07, 2020 20:58
[2020-05-08] MEDS: POTASSIUM CHLORIDE 10 MEQ TABLET.ER. PO SCH ×2 (03:52→19:35)
[2020-05-08] MEDS: CETIRIZINE HCL 10 MG TABLET PO SCH (03:52)
[2020-05-08] MEDS: CITALOPRAM 20 MG TABLET. PO SCH (03:52)
[2020-05-08] MEDS: FUROSEMIDE 20 MG TABLET PO SCH (03:52)
[2020-05-08] MEDS: DUTASTERIDE 0.5 MG CAPSULE PO SCH (03:52)
[2020-05-08] MEDS: DOCUSATE SODIUM 100 MG CAPSULE PO SCH ×2 (03:52→19:34)
[2020-05-08] MEDS: LACTOBACILLUS RHAMNOSUS GG 1 CAPSULE. PO SCH ×2 (03:52→19:34)
[2020-05-08] MEDS: ASPIRIN CHEWABLE 81 MG TABLET. PO SCH (03:53)
[2020-05-08] MEDS: GABAPENTIN 300 MG CAPSULE. PO SCH ×3 (03:53→19:34)
[2020-05-08] MEDS: APIXABAN 2.5 MG TABLET PO SCH ×2 (03:53→19:35)
[2020-05-08] MEDS: ISOSORBIDE MONONITRATE ER 30 MG TAB.ER.24H PO SCH (03:53)
[2020-05-08] MEDS: ZIPRASIDONE 40 MG CAPSULE. PO SCH ×2 (03:53→19:35)
[2020-05-08] MEDS: PANTOPRAZOLE 40 MG TABLET. PO SCH (03:53)
[2020-05-08] MEDS: predniSONE 1 MG TABLET PO SCH (03:54)
[2020-05-08] MEDS: BACITRACIN ZINC TOPICAL OINT PACKET. TP SCH ×2 (03:55→19:36)
[2020-05-08] MEDS: SENNOSIDES/DOCUSATE 8.6/50MG TABLET. PO SCH (03:55)
[2020-05-08] MEDS: IPRATROPIUM/ALBUTEROL 20/100mcg/INH INHALER. INH SCH ×2 (03:56→19:36)
[2020-05-08 04:37] VITALS: BP 128/67
[2020-05-08] MEDS: LIDOCAINE 2% TOPICAL JELLY 5GM TUBE. TP SCH ×2 (04:49→19:36)
[2020-05-08] MEDS: CARVEDILOL 12.5 MG TABLET PO SCH ×2 (04:49→17:59)
--- NOTE | 2020-05-08 07:59 | PDOC ---
Exam Note: Ernesto Note: This note is a late entry for 05/06/2020 covers elements not covered in my initial note. Subjective: The patient was seen face to face in the evening of 05/06/2020 with Patricia MAHMOOD. Discussed with nursing staff, reviewed the chart. He slept 6-1/2 hours previous night. Previous evening the patient is again having active hallucinations. He felt there were some midgets in the closet. He slept until 11.30 a.m. and then was up for few hours, then again slept after 3 p.m. Review of Systems: Shortness of breath on O2 supplements. Impaired ambulation in wheelchair. No CV, , eye system symptoms on review. Mental Status Exam: The patient is reasonably oriented. I met with him in his room. He was less delusional, about his and affairs as I met with him. Speech is coherent. Abstraction is fair. Computation impaired. Attention span is short. Language function is intact. Mood and affect somewhat anxious. Laboratory Data: Reviewed. Impression: Major depressive disorder with psychotic features. 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 Plan: We will continue to adjust his antipsychotics as clinically indicated. We have increased it recently. I had also discussed the patient with [facility], social service staff and we postponed the discharge given recurrence of some psychotic symptoms which we would like to stabilize before he leaves. Assessment: Vital Signs/I&O: Vital Signs Date Time Temp Pulse Resp B/P (MAP) Pulse Ox O2 Delivery O2 Flow Rate FiO2 05/08/20 04:49 70 128/67 05/08/20 04:37 98.3 18 94 Nasal Cannula 2.0 I & O 05/07/20 05/07/20 05/08/20 15:00 23:00 07:00 Intake Total 600 ml 120 ml Output Total 600 ml Balance 600 ml -480 ml Current Medications: I have reviewed the current psychotropics carefully including drug interactions. Risk benefit ratio favors no change other than as noted in my dictated progress note. Diagnosis: Problems: (1) Dementia, vascular, with depression (2) Dementia, vascular, with delusions (3) Dementia in Alzheimer's disease with depression (4) Dementia in Alzheimer's disease with delusions (5) Major neurocognitive disorder (6) Major depressive disorder with psychotic features SKYE GALVAN MD May 08, 2020 07:59
--- NOTE | 2020-05-08 08:16 | PDOC ---
Exam Note: Ernesto Note: This note is a late entry for 05/07/2020 covers elements not covered in my initial note. Subjective: The patient was seen face to face in the evening of 05/07/2020 with Blanka MAHMOOD. Discussed with nursing staff, reviewed the chart. He slept 6-1/2 hours previous night. He is somewhat drowsy, agitated in the evening, yelling, stated he is going to . This seemed to have been prompted after an EKG was done. QTc is 444. I addressed this with him individually. He was calmer at the end of the visit. Review of Systems: Shortness of breath on O2 supplements. Impaired ambulation in wheelchair. No CV, , eye system symptoms on review. Mental Status Exam: The patient is reasonably oriented. I met with him in his room. Speech is coherent. Abstraction is fair. Computation impaired. Attention span is short. Language function is intact. Mood and affect somewhat anxious. No suicidal ideation when I closely questioned during the individual visit. Laboratory Data: Reviewed. Impression: Major depressive disorder with psychotic features. 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 Plan: No change from initial note. We will continue to increase Geodon as tolerated. Assessment: Vital Signs/I&O: Vital Signs Date Time Temp Pulse Resp B/P (MAP) Pulse Ox O2 Delivery O2 Flow Rate FiO2 05/08/20 04:49 70 128/67 05/08/20 04:37 98.3 18 94 Nasal Cannula 2.0 I & O 05/07/20 05/07/20 05/08/20 15:00 23:00 07:00 Intake Total 600 ml 120 ml Output Total 600 ml Balance 600 ml -480 ml Current Medications: I have reviewed the current psychotropics carefully including drug interactions. Risk benefit ratio favors no change other than as noted in my dictated progress note. Diagnosis: Problems: (1) Dementia, vascular, with depression (2) Dementia, vascular, with delusions (3) Dementia in Alzheimer's disease with depression (4) Dementia in Alzheimer's disease with delusions (5) Major neurocognitive disorder (6) Major depressive disorder with psychotic features SKYE GALVAN MD May 08, 2020 08:16
--- NOTE | 2020-05-08 11:20 | TX PLAN ---
Interdisciplinary Tx Plan Admission Information Mar 31, 2020 at 14:35 Legal Status (on Admission): Voluntary DPOA/Guardian Name: Lisa Huntley Contact Other Contact Name: [facility] Other Contact Verified Code Status: DNR Allergies: Coded Allergies: codeine (Verified Allergy, Unknown, 03/27/20) hydrocodone (Verified Allergy, Unknown, 03/27/20) phenylephrine (Verified Allergy, Unknown, 03/27/20) tramadol (Verified Allergy, Unknown, 03/27/20) Diagnoses Primary Diagnosis: MDD and Impulse control Reasons for Admission: Aggressive, Delusions, Agitated, Hallucinations, Suicidal ideation Problem in Patient's Words: I just don't know what is going on Additional Admission Comments: According to the intake, pt is hallucinating (auditory), poor safety and judgement, hx of SI, delusional and thinks his peers are having an affair with his , threatening to harm peers, agitated, restless, hitting staff Problems Active Problems: Hallucinating delusional restless agitation current UTI Inactive Problems: medication compliance Pt Strengths/Limitations Ability for Ward: Poor Cognitive Functioning/Ability: Poor Communication Skills/Ability: Fair Financial Resources: Fair Insight/Judgement: Poor Intellectual Ability: Fair Physical Health: Poor Social Skills: Fair Stability in Family: Good Stability in School/Work: Poor Verbal Skills: Fair Discharge Criteria Discharge Criteria: Adequate arrangements @DC, Improved behavior, Improved mood/thought Preliminary Discharge Plan Preliminary DC Plan: Current Living Arrange. Special Precautions Fall Risk: Moderate Initial D/C Plan Pt will plan to discharge back to [facility]. Identified Discharge Needs: mental health services Currently Utilized Resources Currently Utilized Resources/P: PCP Identified Problems/Hx/Goals Objectives/Short-Term Goals Short Term Goals: Dec. Aggression, Dec. Outbursts, Improved Social Skills, Medication Stabilization, Promote Coping Skill Interventions/Frequency Staff Interventions/Frequency&: Psychiatrist to assess pt at least 3x per week for medication management. Social Work to assess pt atleast 2x per week for discharge planning, and potential barriers to discharge. Nursing to assess pt medication effects, behavioral mgmt and complete 15 minute checks daily. Encourage participation in group activities (if applicable) or 1:1 engagement based off activity dept assessment. 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 Behaviors are overall improved but evening times still tend to be more challenging for Lawrence related to sun downing. He had an EKG completed on 05/07/20 and this morning he was reporting to staff that he was going to today. Lawrence's EKG was WNL. Lawrence received a roommate on 05/07/20 and he has been socializing with mateArina Lehman, daughter, participated in team meeting via phone this date. Tentative d/c date 05/12 or 05/13/20. This SW is filling in for Delia Gould who has thus far followed patients care. SW will update Medical[facility] Chasity and begin coordinating upcoming d/c. CHRISTIAN BAKER May 08, 2020 11:20
[2020-05-08] MEDS: hydrOXYzine HCL 25 MG TABLET PO PRN (17:59)
[2020-05-08] MEDS: traZODone 50 MG TABLET. PO PRN (19:34)
[2020-05-08] MEDS: MELATONIN 3 MG TABLET PO SCH (19:34)
[2020-05-08] MEDS: MIRTAZAPINE 7.5 MG TABLET. PO SCH (19:34)
[2020-05-08] MEDS: ATORVASTATIN CALCIUM 10 MG TABLET. PO SCH (19:35)
[2020-05-08] MEDS: TAMSULOSIN 0.4 MG CAP.ER.24H. PO SCH (19:35)
[2020-05-08] MEDS: FLUTICASONE 50MCG/NASAL SPRAY 16GM BOTTLE. NS SCH (19:36)
--- NOTE | 2020-05-08 20:54 | PDOC ---
Exam Note: Ernesto Note: Please also refer to the separate dictated note~for this date of service dictated separately.~Patient seen individually. Discussed the patient with Nursing staff reviewed the chart.~Reviewed interim history and current functioning. Reviewed vital signs,~Labs/ Radiology~and current medications noted below. Continue current treatment with the changes noted in the dictated addendum note Assessment: Vital Signs/I&O: Vital Signs Date Time Temp Pulse Resp B/P (MAP) Pulse Ox O2 Delivery O2 Flow Rate FiO2 05/08/20 17:59 70 128/67 05/08/20 04:37 98.3 18 94 Nasal Cannula 2.0 I & O 05/07/20 05/07/20 05/08/20 15:00 23:00 07:00 Intake Total 600 ml 120 ml Output Total 600 ml Balance 600 ml -480 ml Current Medications: I have reviewed the current psychotropics carefully including drug interactions. Risk benefit ratio favors no change other than as noted in my dictated progress note. Diagnosis: Problems: (1) Dementia, vascular, with depression (2) Dementia, vascular, with delusions (3) Dementia in Alzheimer's disease with depression (4) Dementia in Alzheimer's disease with delusions (5) Major neurocognitive disorder (6) Major depressive disorder with psychotic features SKYE GALVAN MD May 08, 2020 20:54
[2020-05-09 05:20] VITALS: BP 143/77
[2020-05-09] MEDS: LACTOBACILLUS RHAMNOSUS GG 1 CAPSULE. PO SCH ×2 (09:54→21:20)
[2020-05-09] MEDS: DUTASTERIDE 0.5 MG CAPSULE PO SCH (09:54)
[2020-05-09] MEDS: DOCUSATE SODIUM 100 MG CAPSULE PO SCH ×2 (09:54→21:20)
[2020-05-09] MEDS: predniSONE 1 MG TABLET PO SCH (09:54)
[2020-05-09] MEDS: CARVEDILOL 12.5 MG TABLET PO SCH ×2 (09:54→17:17)
[2020-05-09] MEDS: ASPIRIN CHEWABLE 81 MG TABLET. PO SCH (09:54)
[2020-05-09] MEDS: CITALOPRAM 20 MG TABLET. PO SCH (09:54)
[2020-05-09] MEDS: CETIRIZINE HCL 10 MG TABLET PO SCH (09:54)
[2020-05-09] MEDS: FUROSEMIDE 20 MG TABLET PO SCH (09:55)
[2020-05-09] MEDS: PANTOPRAZOLE 40 MG TABLET. PO SCH (09:55)
[2020-05-09] MEDS: LIDOCAINE 2% TOPICAL JELLY 5GM TUBE. TP SCH ×2 (09:55→21:19)
[2020-05-09] MEDS: APIXABAN 2.5 MG TABLET PO SCH ×2 (09:55→21:20)
[2020-05-09] MEDS: GABAPENTIN 300 MG CAPSULE. PO SCH ×3 (09:55→21:20)
[2020-05-09] MEDS: ZIPRASIDONE 40 MG CAPSULE. PO SCH ×2 (09:55→21:21)
[2020-05-09] MEDS: POTASSIUM CHLORIDE 10 MEQ TABLET.ER. PO SCH ×2 (09:55→21:23)
[2020-05-09] MEDS: ISOSORBIDE MONONITRATE ER 30 MG TAB.ER.24H PO SCH (09:56)
[2020-05-09] MEDS: IPRATROPIUM/ALBUTEROL 20/100mcg/INH INHALER. INH SCH ×2 (09:56→17:17)
[2020-05-09] MEDS: BACITRACIN ZINC TOPICAL OINT PACKET. TP SCH ×2 (09:56→21:23)
[2020-05-09 15:00] VITALS: BP 115/74
--- NOTE | 2020-05-09 21:05 | PDOC ---
Exam Note: Ernesto Note: Please also refer to the separate dictated note~for this date of service dictated separately.~Patient seen individually. Discussed the patient with Nursing staff reviewed the chart.~Reviewed interim history and current functioning. Reviewed vital signs,~Labs/ Radiology~and current medications noted below. Continue current treatment with the changes noted in the dictated addendum note Assessment: Vital Signs/I&O: Vital Signs Date Time Temp Pulse Resp B/P (MAP) Pulse Ox O2 Delivery O2 Flow Rate FiO2 05/09/20 17:17 70 115/74 05/09/20 15:00 97.1 20 96 Nasal Cannula 3.0 I & O 05/08/20 05/08/20 05/09/20 15:00 23:00 07:00 Intake Total 550 ml 465 ml 120 ml Balance 550 ml 465 ml 120 ml Current Medications: I have reviewed the current psychotropics carefully including drug interactions. Risk benefit ratio favors no change other than as noted in my dictated progress note. Diagnosis: Problems: (1) Dementia, vascular, with depression (2) Dementia, vascular, with delusions (3) Dementia in Alzheimer's disease with depression (4) Dementia in Alzheimer's disease with delusions (5) Major neurocognitive disorder (6) Major depressive disorder with psychotic features SKYE GALVAN MD May 09, 2020 21:05
[2020-05-09] MEDS: FLUTICASONE 50MCG/NASAL SPRAY 16GM BOTTLE. NS SCH (21:20)
[2020-05-09] MEDS: TAMSULOSIN 0.4 MG CAP.ER.24H. PO SCH (21:21)
[2020-05-09] MEDS: MELATONIN 3 MG TABLET PO SCH (21:21)
[2020-05-09] MEDS: ATORVASTATIN CALCIUM 10 MG TABLET. PO SCH (21:22)
[2020-05-09] MEDS: MIRTAZAPINE 7.5 MG TABLET. PO SCH (21:23)
[2020-05-09] MEDS: traZODone 50 MG TABLET. PO PRN (23:39)
[2020-05-10 06:32] VITALS: BP 109/59
--- NOTE | 2020-05-10 07:10 | PDOC ---
Exam Note: Ernesto Note: This note is a late entry for 05/08/2020 covers elements not covered in my initial note. Subjective: The patient was seen face to face in the morning of 05/08/2020 for treatment team meeting with Mary Jo Grimes and Claudia (social science professor staff), Shanti, Activity Therapy and Blanka MAHMOOD. Discussed with nursing staff, reviewed the chart. He slept 7-1/4 hours previous night. The patients daughter Fallon attended the treatment team meeting. We had a lengthy discussion about the patients diagnosis, progress, improved paranoia and delusions. Sleeping average is 6-1/2 hours. Appetite is 70%. He had been anxious since he had the last EKG saying that he might today. QTc interval on the EKG is 444 milliseconds. He was somewhat flirtatious previous evening. Review of Systems: Shortness of breath on O2 supplements. Impaired ambulation in wheelchair. No CV, , eye system symptoms on review. Mental Status Exam: The patient is reasonably oriented. I met with him in his room. He is verbal, interactive, somewhat anxious. Speech is coherent. Abstraction is fair. Computation impaired. Attention span is short. Language function is intact. Mood and affect somewhat anxious. No suicidal ideation or homicidal ideation. Laboratory Data: Reviewed. Impression: Major depressive disorder with psychotic features. 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 Plan: No change from initial note. Assessment: Vital Signs/I&O: Vital Signs Date Time Temp Pulse Resp B/P (MAP) Pulse Ox O2 Delivery O2 Flow Rate FiO2 05/10/20 06:32 98.2 67 16 109/59 (76) 95 Nasal Cannula 3.0 I & O 05/09/20 05/09/20 05/10/20 15:00 23:00 07:00 Intake Total 480 ml Output Total 800 ml Balance 480 ml -800 ml Current Medications: I have reviewed the current psychotropics carefully including drug interactions. Risk benefit ratio favors no change other than as noted in my dictated progress note. Diagnosis: Problems: (1) Dementia, vascular, with depression (2) Dementia, vascular, with delusions (3) Dementia in Alzheimer's disease with depression (4) Dementia in Alzheimer's disease with delusions (5) Major neurocognitive disorder (6) Major depressive disorder with psychotic features SKYE GALVAN MD May 10, 2020 07:10
--- NOTE | 2020-05-10 07:25 | PDOC ---
Exam Note: Ernesto Note: This note is a late entry for 05/09/2020 covers elements not covered in my initial note. Subjective: The patient was seen on telehealth rounds in the evening of 05/09/2020 with Blanka MAHMOOD. Discussed with nursing staff, reviewed the chart. He slept 6 hours previous night. He has done better during the day but seems to sun down, then talking about that he is going to today during the evening. He was given some p.r.n.s with little help. Review of Systems: Shortness of breath on O2 supplements. Impaired ambulation in wheelchair. No CV, , eye system symptoms on review. Mental Status Exam: The patient is reasonably oriented. I met with him in his room. Speech is coherent. Abstraction is fair. Computation impaired. Attention span is short. Language function is intact. Mood and affect somewhat anxious. Laboratory Data: Reviewed. Impression: Major depressive disorder with psychotic features. 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 Plan: The patient remains intermittently psychotic more so in the evening. He is currently on Geodon 40 mg b.i.d. EKG is 444 milliseconds on the QTc. Once he has been on this for 3 days we will increase to 40 mg a.m. and 60 mg p.m. Repeat another EKG. Continue rest unchanged. Adjust further as clinically indicated. Assessment: Vital Signs/I&O: Vital Signs Date Time Temp Pulse Resp B/P (MAP) Pulse Ox O2 Delivery O2 Flow Rate FiO2 05/10/20 06:32 98.2 67 16 109/59 (76) 95 Nasal Cannula 3.0 I & O 05/09/20 05/09/20 05/10/20 15:00 23:00 07:00 Intake Total 480 ml Output Total 800 ml Balance 480 ml -800 ml Current Medications: I have reviewed the current psychotropics carefully including drug interactions. Risk benefit ratio favors no change other than as noted in my dictated progress note. Diagnosis: Problems: (1) Dementia, vascular, with depression (2) Dementia, vascular, with delusions (3) Dementia in Alzheimer's disease with depression (4) Dementia in Alzheimer's disease with delusions (5) Major neurocognitive disorder (6) Major depressive disorder with psychotic features SKYE GALVAN MD May 10, 2020 07:25
[2020-05-10] MEDS: LIDOCAINE 2% TOPICAL JELLY 5GM TUBE. TP SCH ×2 (09:30→20:21)
[2020-05-10] MEDS: BACITRACIN ZINC TOPICAL OINT PACKET. TP SCH ×2 (09:30→20:16)
[2020-05-10] MEDS: PANTOPRAZOLE 40 MG TABLET. PO SCH (09:31)
[2020-05-10] MEDS: IPRATROPIUM/ALBUTEROL 20/100mcg/INH INHALER. INH SCH ×2 (09:31→20:15)
[2020-05-10] MEDS: POTASSIUM CHLORIDE 10 MEQ TABLET.ER. PO SCH ×2 (09:31→20:19)
[2020-05-10] MEDS: CHOLECALCIFEROL (VITAMIN D3) 50,000 UNIT CAPSULE PO SCH (09:31)
[2020-05-10] MEDS: SENNOSIDES/DOCUSATE 8.6/50MG TABLET. PO SCH (09:31)
[2020-05-10] MEDS: ASPIRIN CHEWABLE 81 MG TABLET. PO SCH (09:31)
[2020-05-10] MEDS: DUTASTERIDE 0.5 MG CAPSULE PO SCH (09:31)
[2020-05-10] MEDS: GABAPENTIN 300 MG CAPSULE. PO SCH ×3 (09:31→20:18)
[2020-05-10] MEDS: APIXABAN 2.5 MG TABLET PO SCH ×2 (09:32→20:18)
[2020-05-10] MEDS: CITALOPRAM 20 MG TABLET. PO SCH (09:32)
[2020-05-10] MEDS: ZIPRASIDONE 40 MG CAPSULE. PO SCH (09:32)
[2020-05-10] MEDS: FUROSEMIDE 20 MG TABLET PO SCH (09:32)
[2020-05-10] MEDS: CETIRIZINE HCL 10 MG TABLET PO SCH (09:32)
[2020-05-10] MEDS: CARVEDILOL 12.5 MG TABLET PO SCH ×2 (09:32→17:38)
[2020-05-10] MEDS: predniSONE 1 MG TABLET PO SCH (09:32)
[2020-05-10] MEDS: LACTOBACILLUS RHAMNOSUS GG 1 CAPSULE. PO SCH ×2 (09:32→20:17)
[2020-05-10] MEDS: ISOSORBIDE MONONITRATE ER 30 MG TAB.ER.24H PO SCH (09:33)
[2020-05-10] MEDS: DOCUSATE SODIUM 100 MG CAPSULE PO SCH ×2 (09:33→20:17)
[2020-05-10 15:59] VITALS: BP 100/58
[2020-05-10] MEDS: FLUTICASONE 50MCG/NASAL SPRAY 16GM BOTTLE. NS SCH (20:15)
[2020-05-10] MEDS: MELATONIN 3 MG TABLET PO SCH (20:16)
[2020-05-10] MEDS: MIRTAZAPINE 7.5 MG TABLET. PO SCH (20:17)
[2020-05-10] MEDS: TAMSULOSIN 0.4 MG CAP.ER.24H. PO SCH (20:18)
[2020-05-10] MEDS: ZIPRASIDONE 60 MG CAPSULE. PO SCH (20:19)
[2020-05-10] MEDS: ATORVASTATIN CALCIUM 10 MG TABLET. PO SCH (20:20)
--- NOTE | 2020-05-10 21:08 | PDOC ---
Exam Note: Ernesto Note: Please also refer to the separate dictated note~for this date of service dictated separately.~Patient seen individually. Discussed the patient with Nursing staff reviewed the chart.~Reviewed interim history and current functioning. Reviewed vital signs,~Labs/ Radiology~and current medications noted below. Continue current treatment with the changes noted in the dictated addendum note Assessment: Vital Signs/I&O: Vital Signs Date Time Temp Pulse Resp B/P (MAP) Pulse Ox O2 Delivery O2 Flow Rate FiO2 05/10/20 17:38 65 100/58 05/10/20 15:59 98.1 16 94 05/10/20 06:32 Nasal Cannula 3.0 I & O 0 05/09/20 05/09/20 05/10/20 15:00 23:00 07:00 Intake Total 480 ml Output Total 800 ml Balance 480 ml -800 ml Current Medications: Meds: Current Medications Medications (Trade) Dose Ordered Sig/Ralph Route PRN Reason Start Time Stop Time Status Last Admin Dose Admin Ziprasidone (Geodon) 40 mg DAILY PO 05/10/20 09:00 05/10/20 09:32 Ziprasidone (Geodon) 60 mg HS PO 05/10/20 21:00 05/10/20 20:19 I have reviewed the current psychotropics carefully including drug interactions. Risk benefit ratio favors no change other than as noted in my dictated progress note. 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
[2020-05-11 05:52] VITALS: BP 150/65
[2020-05-11] MEDS: GABAPENTIN 300 MG CAPSULE. PO SCH ×3 (08:38→19:50)
[2020-05-11] MEDS: BACITRACIN ZINC TOPICAL OINT PACKET. TP SCH ×2 (08:38→19:48)
[2020-05-11] MEDS: CETIRIZINE HCL 10 MG TABLET PO SCH (08:38)
[2020-05-11] MEDS: LIDOCAINE 2% TOPICAL JELLY 5GM TUBE. TP SCH ×2 (08:38→19:46)
[2020-05-11] MEDS: predniSONE 1 MG TABLET PO SCH (08:38)
[2020-05-11] MEDS: APIXABAN 2.5 MG TABLET PO SCH ×2 (08:38→19:46)
[2020-05-11] MEDS: PANTOPRAZOLE 40 MG TABLET. PO SCH (08:38)
[2020-05-11] MEDS: IPRATROPIUM/ALBUTEROL 20/100mcg/INH INHALER. INH SCH ×2 (08:38→19:45)
[2020-05-11] MEDS: LACTOBACILLUS RHAMNOSUS GG 1 CAPSULE. PO SCH ×2 (08:38→19:46)
[2020-05-11] MEDS: DOCUSATE SODIUM 100 MG CAPSULE PO SCH ×2 (08:39→19:48)
[2020-05-11] MEDS: FUROSEMIDE 20 MG TABLET PO SCH (08:39)
[2020-05-11] MEDS: ISOSORBIDE MONONITRATE ER 30 MG TAB.ER.24H PO SCH (08:39)
[2020-05-11] MEDS: POTASSIUM CHLORIDE 10 MEQ TABLET.ER. PO SCH ×2 (08:39→19:47)
[2020-05-11] MEDS: ASPIRIN CHEWABLE 81 MG TABLET. PO SCH (08:39)
[2020-05-11] MEDS: CITALOPRAM 20 MG TABLET. PO SCH (08:39)
[2020-05-11] MEDS: ZIPRASIDONE 40 MG CAPSULE. PO SCH (08:39)
[2020-05-11] MEDS: DUTASTERIDE 0.5 MG CAPSULE PO SCH (08:39)
[2020-05-11] MEDS: CARVEDILOL 12.5 MG TABLET PO SCH ×2 (08:40→16:09)
[2020-05-11 15:00] VITALS: BP 97/60
[2020-05-11] MEDS: FLUTICASONE 50MCG/NASAL SPRAY 16GM BOTTLE. NS SCH (19:45)
[2020-05-11] MEDS: ZIPRASIDONE 60 MG CAPSULE. PO SCH (19:46)
[2020-05-11] MEDS: TAMSULOSIN 0.4 MG CAP.ER.24H. PO SCH (19:47)
[2020-05-11] MEDS: ATORVASTATIN CALCIUM 10 MG TABLET. PO SCH (19:48)
[2020-05-11] MEDS: MELATONIN 3 MG TABLET PO SCH (19:49)
[2020-05-11] MEDS: MIRTAZAPINE 7.5 MG TABLET. PO SCH (19:50)
--- NOTE | 2020-05-11 20:49 | PDOC ---
Exam Note: Ernesto Note: Please also refer to the separate dictated note~for this date of service dictated separately.~Patient seen individually. Discussed the patient with Nursing staff reviewed the chart.~Reviewed interim history and current functioning. Reviewed vital signs,~Labs/ Radiology~and current medications noted below. Continue current treatment with the changes noted in the dictated addendum note Assessment: Vital Signs/I&O: Vital Signs Date Time Temp Pulse Resp B/P (MAP) Pulse Ox O2 Delivery O2 Flow Rate FiO2 05/11/20 16:09 97/60 05/11/20 15:00 97.7 67 16 96 05/11/20 05:52 3.0 05/10/20 06:32 Nasal Cannula I & O 05/10/20 05/10/20 05/11/20 15:00 23:00 07:00 Intake Total 480 ml 480 ml Output Total 750 ml 400 ml Balance 480 ml -270 ml -400 ml Labs: Laboratory Tests Test 05/11/20 06:00 SARS-CoV-2 (PCR) Negative (NEGATIVE) Current Medications: Meds: Current Medications Medications (Trade) Dose Ordered Sig/Ralph Route PRN Reason Start Time Stop Time Status Last Admin Dose Admin Ziprasidone (Geodon) 60 mg HS PO 05/10/20 21:00 05/11/20 19:46 I have reviewed the current psychotropics carefully including drug interactions. Risk benefit ratio favors no change other than as noted in my dictated progress note. 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
[2020-05-12 05:55] VITALS: BP 113/71
[2020-05-12 06:50] LABS: BASO # 0.1 x10^3/uL (0.0-0.2); BASO % 1 % (0-3); EOS # 0.3 x10^3/uL (0.0-0.7); EOS % 4 % (0-3); HEMATOCRIT 29.6 % (39.0-53.0); HEMOGLOBIN 9.4 g/dL (13.0-17.5); LYMPH # 1.2 x10^3/uL (1.0-4.8); LYMPH % 14 % (24-48); MEAN CORPUSCULAR HEMOGLOBIN 27 pg (25-35); MEAN CORPUSCULAR HGB CONC 32 g/dL (31-37); MEAN CORPUSCULAR VOLUME 86 fL (79-100); MONO # 0.8 x10^3/uL (0.0-1.1); MONO % 9 % (0-9); NEUT # 6.2 x10^3uL (1.8-7.7); NEUT % 72 % (31-73); PLATELET COUNT 205 x10^3/uL (140-400); RED BLOOD COUNT 3.44 x10^6/uL (4.30-5.70); RED CELL DISTRIBUTION WIDTH 15.6 % (11.5-14.5); WHITE BLOOD COUNT 8.6 x10^3/uL (4.0-11.0)
[2020-05-12 07:06] LABS: ALBUMIN 2.4 g/dL (3.4-5.0); ALBUMIN/GLOBULIN RATIO 0.8 (1.0-1.7); CREATININE 0.8 mg/dL (0.7-1.3); GFR 92.1; POTASSIUM 3.9 mmol/L (3.5-5.1); TOTAL BILIRUBIN 0.2 mg/dL (0.2-1.0); TOTAL PROTEIN 5.4 g/dL (6.4-8.2)
--- NOTE | 2020-05-12 07:37 | PDOC ---
Exam Note: Ernesto Note: This note is a late entry for 05/10/2020 covers elements not covered in my initial note. Subjective: The patient was seen on telehealth rounds in the evening of 05/10/2020 with Filiberto MAHMOOD. Discussed with nursing staff, reviewed the chart. He slept 4-1/4 hours previous night. The patient has been doing better, less delusional during the day. Review of Systems: Shortness of breath on O2 supplements. Impaired ambulation in wheelchair. No CV, , eye system symptoms on review. Mental Status Exam: The patient is reasonably oriented. As I specifically questioned the patient he seemed less delusional about his . Speech is coherent. Abstraction is fair. Computation impaired. Attention span is short. Language function is intact. Mood and affect somewhat anxious. Laboratory Data: Reviewed. Impression: Major depressive disorder with psychotic features. 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 Plan: Geodon will be increased from 40 mg b.i.d. to 40 mg a.m. and 60 mg p.m., after he has been on the lower dosage for 3 days and we will repeat another EKG for checking the QTc interval. Assessment: Vital Signs/I&O: Vital Signs Date Time Temp Pulse Resp B/P (MAP) Pulse Ox O2 Delivery O2 Flow Rate FiO2 05/12/20 05:55 98.1 63 20 113/71 (85) 97 3.0 05/10/20 06:32 Nasal Cannula I & O 05/11/20 05/11/20 05/12/20 15:00 23:00 07:00 Intake Total 200 ml 300 ml Output Total 680 ml 400 ml Balance 200 ml -380 ml -400 ml Labs: Laboratory Tests Test 05/12/20 06:20 White Blood Count 8.6 x10^3/uL (4.0-11.0) Red Blood Count 3.44 x10^6/uL (4.30-5.70) L Hemoglobin 9.4 g/dL (13.0-17.5) L Hematocrit 29.6 % (39.0-53.0) L Mean Corpuscular Volume 86 fL (79-100) Mean Corpuscular Hemoglobin 27 pg (25-35) Mean Corpuscular Hemoglobin Concent 32 g/dL (31-37) Red Cell Distribution Width 15.6 % (11.5-14.5) H Platelet Count 205 x10^3/uL (140-400) Neutrophils (%) (Auto) 72 % (31-73) Lymphocytes (%) (Auto) 14 % (24-48) L Monocytes (%) (Auto) 9 % (0-9) Eosinophils (%) (Auto) 4 % (0-3) H Basophils (%) (Auto) 1 % (0-3) Neutrophils # (Auto) 6.2 x10^3uL (1.8-7.7) Lymphocytes # (Auto) 1.2 x10^3/uL (1.0-4.8) Monocytes # (Auto) 0.8 x10^3/uL (0.0-1.1) Eosinophils # (Auto) 0.3 x10^3/uL (0.0-0.7) Basophils # (Auto) 0.1 x10^3/uL (0.0-0.2) Sodium Level 141 mmol/L (136-145) Potassium Level 3.9 mmol/L (3.5-5.1) Chloride Level 104 mmol/L (98-107) Carbon Dioxide Level 33 mmol/L (21-32) H Anion Gap 4 (6-14) L Blood Urea Nitrogen 17 mg/dL (8-26) Creatinine 0.8 mg/dL (0.7-1.3) Estimated GFR (Cockcroft-Gault) 92.1 BUN/Creatinine Ratio 21 (6-20) H Glucose Level 84 mg/dL (70-99) Calcium Level 8.0 mg/dL (8.5-10.1) L Total Bilirubin 0.2 mg/dL (0.2-1.0) Aspartate Amino Transferase (AST) 8 U/L (15-37) L Alanine Aminotransferase (ALT) 7 U/L (16-63) L Alkaline Phosphatase 79 U/L (46-116) Total Protein 5.4 g/dL (6.4-8.2) L Albumin 2.4 g/dL (3.4-5.0) L Albumin/Globulin Ratio 0.8 (1.0-1.7) L Current Medications: I have reviewed the current psychotropics carefully including drug interactions. Risk benefit ratio favors no change other than as noted in my dictated progress note. 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
--- NOTE | 2020-05-12 07:58 | PDOC ---
Exam Note: Ernesto Note: This note is a late entry for 05/11/2020 covers elements not covered in my initial note. Subjective: The patient was seen on telehealth rounds in the evening of 05/11/2020 with Filiberto MAHMOOD. Discussed with nursing staff, reviewed the chart. He slept 7-1/2 hours previous night. Overall the patient is doing better, less delusional. His diet has been changed back to mechanical soft and thin liquids per speech evaluation. Review of Systems: Shortness of breath on O2 supplements. Impaired ambulation in wheelchair. No CV, , eye system symptoms on review. Mental Status Exam: The patient is reasonably oriented. He is pleasant, verbal, interactive, less delusional about his as I questioned him closely on this. Speech is coherent. Abstraction is fair. Computation impaired. Attention span is short. Language function is intact. Mood and affect somewhat anxious. No suicidal or homicidal ideation. Laboratory Data: Reviewed. Impression: Major depressive disorder with psychotic features. 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 Plan: No change from initial note. Assessment: Vital Signs/I&O: Vital Signs Date Time Temp Pulse Resp B/P (MAP) Pulse Ox O2 Delivery O2 Flow Rate FiO2 05/12/20 05:55 98.1 63 20 113/71 (85) 97 3.0 05/10/20 06:32 Nasal Cannula I & O 05/11/20 05/11/20 05/12/20 14:59 22:59 06:59 Intake Total 320 ml 300 ml Output Total 680 ml 400 ml Balance 320 ml -380 ml -400 ml Labs: Laboratory Tests Test 05/12/20 06:20 White Blood Count 8.6 x10^3/uL (4.0-11.0) Red Blood Count 3.44 x10^6/uL (4.30-5.70) L Hemoglobin 9.4 g/dL (13.0-17.5) L Hematocrit 29.6 % (39.0-53.0) L Mean Corpuscular Volume 86 fL (79-100) Mean Corpuscular Hemoglobin 27 pg (25-35) Mean Corpuscular Hemoglobin Concent 32 g/dL (31-37) Red Cell Distribution Width 15.6 % (11.5-14.5) H Platelet Count 205 x10^3/uL (140-400) Neutrophils (%) (Auto) 72 % (31-73) Lymphocytes (%) (Auto) 14 % (24-48) L Monocytes (%) (Auto) 9 % (0-9) Eosinophils (%) (Auto) 4 % (0-3) H Basophils (%) (Auto) 1 % (0-3) Neutrophils # (Auto) 6.2 x10^3uL (1.8-7.7) Lymphocytes # (Auto) 1.2 x10^3/uL (1.0-4.8) Monocytes # (Auto) 0.8 x10^3/uL (0.0-1.1) Eosinophils # (Auto) 0.3 x10^3/uL (0.0-0.7) Basophils # (Auto) 0.1 x10^3/uL (0.0-0.2) Sodium Level 141 mmol/L (136-145) Potassium Level 3.9 mmol/L (3.5-5.1) Chloride Level 104 mmol/L (98-107) Carbon Dioxide Level 33 mmol/L (21-32) H Anion Gap 4 (6-14) L Blood Urea Nitrogen 17 mg/dL (8-26) Creatinine 0.8 mg/dL (0.7-1.3) Estimated GFR (Cockcroft-Gault) 92.1 BUN/Creatinine Ratio 21 (6-20) H Glucose Level 84 mg/dL (70-99) Calcium Level 8.0 mg/dL (8.5-10.1) L Total Bilirubin 0.2 mg/dL (0.2-1.0) Aspartate Amino Transferase (AST) 8 U/L (15-37) L Alanine Aminotransferase (ALT) 7 U/L (16-63) L Alkaline Phosphatase 79 U/L (46-116) Total Protein 5.4 g/dL (6.4-8.2) L Albumin 2.4 g/dL (3.4-5.0) L Albumin/Globulin Ratio 0.8 (1.0-1.7) L Current Medications: I have reviewed the current psychotropics carefully including drug interactions. Risk benefit ratio favors no change other than as noted in my dictated progress note. 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
[2020-05-12] MEDS: LIDOCAINE 2% TOPICAL JELLY 5GM TUBE. TP SCH ×2 (09:04→19:01)
[2020-05-12] MEDS: SENNOSIDES/DOCUSATE 8.6/50MG TABLET. PO SCH (09:09)
[2020-05-12] MEDS: FUROSEMIDE 20 MG TABLET PO SCH (09:09)
[2020-05-12] MEDS: ISOSORBIDE MONONITRATE ER 30 MG TAB.ER.24H PO SCH (09:09)
[2020-05-12] MEDS: PANTOPRAZOLE 40 MG TABLET. PO SCH (09:09)
[2020-05-12] MEDS: DUTASTERIDE 0.5 MG CAPSULE PO SCH (09:09)
[2020-05-12] MEDS: APIXABAN 2.5 MG TABLET PO SCH ×2 (09:09→18:59)
[2020-05-12] MEDS: predniSONE 1 MG TABLET PO SCH (09:09)
[2020-05-12] MEDS: GABAPENTIN 300 MG CAPSULE. PO SCH ×3 (09:10→18:59)
[2020-05-12] MEDS: BACITRACIN ZINC TOPICAL OINT PACKET. TP SCH ×2 (09:10→19:01)
[2020-05-12] MEDS: ZIPRASIDONE 40 MG CAPSULE. PO SCH (09:10)
[2020-05-12] MEDS: CETIRIZINE HCL 10 MG TABLET PO SCH (09:10)
[2020-05-12] MEDS: POTASSIUM CHLORIDE 10 MEQ TABLET.ER. PO SCH ×2 (09:10→18:59)
[2020-05-12] MEDS: DOCUSATE SODIUM 100 MG CAPSULE PO SCH ×2 (09:10→18:59)
[2020-05-12] MEDS: LACTOBACILLUS RHAMNOSUS GG 1 CAPSULE. PO SCH ×2 (09:10→18:59)
[2020-05-12] MEDS: CARVEDILOL 12.5 MG TABLET PO SCH ×2 (09:11→17:00)
[2020-05-12] MEDS: CITALOPRAM 20 MG TABLET. PO SCH (09:11)
[2020-05-12] MEDS: IPRATROPIUM/ALBUTEROL 20/100mcg/INH INHALER. INH SCH ×2 (09:11→19:00)
[2020-05-12] MEDS: ASPIRIN CHEWABLE 81 MG TABLET. PO SCH (09:11)
[2020-05-12 15:18] VITALS: BP 96/55
[2020-05-12] MEDS: MIRTAZAPINE 7.5 MG TABLET. PO SCH (18:58)
[2020-05-12] MEDS: TAMSULOSIN 0.4 MG CAP.ER.24H. PO SCH (18:58)
[2020-05-12] MEDS: ATORVASTATIN CALCIUM 10 MG TABLET. PO SCH (18:59)
[2020-05-12] MEDS: MELATONIN 3 MG TABLET PO SCH (18:59)
[2020-05-12] MEDS: ZIPRASIDONE 60 MG CAPSULE. PO SCH (18:59)
[2020-05-12] MEDS: FLUTICASONE 50MCG/NASAL SPRAY 16GM BOTTLE. NS SCH (19:01)
--- NOTE | 2020-05-12 21:21 | PDOC ---
Exam Note: Ernesto Note: Please also refer to the separate dictated note~for this date of service dictated separately.~Patient seen individually. Discussed the patient with Nursing staff reviewed the chart.~Reviewed interim history and current functioning. Reviewed vital signs,~Labs/ Radiology~and current medications noted below. Continue current treatment with the changes noted in the dictated addendum note Assessment: Vital Signs/I&O: Vital Signs Date Time Temp Pulse Resp B/P (MAP) Pulse Ox O2 Delivery O2 Flow Rate FiO2 05/12/20 17:00 72 96/55 05/12/20 15:18 98.9 16 94 05/12/20 05:55 3.0 05/10/20 06:32 Nasal Cannula I & O 05/11/20 05/11/20 05/12/20 15:00 23:00 07:00 Intake Total 320 ml 300 ml Output Total 680 ml 400 ml Balance 320 ml -380 ml -400 ml Labs: Laboratory Tests Test 05/12/20 06:20 White Blood Count 8.6 x10^3/uL (4.0-11.0) Red Blood Count 3.44 x10^6/uL (4.30-5.70) L Hemoglobin 9.4 g/dL (13.0-17.5) L Hematocrit 29.6 % (39.0-53.0) L Mean Corpuscular Volume 86 fL (79-100) Mean Corpuscular Hemoglobin 27 pg (25-35) Mean Corpuscular Hemoglobin Concent 32 g/dL (31-37) Red Cell Distribution Width 15.6 % (11.5-14.5) H Platelet Count 205 x10^3/uL (140-400) Neutrophils (%) (Auto) 72 % (31-73) Lymphocytes (%) (Auto) 14 % (24-48) L Monocytes (%) (Auto) 9 % (0-9) Eosinophils (%) (Auto) 4 % (0-3) H Basophils (%) (Auto) 1 % (0-3) Neutrophils # (Auto) 6.2 x10^3uL (1.8-7.7) Lymphocytes # (Auto) 1.2 x10^3/uL (1.0-4.8) Monocytes # (Auto) 0.8 x10^3/uL (0.0-1.1) Eosinophils # (Auto) 0.3 x10^3/uL (0.0-0.7) Basophils # (Auto) 0.1 x10^3/uL (0.0-0.2) Sodium Level 141 mmol/L (136-145) Potassium Level 3.9 mmol/L (3.5-5.1) Chloride Level 104 mmol/L (98-107) Carbon Dioxide Level 33 mmol/L (21-32) H Anion Gap 4 (6-14) L Blood Urea Nitrogen 17 mg/dL (8-26) Creatinine 0.8 mg/dL (0.7-1.3) Estimated GFR (Cockcroft-Gault) 92.1 BUN/Creatinine Ratio 21 (6-20) H Glucose Level 84 mg/dL (70-99) Calcium Level 8.0 mg/dL (8.5-10.1) L Total Bilirubin 0.2 mg/dL (0.2-1.0) Aspartate Amino Transferase (AST) 8 U/L (15-37) L Alanine Aminotransferase (ALT) 7 U/L (16-63) L Alkaline Phosphatase 79 U/L (46-116) Total Protein 5.4 g/dL (6.4-8.2) L Albumin 2.4 g/dL (3.4-5.0) L Albumin/Globulin Ratio 0.8 (1.0-1.7) L Current Medications: I have reviewed the current psychotropics carefully including drug interactions. Risk benefit ratio favors no change other than as noted in my dictated progress note. 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
[2020-05-12] MEDS ORDERED: CHOL500021 PO (23:36)
[2020-05-12] MEDS ORDERED: LIDO1ADH4 TP (23:39)
[2020-05-12] MEDS ORDERED: MIRT7.5T8 PO (23:42)
[2020-05-12] MEDS ORDERED: TRAZ-120 PO (23:44)
[2020-05-12] MEDS ORDERED: ZIPR40CA2 PO ×2 (23:48→23:49)
[2020-05-12] MEDS ORDERED: OLAN5TAB99 PO (23:50)
[2020-05-13] MEDS ORDERED: CITA20TA9 PO (00:26)
[2020-05-13] MEDS ORDERED: MAGN24003 PO (00:36)
[2020-05-13] MEDS ORDERED: [UNRECOGNIZED DRUG - CODE] PO (00:38)
[2020-05-13 05:56] VITALS: BP 152/76
--- NOTE | 2020-05-13 08:01 | PDOC ---
Exam Note: Ernesto Note: This note is a late entry for 05/12/2020 covers elements not covered in my initial note. Subjective: The patient was seen on telehealth rounds in the evening of 05/12/2020 with Patricia MAHMOOD. Discussed with nursing staff, reviewed the chart. He slept 7 hours previous night. Overall the patient has done better, less delusional about his . Review of Systems: Shortness of breath on O2 supplements. Impaired ambulation in wheelchair. No CV, , eye system symptoms on review. Mental Status Exam: The patient is reasonably oriented. He is quite verbal, interactive, much less paranoid. Speech is coherent. Abstraction is fair. Computation impaired. Attention span is short. Language function is intact. Mood and affect somewhat anxious. No suicidal or homicidal ideation. Laboratory Data: Reviewed. Impression: Major depressive disorder with psychotic features. 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 Plan: No change from initial note. Assessment: Vital Signs/I&O: Vital Signs Date Time Temp Pulse Resp B/P (MAP) Pulse Ox O2 Delivery O2 Flow Rate FiO2 05/13/20 05:56 97.5 75 20 152/76 (101) 98 2.0 05/10/20 06:32 Nasal Cannula I & O 05/12/20 05/12/20 05/13/20 15:00 23:00 07:00 Intake Total 960 ml 425 ml Output Total 250 ml 0 ml 300 ml Balance 710 ml 425 ml -300 ml Current Medications: I have reviewed the current psychotropics carefully including drug interactions. Risk benefit ratio favors no change other than as noted in my dictated progress note. 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
[2020-05-13] MEDS ORDERED: ATOR10TA60 PO (08:04)
[2020-05-13] MEDS ORDERED: ATOR10TA PO (08:05)
[2020-05-13] MEDS ORDERED: HYOS0.12 PO (08:07)
[2020-05-13] MEDS ORDERED: LIDO5JEL3 TP (08:12)
[2020-05-13] MEDS ORDERED: HYDR25TA PO (08:14)
[2020-05-13] MEDS: ISOSORBIDE MONONITRATE ER 30 MG TAB.ER.24H PO SCH (09:56)
[2020-05-13] MEDS: ZIPRASIDONE 40 MG CAPSULE. PO SCH (09:56)
[2020-05-13] MEDS: POTASSIUM CHLORIDE 10 MEQ TABLET.ER. PO SCH (09:56)
[2020-05-13] MEDS: APIXABAN 2.5 MG TABLET PO SCH (09:56)
[2020-05-13] MEDS: GABAPENTIN 300 MG CAPSULE. PO SCH (09:56)
[2020-05-13] MEDS: ASPIRIN CHEWABLE 81 MG TABLET. PO SCH (09:56)
[2020-05-13] MEDS: DOCUSATE SODIUM 100 MG CAPSULE PO SCH (09:56)
[2020-05-13 09:57] VITALS: BP 152/76
[2020-05-13] MEDS: PANTOPRAZOLE 40 MG TABLET. PO SCH (09:57)
[2020-05-13] MEDS: CITALOPRAM 20 MG TABLET. PO SCH (09:57)
[2020-05-13] MEDS: DUTASTERIDE 0.5 MG CAPSULE PO SCH (09:57)
[2020-05-13] MEDS: LACTOBACILLUS RHAMNOSUS GG 1 CAPSULE. PO SCH (09:57)
[2020-05-13] MEDS: FUROSEMIDE 20 MG TABLET PO SCH (09:57)
[2020-05-13] MEDS: CETIRIZINE HCL 10 MG TABLET PO SCH (09:57)
[2020-05-13] MEDS: CARVEDILOL 12.5 MG TABLET PO SCH (09:57)
[2020-05-13] MEDS: LIDOCAINE 2% TOPICAL JELLY 5GM TUBE. TP SCH (09:58)
[2020-05-13] MEDS: BACITRACIN ZINC TOPICAL OINT PACKET. TP SCH (09:58)
[2020-05-13] MEDS: predniSONE 1 MG TABLET PO SCH (09:58)
[2020-05-13] MEDS: IPRATROPIUM/ALBUTEROL 20/100mcg/INH INHALER. INH SCH (09:58)
--- NOTE | 2020-05-13 20:53 | PDOC ---
Exam Note: Ernesto Note: Please also refer to the separate dictated note~for this date of service dictated separately.~Patient seen individually. Discussed the patient with Nursing staff reviewed the chart.~Reviewed interim history and current functioning. Reviewed vital signs,~Labs/ Radiology~and current medications noted below. Continue current treatment with the changes noted in the dictated addendum note Assessment: Vital Signs/I&O: Vital Signs Date Time Temp Pulse Resp B/P (MAP) Pulse Ox O2 Delivery O2 Flow Rate FiO2 05/13/20 09:57 75 152/76 05/13/20 05:56 97.5 20 98 2.0 05/10/20 06:32 Nasal Cannula I & O 0 05/12/20 05/12/20 05/13/20 15:00 23:00 07:00 Intake Total 960 ml 425 ml Output Total 250 ml 0 ml 300 ml Balance 710 ml 425 ml -300 ml Current Medications: I have reviewed the current psychotropics carefully including drug interactions. Risk benefit ratio favors no change other than as noted in my dictated progress note. 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
--- NOTE | 2020-05-14 22:25 | DS ---
DATE OF DISCHARGE: 05/13/2020 DISCHARGE SUMMARY/PSYCHIATRIC PROGRESS NOTE This late entry 05/13 covers elements not covered in my initial note. REASON FOR ADMISSION: Please refer to the admission history for details. HISTORY OF PRESENT ILLNESS: Briefly, the patient is an 85-year-old male, referred to us from [facility] on account of worsening symptoms of depression, suicidal ideation, having active auditory hallucinations. He was having repeated falls, was markedly delusional thought, his was having an affair with one of his peers at the prison. He was threatening to harm the peer, was agitated, restless, hitting staff, yelling, cursing, name calling, having marked insomnia. He was recently treated for UTI, had failed outpatient psychiatric interventions resulting in this referral. SIGNIFICANT FINDINGS AND CLINICAL COURSE: Following admission, the patient was seen daily individually by myself from a psychiatric standpoint, medical followup per Dr. Demarco/Dr. Wilson. The patient remained extremely psychotic, depressed, delusional, agitated, worsening in the evening. CT head showed chronic microvascular changes, reflective of his early memory deficits, which worsened with the . Adjustments were made in his psychotropics. He seemed to respond to a combination of Celexa 20 mg a day, gabapentin 300 mg 3 times a day, melatonin 6 mg at bedtime, Remeron 7.5 mg at bedtime, Zyprexa and trazodone were p.r.n., hydroxyzine 25 mg t.i.d. p.r.n., Geodon 40 mg a.m. and 60 mg p.m. He did have a UTI, which was treated, some of the psychotic symptoms, mood symptoms and anxiety appeared to improve following this as well as adjustment in his psychotropics prior to discharge on 05/13/2020. REVIEW OF SYSTEMS: Ambulation impaired in wheelchair, shortness of breath on O2 supplements. No CV, GI, , eye system symptoms on review. MENTAL STATUS EXAM: Oriented to himself and situation. Speech has some latency, coherent. Abstraction fair, computation impaired, language function intact, attention span short. Mood and affect is improved. No suicidal ideation at discharge. FINAL DIAGNOSES: Major depressive disorder with psychotic features; mild cognitive impairment; psychotic disorder, unspecified, improved. Rest unchanged from admission. DISCHARGE MEDICATIONS: Please refer to the [facility]. DISCHARGE INSTRUCTIONS: Outpatient psychiatric and medical followup at the prison. MAN Aaron GALVAN MD DR: STEPHEN/ivania JOB#: [id number] / [id number]
== END 2020-05-13 10:50 | DRG 885 ==
LOC: GEROPSY 14:35
PROVIDERS: ADMIT Psychiatry & Neurology Psychiatry; ATTEND Psychiatry & Neurology Psychiatry
PROC: 5A0935A Assistance with Respiratory Ventilation, Less than 24 Consecutive Hours, High Flow/Velocity Cannula (ICD-10-PCS; principal; 2020-04-10)
DX: F32.3 Major depressive disorder, single episode, severe with psychotic features (principal); F05 Delirium due to known physiological condition; R45.851 Suicidal ideations; N13.8 Other obstructive and reflux uropathy; F01.50 Vascular dementia, unspecified severity, without behavioral disturbance, psychotic disturbance, mood disturbance, and anxiety; Z20.828 Contact with and (suspected) exposure to other viral communicable diseases; E78.5 Hyperlipidemia, unspecified; I10 Essential (primary) hypertension; Z66 Do not resuscitate; N40.0 Benign prostatic hyperplasia without lower urinary tract symptoms; G47.00 Insomnia, unspecified; J44.9 Chronic obstructive pulmonary disease, unspecified; M19.90 Unspecified osteoarthritis, unspecified site; R29.6 Repeated falls; F41.9 Anxiety disorder, unspecified; F02.80 Dementia in other diseases classified elsewhere, unspecified severity, without behavioral disturbance, psychotic disturbance, mood disturbance, and anxiety; F63.9 Impulse disorder, unspecified; G30.9 Alzheimer's disease, unspecified; M81.0 Age-related osteoporosis without current pathological fracture; R13.10 Dysphagia, unspecified; Z86.711 Personal history of pulmonary embolism; Z95.1 Presence of aortocoronary bypass graft; Z87.891 Personal history of nicotine dependence; Z87.440 Personal history of urinary (tract) infections; Z88.6 Allergy status to analgesic agent; Z88.8 Allergy status to other drugs, medicaments and biological substances; Z79.899 Other long term (current) drug therapy
CPT/HCPCS: 36415; 70450; 71045; 73110; 80053; 81001; 85025; 87077; 87086; 87186; 92526; 93005; 97163; U0003; 92610; 97110; 97116; 97530; 97535